=== PATIENT | female | born 1940 | race Caucasian/White ===

== ENCOUNTER 2020-03-08 20:06 | Emergency (ER) | payer OTHER, SELFPAY ==
[2020-03-08 20:10] VITALS: BP 195/90; PULSE 60; RESP 18; TEMP 36.6; O2SAT 98
--- NOTE | 2020-03-08 20:16 | DI.RAD.S_ITS ---
PROCEDURE: XR ELBOW RT MIN 3V INDICATIONS: fall with pain and swelling. TECHNIQUE: 3 views of the elbow were acquired. COMPARISON: None. FINDINGS: Bones: No dislocations. No suspicious bony lesions. There is a diagonal fracture through the olecranon into the articular surface, from dorsal approach. The radial head does not appear fractured or displaced. There is a joint effusion both anteriorly and posteriorly. Soft tissues: No elbow joint effusion. No suspicious soft tissue calcifications. IMPRESSION: Moderately displaced diagonal fracture through the olecranon extending into the articular surface, with displacement of the fracture planes by at least 7 mm from anatomic position. Secondary joint effusion. Dictated by: Jesus Diana M.D. on 03/08/2020 at 20:52 Approved by: Jesus Diana M.D. on 03/08/2020 at 20:58
[2020-03-08 20:38] VITALS: BP 172/89; PULSE 59; RESP 16; O2SAT 98
--- NOTE | 2020-03-08 20:45 | ED_ITS ---
HPI - Extremity Injury (Upper) General Chief Complaint: Extremity Injury, Upper Stated Complaint: Right Elbow injury Time Seen by Provider: 03/08/20 20:40 Source: patient Mode of arrival: Ambulatory Limitations: no limitations History of Present Illness HPI narrative: This is a 79-year-old who comes to the emergency department with complaint of right elbow pain. [place] she tripped over a small log or stick and fell onto her right elbow. She denies hitting her head she denies any neck or back pain or other injuries. She states it is quite swollen and she does have pain. She states it feels like there is a fracture or break. She has been able to straighten the elbow but it is painful. She denies any numbness, tingling or weakness. Patient states that she does not have any difficulty with movement in her lower extremity but if she poly packer and heat sealer or squeezes her hands a lot it makes it more uncomfortable in the elbow. She is right handed. She states she has a history of hypertension and takes medication for this, she denies any other blood thinners or allergens. Related Data Previous Rx's Medication Instructions Recorded hydrocodone-acetaminophen [Winthrop] 1 tab PO Q6H PRN #20 tab 03/08/20 Allergies Allergy/AdvReac Type Severity Reaction Status Date / Time No Known Drug Allergies Allergy Verified 03/08/20 20:17 Review of Systems Review of Systems ROS Unobtainable: All systems reviewed & are unremarkable except as noted in HPI and below Patient History Medical History (Updated 03/08/20 @ 21:07 by Natalie Marie DO) Hypertension (Acute) Social History Smoking Status: Never smoker Smoking Status: Never smoker Substance Use Type: does not use Exam Narrative Exam Narrative: GENERAL: Alert and oriented x three, thin, well-nourished female in mild distress. HEENT: Head normocephalic, atraumatic, EOMI, pupils reactive, face symmetric, moist mucous membranes NECK: Supple, full range of motion CARDIOVASCULAR: Regular rate and rhythm without murmurs, rubs or gallops. RESPIRATORY: Breath sounds equal bilaterally, no wheezes rales or rhonchi. ABDOMEN: Soft, nontender. Normoactive bowel sounds all 4 quadrants. No guarding or rebound, rigidity, no mass EXTREMITIES: Decreased range of motion of the right elbow, patient has a moderate-sized hematoma over the elbow and proximal olecranon, patient does have tenderness over the right elbow. She does not have any bony tenderness of the distal arm, wrist or hand, no clubbing or edema. Patient has 2+ radial pulse. She has normal sensation throughout all 5 fingers with normal flexion extension, poly packer and heat sealer are equal bilaterally. Neurovascularly intact NEUROLOGICAL: Cranial nerves II through XII grossly intact. Moving all extremities SKIN: Warm, dry, no petechiae, no rashes or lacerations. + for ecchymosis over the right elbow. Initial Vital Signs Initial Vital Signs: Vital Signs Temperature 97.9 F 03/08/20 20:10 Pulse Rate 60 03/08/20 20:10 Respiratory Rate 18 03/08/20 20:10 Blood Pressure 195/90 H 03/08/20 20:10 Pulse Oximetry 98 03/08/20 20:10 Course Orders Ordered: ED Orders 03/08/20 20:16 XR elbow RT min 3V Stat Discontinued Medications Hydrocodone Bitart/Acetaminophen (Vicodin 5/325 Prepack) 1 bottle MISC SEEINSTR ONE Stop: 03/08/20 21:19 Last Admin: 03/08/20 21:38 Dose: 1 bottle Documented by: [email or web address] Vital Signs Vital signs: Vital Signs - 8 hr 03/08/20 20:10 03/08/20 20:38 Temperature 97.9 F Pulse Rate 60 59 L Respiratory Rate 18 16 Blood Pressure 195/90 H Blood Pressure [Left Arm] 172/89 H Pulse Oximetry 98 98 MDM - Extremity Injury (Upper) Imaging Data elbow xray: Radiologist's Impression: [address] [address] XRay Report Signed Patient: Samara Winslow RMR#: [id number] : 2Acct:[id number] Age/Sex: 79 / FDate of Service: 03/08/20 Loc: ED Accession Number: [id number] Procedure: XR elbow RT min 3V Ordering Provider: Natalie Marie D.O. PROCEDURE: XR ELBOW RT MIN 3V INDICATIONS: fall with pain and swelling. TECHNIQUE: 3 views of the elbow were acquired. COMPARISON: None. FINDINGS: Bones: No dislocations. No suspicious bony lesions. There is a diagonal fracture through the olecranon into the articular surface, from dorsal approach. The radial head does not appear fractured or displaced. There is a joint effusion both anteriorly and posteriorly. Soft tissues: No elbow joint effusion. No suspicious soft tissue calcifications. IMPRESSION: Moderately displaced diagonal fracture through the olecranon extending into the articular surface, with displacement of the fracture planes by at least 7 mm from anatomic position. Secondary joint effusion. Dictated by: Jesus Diana M.D. on 03/08/2020 at 20:52 Approved by: Jesus Diana M.D. on 03/08/2020 at 20:58 [facility] [place] Narrative Medical decision making narrative: Spoke with Dr. Kulkarni who reviewed patient's images. She feels patient may be able to be cared for with nonsurgical intervention. Plan to place patient in a slightly extended or 30? of extension on her elbow. Patient states this feels quite comfortable. Given Winthrop prepack and prescription for Winthrop pain medication and plan to follow-up in the next week with Orthopedic surgery. Strict return precautions were given to patient verbally and written. Patient expresses understanding. Recheck after splint was adjusted to 30 degrees flexion and patient feels much more comfortable in her elbow and is neurovascularly intact. Discharge Plan Departure Patient Disposition: Home Clinical Impression: Closed olecranon fracture Qualifiers: Encounter type: initial encounter Laterality: right Qualified Code(s): S52.021A - Displaced fracture of olecranon process without intraarticular extension of right ulna, initial encounter for closed fracture Discharge Date/Time: 03/08/20 21:30 Instructions: DI for Elbow Fracture Activity Restrictions/Additional Instructions: Follow-up with Orthopedic surgery, call Wednesday morning for an appointment. Let them know you were seen in the emergency room that the orthopedic surgeon would like you seen at the end of the week. You may take Tylenol up to a 1000 mg every 8 hours as needed for pain. If this is not adequate you may take narcotic pain medication but this also has Tylenol in it to do not take more than 3000 mg of Tylenol or acetaminophen in 24 hours. Take pain medications as prescribed, these medications can make you sleepy do not drive, perform hazardous activities or make any major decisions while taking them. Splint Care: Keep splint clean and dry. Elevated affected body part to decrease swelling. OK to use ice pack on the affected body part. Use for 15-20 minutes each time, for 5-6x per day. If you develop worsening pain, numbness, tingling, discoloration of the affected body part, loosen the splint by loosening the KEILY wrap, and either see your doctor for an urgent re-assessment, or return to the Emergency Department. Return to the Emergency Department for any new or worsening symptoms. Prescriptions: New hydrocodone-acetaminophen [Winthrop] 5-325 mg tablet 1 tab PO Q6H PRN (Reason: pain) Qty: 20 RF: 0 Referrals: Itzel Ariza MD [Physician] -
[2020-03-08] MEDS: HYDROCODONE/ACET 5/325 PREPACK 1 BOTTLE MISC (21:38)
== END 2020-03-08 21:30 | disposition home or self-care (01) ==
PROVIDERS: Emergency Provider Emergency Medicine
DX: S52.021A Displaced fracture of olecranon process without intraarticular extension of right ulna, initial encounter for closed fracture (principal); W19.XXXA Unspecified fall, initial encounter; I10 Essential (primary) hypertension
CPT/HCPCS: 29105; 73080; 99283; 99284

== ENCOUNTER 2022-07-22 09:45 | Outpatient (RCR) | payer OTHER, SELFPAY ==
--- NOTE | 2022-03-26 12:25 | PT.OIE ---
Current Diagnoses Cervicalgia (03/26/22) History of falling (03/26/22) Past Medical History (Last Updated 03/08/20 @ 21:04 by Natalie Marie DO) Hypertension Visit Care Team Role Provider Type Kalpesh Davila MD Attending Provider Non-Staff Family Provider Primary Care Provider Referring Provider Specialty: Internal Medicine Address: [address] [place] [address], [id number] Email: Physical Therapy Initial Evaluation PT-OP-A Visit Information Start: 03/26/22 09:27 Freq: Status: Active Protocol: Document 03/26/22 09:45 [facility] (Rec: 03/26/22 09:59 [facility] [id number]) Out-Patient Physical Therapy Visit Information Visit Information Visit Type Initial Evaluation Visit Start Time 09:45 Visit Stop Time 10:30 Total Visit Minutes 45 Visit Number 1 Evaluation Information Evaluation Date 03/26/22 PT-OP-B Current Condition Start: 03/26/22 09:27 Freq: Status: Active Protocol: Document 03/26/22 09:45 [facility] (Rec: 03/26/22 09:59 [facility] [id number]) Current Condition History of Current Condition Onset Date November 15 Current Complaints left sided neck pain History of Current Condition Samara is a 81 year old female who fell on November 15 at home hitting a bench on the way down with her head, her glasses broke and gouged her face just missing her eye. She has seen the eye doctor and has full vision. She triped over her dog. She hit the right side of her chin and she bruised a lot. She couldn't drive and there was no one around to drive her. She started feeling left sided neck pain, she could feel crunching of her neck and she had pain that was along the left side of her neck. SHe was very restricted in her ROM and it took about a month for it to heal up. Pain is intermittent and it can come on which computer work. The more movement she gives her neck the better she is. She has fallen several times. Treatment Goals Patient/Caregiver Goals goals include decreasing neck pain and improving balance Current Functional Impairments (Reported) Functional Limitations- ADL's computer work increases neck pain, moderate difficulty opening a tight or new jar Functional Limitations- Other sleep is disturbed 1-2 hour sleep loss pt can drive her can as long as she needs but with slight pain PT-OP-C Subjective Start: 03/26/22 09:27 Freq: Status: Active Protocol: Document 03/26/22 09:45 [facility] (Rec: 03/31/22 10:19 [facility] [id number]) Patient Questionnaires Neck Disability Index NDI Score 11 Neck Disability Index Impairment 20 to 39% Impaired (Score 10- 19) Quick Dash- Upper Extremity Quick Dash UE Score 24 Quick Dash UE Impairment 20 to 39% Impaired (Score 20- 39) OP-PT Pain Assessment Pain Assessment Grid Paper Pain Assessment Grid Completed Yes Location cervical spine L>R Intensity 4 Scale Used Numeric (0 - 10) Description Aching Description- Other pain worsens when working on the computer PT-OP-F Manual Assessment Start: 03/26/22 09:27 Freq: Status: Active Protocol: Document 03/26/22 09:45 [facility] (Rec: 03/31/22 10:19 [facility] [id number]) Manual Assessments Soft Tissue Assessment Soft Tissue Mobility Assessment suboccipital tightness B, scalene tightness L>R, SCM tightness L, Upper trapezius tightness B, pec minor tightness R Joint Mobility Assessment Joint Mobility Assessment Decreased upper cervical flexion, pt tends to extend from upper cervical spine contributing to suboccitpital tightness Decreased cervical sidebending and rotation B with pain on the left C4-5 region with cervical sidebending and rotation thoracic spine hypomobility PT-OP-K Range of Motion Start: 03/26/22 09:27 Freq: Status: Active Protocol: Document 03/26/22 09:45 [facility] (Rec: 03/31/22 10:19 [facility] [id number]) Cervical Spine Range of Motion Cervical Spine Active Testing Position Sitting Flexion 30 Extension 20 Rotation Left 40 Rotation Right 35 Lateral Flexion Left 15 Lateral Flexion Right 15 ROM Limitations Soft Tissue Tightness,Pain Comments increased pain with sidebending and rotation on the left PT-OP-M Strength Start: 03/26/22 09:27 Freq: Status: Active Protocol: Document 03/26/22 09:45 [facility] (Rec: 03/31/22 10:19 [facility] [id number]) Scapula Strength Scapula Manual Muscle Testing Right Adduction 3 Fair Depression 3 Fair Comments poor scapula retraction, upper trapezius tightness limits scapular depression Left Adduction 3 Fair Depression 3 Fair Comments poor scapula retraction, upper trapezius tightness limits scapular depression PT-OP-Q Treatments Start: 03/26/22 09:27 Freq: Status: Active Protocol: Document 03/26/22 09:45 [facility] (Rec: 03/31/22 10:19 [facility] [id number]) Therapeutic Exercises Supine Exercises supine chin tucks Reps/Minutes x 10 Comments pt educated on chin retraction and taught in both supine and sitting Sitting Exercises seated scapula retraction Reps/Minutes x 10 reps holding 5 seconds seated scalene stretch Reps/Minutes hold 30 seconds each side with hand under the chair Manual Therapy Treatment Soft Tissue Mobilization gentle STM over the left upper trap, scalenes, pec minor Body Position Supine Comments good tolerance for tx suboccipital release Body Location supine Mobilization Type Myofascial Release Intensity/Depth Moderate Body Position Supine Comments good tolerance and relief noted PT-OP-T Assessment and Plan Start: 03/26/22 09:27 Freq: Status: Active Protocol: Document 03/26/22 09:45 [facility] (Rec: 03/31/22 10:23 [facility] [id number]) Physical Therapy Assessment Rehab Potential Rehabilitation Potential Good Evaluation Complexity Number of Personal Factors/Comorbidities 0 Number of Body Systems Impaired 1-2 Clinical Presentation at Evaluation Stable Impairments Impairments Activity Tolerance,Functional Activities,Functional Mobility ,Gait,Pain,Posture,Soft Tissue Mobility,Strength Goals 3 Impairment poor postural habits at the computer leading to increased neck pain, tightness in the anterior pectoralis muscles and stretch weakness of the thoracic stabilizers Short Term Goal (STG) Samara is educated on stretches for her anterior chest and exercises for her scapular stabilizers to improve posture and decrease pain STG Duration 4 weeks Fdc Goal (LTG) Overall there is improved mobility of the pec minor and improved strength of the scapula stabilizers to 4/5 or better for improved posture LTG Duration 12 weeks 2 Impairment Decreased cervical spine ROM with sidebending and rotation ROM reproducing left sided neck pain and c/o her neck crunching Administrative Staff Supervisor Goal (LTG) Samara presents with improvements of her cervical ROM without reproduction of left sided neck pain. She is independent with a home cervical stretching and ROM program LTG Duration 12 weeks 1 Impairment Left sided cervcial spine pain rated 4/10 worse with computer activity. Short Term Goal (STG) Samara is educated in neck stretches she can do while at the computer as well as proper ergonomic set up for her computer STG Duration 2 weeks Administrative Staff Supervisor Goal (LTG) Samara reports a overall reduction in her neck pain reducing pain to 2/10 or less LTG Duration 12 weeks Assessment Summary Assessment Samara is a 81 year old female referred to PT for complaints of L>R sided neck pain that began following a fall. Samara reports she took a fall on November 15 2021 at home from a standing position after tripping over her dog hitting a bench with the right side of her head and chin. The jolt from her fall resulted in neck pain. She was unable to drive for a period of time due to healing from her fall and the neck pain. She notes her pain is slowly decreasing and rates it as 4/10 at this time. She describes a crunching feeling in her neck when she turns her head. Time spent on the computer increases her complaints of pain. With examination today Samara is tight in her suboccipital muscles with increased upper neck extension . She has ROM limitations with sidebending and rotation with pain produced on the left with end range sidebending and rotation. There is tightness in the scalenes, upper trapezius, SCM, and pec minor. Shoulders tend to round forward with tightness in the thoracic spine. I began treatment today for Samara working on computer posture, stretches and manual therapy STM for the neck musculature. She tolerated this well. Samara would also benefit from balance training and a balance evaluation as she has had a few falls at home. Physical Therapy Plan Frequency and Duration Frequency of Treatment 2x/Week Duration of Treatment 12 Plan of Care Start Date 03/26/22 Plan of Care End Date 06/25/22 Therapeutic Interventions Therapeutic Interventions Balance Training,Home Exercise Program,Manual Therapy, Patient/Caregiver Education, Self-Care/Home Management,Soft Tissue Mobilization, Therapeutic Exercises Modalities Cold Pack/Ice Massage,Hot Packs Next Visit Focus/Plan Next Note Type Treatment Note Next Visit Plan begin working with a 1/2 foam roll for stretching the pec minor, review stretches for the cervical spine, manual therapy techniques for the fascia and neck muscular
--- NOTE | 2022-03-26 12:26 | PT.OPPOC ---
Physical, Occupational & Speech Therapy At [facility] Current Diagnoses Cervicalgia (03/26/22) History of falling (03/26/22) Visit Care Team Role Provider Type Kalpesh Davila MD Attending Provider Non-Staff Family Provider Primary Care Provider Referring Provider Specialty: Internal Medicine Address: [address] [place] [address], [id number] Email: Plan Of Care PT-OP-T Assessment and Plan Start: 03/26/22 09:27 Freq: Status: Active Protocol: Document 03/26/22 09:45 [facility] (Rec: 03/31/22 10:23 [facility] [id number]) Physical Therapy Assessment Rehab Potential Rehabilitation Potential Good Evaluation Complexity Number of Personal Factors/Comorbidities 0 Number of Body Systems Impaired 1-2 Clinical Presentation at Evaluation Stable Impairments Impairments Activity Tolerance,Functional Activities,Functional Mobility ,Gait,Pain,Posture,Soft Tissue Mobility,Strength Goals 3 Impairment poor postural habits at the computer leading to increased neck pain, tightness in the anterior pectoralis muscles and stretch weakness of the thoracic stabilizers Short Term Goal (STG) Samara is educated on stretches for her anterior chest and exercises for her scapular stabilizers to improve posture and decrease pain STG Duration 4 weeks Book Store Associate Goal (LTG) Overall there is improved mobility of the pec minor and improved strength of the scapula stabilizers to 4/5 or better for improved posture LTG Duration 12 weeks 2 Impairment Decreased cervical spine ROM with sidebending and rotation ROM reproducing left sided neck pain and c/o her neck crunching Book Store Associate Goal (LTG) Samara presents with improvements of her cervical ROM without reproduction of left sided neck pain. She is independent with a home cervical stretching and ROM program LTG Duration 12 weeks 1 Impairment Left sided cervical spine pain rated 4/10 worse with computer activity. Short Term Goal (STG) Samara is educated in neck stretches she can do while at the computer as well as proper ergonomic set up for her computer STG Duration 2 weeks Mcfp Goal (LTG) Samara reports a overall reduction in her neck pain reducing pain to 2/10 or less LTG Duration 12 weeks Assessment Summary Assessment Samara is a 81 year old female referred to PT for complaints of L>R sided neck pain that began following a fall. Samara reports she took a fall on November 15 2021 at home from a standing position after tripping over her dog hitting a bench with the right side of her head and chin. The jolt from her fall resulted in neck pain. She was unable to drive for a period of time due to healing from her fall and the neck pain. She notes her pain is slowly decreasing and rates it as 4/10 at this time. She describes a crunching feeling in her neck when she turns her head. Time spent on the computer increases her complaints of pain. With examination today Samara is tight in her suboccipital muscles with increased upper neck extension . She has ROM limitations with sidebending and rotation with pain produced on the left with end range sidebending and rotation. There is tightness in the scalenes, upper trapezius, SCM, and pec minor. Shoulders tend to round forward with tightness in the thoracic spine. I began treatment today for Samara working on computer posture, stretches and manual therapy STM for the neck musculature. She tolerated this well. Samara would also benefit from balance training and a balance evaluation as she has had a few falls at home. Physical Therapy Plan Frequency and Duration Frequency of Treatment 2x/Week Duration of Treatment 12 Plan of Care Start Date 03/26/22 Plan of Care End Date 06/25/22 Therapeutic Interventions Therapeutic Interventions Balance Training,Home Exercise Program,Manual Therapy, Patient/Caregiver Education, Self-Care/Home Management,Soft Tissue Mobilization, Therapeutic Exercises Modalities Cold Pack/Ice Massage,Hot Packs Next Visit Focus/Plan Next Note Type Treatment Note Next Visit Plan begin working with a 1/2 foam roll for stretching the pec minor, review stretches for the cervical spine, manual therapy techniques for the fascia and neck muscular Plan of Care Dates Plan of Care Start Date 03/26/22 Plan of Care End Date 06/25/22 Electronically Signed by: Lainey Thomson, PT 03/31/22 7941 If you are in agreement with this Plan of Care, please return a signed and dated copy. I have reviewed this Plan of Care and certify that the skilled therapy services above are required to meet the patient?s needs. Physician Signature Date Printed Name and Credentials Clinical Instructor Signature Printed Name and Credentials
--- NOTE | 2022-04-02 12:29 | PT.OTN ---
Current Diagnoses Cervicalgia (04/02/22) History of falling (04/02/22) Physical Therapy Treatment Note PT-OP-A Visit Information Start: 03/26/22 09:27 Freq: Status: Active Protocol: Document 04/02/22 09:43 [facility] (Rec: 04/02/22 10:33 [facility] [id number]) Out-Patient Physical Therapy Visit Information Visit Information Visit Type Treatment Note Visit Start Time 09:45 Visit Stop Time 10:30 Total Visit Minutes 45 Visit Number 2 PT-OP-B Current Condition Start: 03/26/22 09:27 Freq: Status: Active Protocol: Document 03/26/22 09:45 [facility] (Rec: 03/26/22 09:59 [facility] [id number]) Current Condition History of Current Condition Onset Date November 15 Current Complaints left sided neck pain History of Current Condition Samara is a 81 year old female who fell on November 15 at home hitting a bench on the way down with her head, her glasses broke and gouged her face just missing her eye. She has seen the eye doctor and has full vision. She triped over her dog. She hit the right side of her chin and she bruised a lot. She couldn't drive and there was no one around to drive her. She started feeling left sided neck pain, she could feel crunching of her neck and she had pain that was along the left side of her neck. SHe was very restricted in her ROM and it took about a month for it to heal up. Pain is intermittent and it can come on which computer work. The more movement she gives her neck the better she is. She has fallen several times. Treatment Goals Patient/Caregiver Goals goals include decreasing neck pain and improving balance Current Functional Impairments (Reported) Functional Limitations- ADL's computer work increases neck pain, moderate difficulty opening a tight or new jar Functional Limitations- Other sleep is disturbed 1-2 hour sleep loss pt can drive her can as long as she needs but with slight pain PT-OP-C Subjective Start: 03/26/22 09:27 Freq: Status: Active Protocol: Document 04/02/22 09:43 [facility] (Rec: 04/02/22 10:33 [facility] [id number]) OP-PT Subjective Patient Comments Patient Comments pt reports the stretches are really helping, the crunching in my neck is almost gone. Patient Reported Progress Improving PT-OP-F Manual Assessment Start: 03/26/22 09:27 Freq: Status: Active Protocol: Document 03/26/22 09:45 [facility] (Rec: 03/31/22 10:19 [facility] [id number]) Manual Assessments Soft Tissue Assessment Soft Tissue Mobility Assessment suboccipital tightness B, scalene tightness L>R, SCM tightness L, Upper trapezius tightness B, pec minor tightness R Joint Mobility Assessment Joint Mobility Assessment Decreased upper cervical flexion, pt tends to extend from upper cervical spine contributing to suboccitpital tightness Decreased cervical sidebending and rotation B with pain on the left C4-5 region with cervical sidebending and rotation thoracic spine hypomobility PT-OP-K Range of Motion Start: 03/26/22 09:27 Freq: Status: Active Protocol: Document 03/26/22 09:45 [facility] (Rec: 03/31/22 10:19 [facility] [id number]) Cervical Spine Range of Motion Cervical Spine Active Testing Position Sitting Flexion 30 Extension 20 Rotation Left 40 Rotation Right 35 Lateral Flexion Left 15 Lateral Flexion Right 15 ROM Limitations Soft Tissue Tightness,Pain Comments increased pain with sidebending and rotation on the left PT-OP-M Strength Start: 03/26/22 09:27 Freq: Status: Active Protocol: Document 03/26/22 09:45 [facility] (Rec: 03/31/22 10:19 [facility] [id number]) Scapula Strength Scapula Manual Muscle Testing Right Adduction 3 Fair Depression 3 Fair Comments poor scapula retraction, upper trapezius tightness limits scapular depression Left Adduction 3 Fair Depression 3 Fair Comments poor scapula retraction, upper trapezius tightness limits scapular depression PT-OP-Q Treatments Start: 03/26/22 09:27 Freq: Status: Active Protocol: Document 04/02/22 09:43 [facility] (Rec: 04/02/22 10:33 [facility] [id number]) Therapeutic Exercises Sitting Exercises seated chin tuck Reps/Minutes x 10 reps Comments cues for gentle upper cervical flexion seated chest openers with foam roll behind back Sitting Exercise Name small foam roll behind throacic while seated in a chair Reps/Minutes x 5 min of stretching Comments shoulder ER, abduction seated scapula retraction Reps/Minutes x 10 Comments while seated with foam roll behind thoracic spine seated scalene stretch Reps/Minutes 2 reps holding 30-60 seconds each Manual Therapy Treatment Soft Tissue Mobilization gentle STM over the left upper trap, scalenes, pec minor Mobilization Type Myofascial Release Intensity/Depth Moderate Body Position Hooklying Comments good tolerance for tx suboccipital release Body Location supine Mobilization Type Myofascial Release Intensity/Depth Moderate Body Position Supine Comments good tolerance and relief noted Manual Techniques gentle manual cervcial traction Reps/Duration x 4 reps with 10 second holds Comments good tolerance cervcial ROM into SB and roation PROM Reps/Duration x 4 min PT-OP-T Assessment and Plan Start: 03/26/22 09:27 Freq: Status: Active Protocol: Document 04/02/22 09:45 [facility] (Rec: 04/02/22 12:28 [facility] [id number]) Physical Therapy Assessment Assessment Summary Assessment I worked with Samara in sitting today with both a small ball and then a short foam roll to open up her chest. She has a history of right elbow fracture and this affected her right shoulder. She has tightness with lifting the right shoulder, PROM is much better than active. She felt really good with the chest openers and was given hand outs for home. Her cervical ROM was improved today from initial evaluation and she is not feeling the crunching in her neck she was. As her neck starts to feel better it will be good to also incorporate balance exercises into her therapy Physical Therapy Plan Frequency and Duration Frequency of Treatment 2x/Week Duration of Treatment 12 Plan of Care Start Date 03/26/22 Plan of Care End Date 06/25/22 Therapeutic Interventions Therapeutic Interventions Balance Training,Home Exercise Program,Manual Therapy, Patient/Caregiver Education, Self-Care/Home Management,Soft Tissue Mobilization, Therapeutic Exercises Modalities Cold Pack/Ice Massage,Hot Packs Next Visit Focus/Plan Next Note Type Treatment Note Next Visit Plan continue with seated chest openers, work on right shoulder ROM active and passive, scapula stabilization and stretches and manual work for the neck.
--- NOTE | 2022-04-06 13:40 | PT.OTN ---
Current Diagnoses Cervicalgia (04/06/22) History of falling (04/06/22) Physical Therapy Treatment Note PT-OP-A Visit Information Start: 03/26/22 09:27 Freq: Status: Active Protocol: Document 04/06/22 12:03 [facility] (Rec: 04/06/22 12:56 [facility] [id number]) Out-Patient Physical Therapy Visit Information Visit Information Visit Type Treatment Note Visit Start Time 12:00 Visit Stop Time 12:48 Total Visit Minutes 48 Visit Number 3 Number of [employer]OPER Visits 1 PT-OP-B Current Condition Start: 03/26/22 09:27 Freq: Status: Active Protocol: Document 03/26/22 09:45 [facility] (Rec: 03/26/22 09:59 [facility] [id number]) Current Condition History of Current Condition Onset Date November 15 Current Complaints left sided neck pain History of Current Condition Samara is a 81 year old female who fell on November 15 at home hitting a bench on the way down with her head, her glasses broke and gouged her face just missing her eye. She has seen the eye doctor and has full vision. She triped over her dog. She hit the right side of her chin and she bruised a lot. She couldn't drive and there was no one around to drive her. She started feeling left sided neck pain, she could feel crunching of her neck and she had pain that was along the left side of her neck. SHe was very restricted in her ROM and it took about a month for it to heal up. Pain is intermittent and it can come on which computer work. The more movement she gives her neck the better she is. She has fallen several times. Treatment Goals Patient/Caregiver Goals goals include decreasing neck pain and improving balance Current Functional Impairments (Reported) Functional Limitations- ADL's computer work increases neck pain, moderate difficulty opening a tight or new jar Functional Limitations- Other sleep is disturbed 1-2 hour sleep loss pt can drive her can as long as she needs but with slight pain PT-OP-C Subjective Start: 03/26/22 09:27 Freq: Status: Active Protocol: Document 04/06/22 12:03 [facility] (Rec: 04/06/22 12:56 [facility] [id number]) OP-PT Subjective Patient Comments Patient Comments Pt brought bouy for exercises today. PT-OP-F Manual Assessment Start: 03/26/22 09:27 Freq: Status: Active Protocol: Document 03/26/22 09:45 [facility] (Rec: 03/31/22 10:19 [facility] [id number]) Manual Assessments Soft Tissue Assessment Soft Tissue Mobility Assessment suboccipital tightness B, scalene tightness L>R, SCM tightness L, Upper trapezius tightness B, pec minor tightness R Joint Mobility Assessment Joint Mobility Assessment Decreased upper cervical flexion, pt tends to extend from upper cervical spine contributing to suboccitpital tightness Decreased cervical sidebending and rotation B with pain on the left C4-5 region with cervical sidebending and rotation thoracic spine hypomobility PT-OP-K Range of Motion Start: 03/26/22 09:27 Freq: Status: Active Protocol: Document 03/26/22 09:45 [facility] (Rec: 03/31/22 10:19 [facility] [id number]) Cervical Spine Range of Motion Cervical Spine Active Testing Position Sitting Flexion 30 Extension 20 Rotation Left 40 Rotation Right 35 Lateral Flexion Left 15 Lateral Flexion Right 15 ROM Limitations Soft Tissue Tightness,Pain Comments increased pain with sidebending and rotation on the left PT-OP-M Strength Start: 03/26/22 09:27 Freq: Status: Active Protocol: Document 03/26/22 09:45 [facility] (Rec: 03/31/22 10:19 [facility] [id number]) Scapula Strength Scapula Manual Muscle Testing Right Adduction 3 Fair Depression 3 Fair Comments poor scapula retraction, upper trapezius tightness limits scapular depression Left Adduction 3 Fair Depression 3 Fair Comments poor scapula retraction, upper trapezius tightness limits scapular depression PT-OP-Q Treatments Start: 03/26/22 09:27 Freq: Status: Active Protocol: Document 04/06/22 12:03 [facility] (Rec: 04/06/22 12:56 MA [id number]) Therapeutic Exercises Supine Exercises Foam Roller Supine Exercise Name pec stretch, thoracic extension Equipment Used 1/2 roller Comments d/c due to difficulty with exercises while supine Sitting Exercises seated chin tuck Reps/Minutes x 10 reps Comments cues for gentle upper cervical flexion seated chest openers with foam roll behind back Sitting Exercise Name small foam roll behind throacic while seated in a chair Reps/Minutes x 5 min of stretching Comments shoulder ER, abduction seated scapula retraction Reps/Minutes x 10 Comments while seated with foam roll behind thoracic spine seated scalene stretch Sitting Exercise Name UT and scalestarla stretches today Reps/Minutes 2 reps holding 30-60 seconds each Manual Therapy Treatment Soft Tissue Mobilization gentle STM over the left upper trap, scalenes, pec minor Mobilization Type Myofascial Release Intensity/Depth Moderate Body Position Hooklying Comments good tolerance for tx suboccipital release Body Location supine Mobilization Type Myofascial Release Intensity/Depth Moderate Body Position Supine Comments good tolerance and relief noted Manual Techniques gentle manual cervcial traction Reps/Duration x 4 reps with 10 second holds Comments good tolerance PT-OP-T Assessment and Plan Start: 03/26/22 09:27 Freq: Status: Active Protocol: Document 04/06/22 12:03 [facility] (Rec: 04/06/22 12:56 [facility] [id number]) Physical Therapy Assessment Goals 3 Impairment poor postural habits at the computer leading to increased neck pain, tightness in the anterior pectoralis muscles and stretch weakness of the thoracic stabilizers Short Term Goal (STG) Samara is educated on stretches for her anterior chest and exercises for her scapular stabilizers to improve posture and decrease pain STG Duration 4 weeks Alf Goal (LTG) Overall there is improved mobility of the pec minor and improved strength of the scapula stabilizers to 4/5 or better for improved posture LTG Duration 12 weeks 2 Impairment Decreased cervical spine ROM with sidebending and rotation ROM reproducing left sided neck pain and c/o her neck crunching Alf Goal (LTG) Samara presents with improvements of her cervical ROM without reproduction of left sided neck pain. She is independent with a home cervical stretching and ROM program LTG Duration 12 weeks 1 Impairment Left sided cervcial spine pain rated 4/10 worse with computer activity. Short Term Goal (STG) Samara is educated in neck stretches she can do while at the computer as well as proper ergonomic set up for her computer STG Duration 2 weeks Scanner Supervisor Goal (LTG) Samara reports a overall reduction in her neck pain reducing pain to 2/10 or less LTG Duration 12 weeks Assessment Summary Assessment Reviewed HEP using pt's bouy for seated exercises to improve stretches. Attempted supine on /2 roller at pt's request to try supine stretches on her bouy. Pt is unable to maintain balance on 1/2 roller and has difficutly getting into positions without increased neck and elbow pain so d/c and instructed pt to continue with seated HEP exercises only as pt would be unable to do anything safely on supine over bouy at home. Physical Therapy Plan Frequency and Duration Frequency of Treatment 2x/Week Duration of Treatment 12 Plan of Care Start Date 03/26/22 Plan of Care End Date 06/25/22 Therapeutic Interventions Therapeutic Interventions Balance Training,Home Exercise Program,Manual Therapy, Patient/Caregiver Education, Self-Care/Home Management,Soft Tissue Mobilization, Therapeutic Exercises Modalities Cold Pack/Ice Massage,Hot Packs Next Visit Focus/Plan Next Note Type Treatment Note Next Visit Plan continue with seated chest openers, work on right shoulder ROM active and passive, scapula stabilization and stretches and manual work for the neck.
--- NOTE | 2022-04-09 12:25 | PT.OTN ---
Current Diagnoses Cervicalgia (04/09/22) History of falling (04/09/22) Physical Therapy Treatment Note PT-OP-A Visit Information Start: 03/26/22 09:27 Freq: Status: Active Protocol: Document 04/09/22 09:34 [facility] (Rec: 04/09/22 10:33 [facility] [id number]) Out-Patient Physical Therapy Visit Information Visit Information Visit Type Treatment Note Visit Start Time 09:45 Visit Stop Time 10:30 Total Visit Minutes 45 Visit Number 4 PT-OP-B Current Condition Start: 03/26/22 09:27 Freq: Status: Active Protocol: Document 03/26/22 09:45 [facility] (Rec: 03/26/22 09:59 [facility] [id number]) Current Condition History of Current Condition Onset Date November 15 Current Complaints left sided neck pain History of Current Condition Samara is a 81 year old female who fell on November 15 at home hitting a bench on the way down with her head, her glasses broke and gouged her face just missing her eye. She has seen the eye doctor and has full vision. She triped over her dog. She hit the right side of her chin and she bruised a lot. She couldn't drive and there was no one around to drive her. She started feeling left sided neck pain, she could feel crunching of her neck and she had pain that was along the left side of her neck. SHe was very restricted in her ROM and it took about a month for it to heal up. Pain is intermittent and it can come on which computer work. The more movement she gives her neck the better she is. She has fallen several times. Treatment Goals Patient/Caregiver Goals goals include decreasing neck pain and improving balance Current Functional Impairments (Reported) Functional Limitations- ADL's computer work increases neck pain, moderate difficulty opening a tight or new jar Functional Limitations- Other sleep is disturbed 1-2 hour sleep loss pt can drive her can as long as she needs but with slight pain PT-OP-C Subjective Start: 03/26/22 09:27 Freq: Status: Active Protocol: Document 04/09/22 09:34 [facility] (Rec: 04/09/22 10:33 [facility] [id number]) OP-PT Subjective Patient Comments Patient Comments pt reports her neck is doing better, she is not feeling the crunching as much PT-OP-F Manual Assessment Start: 03/26/22 09:27 Freq: Status: Active Protocol: Document 03/26/22 09:45 [facility] (Rec: 03/31/22 10:19 [facility] [id number]) Manual Assessments Soft Tissue Assessment Soft Tissue Mobility Assessment suboccipital tightness B, scalene tightness L>R, SCM tightness L, Upper trapezius tightness B, pec minor tightness R Joint Mobility Assessment Joint Mobility Assessment Decreased upper cervical flexion, pt tends to extend from upper cervical spine contributing to suboccitpital tightness Decreased cervical sidebending and rotation B with pain on the left C4-5 region with cervical sidebending and rotation thoracic spine hypomobility PT-OP-K Range of Motion Start: 03/26/22 09:27 Freq: Status: Active Protocol: Document 03/26/22 09:45 [facility] (Rec: 03/31/22 10:19 [facility] [id number]) Cervical Spine Range of Motion Cervical Spine Active Testing Position Sitting Flexion 30 Extension 20 Rotation Left 40 Rotation Right 35 Lateral Flexion Left 15 Lateral Flexion Right 15 ROM Limitations Soft Tissue Tightness,Pain Comments increased pain with sidebending and rotation on the left PT-OP-M Strength Start: 03/26/22 09:27 Freq: Status: Active Protocol: Document 03/26/22 09:45 [facility] (Rec: 03/31/22 10:19 [facility] [id number]) Scapula Strength Scapula Manual Muscle Testing Right Adduction 3 Fair Depression 3 Fair Comments poor scapula retraction, upper trapezius tightness limits scapular depression Left Adduction 3 Fair Depression 3 Fair Comments poor scapula retraction, upper trapezius tightness limits scapular depression PT-OP-Q Treatments Start: 03/26/22 09:27 Freq: Status: Active Protocol: Document 04/09/22 09:34 [facility] (Rec: 04/09/22 10:33 [facility] [id number]) Therapeutic Exercises Sitting Exercises seated rows with theraband Resistance level 1 resistance Equipment Used 3 x 10 reps seated chin tuck Reps/Minutes x 10 reps Comments cues for gentle upper cervical flexion seated chest openers with foam roll behind back Sitting Exercise Name small foam roll behind throacic while seated in a chair Reps/Minutes x 5 min of stretching Comments shoulder ER, abduction seated scalene stretch Sitting Exercise Name UT and scalenes stretches today Reps/Minutes 2 reps holding 30-60 seconds each Standing Exercises standing balance Standing Exercise Name feet together eyes open/eyes closed Reps/Minutes 3 x 10 sec holds Comments eyes closed very challanging Manual Therapy Treatment Soft Tissue Mobilization gentle STM over the left upper trap, scalenes, pec minor Mobilization Type Myofascial Release Intensity/Depth Moderate Body Position Hooklying Comments good tolerance for tx suboccipital release Body Location supine Mobilization Type Myofascial Release Intensity/Depth Moderate Body Position Supine Comments good tolerance and relief noted Manual Techniques gentle manual cervcial traction Reps/Duration x 4 reps with 10 second holds Comments good tolerance cervcial ROM into SB and roation PROM Reps/Duration x 4 min PT-OP-T Assessment and Plan Start: 03/26/22 09:27 Freq: Status: Active Protocol: Document 04/09/22 09:45 [facility] (Rec: 04/09/22 12:23 [facility] [id number]) Physical Therapy Assessment Goals 3 Impairment poor postural habits at the computer leading to increased neck pain, tightness in the anterior pectoralis muscles and stretch weakness of the thoracic stabilizers Short Term Goal (STG) Samara is educated on stretches for her anterior chest and exercises for her scapular stabilizers to improve posture and decrease pain STG Duration 4 weeks Residential Goal (LTG) Overall there is improved mobility of the pec minor and improved strength of the scapula stabilizers to 4/5 or better for improved posture LTG Duration 12 weeks 2 Impairment Decreased cervical spine ROM with sidebending and rotation ROM reproducing left sided neck pain and c/o her neck crunching Brim Rounder Goal (LTG) Samara presents with improvements of her cervical ROM without reproduction of left sided neck pain. She is independent with a home cervical stretching and ROM program LTG Duration 12 weeks 1 Impairment Left sided cervcial spine pain rated 4/10 worse with computer activity. Short Term Goal (STG) Samara is educated in neck stretches she can do while at the computer as well as proper ergonomic set up for her computer STG Duration 2 weeks Residential Goal (LTG) Samara reports a overall reduction in her neck pain reducing pain to 2/10 or less LTG Duration 12 weeks Assessment Summary Assessment Pt is doing better with her neck with decreased pain levels. She reports difficulty with turning her head while driving. I started balance exercises for her today and feet together with eyes closed is very challanging for her. Physical Therapy Plan Frequency and Duration Frequency of Treatment 2x/Week Duration of Treatment 12 Plan of Care Start Date 03/26/22 Plan of Care End Date 06/25/22 Therapeutic Interventions Therapeutic Interventions Balance Training,Home Exercise Program,Manual Therapy, Patient/Caregiver Education, Self-Care/Home Management,Soft Tissue Mobilization, Therapeutic Exercises Modalities Cold Pack/Ice Massage,Hot Packs Next Visit Focus/Plan Next Note Type Treatment Note Next Visit Plan continue progressing balance, work on scapular stabilization , cervical rotation
--- NOTE | 2022-04-13 11:03 | PT.OTN ---
Current Diagnoses Cervicalgia (04/13/22) History of falling (04/13/22) Physical Therapy Treatment Note PT-OP-A Visit Information Start: 03/26/22 09:27 Freq: Status: Active Protocol: Document 04/13/22 10:16 MA (Rec: 04/13/22 11:03 MA [id number]) Out-Patient Physical Therapy Visit Information Visit Information Visit Type Treatment Note Visit Start Time 10:18 Visit Stop Time 11:00 Total Visit Minutes 42 Visit Number 5 Number of DIVERSIONAL THERAPIST Visits 1 PT-OP-B Current Condition Start: 03/26/22 09:27 Freq: Status: Active Protocol: Document 03/26/22 09:45 [facility] (Rec: 03/26/22 09:59 [facility] [id number]) Current Condition History of Current Condition Onset Date November 15 Current Complaints left sided neck pain History of Current Condition Samara is a 81 year old female who fell on November 15 at home hitting a bench on the way down with her head, her glasses broke and gouged her face just missing her eye. She has seen the eye doctor and has full vision. She triped over her dog. She hit the right side of her chin and she bruised a lot. She couldn't drive and there was no one around to drive her. She started feeling left sided neck pain, she could feel crunching of her neck and she had pain that was along the left side of her neck. SHe was very restricted in her ROM and it took about a month for it to heal up. Pain is intermittent and it can come on which computer work. The more movement she gives her neck the better she is. She has fallen several times. Treatment Goals Patient/Caregiver Goals goals include decreasing neck pain and improving balance Current Functional Impairments (Reported) Functional Limitations- ADL's computer work increases neck pain, moderate difficulty opening a tight or new jar Functional Limitations- Other sleep is disturbed 1-2 hour sleep loss pt can drive her can as long as she needs but with slight pain PT-OP-C Subjective Start: 03/26/22 09:27 Freq: Status: Active Protocol: Document 04/13/22 10:16 MA (Rec: 04/13/22 11:03 MA [id number]) OP-PT Subjective Patient Comments Patient Comments Pt feels her neck is improving PT-OP-F Manual Assessment Start: 03/26/22 09:27 Freq: Status: Active Protocol: Document 03/26/22 09:45 [facility] (Rec: 03/31/22 10:19 [facility] [id number]) Manual Assessments Soft Tissue Assessment Soft Tissue Mobility Assessment suboccipital tightness B, scalene tightness L>R, SCM tightness L, Upper trapezius tightness B, pec minor tightness R Joint Mobility Assessment Joint Mobility Assessment Decreased upper cervical flexion, pt tends to extend from upper cervical spine contributing to suboccitpital tightness Decreased cervical sidebending and rotation B with pain on the left C4-5 region with cervical sidebending and rotation thoracic spine hypomobility PT-OP-K Range of Motion Start: 03/26/22 09:27 Freq: Status: Active Protocol: Document 03/26/22 09:45 [facility] (Rec: 03/31/22 10:19 [facility] [id number]) Cervical Spine Range of Motion Cervical Spine Active Testing Position Sitting Flexion 30 Extension 20 Rotation Left 40 Rotation Right 35 Lateral Flexion Left 15 Lateral Flexion Right 15 ROM Limitations Soft Tissue Tightness,Pain Comments increased pain with sidebending and rotation on the left PT-OP-M Strength Start: 03/26/22 09:27 Freq: Status: Active Protocol: Document 03/26/22 09:45 [facility] (Rec: 03/31/22 10:19 [facility] [id number]) Scapula Strength Scapula Manual Muscle Testing Right Adduction 3 Fair Depression 3 Fair Comments poor scapula retraction, upper trapezius tightness limits scapular depression Left Adduction 3 Fair Depression 3 Fair Comments poor scapula retraction, upper trapezius tightness limits scapular depression PT-OP-Q Treatments Start: 03/26/22 09:27 Freq: Status: Active Protocol: Document 04/13/22 10:16 MA (Rec: 04/13/22 11:03 MA [id number]) Therapeutic Exercises Sitting Exercises seated rows with theraband Sitting Exercise Name in standing today Resistance level 1 resistance Equipment Used 3 x 10 reps seated chin tuck Reps/Minutes x 10 reps Comments cues for gentle upper cervical flexion seated chest openers with foam roll behind back Sitting Exercise Name small foam roll behind throacic while seated in a chair Reps/Minutes x 5 min of stretching Comments shoulder ER, abduction seated scalene stretch Sitting Exercise Name UT and scalenes stretches today Reps/Minutes 2 reps holding 30-60 seconds each Standing Exercises standing balance Standing Exercise Name feet together eyes open/eyes closed Reps/Minutes 3 x 10 sec holds Comments eyes closed very challanging Manual Therapy Treatment Soft Tissue Mobilization gentle STM over the left upper trap, scalenes, pec minor Mobilization Type Myofascial Release Intensity/Depth Moderate Body Position Hooklying Comments good tolerance for tx suboccipital release Body Location supine Mobilization Type Myofascial Release Intensity/Depth Moderate Body Position Supine Comments good tolerance and relief noted Manual Techniques gentle manual cervcial traction Reps/Duration x 4 reps with 10 second holds Comments good tolerance PT-OP-T Assessment and Plan Start: 03/26/22 09:27 Freq: Status: Active Protocol: Document 04/13/22 10:16 MA (Rec: 04/13/22 11:03 MA [id number]) Physical Therapy Assessment Goals 3 Impairment poor postural habits at the computer leading to increased neck pain, tightness in the anterior pectoralis muscles and stretch weakness of the thoracic stabilizers Short Term Goal (STG) Samara is educated on stretches for her anterior chest and exercises for her scapular stabilizers to improve posture and decrease pain STG Duration 4 weeks Twx Operator Goal (LTG) Overall there is improved mobility of the pec minor and improved strength of the scapula stabilizers to 4/5 or better for improved posture LTG Duration 12 weeks 2 Impairment Decreased cervical spine ROM with sidebending and rotation ROM reproducing left sided neck pain and c/o her neck crunching Twx Operator Goal (LTG) Samara presents with improvements of her cervical ROM without reproduction of left sided neck pain. She is independent with a home cervical stretching and ROM program LTG Duration 12 weeks 1 Impairment Left sided cervcial spine pain rated 4/10 worse with computer activity. Short Term Goal (STG) Samara is educated in neck stretches she can do while at the computer as well as proper ergonomic set up for her computer STG Duration 2 weeks Nursing Home Goal (LTG) Samara reports a overall reduction in her neck pain reducing pain to 2/10 or less LTG Duration 12 weeks Assessment Summary Assessment Pt has some L CS pain when rotating R that decreases after manual work. She is challenged by closing her eyes during balance work and with balancing while standing to perform scap retraction (rows) with resistance. Physical Therapy Plan Frequency and Duration Frequency of Treatment 2x/Week Duration of Treatment 12 Plan of Care Start Date 03/26/22 Plan of Care End Date 06/25/22 Therapeutic Interventions Therapeutic Interventions Balance Training,Home Exercise Program,Manual Therapy, Patient/Caregiver Education, Self-Care/Home Management,Soft Tissue Mobilization, Therapeutic Exercises Modalities Cold Pack/Ice Massage,Hot Packs Next Visit Focus/Plan Next Note Type Treatment Note Next Visit Plan continue progressing balance, work on scapular stabilization , cervical rotation
--- NOTE | 2022-04-15 14:17 | PT.OTN ---
Current Diagnoses Cervicalgia (04/15/22) History of falling (04/15/22) Physical Therapy Treatment Note PT-OP-A Visit Information Start: 03/26/22 09:27 Freq: Status: Active Protocol: Document 04/15/22 09:44 [facility] (Rec: 04/15/22 10:36 [facility] [id number]) Out-Patient Physical Therapy Visit Information Visit Information Visit Type Treatment Note Visit Start Time 09:45 Visit Stop Time 10:30 Total Visit Minutes 45 Visit Number 6 Number of BOTTLE CAPPING MACHINE OPERATOR Visits 0 PT-OP-B Current Condition Start: 03/26/22 09:27 Freq: Status: Active Protocol: Document 03/26/22 09:45 [facility] (Rec: 03/26/22 09:59 [facility] [id number]) Current Condition History of Current Condition Onset Date November 15 Current Complaints left sided neck pain History of Current Condition Samara is a 81 year old female who fell on November 15 at home hitting a bench on the way down with her head, her glasses broke and gouged her face just missing her eye. She has seen the eye doctor and has full vision. She triped over her dog. She hit the right side of her chin and she bruised a lot. She couldn't drive and there was no one around to drive her. She started feeling left sided neck pain, she could feel crunching of her neck and she had pain that was along the left side of her neck. SHe was very restricted in her ROM and it took about a month for it to heal up. Pain is intermittent and it can come on which computer work. The more movement she gives her neck the better she is. She has fallen several times. Treatment Goals Patient/Caregiver Goals goals include decreasing neck pain and improving balance Current Functional Impairments (Reported) Functional Limitations- ADL's computer work increases neck pain, moderate difficulty opening a tight or new jar Functional Limitations- Other sleep is disturbed 1-2 hour sleep loss pt can drive her can as long as she needs but with slight pain PT-OP-C Subjective Start: 03/26/22 09:27 Freq: Status: Active Protocol: Document 04/15/22 09:44 [facility] (Rec: 04/15/22 10:36 [facility] [id number]) OP-PT Subjective Patient Comments Patient Comments driving is much better now and my neck is feeling better Patient Reported Progress Improving PT-OP-F Manual Assessment Start: 03/26/22 09:27 Freq: Status: Active Protocol: Document 03/26/22 09:45 [facility] (Rec: 03/31/22 10:19 [facility] [id number]) Manual Assessments Soft Tissue Assessment Soft Tissue Mobility Assessment suboccipital tightness B, scalene tightness L>R, SCM tightness L, Upper trapezius tightness B, pec minor tightness R Joint Mobility Assessment Joint Mobility Assessment Decreased upper cervical flexion, pt tends to extend from upper cervical spine contributing to suboccitpital tightness Decreased cervical sidebending and rotation B with pain on the left C4-5 region with cervical sidebending and rotation thoracic spine hypomobility PT-OP-K Range of Motion Start: 03/26/22 09:27 Freq: Status: Active Protocol: Document 03/26/22 09:45 [facility] (Rec: 03/31/22 10:19 [facility] [id number]) Cervical Spine Range of Motion Cervical Spine Active Testing Position Sitting Flexion 30 Extension 20 Rotation Left 40 Rotation Right 35 Lateral Flexion Left 15 Lateral Flexion Right 15 ROM Limitations Soft Tissue Tightness,Pain Comments increased pain with sidebending and rotation on the left PT-OP-M Strength Start: 03/26/22 09:27 Freq: Status: Active Protocol: Document 03/26/22 09:45 [facility] (Rec: 03/31/22 10:19 [facility] [id number]) Scapula Strength Scapula Manual Muscle Testing Right Adduction 3 Fair Depression 3 Fair Comments poor scapula retraction, upper trapezius tightness limits scapular depression Left Adduction 3 Fair Depression 3 Fair Comments poor scapula retraction, upper trapezius tightness limits scapular depression PT-OP-Q Treatments Start: 03/26/22 09:27 Freq: Status: Active Protocol: Document 04/15/22 09:44 [facility] (Rec: 04/15/22 14:17 [facility] [id number]) Therapeutic Exercises Supine Exercises AAROM shoulder flexion with wand Reps/Minutes x 10 reps Comments this was painful so it was stopped Sitting Exercises seated rows with theraband Resistance level 1 resistance Equipment Used 3 x 10 reps seated chin tuck Reps/Minutes x 10 reps Comments cues for gentle upper cervical flexion seated scalene stretch Sitting Exercise Name UT and scalenes stretches today Reps/Minutes 2 reps holding 30-60 seconds each Standing Exercises standing calf raises with hand support Reps/Minutes 2 x 10 reps standing balance Standing Exercise Name feet together eyes open/eyes closed Reps/Minutes 3 x 10 sec holds Comments eyes closed very challenging Manual Therapy Treatment Soft Tissue Mobilization gentle STM over the left upper trap, scalenes, pec minor Mobilization Type Myofascial Release Intensity/Depth Moderate Body Position Hooklying Comments good tolerance for tx suboccipital release Body Location supine Mobilization Type Myofascial Release Intensity/Depth Moderate Body Position Supine Comments good tolerance and relief noted Manual Techniques cervcial ROM into SB and roation PROM Reps/Duration x 4 min PT-OP-T Assessment and Plan Start: 03/26/22 09:27 Freq: Status: Active Protocol: Document 04/15/22 09:44 [facility] (Rec: 04/15/22 10:36 [facility] [id number]) Physical Therapy Assessment Assessment Summary Assessment Right sided shoulder pain limits any overhead reaching. I attempted AAROM with wand for shoulder flexion with Samara today but this was painful for her. Her neck ROM is slowly improving Physical Therapy Plan Frequency and Duration Frequency of Treatment 2x/Week Duration of Treatment 12 Plan of Care Start Date 03/26/22 Plan of Care End Date 06/25/22
--- NOTE | 2022-04-20 13:02 | PT.OTN ---
Current Diagnoses Cervicalgia (04/20/22) History of falling (04/20/22) Physical Therapy Treatment Note PT-OP-A Visit Information Start: 03/26/22 09:27 Freq: Status: Active Protocol: Document 04/20/22 12:07 [facility] (Rec: 04/20/22 13:02 [facility] [id number]) Out-Patient Physical Therapy Visit Information Visit Information Visit Type Treatment Note Visit Start Time 12:03 Visit Stop Time 12:48 Total Visit Minutes 45 Visit Number 7 Number of EXECUTIVE CHEF Visits 1 PT-OP-B Current Condition Start: 03/26/22 09:27 Freq: Status: Active Protocol: Document 03/26/22 09:45 [facility] (Rec: 03/26/22 09:59 [facility] [id number]) Current Condition History of Current Condition Onset Date November 15 Current Complaints left sided neck pain History of Current Condition Samara is a 81 year old female who fell on November 15 at home hitting a bench on the way down with her head, her glasses broke and gouged her face just missing her eye. She has seen the eye doctor and has full vision. She triped over her dog. She hit the right side of her chin and she bruised a lot. She couldn't drive and there was no one around to drive her. She started feeling left sided neck pain, she could feel crunching of her neck and she had pain that was along the left side of her neck. SHe was very restricted in her ROM and it took about a month for it to heal up. Pain is intermittent and it can come on which computer work. The more movement she gives her neck the better she is. She has fallen several times. Treatment Goals Patient/Caregiver Goals goals include decreasing neck pain and improving balance Current Functional Impairments (Reported) Functional Limitations- ADL's computer work increases neck pain, moderate difficulty opening a tight or new jar Functional Limitations- Other sleep is disturbed 1-2 hour sleep loss pt can drive her can as long as she needs but with slight pain PT-OP-C Subjective Start: 03/26/22 09:27 Freq: Status: Active Protocol: Document 04/20/22 12:07 [facility] (Rec: 04/20/22 13:02 [facility] [id number]) OP-PT Subjective Patient Comments Patient Comments Pt states driving is better and she feels therapy is helping. PT-OP-F Manual Assessment Start: 03/26/22 09:27 Freq: Status: Active Protocol: Document 03/26/22 09:45 [facility] (Rec: 03/31/22 10:19 [facility] [id number]) Manual Assessments Soft Tissue Assessment Soft Tissue Mobility Assessment suboccipital tightness B, scalene tightness L>R, SCM tightness L, Upper trapezius tightness B, pec minor tightness R Joint Mobility Assessment Joint Mobility Assessment Decreased upper cervical flexion, pt tends to extend from upper cervical spine contributing to suboccitpital tightness Decreased cervical sidebending and rotation B with pain on the left C4-5 region with cervical sidebending and rotation thoracic spine hypomobility PT-OP-K Range of Motion Start: 03/26/22 09:27 Freq: Status: Active Protocol: Document 03/26/22 09:45 [facility] (Rec: 03/31/22 10:19 [facility] [id number]) Cervical Spine Range of Motion Cervical Spine Active Testing Position Sitting Flexion 30 Extension 20 Rotation Left 40 Rotation Right 35 Lateral Flexion Left 15 Lateral Flexion Right 15 ROM Limitations Soft Tissue Tightness,Pain Comments increased pain with sidebending and rotation on the left PT-OP-M Strength Start: 03/26/22 09:27 Freq: Status: Active Protocol: Document 03/26/22 09:45 [facility] (Rec: 03/31/22 10:19 [facility] [id number]) Scapula Strength Scapula Manual Muscle Testing Right Adduction 3 Fair Depression 3 Fair Comments poor scapula retraction, upper trapezius tightness limits scapular depression Left Adduction 3 Fair Depression 3 Fair Comments poor scapula retraction, upper trapezius tightness limits scapular depression PT-OP-Q Treatments Start: 03/26/22 09:27 Freq: Status: Active Protocol: Document 04/20/22 12:07 [facility] (Rec: 04/20/22 13:02 [facility] [id number]) Therapeutic Exercises Sitting Exercises Thoracic Extension Equipment Used small foam roll Reps/Minutes x 1 min Comments hands behind head seated chin tuck Reps/Minutes x 10 reps Comments cues for gentle upper cervical flexion seated chest openers with foam roll behind back Sitting Exercise Name small foam roll behind thoracic while seated in a chair Reps/Minutes x 5 min of stretching Comments shoulder ER, abduction seated scapula retraction Reps/Minutes x 10 Comments while seated with foam roll behind thoracic spine seated scalene stretch Sitting Exercise Name UT and scalenes stretches today Reps/Minutes 2 reps holding 30-60 seconds each Comments verbal cueing to to come out of stretches gently Standing Exercises standing balance Standing Exercise Name feet together eyes open/eyes closed, tandem in corner EO Side bilateral Reps/Minutes 3 x 10 sec holds Comments eyes closed very challenging Manual Therapy Treatment Soft Tissue Mobilization gentle STM over the left upper trap, scalenes, pec minor Mobilization Type Myofascial Release Intensity/Depth Moderate Body Position Hooklying Comments good tolerance for tx suboccipital release Body Location supine Mobilization Type Myofascial Release Intensity/Depth Moderate Body Position Supine Comments good tolerance and relief noted Self-Care/Home Management Treatment Education Patient Education Home Exercise Program Other Education Added tandem corner balance to HEP. PT-OP-T Assessment and Plan Start: 03/26/22 09:27 Freq: Status: Active Protocol: Document 04/20/22 12:07 [facility] (Rec: 04/20/22 13:02 [facility] [id number]) Physical Therapy Assessment Goals 3 Impairment poor postural habits at the computer leading to increased neck pain, tightness in the anterior pectoralis muscles and stretch weakness of the thoracic stabilizers Short Term Goal (STG) Samara is educated on stretches for her anterior chest and exercises for her scapular stabilizers to improve posture and decrease pain STG Duration 4 weeks Fpc Goal (LTG) Overall there is improved mobility of the pec minor and improved strength of the scapula stabilizers to 4/5 or better for improved posture LTG Duration 12 weeks 2 Impairment Decreased cervical spine ROM with sidebending and rotation ROM reproducing left sided neck pain and c/o her neck crunching Fpc Goal (LTG) Samara presents with improvements of her cervical ROM without reproduction of left sided neck pain. She is independent with a home cervical stretching and ROM program LTG Duration 12 weeks 1 Impairment Left sided cervcial spine pain rated 4/10 worse with computer activity. Short Term Goal (STG) Samara is educated in neck stretches she can do while at the computer as well as proper ergonomic set up for her computer STG Duration 2 weeks Manager Technology Goal (LTG) Samara reports a overall reduction in her neck pain reducing pain to 2/10 or less LTG Duration 12 weeks Assessment Summary Assessment Pt is challenged with tandem balance. Added tandem corner balance to HEP and will continue to progress balance next session. She had relief after manual therapy, and tolerated moderate pressure well. Pt feels her ROM is slowly improving with PT. Physical Therapy Plan Frequency and Duration Frequency of Treatment 2x/Week Duration of Treatment 12 Plan of Care Start Date 03/26/22 Plan of Care End Date 06/25/22 Therapeutic Interventions Therapeutic Interventions Balance Training,Home Exercise Program,Manual Therapy, Patient/Caregiver Education, Self-Care/Home Management,Soft Tissue Mobilization, Therapeutic Exercises Modalities Cold Pack/Ice Massage,Hot Packs Next Visit Focus/Plan Next Note Type Treatment Note Next Visit Plan Review corner tandem balance HEP continue progressing balance, work on scapular stabilization , cervical rotation
--- NOTE | 2022-04-22 13:50 | PT.OTN ---
Current Diagnoses Cervicalgia (04/22/22) History of falling (04/22/22) Physical Therapy Treatment Note PT-OP-A Visit Information Start: 03/26/22 09:27 Freq: Status: Active Protocol: Document 04/22/22 09:45 [facility] (Rec: 04/22/22 10:48 [facility] [id number]) Out-Patient Physical Therapy Visit Information Visit Information Visit Type Treatment Note Visit Start Time 09:45 Visit Stop Time 10:30 Total Visit Minutes 45 Visit Number 2 PT-OP-B Current Condition Start: 03/26/22 09:27 Freq: Status: Active Protocol: Document 03/26/22 09:45 [facility] (Rec: 03/26/22 09:59 [facility] [id number]) Current Condition History of Current Condition Onset Date November 15 Current Complaints left sided neck pain History of Current Condition Samara is a 81 year old female who fell on November 15 at home hitting a bench on the way down with her head, her glasses broke and gouged her face just missing her eye. She has seen the eye doctor and has full vision. She triped over her dog. She hit the right side of her chin and she bruised a lot. She couldn't drive and there was no one around to drive her. She started feeling left sided neck pain, she could feel crunching of her neck and she had pain that was along the left side of her neck. SHe was very restricted in her ROM and it took about a month for it to heal up. Pain is intermittent and it can come on which computer work. The more movement she gives her neck the better she is. She has fallen several times. Treatment Goals Patient/Caregiver Goals goals include decreasing neck pain and improving balance Current Functional Impairments (Reported) Functional Limitations- ADL's computer work increases neck pain, moderate difficulty opening a tight or new jar Functional Limitations- Other sleep is disturbed 1-2 hour sleep loss pt can drive her can as long as she needs but with slight pain PT-OP-C Subjective Start: 03/26/22 09:27 Freq: Status: Active Protocol: Document 04/22/22 09:45 [facility] (Rec: 04/22/22 10:48 [facility] [id number]) OP-PT Subjective Patient Comments Patient Comments pt reports the crunching in her neck is decreased and she no longer fears turning her head while driving. Patient Reported Progress Improving PT-OP-F Manual Assessment Start: 03/26/22 09:27 Freq: Status: Active Protocol: Document 03/26/22 09:45 [facility] (Rec: 03/31/22 10:19 [facility] [id number]) Manual Assessments Soft Tissue Assessment Soft Tissue Mobility Assessment suboccipital tightness B, scalene tightness L>R, SCM tightness L, Upper trapezius tightness B, pec minor tightness R Joint Mobility Assessment Joint Mobility Assessment Decreased upper cervical flexion, pt tends to extend from upper cervical spine contributing to suboccitpital tightness Decreased cervical sidebending and rotation B with pain on the left C4-5 region with cervical sidebending and rotation thoracic spine hypomobility PT-OP-K Range of Motion Start: 03/26/22 09:27 Freq: Status: Active Protocol: Document 03/26/22 09:45 [facility] (Rec: 03/31/22 10:19 [facility] [id number]) Cervical Spine Range of Motion Cervical Spine Active Testing Position Sitting Flexion 30 Extension 20 Rotation Left 40 Rotation Right 35 Lateral Flexion Left 15 Lateral Flexion Right 15 ROM Limitations Soft Tissue Tightness,Pain Comments increased pain with sidebending and rotation on the left PT-OP-M Strength Start: 03/26/22 09:27 Freq: Status: Active Protocol: Document 03/26/22 09:45 [facility] (Rec: 03/31/22 10:19 [facility] [id number]) Scapula Strength Scapula Manual Muscle Testing Right Adduction 3 Fair Depression 3 Fair Comments poor scapula retraction, upper trapezius tightness limits scapular depression Left Adduction 3 Fair Depression 3 Fair Comments poor scapula retraction, upper trapezius tightness limits scapular depression PT-OP-Q Treatments Start: 03/26/22 09:27 Freq: Status: Active Protocol: Document 04/22/22 09:45 [facility] (Rec: 04/22/22 13:50 [facility] [id number]) Therapeutic Exercises Sitting Exercises seated chest openers with foam roll behind back Sitting Exercise Name small foam roll behind throacic while seated in a chair Reps/Minutes x 5 min of stretching Comments shoulder ER, abduction seated scapula retraction Reps/Minutes x 10 Comments while seated with foam roll behind thoracic spine seated scalene stretch Sitting Exercise Name UT and scalenes stretches today Reps/Minutes 2 reps holding 30-60 seconds each Comments verbal cueing to to come out of stretches gently Standing Exercises standing calf stretch Reps/Minutes 2 x 30 seconds standing on foam Reps/Minutes 1 min hold eyes open Comments in parallel bars standing rows Reps/Minutes 2 x 10 reps level 1 theraband standing calf raises with hand support Reps/Minutes 2 x 10 reps standing balance Standing Exercise Name feet together eyes open/eyes closed, tandem in corner EO Side bilateral Reps/Minutes 3 x 10 sec holds Comments eyes closed improving Manual Therapy Treatment Soft Tissue Mobilization gentle STM over the left upper trap, scalenes, pec minor Mobilization Type Myofascial Release Intensity/Depth Moderate Body Position Hooklying Comments good tolerance for tx suboccipital release Body Location supine Mobilization Type Myofascial Release Intensity/Depth Moderate Body Position Supine Comments good tolerance and relief noted Manual Techniques cervcial ROM into SB and roation PROM Reps/Duration x 4 min PT-OP-T Assessment and Plan Start: 03/26/22 09:27 Freq: Status: Active Protocol: Document 04/22/22 09:45 [facility] (Rec: 04/22/22 13:50 [facility] [id number]) Physical Therapy Assessment Assessment Summary Assessment pt doing much better with her neck, she only had one visit left and I wanted to progress her balance exercises so I requested additional visits. Continue progressing balance, continue with neck/postire exercises and manual work Physical Therapy Plan Frequency and Duration Frequency of Treatment 2x/Week Duration of Treatment 12 Plan of Care Start Date 03/26/22 Plan of Care End Date 06/25/22 Therapeutic Interventions Therapeutic Interventions Balance Training,Home Exercise Program,Manual Therapy, Patient/Caregiver Education, Self-Care/Home Management,Soft Tissue Mobilization, Therapeutic Exercises Modalities Cold Pack/Ice Massage,Hot Packs Next Visit Focus/Plan Next Note Type Treatment Note Next Visit Plan review established balance exercises, tandem corner, foam etc, continue work with scapular stabilization and neck mobility
--- NOTE | 2022-04-29 10:58 | PT.OTN ---
Current Diagnoses Cervicalgia (04/29/22) History of falling (04/29/22) Physical Therapy Treatment Note PT-OP-A Visit Information Start: 03/26/22 09:27 Freq: Status: Active Protocol: Document 04/29/22 09:50 [facility] (Rec: 04/29/22 10:54 [facility] [id number]) Out-Patient Physical Therapy Visit Information Visit Information Visit Type Treatment Note Visit Start Time 09:50 Visit Stop Time 10:35 Total Visit Minutes 45 Visit Number 3 PT-OP-B Current Condition Start: 03/26/22 09:27 Freq: Status: Active Protocol: Document 03/26/22 09:45 [facility] (Rec: 03/26/22 09:59 [facility] [id number]) Current Condition History of Current Condition Onset Date November 15 Current Complaints left sided neck pain History of Current Condition Samara is a 81 year old female who fell on November 15 at home hitting a bench on the way down with her head, her glasses broke and gouged her face just missing her eye. She has seen the eye doctor and has full vision. She triped over her dog. She hit the right side of her chin and she bruised a lot. She couldn't drive and there was no one around to drive her. She started feeling left sided neck pain, she could feel crunching of her neck and she had pain that was along the left side of her neck. SHe was very restricted in her ROM and it took about a month for it to heal up. Pain is intermittent and it can come on which computer work. The more movement she gives her neck the better she is. She has fallen several times. Treatment Goals Patient/Caregiver Goals goals include decreasing neck pain and improving balance Current Functional Impairments (Reported) Functional Limitations- ADL's computer work increases neck pain, moderate difficulty opening a tight or new jar Functional Limitations- Other sleep is disturbed 1-2 hour sleep loss pt can drive her can as long as she needs but with slight pain PT-OP-C Subjective Start: 03/26/22 09:27 Freq: Status: Active Protocol: Document 04/29/22 09:50 [facility] (Rec: 04/29/22 10:54 [facility] [id number]) OP-PT Subjective Patient Comments Patient Comments pt reports she is doing better with her neck overall PT-OP-F Manual Assessment Start: 03/26/22 09:27 Freq: Status: Active Protocol: Document 03/26/22 09:45 [facility] (Rec: 03/31/22 10:19 [facility] [id number]) Manual Assessments Soft Tissue Assessment Soft Tissue Mobility Assessment suboccipital tightness B, scalene tightness L>R, SCM tightness L, Upper trapezius tightness B, pec minor tightness R Joint Mobility Assessment Joint Mobility Assessment Decreased upper cervical flexion, pt tends to extend from upper cervical spine contributing to suboccitpital tightness Decreased cervical sidebending and rotation B with pain on the left C4-5 region with cervical sidebending and rotation thoracic spine hypomobility PT-OP-K Range of Motion Start: 03/26/22 09:27 Freq: Status: Active Protocol: Document 03/26/22 09:45 [facility] (Rec: 03/31/22 10:19 [facility] [id number]) Cervical Spine Range of Motion Cervical Spine Active Testing Position Sitting Flexion 30 Extension 20 Rotation Left 40 Rotation Right 35 Lateral Flexion Left 15 Lateral Flexion Right 15 ROM Limitations Soft Tissue Tightness,Pain Comments increased pain with sidebending and rotation on the left PT-OP-M Strength Start: 03/26/22 09:27 Freq: Status: Active Protocol: Document 03/26/22 09:45 [facility] (Rec: 03/31/22 10:19 [facility] [id number]) Scapula Strength Scapula Manual Muscle Testing Right Adduction 3 Fair Depression 3 Fair Comments poor scapula retraction, upper trapezius tightness limits scapular depression Left Adduction 3 Fair Depression 3 Fair Comments poor scapula retraction, upper trapezius tightness limits scapular depression PT-OP-Q Treatments Start: 03/26/22 09:27 Freq: Status: Active Protocol: Document 04/29/22 09:50 [facility] (Rec: 04/29/22 10:54 [facility] [id number]) Cardio Equipment Recumbent Elliptical (Biodex) Duration (Minutes) 5 Gym Equipment Shuttle Balance 1 Details shuttle balance Comments blue setting worked on feet apart, feet together and tandem stance Therapeutic Exercises Supine Exercises supine chin tucks Reps/Minutes x 5 Sitting Exercises seated chin tuck Reps/Minutes x 10 reps Comments cues for gentle upper cervical flexion Standing Exercises standing calf stretch Reps/Minutes 2 x 30 seconds standing on foam Reps/Minutes 1 min hold eyes open Comments in parallel bars standing rows Reps/Minutes 2 x 10 reps level 1 theraband standing calf raises with hand support Reps/Minutes 2 x 10 reps standing balance Standing Exercise Name feet together eyes open/eyes closed, tandem in corner EO Side bilateral Reps/Minutes 3 x 10 sec holds Comments eyes closed improving Manual Therapy Treatment Soft Tissue Mobilization gentle STM over the left upper trap, scalenes, pec minor Mobilization Type Myofascial Release Intensity/Depth Moderate Body Position Hooklying Comments good tolerance for tx suboccipital release Body Location supine Mobilization Type Myofascial Release Intensity/Depth Moderate Body Position Supine Comments good tolerance and relief noted Manual Techniques cervcial ROM into SB and roation PROM Reps/Duration x 4 min PT-OP-T Assessment and Plan Start: 03/26/22 09:27 Freq: Status: Active Protocol: Document 04/29/22 09:50 [facility] (Rec: 04/29/22 10:58 [facility] [id number]) Physical Therapy Assessment Assessment Summary Assessment pt continues to make progress with balance and has made improvements with her cervical spine ROM. She was able to schedule further visits to progress her balance Physical Therapy Plan Frequency and Duration Frequency of Treatment 2x/Week Duration of Treatment 12 Plan of Care Start Date 03/26/22 Plan of Care End Date 06/25/22 Therapeutic Interventions Therapeutic Interventions Balance Training,Home Exercise Program,Manual Therapy, Patient/Caregiver Education, Self-Care/Home Management,Soft Tissue Mobilization, Therapeutic Exercises Modalities Cold Pack/Ice Massage,Hot Packs Next Visit Focus/Plan Next Note Type Treatment Note Next Visit Plan review established balance exercises, tandem corner, foam etc, continue work with scapular stabilization and neck mobility
--- NOTE | 2022-05-20 10:21 | PT.OTN ---
Current Diagnoses Cervicalgia (05/20/22) History of falling (05/20/22) Physical Therapy Treatment Note PT-OP-A Visit Information Start: 03/26/22 09:27 Freq: Status: Active Protocol: Document 05/20/22 09:36 [facility] (Rec: 05/20/22 10:21 [facility] [id number]) Out-Patient Physical Therapy Visit Information Visit Information Visit Type Treatment Note Visit Start Time 09:35 Visit Stop Time 10:15 Total Visit Minutes 40 Visit Number 4 Number of MAMMAL KEEPER Visits 1 PT-OP-B Current Condition Start: 03/26/22 09:27 Freq: Status: Active Protocol: Document 03/26/22 09:45 [facility] (Rec: 03/26/22 09:59 [facility] [id number]) Current Condition History of Current Condition Onset Date November 15 Current Complaints left sided neck pain History of Current Condition Samara is a 81 year old female who fell on November 15 at home hitting a bench on the way down with her head, her glasses broke and gouged her face just missing her eye. She has seen the eye doctor and has full vision. She triped over her dog. She hit the right side of her chin and she bruised a lot. She couldn't drive and there was no one around to drive her. She started feeling left sided neck pain, she could feel crunching of her neck and she had pain that was along the left side of her neck. SHe was very restricted in her ROM and it took about a month for it to heal up. Pain is intermittent and it can come on which computer work. The more movement she gives her neck the better she is. She has fallen several times. Treatment Goals Patient/Caregiver Goals goals include decreasing neck pain and improving balance Current Functional Impairments (Reported) Functional Limitations- ADL's computer work increases neck pain, moderate difficulty opening a tight or new jar Functional Limitations- Other sleep is disturbed 1-2 hour sleep loss pt can drive her can as long as she needs but with slight pain PT-OP-C Subjective Start: 03/26/22 09:27 Freq: Status: Active Protocol: Document 05/20/22 09:36 [facility] (Rec: 05/20/22 10:21 [facility] [id number]) OP-PT Subjective Patient Comments Patient Comments Pt feels her neck is doing better but her balance could still improve PT-OP-F Manual Assessment Start: 03/26/22 09:27 Freq: Status: Active Protocol: Document 03/26/22 09:45 [facility] (Rec: 03/31/22 10:19 [facility] [id number]) Manual Assessments Soft Tissue Assessment Soft Tissue Mobility Assessment suboccipital tightness B, scalene tightness L>R, SCM tightness L, Upper trapezius tightness B, pec minor tightness R Joint Mobility Assessment Joint Mobility Assessment Decreased upper cervical flexion, pt tends to extend from upper cervical spine contributing to suboccitpital tightness Decreased cervical sidebending and rotation B with pain on the left C4-5 region with cervical sidebending and rotation thoracic spine hypomobility PT-OP-K Range of Motion Start: 03/26/22 09:27 Freq: Status: Active Protocol: Document 03/26/22 09:45 [facility] (Rec: 03/31/22 10:19 [facility] [id number]) Cervical Spine Range of Motion Cervical Spine Active Testing Position Sitting Flexion 30 Extension 20 Rotation Left 40 Rotation Right 35 Lateral Flexion Left 15 Lateral Flexion Right 15 ROM Limitations Soft Tissue Tightness,Pain Comments increased pain with sidebending and rotation on the left PT-OP-M Strength Start: 03/26/22 09:27 Freq: Status: Active Protocol: Document 03/26/22 09:45 [facility] (Rec: 03/31/22 10:19 [facility] [id number]) Scapula Strength Scapula Manual Muscle Testing Right Adduction 3 Fair Depression 3 Fair Comments poor scapula retraction, upper trapezius tightness limits scapular depression Left Adduction 3 Fair Depression 3 Fair Comments poor scapula retraction, upper trapezius tightness limits scapular depression PT-OP-Q Treatments Start: 03/26/22 09:27 Freq: Status: Active Protocol: Document 05/20/22 09:36 [facility] (Rec: 05/20/22 10:21 [facility] [id number]) Cardio Equipment Recumbent Elliptical (Biodex) Duration (Minutes) 6 Resistance 5 Seat Position 7 Gym Equipment Shuttle Balance 1 Details shuttle balance Comments blue setting worked on feet apart, feet together and tandem stance EO/EC for WBOS/NBOS Therapeutic Exercises Standing Exercises standing on foam Reps/Minutes 1 min hold eyes open Comments in parallel bars standing calf raises with hand support Reps/Minutes 2 x 10 reps standing balance Standing Exercise Name feet together eyes open/eyes closed, tandem in corner EO Side bilateral Reps/Minutes 3 x 30 sec holds Comments EO/EC, head turns Manual Therapy Treatment Soft Tissue Mobilization gentle STM over the left upper trap, scalenes, pec minor Mobilization Type Myofascial Release Intensity/Depth Moderate Body Position Hooklying Comments good tolerance for tx suboccipital release Body Location supine Mobilization Type Myofascial Release Intensity/Depth Moderate Body Position Supine Comments good tolerance and relief noted Manual Techniques cervcial ROM into SB and roation PROM Reps/Duration x 4 min Neuro Re-Education Treatment Coordination Activities Hurdles Equipment single rail Reps/Duration 3x6 hurdles Comments foam pads between each tatyana PT-OP-T Assessment and Plan Start: 03/26/22 09:27 Freq: Status: Active Protocol: Document 05/20/22 09:36 [facility] (Rec: 05/20/22 10:21 [facility] [id number]) Physical Therapy Assessment Goals 3 Impairment poor postural habits at the computer leading to increased neck pain, tightness in the anterior pectoralis muscles and stretch weakness of the thoracic stabilizers Short Term Goal (STG) Samara is educated on stretches for her anterior chest and exercises for her scapular stabilizers to improve posture and decrease pain STG Duration 4 weeks Medical Imaging Specialist Goal (LTG) Overall there is improved mobility of the pec minor and improved strength of the scapula stabilizers to 4/5 or better for improved posture LTG Duration 12 weeks 2 Impairment Decreased cervical spine ROM with sidebending and rotation ROM reproducing left sided neck pain and c/o her neck crunching Group Home Goal (LTG) Samara presents with improvements of her cervical ROM without reproduction of left sided neck pain. She is independent with a home cervical stretching and ROM program LTG Duration 12 weeks 1 Impairment Left sided cervcial spine pain rated 4/10 worse with computer activity. Short Term Goal (STG) Samara is educated in neck stretches she can do while at the computer as well as proper ergonomic set up for her computer STG Duration 2 weeks Group Home Goal (LTG) Samara reports a overall reduction in her neck pain reducing pain to 2/10 or less LTG Duration 12 weeks Assessment Summary Assessment Pt has difficutly when challenged during balance exercises by closing her eyes or with head turns (CS rotation). Her CS rotation ROM has improved and pt no longer has any pain when rotating L or R. She requires rail assist to complete hurdles today with foam pads between each step. Reprinted pt's HEP of corner balance in tandem stance per pt's request. Physical Therapy Plan Frequency and Duration Frequency of Treatment 2x/Week Duration of Treatment 12 Plan of Care Start Date 03/26/22 Plan of Care End Date 06/25/22 Therapeutic Interventions Therapeutic Interventions Balance Training,Home Exercise Program,Manual Therapy, Patient/Caregiver Education, Self-Care/Home Management,Soft Tissue Mobilization, Therapeutic Exercises Modalities Cold Pack/Ice Massage,Hot Packs Next Visit Focus/Plan Next Note Type Treatment Note Next Visit Plan review established balance exercises, tandem corner, foam etc, continue work with scapular stabilization and neck mobility
--- NOTE | 2022-05-27 10:18 | PT.OTN ---
Current Diagnoses Cervicalgia (05/27/22) History of falling (05/27/22) Physical Therapy Treatment Note PT-OP-A Visit Information Start: 03/26/22 09:27 Freq: Status: Active Protocol: Document 05/27/22 09:30 MA (Rec: 05/27/22 10:17 MA [id number]) Out-Patient Physical Therapy Visit Information Visit Information Visit Type Treatment Note Visit Start Time 09:30 Visit Stop Time 10:10 Total Visit Minutes 40 Visit Number 5 Number of CONTACT LENS INSPECTOR Visits 2 PT-OP-B Current Condition Start: 03/26/22 09:27 Freq: Status: Active Protocol: Document 03/26/22 09:45 [facility] (Rec: 03/26/22 09:59 [facility] [id number]) Current Condition History of Current Condition Onset Date November 15 Current Complaints left sided neck pain History of Current Condition Samara is a 81 year old female who fell on November 15 at home hitting a bench on the way down with her head, her glasses broke and gouged her face just missing her eye. She has seen the eye doctor and has full vision. She triped over her dog. She hit the right side of her chin and she bruised a lot. She couldn't drive and there was no one around to drive her. She started feeling left sided neck pain, she could feel crunching of her neck and she had pain that was along the left side of her neck. SHe was very restricted in her ROM and it took about a month for it to heal up. Pain is intermittent and it can come on which computer work. The more movement she gives her neck the better she is. She has fallen several times. Treatment Goals Patient/Caregiver Goals goals include decreasing neck pain and improving balance Current Functional Impairments (Reported) Functional Limitations- ADL's computer work increases neck pain, moderate difficulty opening a tight or new jar Functional Limitations- Other sleep is disturbed 1-2 hour sleep loss pt can drive her can as long as she needs but with slight pain PT-OP-C Subjective Start: 03/26/22 09:27 Freq: Status: Active Protocol: Document 05/27/22 09:30 MA (Rec: 05/27/22 10:18 MA [id number]) OP-PT Subjective Patient Comments Patient Comments Pt has had no neck pain. She feels her balance has not been very good when practicing at home. PT-OP-F Manual Assessment Start: 03/26/22 09:27 Freq: Status: Active Protocol: Document 03/26/22 09:45 [facility] (Rec: 03/31/22 10:19 [facility] [id number]) Manual Assessments Soft Tissue Assessment Soft Tissue Mobility Assessment suboccipital tightness B, scalene tightness L>R, SCM tightness L, Upper trapezius tightness B, pec minor tightness R Joint Mobility Assessment Joint Mobility Assessment Decreased upper cervical flexion, pt tends to extend from upper cervical spine contributing to suboccitpital tightness Decreased cervical sidebending and rotation B with pain on the left C4-5 region with cervical sidebending and rotation thoracic spine hypomobility PT-OP-K Range of Motion Start: 03/26/22 09:27 Freq: Status: Active Protocol: Document 03/26/22 09:45 [facility] (Rec: 03/31/22 10:19 [facility] [id number]) Cervical Spine Range of Motion Cervical Spine Active Testing Position Sitting Flexion 30 Extension 20 Rotation Left 40 Rotation Right 35 Lateral Flexion Left 15 Lateral Flexion Right 15 ROM Limitations Soft Tissue Tightness,Pain Comments increased pain with sidebending and rotation on the left PT-OP-M Strength Start: 03/26/22 09:27 Freq: Status: Active Protocol: Document 03/26/22 09:45 [facility] (Rec: 03/31/22 10:19 [facility] [id number]) Scapula Strength Scapula Manual Muscle Testing Right Adduction 3 Fair Depression 3 Fair Comments poor scapula retraction, upper trapezius tightness limits scapular depression Left Adduction 3 Fair Depression 3 Fair Comments poor scapula retraction, upper trapezius tightness limits scapular depression PT-OP-Q Treatments Start: 03/26/22 09:27 Freq: Status: Active Protocol: Document 05/27/22 09:30 MA (Rec: 05/27/22 10:17 MA [id number]) Gym Equipment Shuttle Balance 1 Details shuttle balance Comments blue setting worked on feet apart, feet together and tandem stance EO/EC for WBOS/NBOS Therapeutic Exercises Sitting Exercises Thoracic Extension Equipment Used small foam roll Reps/Minutes x 1 min Comments hands behind head Standing Exercises Ext Standing Exercise Name shd ext Side bilateral Comments d/c -causes pain in R elbow & shd from prior injury ER Standing Exercise Name shd ER Side bilateral Reps/Minutes x10 Comments added to HEP standing rows Reps/Minutes 2 x 10 reps level 1 theraband Comments manual and VC for posture Neuro Re-Education Treatment Balance Activities SLS Comments Started with one foot on floor , other foot on leon disc--> progressed to SLS trails with rail prn [place] Comments with rail Tandem Comments 1. tandem stance 2. tandem walk Self-Care/Home Management Treatment Education Other Education Added to HEP: shd ER, rows, and tandem walk using counter for support at home. PT-OP-T Assessment and Plan Start: 03/26/22 09:27 Freq: Status: Active Protocol: Document 05/27/22 09:30 MA (Rec: 05/27/22 10:17 MA [id number]) Physical Therapy Assessment Goals 3 Impairment poor postural habits at the computer leading to increased neck pain, tightness in the anterior pectoralis muscles and stretch weakness of the thoracic stabilizers Short Term Goal (STG) Samara is educated on stretches for her anterior chest and exercises for her scapular stabilizers to improve posture and decrease pain STG Duration 4 weeks Mobile Device Engineer Goal (LTG) Overall there is improved mobility of the pec minor and improved strength of the scapula stabilizers to 4/5 or better for improved posture LTG Duration 12 weeks 2 Impairment Decreased cervical spine ROM with sidebending and rotation ROM reproducing left sided neck pain and c/o her neck crunching Mobile Device Engineer Goal (LTG) Samara presents with improvements of her cervical ROM without reproduction of left sided neck pain. She is independent with a home cervical stretching and ROM program LTG Duration 12 weeks 1 Impairment Left sided cervcial spine pain rated 4/10 worse with computer activity. Short Term Goal (STG) Samara is educated in neck stretches she can do while at the computer as well as proper ergonomic set up for her computer STG Duration 2 weeks Group Home Goal (LTG) Samara reports a overall reduction in her neck pain reducing pain to 2/10 or less LTG Duration 12 weeks Assessment Summary Assessment Pt does well on shuttle balance this session even when challenged with head turns. She is challenged by tandem walking on solid floor using rail for support. Added to HEP resisted shd ER, scap retraction (rows), and tandem walk with BILLING CLINICIAN. Pt is unable to complete shoulder extension exercise without increased pain in R elbow and shoulder from previous injury. She has no pain with rows or ER but requires minor cues for cervical posture. Physical Therapy Plan Frequency and Duration Frequency of Treatment 2x/Week Duration of Treatment 12 Plan of Care Start Date 03/26/22 Plan of Care End Date 06/25/22 Therapeutic Interventions Therapeutic Interventions Balance Training,Home Exercise Program,Manual Therapy, Patient/Caregiver Education, Self-Care/Home Management,Soft Tissue Mobilization, Therapeutic Exercises Modalities Cold Pack/Ice Massage,Hot Packs Next Visit Focus/Plan Next Note Type Treatment Note Next Visit Plan Review new HEP: rows, shd ER, tandem walk with BILLING CLINICIAN; cont. established balance exercises, tandem corner, foam etc; work with scapular stabilization and neck mobility
--- NOTE | 2022-06-03 10:37 | PT.OTN ---
Current Diagnoses Cervicalgia (06/03/22) History of falling (06/03/22) Physical Therapy Treatment Note PT-OP-A Visit Information Start: 03/26/22 09:27 Freq: Status: Active Protocol: Document 06/03/22 09:41 [facility] (Rec: 06/03/22 10:37 [facility] [id number]) Out-Patient Physical Therapy Visit Information Visit Information Visit Type Treatment Note Visit Start Time 09:45 Visit Stop Time 10:30 Total Visit Minutes 45 Visit Number 6 Number of RN PRIVATE DUTY Visits 0 PT-OP-B Current Condition Start: 03/26/22 09:27 Freq: Status: Active Protocol: Document 03/26/22 09:45 [facility] (Rec: 03/26/22 09:59 [facility] [id number]) Current Condition History of Current Condition Onset Date November 15 Current Complaints left sided neck pain History of Current Condition Samara is a 81 year old female who fell on November 15 at home hitting a bench on the way down with her head, her glasses broke and gouged her face just missing her eye. She has seen the eye doctor and has full vision. She triped over her dog. She hit the right side of her chin and she bruised a lot. She couldn't drive and there was no one around to drive her. She started feeling left sided neck pain, she could feel crunching of her neck and she had pain that was along the left side of her neck. SHe was very restricted in her ROM and it took about a month for it to heal up. Pain is intermittent and it can come on which computer work. The more movement she gives her neck the better she is. She has fallen several times. Treatment Goals Patient/Caregiver Goals goals include decreasing neck pain and improving balance Current Functional Impairments (Reported) Functional Limitations- ADL's computer work increases neck pain, moderate difficulty opening a tight or new jar Functional Limitations- Other sleep is disturbed 1-2 hour sleep loss pt can drive her can as long as she needs but with slight pain PT-OP-C Subjective Start: 03/26/22 09:27 Freq: Status: Active Protocol: Document 06/03/22 09:41 [facility] (Rec: 06/03/22 10:37 [facility] [id number]) OP-PT Subjective Patient Comments Patient Comments pt reports she is doing really good with her neck, no pain turning her head when driving PT-OP-F Manual Assessment Start: 03/26/22 09:27 Freq: Status: Active Protocol: Document 03/26/22 09:45 [facility] (Rec: 03/31/22 10:19 [facility] [id number]) Manual Assessments Soft Tissue Assessment Soft Tissue Mobility Assessment suboccipital tightness B, scalene tightness L>R, SCM tightness L, Upper trapezius tightness B, pec minor tightness R Joint Mobility Assessment Joint Mobility Assessment Decreased upper cervical flexion, pt tends to extend from upper cervical spine contributing to suboccitpital tightness Decreased cervical sidebending and rotation B with pain on the left C4-5 region with cervical sidebending and rotation thoracic spine hypomobility PT-OP-K Range of Motion Start: 03/26/22 09:27 Freq: Status: Active Protocol: Document 03/26/22 09:45 [facility] (Rec: 03/31/22 10:19 [facility] [id number]) Cervical Spine Range of Motion Cervical Spine Active Testing Position Sitting Flexion 30 Extension 20 Rotation Left 40 Rotation Right 35 Lateral Flexion Left 15 Lateral Flexion Right 15 ROM Limitations Soft Tissue Tightness,Pain Comments increased pain with sidebending and rotation on the left PT-OP-M Strength Start: 03/26/22 09:27 Freq: Status: Active Protocol: Document 03/26/22 09:45 [facility] (Rec: 03/31/22 10:19 [facility] [id number]) Scapula Strength Scapula Manual Muscle Testing Right Adduction 3 Fair Depression 3 Fair Comments poor scapula retraction, upper trapezius tightness limits scapular depression Left Adduction 3 Fair Depression 3 Fair Comments poor scapula retraction, upper trapezius tightness limits scapular depression PT-OP-Q Treatments Start: 03/26/22 09:27 Freq: Status: Active Protocol: Document 06/03/22 09:41 [facility] (Rec: 06/03/22 10:37 [facility] [id number]) Cardio Equipment Recumbent Elliptical (Biodex) Duration (Minutes) 6 Resistance 5 Seat Position 7 Gym Equipment Shuttle Balance 1 Details shuttle balance Comments blue setting worked on feet apart, feet together and tandem stance EO/EC for WBOS/NBOS Therapeutic Exercises Standing Exercises standing calf stretch Reps/Minutes SONAL and standing calf stretch x 3 min standing rows Reps/Minutes 2 x 10 reps level 1 theraband Comments manual and VC for posture standing calf raises with hand support Reps/Minutes 2 x 10 reps standing balance Standing Exercise Name feet together eyes open/eyes closed, tandem in corner EO Side bilateral Reps/Minutes 3 x 30 sec holds Comments EO/EC, head turns, added blue foam Neuro Re-Education Treatment Balance Activities standing toe taps Equipment 6step Reps/Duration x 30 Tandem Comments 1. tandem stance 2. tandem walk PT-OP-T Assessment and Plan Start: 03/26/22 09:27 Freq: Status: Active Protocol: Document 06/03/22 09:41 [facility] (Rec: 06/03/22 10:37 [facility] [id number]) Physical Therapy Assessment Assessment Summary Assessment pt continues to be challenged with single leg stance activities. She loved the SONAL today and I added in toe taps on the 6 step. I reviewed her theraband exercises for posture with her and she needs cueing for shoulder ER with theraband to keep elbows by her sides Physical Therapy Plan Frequency and Duration Frequency of Treatment 2x/Week Duration of Treatment 12 Plan of Care Start Date 03/26/22 Plan of Care End Date 06/25/22 Therapeutic Interventions Therapeutic Interventions Balance Training,Home Exercise Program,Manual Therapy, Patient/Caregiver Education, Self-Care/Home Management,Soft Tissue Mobilization, Therapeutic Exercises Modalities Cold Pack/Ice Massage,Hot Packs Next Visit Focus/Plan Next Note Type Treatment Note Next Visit Plan Review new HEP: rows, shd ER, tandem walk with MEDICAL SUPPLY TECHNICIAN; cont. established balance exercises, tandem corner, foam etc; work with scapular stabilization and neck mobility
--- NOTE | 2022-06-10 13:47 | PT.OTN ---
Current Diagnoses Cervicalgia (06/10/22) History of falling (06/10/22) Physical Therapy Treatment Note PT-OP-A Visit Information Start: 03/26/22 09:27 Freq: Status: Active Protocol: Document 06/10/22 09:45 [facility] (Rec: 06/10/22 13:44 [facility] [id number]) Out-Patient Physical Therapy Visit Information Visit Information Visit Type Treatment Note Visit Start Time 09:45 Visit Stop Time 10:30 Total Visit Minutes 45 Visit Number 7 Number of MECHANIC WELDER TRUCK DRIVER Visits 0 PT-OP-B Current Condition Start: 03/26/22 09:27 Freq: Status: Active Protocol: Document 03/26/22 09:45 [facility] (Rec: 03/26/22 09:59 [facility] [id number]) Current Condition History of Current Condition Onset Date November 15 Current Complaints left sided neck pain History of Current Condition Samara is a 81 year old female who fell on November 15 at home hitting a bench on the way down with her head, her glasses broke and gouged her face just missing her eye. She has seen the eye doctor and has full vision. She triped over her dog. She hit the right side of her chin and she bruised a lot. She couldn't drive and there was no one around to drive her. She started feeling left sided neck pain, she could feel crunching of her neck and she had pain that was along the left side of her neck. SHe was very restricted in her ROM and it took about a month for it to heal up. Pain is intermittent and it can come on which computer work. The more movement she gives her neck the better she is. She has fallen several times. Treatment Goals Patient/Caregiver Goals goals include decreasing neck pain and improving balance Current Functional Impairments (Reported) Functional Limitations- ADL's computer work increases neck pain, moderate difficulty opening a tight or new jar Functional Limitations- Other sleep is disturbed 1-2 hour sleep loss pt can drive her can as long as she needs but with slight pain PT-OP-C Subjective Start: 03/26/22 09:27 Freq: Status: Active Protocol: Document 06/10/22 09:45 [facility] (Rec: 06/10/22 13:44 [facility] [id number]) OP-PT Subjective Patient Comments Patient Comments Samara notes her neck continues to do well, right shoulder is a little sore today. She has been walking her dogs 2 xms per day PT-OP-F Manual Assessment Start: 03/26/22 09:27 Freq: Status: Active Protocol: Document 03/26/22 09:45 [facility] (Rec: 03/31/22 10:19 [facility] [id number]) Manual Assessments Soft Tissue Assessment Soft Tissue Mobility Assessment suboccipital tightness B, scalene tightness L>R, SCM tightness L, Upper trapezius tightness B, pec minor tightness R Joint Mobility Assessment Joint Mobility Assessment Decreased upper cervical flexion, pt tends to extend from upper cervical spine contributing to suboccitpital tightness Decreased cervical sidebending and rotation B with pain on the left C4-5 region with cervical sidebending and rotation thoracic spine hypomobility PT-OP-K Range of Motion Start: 03/26/22 09:27 Freq: Status: Active Protocol: Document 03/26/22 09:45 [facility] (Rec: 03/31/22 10:19 [facility] [id number]) Cervical Spine Range of Motion Cervical Spine Active Testing Position Sitting Flexion 30 Extension 20 Rotation Left 40 Rotation Right 35 Lateral Flexion Left 15 Lateral Flexion Right 15 ROM Limitations Soft Tissue Tightness,Pain Comments increased pain with sidebending and rotation on the left PT-OP-M Strength Start: 03/26/22 09:27 Freq: Status: Active Protocol: Document 03/26/22 09:45 [facility] (Rec: 03/31/22 10:19 [facility] [id number]) Scapula Strength Scapula Manual Muscle Testing Right Adduction 3 Fair Depression 3 Fair Comments poor scapula retraction, upper trapezius tightness limits scapular depression Left Adduction 3 Fair Depression 3 Fair Comments poor scapula retraction, upper trapezius tightness limits scapular depression PT-OP-Q Treatments Start: 03/26/22 09:27 Freq: Status: Active Protocol: Document 06/10/22 09:47 [facility] (Rec: 06/10/22 10:31 [facility] [id number]) Cardio Equipment Recumbent Elliptical (Biodex) Duration (Minutes) 6 Resistance 5 Seat Position 7 Gym Equipment Shuttle Balance 1 Details shuttle balance Comments red setting worked on feet apart, feet together and tandem stance EO/EC for WBOS/NBOS Therapeutic Exercises Standing Exercises Ext Reps/Minutes x 20 Comments used wand instead of band standing calf stretch Reps/Minutes SONAL and standing calf stretch x 3 min standing rows Reps/Minutes 2 x 10 reps level 1 theraband Comments manual and VC for posture standing calf raises with hand support Reps/Minutes 2 x 10 reps standing balance Standing Exercise Name feet together eyes open/eyes closed, tandem in corner EO Side bilateral Reps/Minutes 3 x 30 sec holds Comments EO/EC, head turns, added blue foam Neuro Re-Education Treatment Balance Activities steps over hurdles Reps/Duration 4 xms Comments pt able to complete without hand holds standing toe taps Equipment 6step Reps/Duration x 30 SLS Comments Started with one foot on floor , other foot on leon disc--> progressed to SLS trails with rail prn Tandem Comments 1. tandem stance 2. tandem walk PT-OP-T Assessment and Plan Start: 03/26/22 09:27 Freq: Status: Active Protocol: Document 06/10/22 09:47 [facility] (Rec: 06/10/22 10:31 [facility] [id number]) Physical Therapy Assessment Goals 3 Impairment poor postural habits at the computer leading to increased neck pain, tightness in the anterior pectoralis muscles and stretch weakness of the thoracic stabilizers Short Term Goal (STG) Samara is educated on stretches for her anterior chest and exercises for her scapular stabilizers to improve posture and decrease pain STG Duration 4 weeks [facility] Goal (LTG) Overall there is improved mobility of the pec minor and improved strength of the scapula stabilizers to 4/5 or better for improved posture LTG Duration 12 weeks 2 Impairment Decreased cervical spine ROM with sidebending and rotation ROM reproducing left sided neck pain and c/o her neck crunching [facility] Goal (LTG) Samara presents with improvements of her cervical ROM without reproduction of left sided neck pain. She is independent with a home cervical stretching and ROM program LTG Duration 12 weeks 1 Impairment Left sided cervcial spine pain rated 4/10 worse with computer activity. Short Term Goal (STG) Samara is educated in neck stretches she can do while at the computer as well as proper ergonomic set up for her computer STG Duration 2 weeks [facility] Goal (LTG) Samara reports a overall reduction in her neck pain reducing pain to 2/10 or less LTG Duration 12 weeks Assessment Summary Assessment Balance continues to improve able to stand SLS x 10 seconds each side today, tolerating higher level balance exercises Physical Therapy Plan Frequency and Duration Frequency of Treatment 2x/Week Duration of Treatment 12 Plan of Care Start Date 03/26/22 Plan of Care End Date 06/25/22 Therapeutic Interventions Therapeutic Interventions Balance Training,Home Exercise Program,Manual Therapy, Patient/Caregiver Education, Self-Care/Home Management,Soft Tissue Mobilization, Therapeutic Exercises Modalities Cold Pack/Ice Massage,Hot Packs Next Visit Focus/Plan Next Note Type Treatment Note Next Visit Plan Review new HEP: rows, shd ER, tandem walk with MANAGER UROLOGY; cont. established balance exercises, tandem corner, foam etc; work with scapular stabilization and neck mobility
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
--- NOTE | 2022-06-17 14:14 | PT.OPPOC ---
Physical, Occupational & Speech Therapy At [facility] Current Diagnoses Cervicalgia (06/17/22) History of falling (06/17/22) Visit Care Team Role Provider Type Kalpesh aDvila MD Attending Provider Non-Staff Family Provider Primary Care Provider Referring Provider Specialty: Internal Medicine Address: [address] [place] [address], [id number] Email: Plan Of Care PT-OP-T Assessment and Plan Start: 03/26/22 09:27 Freq: Status: Active Protocol: Document 06/17/22 09:51 [facility] (Rec: 06/17/22 10:38 [facility] [id number]) Physical Therapy Assessment Goals 4 Impairment Decreased balance Section Leader And Machine Setter Goal (LTG) Samara is able to balance SLS x 10 seconds B LTG Duration 8 weeks 3 Impairment poor postural habits at the computer leading to increased neck pain, tightness in the anterior pectoralis muscles and stretch weakness of the thoracic stabilizers Short Term Goal (STG) Samara is educated on stretches for her anterior chest and exercises for her scapular stabilizers to improve posture and decrease pain GOAL MET STG Duration 4 weeks Section Leader And Machine Setter Goal (LTG) Overall there is improved mobility of the pec minor and improved strength of the scapula stabilizers to 4/5 or better for improved posture GOOD PROGRESS LTG Duration 12 weeks 2 Impairment Decreased cervical spine ROM with sidebending and rotation ROM reproducing left sided neck pain and c/o her neck crunching Custodial Goal (LTG) Samara presents with improvements of her cervical ROM without reproduction of left sided neck pain. She is independent with a home cervical stretching and ROM GOAL MET LTG Duration 12 weeks 1 Impairment Left sided cervcial spine pain rated 4/10 worse with computer activity. Short Term Goal (STG) Samara is educated in neck stretches she can do while at the computer as well as proper ergonomic set up for her computer GOAL MET STG Duration 2 weeks Custodial Goal (LTG) Samara reports a overall reduction in her neck pain reducing pain to 2/10 or less GOAL MET LTG Duration 12 weeks Progress Towards Goals Progress Towards Goals Progressing Toward Goals Assessment Summary Assessment Samara is making great overall progress in PT. She is no longer experiencing the neck pain from her original fall. Her cervical spine ROM is improving and she is no longer feeling that she is straining when turning her head with driving. Treatment has progressed to balance training . Samara has not had any further falls. Single leg balance and dynamic balance activities are still difficult for her. She would benefit from continued PT Physical Therapy Plan Frequency and Duration Frequency of Treatment 2x/Week Duration of Treatment 12 Plan of Care Start Date 06/17/22 Plan of Care End Date 08/18/22 Therapeutic Interventions Therapeutic Interventions Balance Training,Home Exercise Program,Manual Therapy, Patient/Caregiver Education, Self-Care/Home Management,Soft Tissue Mobilization, Therapeutic Exercises Modalities Cold Pack/Ice Massage,Hot Packs Next Visit Focus/Plan Next Note Type Treatment Note Next Visit Plan Review new HEP: rows, shd ER, tandem walk with COMPUTATIONAL THEORY SCIENTIST; cont. established balance exercises, tandem corner, foam etc; work with scapular stabilization and neck mobility Plan of Care Dates Plan of Care Start Date 06/17/22 Plan of Care End Date 08/18/22 Electronically Signed by: Lainey Thomson, PT 06/17/22 4240 If you are in agreement with this Plan of Care, please return a signed and dated copy. I have reviewed this Plan of Care and certify that the skilled therapy services above are required to meet the patient?s needs. Physician Signature Date Printed Name and Credentials Clinical Instructor Signature Printed Name and Credentials
--- NOTE | 2022-07-08 10:36 | PT.OTN ---
Current Diagnoses Cervicalgia (07/08/22) History of falling (07/08/22) Physical Therapy Treatment Note PT-OP-A Visit Information Start: 03/26/22 09:27 Freq: Status: Active Protocol: Document 07/08/22 09:44 [facility] (Rec: 07/08/22 10:36 [facility] [id number]) Out-Patient Physical Therapy Visit Information Visit Information Visit Type Treatment Note Visit Start Time 09:45 Visit Stop Time 10:30 Total Visit Minutes 45 Visit Number 9 PT-OP-B Current Condition Start: 03/26/22 09:27 Freq: Status: Active Protocol: Document 03/26/22 09:45 [facility] (Rec: 03/26/22 09:59 [facility] [id number]) Current Condition History of Current Condition Onset Date November 15 Current Complaints left sided neck pain History of Current Condition Samara is a 81 year old female who fell on November 15 at home hitting a bench on the way down with her head, her glasses broke and gouged her face just missing her eye. She has seen the eye doctor and has full vision. She triped over her dog. She hit the right side of her chin and she bruised a lot. She couldn't drive and there was no one around to drive her. She started feeling left sided neck pain, she could feel crunching of her neck and she had pain that was along the left side of her neck. SHe was very restricted in her ROM and it took about a month for it to heal up. Pain is intermittent and it can come on which computer work. The more movement she gives her neck the better she is. She has fallen several times. Treatment Goals Patient/Caregiver Goals goals include decreasing neck pain and improving balance Current Functional Impairments (Reported) Functional Limitations- ADL's computer work increases neck pain, moderate difficulty opening a tight or new jar Functional Limitations- Other sleep is disturbed 1-2 hour sleep loss pt can drive her can as long as she needs but with slight pain PT-OP-C Subjective Start: 03/26/22 09:27 Freq: Status: Active Protocol: Document 07/08/22 09:44 [facility] (Rec: 07/08/22 10:36 [facility] [id number]) OP-PT Subjective Patient Comments Patient Comments Samara reports she is doing well, neck is doing good, she still feels her balance is not what it used to be. She notes walking as kids ride their bikes by her makes her nervous PT-OP-F Manual Assessment Start: 03/26/22 09:27 Freq: Status: Active Protocol: Document 03/26/22 09:45 [facility] (Rec: 03/31/22 10:19 [facility] [id number]) Manual Assessments Soft Tissue Assessment Soft Tissue Mobility Assessment suboccipital tightness B, scalene tightness L>R, SCM tightness L, Upper trapezius tightness B, pec minor tightness R Joint Mobility Assessment Joint Mobility Assessment Decreased upper cervical flexion, pt tends to extend from upper cervical spine contributing to suboccitpital tightness Decreased cervical sidebending and rotation B with pain on the left C4-5 region with cervical sidebending and rotation thoracic spine hypomobility PT-OP-K Range of Motion Start: 03/26/22 09:27 Freq: Status: Active Protocol: Document 03/26/22 09:45 [facility] (Rec: 03/31/22 10:19 [facility] [id number]) Cervical Spine Range of Motion Cervical Spine Active Testing Position Sitting Flexion 30 Extension 20 Rotation Left 40 Rotation Right 35 Lateral Flexion Left 15 Lateral Flexion Right 15 ROM Limitations Soft Tissue Tightness,Pain Comments increased pain with sidebending and rotation on the left PT-OP-M Strength Start: 03/26/22 09:27 Freq: Status: Active Protocol: Document 03/26/22 09:45 [facility] (Rec: 03/31/22 10:19 [facility] [id number]) Scapula Strength Scapula Manual Muscle Testing Right Adduction 3 Fair Depression 3 Fair Comments poor scapula retraction, upper trapezius tightness limits scapular depression Left Adduction 3 Fair Depression 3 Fair Comments poor scapula retraction, upper trapezius tightness limits scapular depression PT-OP-Q Treatments Start: 03/26/22 09:27 Freq: Status: Active Protocol: Document 07/08/22 09:44 [facility] (Rec: 07/08/22 10:36 [facility] [id number]) Cardio Equipment Recumbent Elliptical (Biodex) Duration (Minutes) 6 Resistance 5 Seat Position 7 Therapeutic Exercises Standing Exercises Ext Reps/Minutes x 20 Comments with wand ER Equipment Used level 1 theraband bilateral Reps/Minutes 2 x 10 reps standing calf stretch Reps/Minutes SONAL and standing calf stretch x 3 min standing rows Reps/Minutes 2 x 10 reps level 1 theraband Comments manual and VC for posture Neuro Re-Education Treatment Balance Activities steps over hurdles Reps/Duration 4 xms Comments pt able to complete without hand holds standing toe taps Equipment 6step Reps/Duration x 30 SLS Comments Started with one foot on floor , other foot on leon disc--> progressed to SLS trails with rail prn [place]icoa Comments with rail Tandem Comments 1. tandem stance 2. tandem walk Coordination Activities Hurdles Equipment single rail Reps/Duration 3x6 hurdles Comments foam pads between each tatyana PT-OP-T Assessment and Plan Start: 03/26/22 09:27 Freq: Status: Active Protocol: Document 07/08/22 09:44 [facility] (Rec: 07/08/22 10:36 [facility] [id number]) Physical Therapy Assessment Assessment Summary Assessment Samara is able to balance feet together eyes closed now x 30 seconds, tandem is more difficult but she is able to balance x 10 seconds without hands making good progress with balance training Physical Therapy Plan Frequency and Duration Frequency of Treatment 2x/Week Duration of Treatment 12 Plan of Care Start Date 06/17/22 Plan of Care End Date 08/18/22 Therapeutic Interventions Therapeutic Interventions Balance Training,Home Exercise Program,Manual Therapy, Patient/Caregiver Education, Self-Care/Home Management,Soft Tissue Mobilization, Therapeutic Exercises Modalities Cold Pack/Ice Massage,Hot Packs Next Visit Focus/Plan Next Note Type Treatment Note Next Visit Plan Review new HEP: rows, shd ER, tandem walk with VOICE OVER ANNOUNCER; cont. established balance exercises, tandem corner, foam etc; work with scapular stabilization and neck mobility. Review all balance exercises for home and give additional HEP handouts.
--- NOTE | 2022-07-15 10:30 | PT.OTN ---
Current Diagnoses Cervicalgia (07/15/22) History of falling (07/15/22) Physical Therapy Treatment Note PT-OP-A Visit Information Start: 03/26/22 09:27 Freq: Status: Active Protocol: Document 07/15/22 09:46 [facility] (Rec: 07/15/22 10:29 [facility] [id number]) Out-Patient Physical Therapy Visit Information Visit Information Visit Type Treatment Note Visit Start Time 09:45 Visit Stop Time 10:30 Total Visit Minutes 45 Visit Number 10 PT-OP-B Current Condition Start: 03/26/22 09:27 Freq: Status: Active Protocol: Document 03/26/22 09:45 [facility] (Rec: 03/26/22 09:59 [facility] [id number]) Current Condition History of Current Condition Onset Date November 15 Current Complaints left sided neck pain History of Current Condition Samara is a 81 year old female who fell on November 15 at home hitting a bench on the way down with her head, her glasses broke and gouged her face just missing her eye. She has seen the eye doctor and has full vision. She triped over her dog. She hit the right side of her chin and she bruised a lot. She couldn't drive and there was no one around to drive her. She started feeling left sided neck pain, she could feel crunching of her neck and she had pain that was along the left side of her neck. SHe was very restricted in her ROM and it took about a month for it to heal up. Pain is intermittent and it can come on which computer work. The more movement she gives her neck the better she is. She has fallen several times. Treatment Goals Patient/Caregiver Goals goals include decreasing neck pain and improving balance Current Functional Impairments (Reported) Functional Limitations- ADL's computer work increases neck pain, moderate difficulty opening a tight or new jar Functional Limitations- Other sleep is disturbed 1-2 hour sleep loss pt can drive her can as long as she needs but with slight pain PT-OP-C Subjective Start: 03/26/22 09:27 Freq: Status: Active Protocol: Document 07/15/22 09:46 [facility] (Rec: 07/15/22 10:29 [facility] [id number]) OP-PT Subjective Patient Comments Patient Comments pt notes it really helps her neck if she keeps it moving PT-OP-F Manual Assessment Start: 03/26/22 09:27 Freq: Status: Active Protocol: Document 03/26/22 09:45 [facility] (Rec: 03/31/22 10:19 [facility] [id number]) Manual Assessments Soft Tissue Assessment Soft Tissue Mobility Assessment suboccipital tightness B, scalene tightness L>R, SCM tightness L, Upper trapezius tightness B, pec minor tightness R Joint Mobility Assessment Joint Mobility Assessment Decreased upper cervical flexion, pt tends to extend from upper cervical spine contributing to suboccitpital tightness Decreased cervical sidebending and rotation B with pain on the left C4-5 region with cervical sidebending and rotation thoracic spine hypomobility PT-OP-K Range of Motion Start: 03/26/22 09:27 Freq: Status: Active Protocol: Document 03/26/22 09:45 [facility] (Rec: 03/31/22 10:19 [facility] [id number]) Cervical Spine Range of Motion Cervical Spine Active Testing Position Sitting Flexion 30 Extension 20 Rotation Left 40 Rotation Right 35 Lateral Flexion Left 15 Lateral Flexion Right 15 ROM Limitations Soft Tissue Tightness,Pain Comments increased pain with sidebending and rotation on the left PT-OP-M Strength Start: 03/26/22 09:27 Freq: Status: Active Protocol: Document 03/26/22 09:45 [facility] (Rec: 03/31/22 10:19 [facility] [id number]) Scapula Strength Scapula Manual Muscle Testing Right Adduction 3 Fair Depression 3 Fair Comments poor scapula retraction, upper trapezius tightness limits scapular depression Left Adduction 3 Fair Depression 3 Fair Comments poor scapula retraction, upper trapezius tightness limits scapular depression PT-OP-Q Treatments Start: 03/26/22 09:27 Freq: Status: Active Protocol: Document 07/15/22 09:46 [facility] (Rec: 07/15/22 10:29 [facility] [id number]) Therapeutic Exercises Standing Exercises Ext Reps/Minutes x 20 Comments with wand ER Equipment Used level 1 theraband bilateral Reps/Minutes 2 x 10 reps standing calf stretch Reps/Minutes SONAL and standing calf stretch x 3 min standing on foam Reps/Minutes 1 min hold eyes open Comments in parallel bars standing rows Reps/Minutes 2 x 10 reps level 1 theraband Comments manual and VC for posture standing calf raises with hand support Reps/Minutes 2 x 10 reps standing balance Standing Exercise Name feet together eyes open/eyes closed, tandem in corner EO Side bilateral Reps/Minutes 3 x 30 sec holds Comments EO/EC, head turns, added blue foam Neuro Re-Education Treatment Balance Activities steps over hurdles Reps/Duration 4 xms Comments pt able to complete without hand holds standing toe taps Equipment 6step Reps/Duration x 30 SLS Comments Started with one foot on floor , other foot on leon disc--> progressed to SLS trails with rail prn Caricoa Comments with rail Tandem Comments 1. tandem stance 2. tandem walk Coordination Activities Hurdles Equipment single rail Reps/Duration 3x6 hurdles Comments foam pads between each tatyana PT-OP-T Assessment and Plan Start: 03/26/22 09:27 Freq: Status: Active Protocol: Document 07/15/22 09:46 [facility] (Rec: 07/15/22 10:29 [facility] [id number]) Physical Therapy Assessment Assessment Summary Assessment single leg stance requires hand support, able to balance x 20 seconds in tandem without hands support today. Good overall progress. Pt has one visit left to review HEP and will then be discharged Physical Therapy Plan Frequency and Duration Frequency of Treatment 2x/Week Duration of Treatment 12 Plan of Care Start Date 06/17/22 Plan of Care End Date 08/18/22 Next Visit Focus/Plan Next Note Type Treatment Note Next Visit Plan review all exercises and balance home program. Give handouts for HEP as it cholo be pts last visit
--- NOTE | 2022-07-22 14:16 | PT.OTN ---
Current Diagnoses Cervicalgia (07/22/22) History of falling (07/22/22) Physical Therapy Treatment Note PT-OP-A Visit Information Start: 03/26/22 09:27 Freq: Status: Active Protocol: Document 07/22/22 09:45 [facility] (Rec: 07/22/22 10:29 [facility] [id number]) Out-Patient Physical Therapy Visit Information Visit Information Visit Type Treatment Note Visit Start Time 09:45 Visit Stop Time 10:30 Total Visit Minutes 45 Visit Number 11 PT-OP-B Current Condition Start: 03/26/22 09:27 Freq: Status: Active Protocol: Document 03/26/22 09:45 [facility] (Rec: 03/26/22 09:59 [facility] [id number]) Current Condition History of Current Condition Onset Date November 15 Current Complaints left sided neck pain History of Current Condition Samara is a 81 year old female who fell on November 15 at home hitting a bench on the way down with her head, her glasses broke and gouged her face just missing her eye. She has seen the eye doctor and has full vision. She triped over her dog. She hit the right side of her chin and she bruised a lot. She couldn't drive and there was no one around to drive her. She started feeling left sided neck pain, she could feel crunching of her neck and she had pain that was along the left side of her neck. SHe was very restricted in her ROM and it took about a month for it to heal up. Pain is intermittent and it can come on which computer work. The more movement she gives her neck the better she is. She has fallen several times. Treatment Goals Patient/Caregiver Goals goals include decreasing neck pain and improving balance Current Functional Impairments (Reported) Functional Limitations- ADL's computer work increases neck pain, moderate difficulty opening a tight or new jar Functional Limitations- Other sleep is disturbed 1-2 hour sleep loss pt can drive her can as long as she needs but with slight pain PT-OP-C Subjective Start: 03/26/22 09:27 Freq: Status: Active Protocol: Document 07/22/22 09:45 [facility] (Rec: 07/22/22 10:29 [facility] [id number]) OP-PT Subjective Patient Comments Patient Comments pt notes she is doing well with her HEP PT-OP-F Manual Assessment Start: 03/26/22 09:27 Freq: Status: Active Protocol: Document 03/26/22 09:45 [facility] (Rec: 03/31/22 10:19 [facility] [id number]) Manual Assessments Soft Tissue Assessment Soft Tissue Mobility Assessment suboccipital tightness B, scalene tightness L>R, SCM tightness L, Upper trapezius tightness B, pec minor tightness R Joint Mobility Assessment Joint Mobility Assessment Decreased upper cervical flexion, pt tends to extend from upper cervical spine contributing to suboccitpital tightness Decreased cervical sidebending and rotation B with pain on the left C4-5 region with cervical sidebending and rotation thoracic spine hypomobility PT-OP-K Range of Motion Start: 03/26/22 09:27 Freq: Status: Active Protocol: Document 03/26/22 09:45 [facility] (Rec: 03/31/22 10:19 [facility] [id number]) Cervical Spine Range of Motion Cervical Spine Active Testing Position Sitting Flexion 30 Extension 20 Rotation Left 40 Rotation Right 35 Lateral Flexion Left 15 Lateral Flexion Right 15 ROM Limitations Soft Tissue Tightness,Pain Comments increased pain with sidebending and rotation on the left PT-OP-M Strength Start: 03/26/22 09:27 Freq: Status: Active Protocol: Document 03/26/22 09:45 [facility] (Rec: 03/31/22 10:19 [facility] [id number]) Scapula Strength Scapula Manual Muscle Testing Right Adduction 3 Fair Depression 3 Fair Comments poor scapula retraction, upper trapezius tightness limits scapular depression Left Adduction 3 Fair Depression 3 Fair Comments poor scapula retraction, upper trapezius tightness limits scapular depression PT-OP-Q Treatments Start: 03/26/22 09:27 Freq: Status: Active Protocol: Document 07/22/22 09:45 [facility] (Rec: 07/22/22 10:29 [facility] [id number]) Cardio Equipment Recumbent Elliptical (Biodex) Duration (Minutes) 6 Resistance 5 Seat Position 7 Therapeutic Exercises Standing Exercises Ext Reps/Minutes x 20 Comments with wand ER Equipment Used level 1 theraband bilateral Reps/Minutes 2 x 10 reps standing calf stretch Reps/Minutes SONAL and standing calf stretch x 3 min standing on foam Reps/Minutes 1 min hold eyes open Comments in parallel bars standing rows Reps/Minutes 2 x 10 reps level 1 theraband Comments manual and VC for posture standing calf raises with hand support Reps/Minutes 2 x 10 reps standing balance Standing Exercise Name feet together eyes open/eyes closed, tandem in corner EO Side bilateral Reps/Minutes 3 x 30 sec holds Comments EO/EC, head turns, added blue foam Neuro Re-Education Treatment Balance Activities steps over hurdles Reps/Duration 4 xms Comments pt able to complete without hand holds standing toe taps Equipment 6step Reps/Duration x 30 SLS Comments Started with one foot on floor , other foot on leon disc--> progressed to SLS trails with rail prn [place] Comments with rail Tandem Comments 1. tandem stance 2. tandem walk PT-OP-T Assessment and Plan Start: 03/26/22 09:27 Freq: Status: Active Protocol: Document 07/22/22 09:45 [facility] (Rec: 07/22/22 14:15 [facility] [id number]) Physical Therapy Assessment Goals 4 Impairment Decreased balance Halfway Goal (LTG) Samara is able to balance SLS x 10 seconds B As of 07/22/22 SLS with 1 hand support x 30 sec B LTG Duration 8 weeks 3 Impairment poor postural habits at the computer leading to increased neck pain, tightness in the anterior pectoralis muscles and stretch weakness of the thoracic stabilizers Short Term Goal (STG) Samara is educated on stretches for her anterior chest and exercises for her scapular stabilizers to improve posture and decrease pain GOAL MET STG Duration 4 weeks Halfway Goal (LTG) Overall there is improved mobility of the pec minor and improved strength of the scapula stabilizers to 4/5 or better for improved posture GOAL MET LTG Duration 12 weeks 2 Impairment Decreased cervical spine ROM with sidebending and rotation ROM reproducing left sided neck pain and c/o her neck crunching Trucking Supervisor Goal (LTG) Samara presents with improvements of her cervical ROM without reproduction of left sided neck pain. She is independent with a home cervical stretching and ROM GOAL MET LTG Duration 12 weeks 1 Impairment Left sided cervcial spine pain rated 4/10 worse with computer activity. Short Term Goal (STG) Samara is educated in neck stretches she can do while at the computer as well as proper ergonomic set up for her computer GOAL MET STG Duration 2 weeks Trucking Supervisor Goal (LTG) Samara reports a overall reduction in her neck pain reducing pain to 2/10 or less GOAL MET LTG Duration 12 weeks Assessment Summary Assessment Samara has made great overall progress and balance has improved a great deal. SLS still required 1 hand. Pt to also look at getting new shoes as she wears rain boots which are not as supportive for her . At this point she is independent with a HEP and will be discharged from PT Physical Therapy Plan Discharge Physical Therapy Discharge Comments Great progress with goals and pt is I with HEP
== END 2022-11-05 13:47 | disposition home or self-care (01) ==
LOC: PHYS 09:45
PROVIDERS: Family Provider Internal Medicine; PCP Internal Medicine; Referring Provider Internal Medicine; Visit Provider Internal Medicine
DX: M54.2 Cervicalgia (principal); Z91.81 History of falling
CPT/HCPCS: 97110; 97112; 97140; 97161

== ENCOUNTER 2022-12-29 09:10 | Inpatient (IN) | payer OTHER, SELFPAY ==
[2022-12-29] VITALS (13 sets, daily range): BP systolic 172–222; BP diastolic 82–109; PULSE 53–92; RESP 17–19; TEMP 36.7–37; O2SAT 93–100; BMI 20.2
--- NOTE | 2022-12-29 09:10 | DI.RAD.S_ITS ---
PROCEDURE: XR HIP W PEL IF DONE RT 2V INDICATIONS: fall with right hip pain TECHNIQUE: 2 views of the hip were acquired. COMPARISON: None. FINDINGS: Bones: Moderate displaced and angulated right hip fracture, probably transcervical. Moderate left hip arthrosis. Soft tissues: Soft tissue swelling. Large stool burden. IMPRESSION: Right hip moderately displaced and angulated fracture. Dictated by: Justice Ramirez M.D. on 12/29/2022 at 10:14 Approved by: Justice Ramirez M.D. on 12/29/2022 at 10:14
--- NOTE | 2022-12-29 09:11 | ED_ITS ---
HPI - General Adult General Chief complaint: Fall Stated complaint: Fall/hip pain Time Seen by Provider: 12/29/22 09:10 Source: patient and EMS Mode of arrival: EMS Limitations: no limitations History of Present Illness HPI narrative: Patient is a 82-year-old female not on anticoagulation who is here for evaluation of right hip pain. She states she was getting out of her car and walking up a slight incline into her house when she caught her right foot on the ground. She fell landing on her right hip. She did not hit her head. No loss of consciousness. No other injuries from the event except for some scrapes to her right hand. No back pain. Received 100 mcg of fentanyl prior to arrival. Related Data Previous Rx's Medication Instructions Recorded hydrocodone 5 mg-acetaminophen 325 1 tab PO Q6H PRN pain #20 tabs 04/10/20 mg tablet (Capac) Allergies Allergy/AdvReac Type Severity Reaction Status Date / Time No Known Drug Allergies Allergy Verified 12/29/22 09:15 Review of Systems Constitutional Comments: Denies headache Cardiovascular Comments: Denies chest pain Respiratory Comments: Denies shortness of breath Gastrointestinal Comments: Denies abdominal pain Musculoskeletal Comments: Right hip pain Integumentary/Breasts Comments: Abrasion right hand Neurologic Neurologic: Reports system reviewed and no additional complaints, except as documented Hematologic/Lymphatic On Anticoagulants: No Patient History Medical History Hypertension Social History Smoking Status: Never smoker Smoking Status: Never smoker Substance Use Type: does not use Exam Initial Vital Signs Initial Vital Signs: Vital Signs Temperature 98.1 F 12/29/22 09:00 Pulse Rate 58 L 12/29/22 09:00 Respiratory Rate 18 12/29/22 09:00 Blood Pressure 222/103 H 12/29/22 09:00 Pulse Oximetry 100 12/29/22 09:00 Oxygen Delivery Method 12/29/22 09:00 Const General: cooperative and No ill appearing HENMT Head: normal to inspection and normocephalic Resp Effort & Inspection: normal respiratory effort Auscultation: clear to auscultation bilaterally Cardio Rate: regular rate Back/Spine/Pelvis Cervical Spine: No cervical spinal tenderness Skin Other: Superficial abrasions to the dorsum of the right middle and ring finger. Neuro General: patient alert, patient awake and patient oriented x3 Speech: speech normal Extrem Other: Right hip pain with any palpation or movement. Right knee right ankle unremarkable. Upper extremities unremarkable. Psych Appearance: grossly normal and well kempt Course Orders Ordered: ED Orders 12/29/22 08:30 Basic Metabolic Panel Stat Complete Blood Count AUTO DIFF Stat Hepatic (Liver) Panel Stat Magnesium Urgent 12/29/22 09:10 XR hip w pel if done RT 2V Stat 12/29/22 09:52 Consult to Orthopedic Surgery Stat 12/29/22 11:22 Urinalysis and Microscopic Urgent 12/29/22 11:24 COVID19 -Nasal RAPID/Pre-Proc Stat 12/30/22 05:00 BMP [Basic Metabolic Panel] DAILY CBC Auto Diff [Complete Blood Count AUTO DIFF] DAILY Prothrombin Time INR Routine 12/31/22 05:00 BMP [Basic Metabolic Panel] DAILY CBC Auto Diff [Complete Blood Count AUTO DIFF] DAILY 01/01/23 05:00 BMP [Basic Metabolic Panel] DAILY CBC Auto Diff [Complete Blood Count AUTO DIFF] DAILY Acetaminophen (Acetaminophen 325 Mg Tablet) 650 mg PO Q6H PRN PRN Reason: Fever/Mild Pain (1-3) Bisacodyl (Bisacodyl 5 Mg Tablet) 10 mg PO DAILY PRN PRN Reason: Constipation Hydromorphone HCl (Hydromorphone 0.5 Mg Inj) 0.5 mg IV Q4H PRN PRN Reason: Pain, Moderate (4-6) Sodium Chloride (Normal Saline 0.9%) 1,000 mls @ 100 mls/hr IV CONT ERIN Labetalol HCl (Labetalol 20 Mg/4 Ml Syringe) 10 mg IV Q5H PRN PRN Reason: SBP >190 or DBP >110 Melatonin (Melatonin 3 Mg Tablet) 6 mg PO BEDTIME PRN PRN Reason: Insomnia Naloxone HCl (Naloxone 0.4 Mg/Ml Vial) 0.2 mg IV Q2MIN PRN PRN Reason: Opiate Reversal Oxycodone HCl (Oxycodone Ir 5 Mg Tablet) 5 mg PO Q4HR PRN PRN Reason: Pain, Moderate (4-6) Oxycodone HCl (Oxycodone Ir 10 Mg Tablet) 10 mg PO Q4HR PRN PRN Reason: Pain, Severe (7-10) Polyethylene Glycol (Polyethylene Glycol 3350 17 Gm Powd.Pack) 17 gm PO DAILY PRN PRN Reason: Constipation Sennosides (Sennosides 8.6 Mg Tablet) 8.6 mg PO BID PRN PRN Reason: Constipation Discontinued Medications Amlodipine Besylate (Amlodipine 5 Mg Tablet) 10 mg PO NOW ONE Stop: 12/29/22 10:54 Heparin Sodium (Porcine) (Heparin 5,000 Unit/Ml Vial) 5,000 unit SUBCUT NOW ONE Stop: 12/29/22 10:52 Morphine Sulfate (Morphine 4 Mg/Ml Inj) 4 mg IV NOW ONE Stop: 12/29/22 09:12 Last Admin: 12/29/22 09:21 Dose: 4 mg Documented By: AILYN Vital Signs Vital signs: Vital Signs - 8 hr 12/29/22 09:00 Temperature 98.1 F Pulse Rate 58 L Respiratory Rate 18 Blood Pressure 222/103 H Pulse Oximetry 100 Oxygen Delivery Method Room Air Medical Decision Making Differential Diagnosis Differential Diagnosis: Fracture, dislocation, compartment syndrome and others Lab Data Lab results reviewed: Yes I reviewed the patient's lab results. 12/29/22 08:30 12/29/22 08:30 Labs: Lab Results 12/29/22 12/29/22 12/29/22 Range/Units 08:30 08:30 08:30 WBC 5.0 (4.5-11.0) X10^3/uL RBC 3.23 L (4.0-5.2) X10^6/uL Hgb 11.7 L (12.0-16.0) g/dL Hct 34.2 L (36-46) % MCV 105.8 H (80-100) fL MCH 36.1 H (26-34) PG MCHC 34.1 (30-36) % RDW 13.5 (11.6-14.8) % Plt Count 225 (150-400) X10^3/uL Neut % (Auto) 45.3 L (50-75) % Lymph % (Auto) 41.6 H (25-40) % [place] % (Auto) 12.2 (3-14) % Eos % (Auto) 0.5 L (2-4) % Baso % (Auto) 0.4 (0-2) % Neut # (Auto) 2300 (0286-2965) /uL Lymph # (Auto) 2100 (3582-0806) /uL [place] # (Auto) 600 (0-900) /uL Eos # (Auto) 0 (0-450) /uL Baso # (Auto) 0 (0-100) /uL Sodium 136 L (137-145) mmol/L Potassium 4.5 (3.4-5.1) mmol/L Chloride 98 (98-107) mmol/L Carbon Dioxide 29 (22-32) mmol/L BUN 37 H (7-17) mg/dL Creatinine 1.17 H (0.52-1.04) mg/dL Estimated GFR 47 L (>60) mL/min BUN/Creatinine Ratio 31.6 H (6-22) Glucose 107 (80-110) mg/dL Calcium 9.7 (8.4-10.2) mg/dL Magnesium 1.7 (1.6-2.3) mg/dL Imaging Data Extremity x-ray #1: Radiologist's Impression: [address] [address] XRay Report Signed Patient: Samara Winslow MR#: [id number] : 1940 Acct:[id number] Age/Sex: 82 / F Date of Service: 12/29/22 Loc: ED Accession Number: [id number] ?? Procedure: XR hip w pel if done RT 2V Ordering Provider: Shyam Lao D.O. PROCEDURE:? XR HIP W PEL IF DONE RT 2V ? INDICATIONS:? fall with right hip pain ? TECHNIQUE:? 2 views of the hip were acquired.? ? COMPARISON:? None. ? FINDINGS:? ? Bones:? Moderate displaced and angulated right hip fracture, probably transcervi dmitry.? Moderate left hip arthrosis. ? Soft tissues:? Soft tissue swelling.? Large stool burden. ? IMPRESSION:? Right hip moderately displaced and angulated fracture.? ? ? Dictated by: Justice Ramirez M.D. on 12/29/2022 at 10:14 ? ? Approved by: Justice Ramirez M.D. on 12/29/2022 at 10:14?? MDM Narrative Medical decision making narrative: Patient does have an abrasion to the back of the right hand which needs no specific intervention here in the emergency department. She does have a right hip fracture. I did discuss the case with Dr. Ackerman on-call for Orthopedic surgery who will see the patient after admission. I then discussed the case with Dr. Dean on-call for hospitalist who will admit for further evaluation. I did discuss the findings of the x-ray in the need for admission with the patient. She expressed understanding. This did appear to be mechanical fall. Low suspicion for seizure/stroke. Patient expressed understanding and agreement with plan. Discharge Plan Departure Patient Disposition: Admitted As Inpatient Clinical Impression: Hip fracture, Hypertension Admit Date/Time: 12/29/22 11:21 Admit Provider: Jayjay Dean
[2022-12-29] MEDS: MORPHINE 4 MG/ML INJ IV ×2 (09:21→11:35)
[2022-12-29 09:23] LABS: Add Manual Diff / Slide Review NO; Basophils Absolute Auto 0 /uL (0-100); Basophils Percent Auto 0.4 % (0-2); Eosinophils Absolute Auto 0 /uL (0-450); Eosinophils Percent Auto 0.5 % (2-4); Hematocrit 34.2 % (36-46); Hemoglobin 11.7 g/dL (12.0-16.0); Lymphocytes Absolute Auto 2100 /uL (1100-4500); Lymphocytes Percent Auto 41.6 % (25-40); Mean Corpuscular HGB Conc 34.1 % (30-36); Mean Corpuscular Hemoglobin 36.1 PG (26-34); Mean Corpuscular Volume 105.8 fL (80-100); Monocytes Absolute Auto 600 /uL (0-900); Monocytes Percent Auto 12.2 % (3-14); Neutrophils Absolute Auto 2300 /uL (1500-7000); Neutrophils Percent Auto 45.3 % (50-75); Platelet Count 225 X10^3/uL (150-400); Red Blood Cell Count 3.23 X10^6/uL (4.0-5.2); Red Cell Distribution Width 13.5 % (11.6-14.8)
[2022-12-29 09:37] LABS: BUN Creatinine Ratio 31.6 (6-22); Blood Urea Nitrogen 37 mg/dL (7-17); Calcium 9.7 mg/dL (8.4-10.2); Carbon Dioxide 29 mmol/L (22-32); Chloride 98 mmol/L (98-107); Estimated Glomerular Filt Rate 47 mL/min (>60); Glucose 107 mg/dL (80-110); HEMOLYSIS 16 (0-50); Potassium 4.5 mmol/L (3.4-5.1); Sodium 136 mmol/L (137-145)
[2022-12-29 11:07] LABS: Magnesium 1.7 mg/dL (1.6-2.3)
[2022-12-29 11:33] LABS: Alanine Aminotransferase 22 IU/L (<35); Albumin 4.7 g/dL (3.5-5.0); Albumin Globulin Ratio 1.3 (1.0-2.8); Alkaline Phosphatase 58 U/L (38-126); Aspartate Aminotransferase 44 IU/L (14-36); Bilirubin Total 0.8 mg/dL (0.2-1.3); Bilirubin Unconjugated 0.5 mg/dL (0.0-1.1); Globulin 3.7 g/dL (1.7-4.1); HEMOLYSIS 18 (0-50); Total Protein 8.4 g/dL (6.3-8.2)
[2022-12-29] MEDS: TET,DIPH,PERTUSS(ACELL),VAC/PF 0.5 ML SYRINGE IM (11:35)
[2022-12-29 11:41] LABS: Appearance Urine UA CLEAR; Bilirubin Urine UA NEGATIVE (NEGATIVE); Color Urine UA YELLOW; Culture Indicated Urine Specimen Cultured; Glucose Urine UA NEGATIVE (Negative); Ketones Urine UA NEGATIVE (NEGATIVE); Leukocyte Esterase Urine UA NEGATIVE (NEGATIVE); Nitrite Urine UA POSITIVE (Negative); Occult Blood Urine UA TRACE-INTACT (Negative); Protein Urine UA 2+ (Negative); Urobilinogen Urine UA 0.2 E.U./dL (0.2)
[2022-12-29 11:43] LABS: COVID19 -Nasal RAPID Negative (Negative)
[2022-12-29 11:47] LABS: Bacteria Urine Many (>30)
[2022-12-29 11:48] LABS: RBC Urine 0-1/HPF (0-5/HPF); Squamous Epithelial Cell Urine None Seen (0-5/HPF); WBC Urine 0-1/HPF (0-5/HPF)
[2022-12-29] MEDS: SODIUM CHLORIDE 0.9% 1,000 ML 100 ML IV ×2 (12:05→21:01)
[2022-12-29] MEDS: LIDOCAINE PATCH 1 EACH ADH..PATCH TOP (12:06)
[2022-12-29] MEDS: methocarbamoL 500 MG TABLET PO (12:58)
[2022-12-29] MEDS: AMLODIPINE 5 MG TABLET 10 MG PO (12:58)
[2022-12-29] MEDS: HEPARIN 5,000 UNIT/ML VIAL 5000 UNIT SUBCUT (12:58)
[2022-12-29] MEDS: HYDROMORPHONE 0.5 MG INJ IV ×3 (14:54→23:47)
--- NOTE | 2022-12-29 16:12 | PM.HP.1 ---
History of Present Illness History of Present Illness Date Patient Seen: 12/29/22 Chief complaint: Fall/hip pain Narrative: Samara Winslow is an 82yo F with past medical history of hypertension, depression who presents with right hip fracture after accidentally falling at home. She mistepped when trying to go up a ledge and lost her footing, landing on her right side. Dr. Ackerman called from ED and plans for surgery tomorrow. She is not on blood thinners. Currently her pain is better after pain medication, but earlier she was having severe muscle cramping in her right leg which is ok at the moment. She is requesting muscle relaxers for this. She is having mild nausea. Denies history of osteoporosis but has never had a DEXA scan. She still needs to establish with her new PCP after changing providers. Denies CP, SOB, abd pain or diarrhea. Patient History Medical History Hypertension Family & Social History Social History: household members none Prior Living Arrangements House Safety & Behavioral: Feels Safe in Current Yes Environment Been Physically Hurt or No Threatened By a Person Tobacco & Substance use: Smoking Status Never smoker alcohol intake current alcohol intake frequency a few times a month Substance Use Type does not use Meds Home Medications and Allergies Home Medications Medication Instructions Recorded Confirmed Type atenolol 100 mg tablet 100 mg PO DAILY 12/29/22 12/29/22 History fluoxetine 20 mg capsule 20 mg PO DAILY 12/29/22 12/29/22 History hydralazine 25 mg tablet 25 mg PO TID 12/29/22 12/29/22 History losartan 50 mg tablet 50 mg PO DAILY 12/29/22 12/29/22 History trazodone 50 mg tablet 25 mg PO BEDTIME 12/29/22 12/29/22 History Allergies Allergy/AdvReac Type Severity Reaction Status Date / Time No Known Drug Allergies Allergy Verified 12/29/22 09:15 Review of Systems Review of Systems Narrative: All other systems reviewed with the patient and are negative unless otherwise stated. Exam Vital Signs (past 8 hours): - 12/29/22 09:00 12/29/22 10:07 12/29/22 10:09 Temperature 98.1 F Pulse Rate 58 L 64 Respiratory Rate 18 Blood Pressure 222/103 H 214/98 H Pulse Oximetry 100 99 Oxygen Delivery Method Room Air Oxygen Flow Rate 12/29/22 10:09 12/29/22 10:30 12/29/22 10:31 Temperature Pulse Rate 61 57 L Respiratory Rate Blood Pressure 208/109 H Pulse Oximetry 97 99 Oxygen Delivery Method Oxygen Flow Rate 12/29/22 10:31 12/29/22 11:00 12/29/22 11:01 Temperature Pulse Rate 59 L 53 L Respiratory Rate Blood Pressure 193/93 H Pulse Oximetry 98 95 Oxygen Delivery Method Oxygen Flow Rate 12/29/22 11:01 12/29/22 11:30 12/29/22 11:31 Temperature Pulse Rate 57 L 55 L Respiratory Rate Blood Pressure 190/91 H Pulse Oximetry 93 98 Oxygen Delivery Method Oxygen Flow Rate 12/29/22 11:31 12/29/22 12:03 12/29/22 12:29 Temperature 98.6 F Pulse Rate 55 L 61 Respiratory Rate 18 19 Blood Pressure 183/89 H Pulse Oximetry 97 98 Oxygen Delivery Method Room Air Oxygen Flow Rate 0 12/29/22 15:44 Temperature Pulse Rate 62 Respiratory Rate Blood Pressure 182/82 H Pulse Oximetry Oxygen Delivery Method Oxygen Flow Rate Oxygen Delivery Method Room Air Oxygen Flow Rate 0 Narrative Exam Narrative: GEN: NAD, appears uncomfortable HEENT: moist mucous membranes, PERRL NECK: trachea midline, no JVD CV: regular rate and rhythm, no murmurs PULM: clear bilaterally ABD: soft, nontender, nondistended, no organomegaly EXT: right hip tender to palpation NEURO: awake, alert, oriented, no focal deficits Objective Labs 12/29/22 08:30 12/29/22 08:30 Labs: Laboratory Results - last 24 hr 12/29/22 12/29/22 12/29/22 08:30 08:30 08:30 WBC 5.0 RBC 3.23 L Hgb 11.7 L Hct 34.2 L MCV 105.8 H MCH 36.1 H MCHC 34.1 RDW 13.5 Plt Count 225 Neut % (Auto) 45.3 L Lymph % (Auto) 41.6 H [place] % (Auto) 12.2 Eos % (Auto) 0.5 L Baso % (Auto) 0.4 Neut # (Auto) 2300 Lymph # (Auto) 2100 [place] # (Auto) 600 Eos # (Auto) 0 Baso # (Auto) 0 Sodium 136 L Potassium 4.5 Chloride 98 Carbon Dioxide 29 BUN 37 H Creatinine 1.17 H Estimated GFR 47 L BUN/Creatinine Ratio 31.6 H Glucose 107 Calcium 9.7 Magnesium 1.7 Total Bilirubin Conjugated Bilirubin Unconjugated Bilirubin AST ALT Alkaline Phosphatase Total Protein Albumin Globulin Albumin/Globulin Ratio Urine Color Urine Appearance Urine pH Ur Specific [place] Urine Protein Urine Glucose (UA) Urine Ketones Urine Occult Blood Urine Nitrate Urine Bilirubin Urine Urobilinogen Ur Leukocyte Esterase Urine RBC Urine WBC Ur Squamous Epith Cells Urine Bacteria Ur Culture Indicated? SARS-CoV-2 (PCR) 12/29/22 12/29/22 12/29/22 08:30 11:18 11:24 WBC RBC Hgb Hct MCV MCH MCHC RDW Plt Count Neut % (Auto) Lymph % (Auto) [place] % (Auto) Eos % (Auto) Baso % (Auto) Neut # (Auto) Lymph # (Auto) [place] # (Auto) Eos # (Auto) Baso # (Auto) Sodium Potassium Chloride Carbon Dioxide BUN Creatinine Estimated GFR BUN/Creatinine Ratio Glucose Calcium Magnesium Total Bilirubin 0.8 Conjugated Bilirubin 0.0 Unconjugated Bilirubin 0.5 AST 44 H ALT 22 Alkaline Phosphatase 58 Total Protein 8.4 H Albumin 4.7 Globulin 3.7 Albumin/Globulin Ratio 1.3 Urine Color Yellow Urine Appearance Clear Urine pH 7.0 Ur Specific [place] 1.020 Urine Protein 2+ H Urine Glucose (UA) Negative Urine Ketones Negative Urine Occult Blood Trace-intact Urine Nitrate Positive H Urine Bilirubin Negative Urine Urobilinogen 0.2 Ur Leukocyte Esterase Negative Urine RBC 0-1/hpf Urine WBC 0-1/hpf Ur Squamous Epith Cells None seen Urine Bacteria Many (>30) H Ur Culture Indicated? Specimen cultured SARS-CoV-2 (PCR) Negative Assessment & Plan Assessment & Plan narrative: # acute right hip fracture -sustained after ground level fall at home -Dr. Meka dwyer will take for surgery on 12/30 -INR check in AM -pain and nausea control PRN, also muscle relaxers PRN -one of heparin for today for DVT proph -laxatives PRN to prevent constipation -should have outpatient workup for osteoporosis # hypertensive urgency -BP up to 222/103 in ED, likely due to pain and muscle spasms -resume home hydralazine, atenolol and losartan -labetalol PRN for BP >190/>110 # depression -continue home prozac Code status is DNR. COVID negative. DVT prophylaxis with SCDs. Proxy is friend Evita. I have reviewed home meds and used all available resources to reconcile the home meds. This patient will be admitted as inpatient and will require greater than 2 midnights of hospital time to treat right hip fracture. Time Spent With Patient Critical Care time: I spent a total of [] minutes of critical care time on this patient's care today; this time is exclusive of procedural time. Quality VTE Deep Vein Thrombosis/Pulmonary Embolism Present on Admission: No
[2022-12-29] MEDS: ONDANSETRON 4 MG/2 ML INJ IV ×2 (16:24→19:53)
--- NOTE | 2022-12-29 18:32 | PM.CN ---
History of Present Illness Consult details Date Patient Seen: 12/29/22 Time Patient Seen: 18:32 Chief complaint: Fall/hip pain Reason for consult: Right hip fracture Requesting provider: Shyam Lao Narrative: Samara is an 82-year-old woman who tripped and fell earlier today landing on her right hip. She was unable to arise and she was taken to [facility] Emergency room where radiographs revealed a displaced intertrochanteric/subtrochanteric right hip fracture. Orthopedic consultation has been obtained for definitive management of the fracture. She does not recall the name of her current primary care provider. Meds Home Medications and Allergies Home Medications Medication Instructions Recorded Confirmed Type atenolol 100 mg tablet 100 mg PO DAILY 12/29/22 12/29/22 History fluoxetine 20 mg capsule 20 mg PO DAILY 12/29/22 12/29/22 History hydralazine 25 mg tablet 25 mg PO TID 12/29/22 12/29/22 History losartan 50 mg tablet 50 mg PO DAILY 12/29/22 12/29/22 History trazodone 50 mg tablet 25 mg PO BEDTIME 12/29/22 12/29/22 History Allergies Allergy/AdvReac Type Severity Reaction Status Date / Time No Known Drug Allergies Allergy Verified 12/29/22 09:15 Review of Systems Review of Systems Narrative: The patient reports she was in her usual state of health prior to the injury. Exam Vital Signs (past 8 hours): - 12/29/22 11:00 12/29/22 11:01 12/29/22 11:01 Temperature Pulse Rate 53 L 57 L Respiratory Rate Blood Pressure 193/93 H Pulse Oximetry 95 93 Oxygen Delivery Method Oxygen Flow Rate 12/29/22 11:30 12/29/22 11:31 12/29/22 11:31 Temperature Pulse Rate 55 L 55 L Respiratory Rate 18 Blood Pressure 190/91 H Pulse Oximetry 98 97 Oxygen Delivery Method Oxygen Flow Rate 12/29/22 12:03 12/29/22 12:29 12/29/22 15:44 Temperature 98.6 F Pulse Rate 61 62 Respiratory Rate 19 Blood Pressure 183/89 H 182/82 H Pulse Oximetry 98 Oxygen Delivery Method Room Air Oxygen Flow Rate 0 Oxygen Delivery Method Room Air Oxygen Flow Rate 0 Narrative Exam Narrative: The patient is examined while lying in her hospital bed with her right leg propped up on pillows with the hip flexed. She is anxious at the right leg not be moved. Skin overlying the anticipated surgical incisions is intact. Calf is soft. Light touch is intact in the right foot. She can dorsiflex and plantar flex the toes and ankle without difficulty. She has 2+ pulses in the dorsalis pedis and posterior tibial arteries. Objective Labs 12/29/22 08:30 12/29/22 08:30 Labs: Laboratory Results - last 24 hr 12/29/22 12/29/22 12/29/22 08:30 08:30 08:30 WBC 5.0 RBC 3.23 L Hgb 11.7 L Hct 34.2 L MCV 105.8 H MCH 36.1 H MCHC 34.1 RDW 13.5 Plt Count 225 Neut % (Auto) 45.3 L Lymph % (Auto) 41.[address] [place] % (Auto) 12.2 Eos % (Auto) 0.5 L Baso % (Auto) 0.4 Neut # (Auto) 2300 Lymph # (Auto) 2100 [place] # (Auto) 600 Eos # (Auto) 0 Baso # (Auto) 0 Sodium 136 L Potassium 4.5 Chloride 98 Carbon Dioxide 29 BUN 37 H Creatinine 1.17 H Estimated GFR 47 L BUN/Creatinine Ratio 31.6 H Glucose 107 Calcium 9.7 Magnesium 1.7 Total Bilirubin Conjugated Bilirubin Unconjugated Bilirubin AST ALT Alkaline Phosphatase Total Protein Albumin Globulin Albumin/Globulin Ratio Urine Color Urine Appearance Urine pH Ur Specific [place] Urine Protein Urine Glucose (UA) Urine Ketones Urine Occult Blood Urine Nitrate Urine Bilirubin Urine Urobilinogen Ur Leukocyte Esterase Urine RBC Urine WBC Ur Squamous Epith Cells Urine Bacteria Ur Culture Indicated? SARS-CoV-2 (PCR) 12/29/22 12/29/22 12/29/22 08:30 11:18 11:24 WBC RBC Hgb Hct MCV MCH MCHC RDW Plt Count Neut % (Auto) Lymph % (Auto) [place] % (Auto) Eos % (Auto) Baso % (Auto) Neut # (Auto) Lymph # (Auto) [place] # (Auto) Eos # (Auto) Baso # (Auto) Sodium Potassium Chloride Carbon Dioxide BUN Creatinine Estimated GFR BUN/Creatinine Ratio Glucose Calcium Magnesium Total Bilirubin 0.8 Conjugated Bilirubin 0.0 Unconjugated Bilirubin 0.5 AST 44 H ALT 22 Alkaline Phosphatase 58 Total Protein 8.4 H Albumin 4.7 Globulin 3.7 Albumin/Globulin Ratio 1.3 Urine Color Yellow Urine Appearance Clear Urine pH 7.0 Ur Specific [place] 1.020 Urine Protein 2+ H Urine Glucose (UA) Negative Urine Ketones Negative Urine Occult Blood Trace-intact Urine Nitrate Positive H Urine Bilirubin Negative Urine Urobilinogen 0.2 Ur Leukocyte Esterase Negative Urine RBC 0-1/hpf Urine WBC 0-1/hpf Ur Squamous Epith Cells None seen Urine Bacteria Many (>30) H Ur Culture Indicated? Specimen cultured SARS-CoV-2 (PCR) Negative [facility] Medical History Hypertension Social History household members: none Tobacco & Substance Use Smoking Status: Never smoker alcohol intake: current Assessment & Plan Assessment & Plan narrative: The patient is an 82-year-old woman with a history of hypertension and findings of a mild anemia on her preoperative laboratories. She suffered a ground level fall with a subtrochanteric/intertrochanteric fracture on the right. We have discussed the risks benefits and alternatives to treatment with an intramedullary hip screw which I feel would be the appropriate fixation for this fracture. Risks discussed included but were not limited to: Failure to relieve pain, failure to maintain reduction, stiffness, infection, nerve damage, blood loss requiring transfusion, deep venous thrombosis, pulmonary embolism, stroke, myocardial infarction, permanent paralysis and . She is agreed to this surgery after this discussion. Surgery will be tomorrow evening due to excessive dizziness in the operating room tonight. She will be allowed to have a light breakfast tomorrow morning and then will be NPO after that. COVID-19 COVID-19 status: Negative Result date/Date tested (Pos, Neg/Pending): 12/29/22 Time Spent With Patient Time with patient: 30 to 49 minutes with 50% spent counseling/coordinating care Critical Care time: I spent a total of [] minutes of critical care time on this patient's care today; this time is exclusive of procedural time.
[2022-12-29] MEDS: HYDRALAZINE 25 MG TABLET PO (21:00)
[2022-12-29] MEDS: TRAZODONE 50 MG TABLET 25 MG PO (21:01)
[2022-12-29] MEDS: MELATONIN 3 MG TABLET 6 MG PO (21:03)
[2022-12-30] VITALS (20 sets, daily range): BP systolic 107–166; BP diastolic 48–101; PULSE 53–85; RESP 12–19; TEMP 36.2–37.1; O2SAT 91–100; BMI 20.8
[2022-12-30] MEDS: HYDROMORPHONE 0.5 MG INJ IV ×2 (04:33→10:14)
--- NOTE | 2022-12-30 04:35 | PC.NURSE ---
Medicating patient for pain every 4 hours, awaiting surgery for fx hip. blood pressure stable at present time.
[2022-12-30 05:04] LABS: Add Manual Diff / Slide Review NO; Basophils Absolute Auto 0 /uL (0-100); Basophils Percent Auto 0.3 % (0-2); Eosinophils Absolute Auto 0 /uL (0-450); Eosinophils Percent Auto 0.2 % (2-4); Hematocrit 26.7 % (36-46); Hemoglobin 9.1 g/dL (12.0-16.0); INR 1.1 (0.9-1.3); Lymphocytes Absolute Auto 1300 /uL (1100-4500); Lymphocytes Percent Auto 21.2 % (25-40); Mean Corpuscular HGB Conc 33.9 % (30-36); Mean Corpuscular Hemoglobin 35.9 PG (26-34); Mean Corpuscular Volume 105.8 fL (80-100); Monocytes Absolute Auto 800 /uL (0-900); Monocytes Percent Auto 13.3 % (3-14); Neutrophils Absolute Auto 3900 /uL (1500-7000); Platelet Count 161 X10^3/uL (150-400); Prothrombin Time 12.1 SECONDS (10.1-12.7); Red Blood Cell Count 2.52 X10^6/uL (4.0-5.2); Red Cell Distribution Width 13.4 % (11.6-14.8)
[2022-12-30 05:08] LABS: BUN Creatinine Ratio 27.4 (6-22); Blood Urea Nitrogen 31 mg/dL (7-17); Calcium 8.3 mg/dL (8.4-10.2); Carbon Dioxide 29 mmol/L (22-32); Chloride 101 mmol/L (98-107); Estimated Glomerular Filt Rate 49 mL/min (>60); Glucose 121 mg/dL (80-110); HEMOLYSIS < 15 (0-50); Potassium 4.1 mmol/L (3.4-5.1); Sodium 134 mmol/L (137-145)
--- NOTE | 2022-12-30 06:00 | DI.RAD.S_ITS ---
PROCEDURE: XR HIP W PEL IF DONE RT 2V INDICATIONS: prosthesis placement, right TECHNIQUE: 3 intraoperative views of the hip were acquired. COMPARISON: [facility], CR, XR HIP W PEL IF DONE RT 2V, 12/29/2022, 9:10. FINDINGS: Intraoperative images obtained during ORIF of the right hip. IMPRESSION: Intraoperative images obtained during right hip ORIF. Dictated by: Isabel Jim M.D. on 12/30/2022 at 18:54 Approved by: Isabel Jim M.D. on 12/30/2022 at 18:55
[2022-12-30] MEDS: CELECOXIB 200 MG CAPSULE PO (06:24)
[2022-12-30] MEDS: PREGABALIN 75 MG CAPSULE PO (06:24)
[2022-12-30] MEDS: ACETAMINOPHEN 325 MG TABLET 975 MG PO (06:24)
--- NOTE | 2022-12-30 07:45 | PM.PN.1 ---
Subjective Subjective Date Patient Seen: 12/30/22 Interval history: Patient awaiting surgery at 5:30pm today. Says her mouth is dry. Asking to raise her IV fluids. Exam Vital Signs (past 8 hours): - 12/30/22 00:00 12/30/22 04:00 Temperature 98.5 F 98.6 F Pulse Rate 65 62 Respiratory Rate 15 15 Blood Pressure 156/76 H 125/61 Pulse Oximetry 99 97 Oxygen Flow Rate 1 1 Oxygen Delivery Method Room Air Oxygen Flow Rate 1 Narrative Exam Narrative: GEN: NAD, appears uncomfortable HEENT: moist mucous membranes, PERRL NECK: trachea midline, no JVD CV: regular rate and rhythm, no murmurs PULM: clear bilaterally ABD: soft, nontender, nondistended, no organomegaly EXT: right hip tender to palpation NEURO: awake, alert, oriented, no focal deficits Objective Labs 12/30/22 04:30 12/30/22 04:30 Labs: Laboratory Results - last 24 hr 12/29/22 12/29/22 12/29/22 08:30 08:30 08:30 WBC 5.0 RBC 3.23 L Hgb 11.7 L Hct 34.2 L MCV 105.8 H MCH 36.1 H MCHC 34.1 RDW 13.5 Plt Count 225 Neut % (Auto) 45.3 L Lymph % (Auto) 41.6 H [place] % (Auto) 12.2 Eos % (Auto) 0.5 L Baso % (Auto) 0.4 Neut # (Auto) 2300 Lymph # (Auto) 2100 [place] # (Auto) 600 Eos # (Auto) 0 Baso # (Auto) 0 PT INR Sodium 136 L Potassium 4.5 Chloride 98 Carbon Dioxide 29 BUN 37 H Creatinine 1.17 H Estimated GFR 47 L BUN/Creatinine Ratio 31.6 H Glucose 107 Calcium 9.7 Magnesium 1.7 Total Bilirubin Conjugated Bilirubin Unconjugated Bilirubin AST ALT Alkaline Phosphatase Total Protein Albumin Globulin Albumin/Globulin Ratio Urine Color Urine Appearance Urine pH Ur Specific [place] Urine Protein Urine Glucose (UA) Urine Ketones Urine Occult Blood Urine Nitrate Urine Bilirubin Urine Urobilinogen Ur Leukocyte Esterase Urine RBC Urine WBC Ur Squamous Epith Cells Urine Bacteria Ur Culture Indicated? SARS-CoV-2 (PCR) 12/29/22 12/29/22 12/29/22 08:30 11:18 11:24 WBC RBC Hgb Hct MCV MCH MCHC RDW Plt Count Neut % (Auto) Lymph % (Auto) [place] % (Auto) Eos % (Auto) Baso % (Auto) Neut # (Auto) Lymph # (Auto) [place] # (Auto) Eos # (Auto) Baso # (Auto) PT INR Sodium Potassium Chloride Carbon Dioxide BUN Creatinine Estimated GFR BUN/Creatinine Ratio Glucose Calcium Magnesium Total Bilirubin 0.8 Conjugated Bilirubin 0.0 Unconjugated Bilirubin 0.5 AST 44 H ALT 22 Alkaline Phosphatase 58 Total Protein 8.4 H Albumin 4.7 Globulin 3.7 Albumin/Globulin Ratio 1.3 Urine Color Yellow Urine Appearance Clear Urine pH 7.0 Ur Specific [place] 1.020 Urine Protein 2+ H Urine Glucose (UA) Negative Urine Ketones Negative Urine Occult Blood Trace-intact Urine Nitrate Positive H Urine Bilirubin Negative Urine Urobilinogen 0.2 Ur Leukocyte Esterase Negative Urine RBC 0-1/hpf Urine WBC 0-1/hpf Ur Squamous Epith Cells None seen Urine Bacteria Many (>30) H Ur Culture Indicated? Specimen cultured SARS-CoV-2 (PCR) Negative 12/30/22 12/30/22 12/30/22 04:30 04:30 04:30 WBC 6.0 RBC 2.52 L Hgb 9.1 L Hct 26.7 L MCV 105.8 H MCH 35.9 H MCHC 33.9 RDW 13.4 Plt Count 161 Neut % (Auto) 65.0 Lymph % (Auto) 21.2 L D [place] % (Auto) 13.3 Eos % (Auto) 0.2 L Baso % (Auto) 0.3 Neut # (Auto) 3900 Lymph # (Auto) 1300 [place] # (Auto) 800 Eos # (Auto) 0 Baso # (Auto) 0 PT 12.1 INR 1.1 Sodium 134 L Potassium 4.1 Chloride 101 Carbon Dioxide 29 BUN 31 H Creatinine 1.13 H Estimated GFR 49 L BUN/Creatinine Ratio 27.4 H Glucose 121 H Calcium 8.3 L Magnesium Total Bilirubin Conjugated Bilirubin Unconjugated Bilirubin AST ALT Alkaline Phosphatase Total Protein Albumin Globulin Albumin/Globulin Ratio Urine Color Urine Appearance Urine pH Ur Specific [place] Urine Protein Urine Glucose (UA) Urine Ketones Urine Occult Blood Urine Nitrate Urine Bilirubin Urine Urobilinogen Ur Leukocyte Esterase Urine RBC Urine WBC Ur Squamous Epith Cells Urine Bacteria Ur Culture Indicated? SARS-CoV-2 (PCR) [facility] Medical History Hypertension Social History household members: none Smoking Status: Never smoker alcohol intake: current Assessment & Plan Assessment & Plan narrative: # acute right hip fracture -sustained after ground level fall at home -Dr. Ackerman ortho will take for surgery on 12/30 at 5:30pm -INR 1.1 -pain and nausea control PRN, also muscle relaxers PRN -one of heparin for today for DVT proph -laxatives PRN to prevent constipation -should have outpatient workup for osteoporosis # hypertensive urgency -BP up to 222/103 in ED, likely due to pain and muscle spasms -resume home hydralazine, atenolol and losartan -labetalol PRN for BP >190/>110 # depression -continue home prozac Code status is DNR. COVID negative. DVT prophylaxis with SCDs. Proxy is friend Evita. Dispo: Likely SNF after hip surgery. Time Spent With Patient Critical Care time: I spent a total of [] minutes of critical care time on this patient's care today; this time is exclusive of procedural time. Quality VTE Deep Vein Thrombosis/Pulmonary Embolism Present on Admission: No
[2022-12-30] MEDS: FLUoxetine 20 MG CAPSULE PO (10:37)
--- NOTE | 2022-12-30 13:47 | CM.DANOTE ---
DCP: Assessment: 82 yo female arrived to ED via ambulance on 12/29/2022 with c/o right hip pain after falling onto her right hip, after getting out of her car and walking up into her house. She is noted to have an acute right hip fracture, hypertensive urgency, depression. PCP: Kalpesh Davila [facility] This CM met with pt in her room after reviewing patient's chart. Introduced self and role. She was laying comfortably in her bed. She is A+Ox4 she confirms that she lives in [place] by herself and that she has a supportive network of friends. She reports that she drives at baseline and that she does not use dme. Patient is agreeable to home health services or SNF depending on her needs after surgery this evening. Pt gives permission for Care management to confer with pt main contact Evita Pena who patient states will support her with any medical decisions. Plan: Surgery at 1730 12/30/2022 Margaret Gee RN Case Manager Discharge Planning/Care Management Advanced directive, confirm from FAMILY Start: 12/29/22 12:04 Freq: Q24H Status: Active Protocol: Document 12/30/22 09:42 SHAWANDA (Rec: 12/30/22 12:30 [email or web address] [id number]) Advance Directive, confirm on record Time 12:30 Person contacted pt Samara Hwang received No CM Discharge Assessment Start: 12/30/22 13:43 Freq: Status: Active Protocol: Document 12/30/22 13:43 ELISABETH (Rec: 12/30/22 13:47 JS [id number]) Discharge Planning Assessment Assigned Parachute Harness Rigger Margaret Gee RN Case Manager Advance Directives? Yes Advance Directives on File No History Provided By Patient Has Patient been admitted in last 30 No days? Prior Living Arrangements House Comment Pt reports that she lives alone and that she good friends who are her support system. Household Members none Type of transporation used prior to Drives own vehicle admit Independent with ADL's Yes Is patient alert and oriented? Yes Caregiver for Another No Barriers to Discharge No Discharge Plan Home with Home Health Transportation Arrangement Friends will transport pt Additional Comment Surgery is today. Will anticipate needs once surgery is performed and needs can be assessed. Whiteboard Updated in Patient Room with Yes name and ext. # of Parachute Harness Rigger Review Status In Process Next Review Type Continued Stay Review
[2022-12-30] MEDS: LACTATED RINGERS 1,000 ML 84 ML IV (16:31)
[2022-12-30] MEDS: CEFAZOLIN 2 GM/100 ML PREMIX 100 ML IV (17:00)
--- NOTE | 2022-12-30 17:39 | SUR.OPER ---
Supine on padded [place] table with bilateral legs secured in padded positioning boots and suspended in positioning spars, operative leg in traction per surgeon. Head on one pillow. Arm on non-operative side secured on padded armboard <90 degrees abduction. Arm on operative side padded and resting across chest then secured with tape over sheet. Padded perineal post in place per surgeon. left leg secured in leg leonard with coban
[2022-12-30] MEDS: TRANEXAMIC ACID 1,000 MG VIAL 1000 MG INJ (17:51)
--- NOTE | 2022-12-30 18:51 | PM.OP.1 ---
Operative Date/Time/Diagnoses Date of procedure: 12/30/22 Time of procedure: 18:51 Pre-op diagnosis: Right intertrochanteric hip fracture Post-op diagnosis: same Procedure & Clinicians Procedure: Right intramedullary hip screw Same procedure as scheduled: Yes Indications: The patient is an 82-year-old female who suffered a fall with a badly displaced proximal femoral fracture on the right. She agreed to intramedullary hip screw fixation after discussion the risks benefits and alternatives as outlined in my consultation note. Surgeon: Irineo Ackerman Click Yes if Unassisted: Yes Anesthesia Type: General and Local Operative Notes Findings: Excellent reduction of intertrochanteric fracture. Closure Type: primary Specimen(s): none sent Prosthetic devices, grafts, tissues, transplants, or devices: Implants used in this procedure manufactured by the [employer] and included a Trigen Intertan 10S nail, size 10 mm X 18 cm, with a 95mm lag screw and 90 mm compression screw and a 5 mm X 32.5 mm static interlocking screw. Applied: implant(s) Estimated Blood Loss (mL): 200 Blood products transfused: none Procedure in detail: The patient was seen in the preoperative area where the right side was confirmed as the operative site and this was marked with my initials. She was taken to the operating room and placed on the fracture table after undergoing a general anesthetic on her hospital bed. She received preoperative antibiotics. She was positioned on the fracture table with the right leg in the traction leg leonard and the left leg in the well leg leonard. This was flexed, abducted and internally rotated to move it out of the way of the fluoro. The position of the fracture was verified as being anatomic in the AP and lateral views. A motion and time study teacher-out was performed. The lateral aspect of the right leg was prepared with ChloraPrep in the usual fashion and draped with an adherent plastic drape. An approximately 5 cm incision was created just proximal to the greater trochanter and carried through the muscle fascia to the tip of the trochanter where a guide pin was placed. This pin was verified as being in the intramedullary canal in the AP and lateral views and the starting Reamer was used to create the proximal hole. A ball-tipped guide katherin was then placed down the femoral canal and the position of this was verified as being intramedullary in the AP and lateral views. Cannulated reamers were used starting with a 9 mm Reamer and going up to an 11.5 mm Reamer which had cortical chatter. We selected the 10 mm nail as a result. This was advanced over the guide katherin into the intramedullary canal. The lag screw guide pin was placed and verified as being just below the middle of the femoral head which was felt to be satisfactory. It was within 1 cm of the center of the femoral head on both the AP and lateral views. This was measured and the appropriate screws were opened. The hole for the compression screw was created and the anti rotation guide placed. The lag screw hole was then drilled and the lag screw placed. Finally the compression screw was placed. The position of all hardware was verified as being appropriate in the AP and lateral views of fluoroscopy. The guide for the static distal interlock screw was then placed through the out gantry rigger guide and used to place the appropriate screw across the interlocking screw hole. At this point the guide was removed and the position of the fracture and all hardware was verified as being appropriate on the AP and lateral views of fluoroscopy. The wounds were copiously irrigated with sterile saline solution. The proximal wound was closed with 0 Vicryl in the fascia. The subcutaneous layer of this wound and of the wound for the lag screw were closed with interrupted 3-0 Vicryl. Meli were used for skin for all 3 of the incisions. The subcutaneous tissues were injected with a total of 10 mL 0.5% Marcaine for postoperative pain control. Dressings of Xeroform, sterile 4x4s, ABDs and Tegaderm were applied. The patient was then taken out of traction and transferred to her hospital bed after being extubated in the operating room. She was then transferred to the recovery room in good condition having tolerated the procedure well. Complications: none Post-operative Condition: stable Disposition: PACU Plan for aftercare: Patient will be allowed to weight bear as tolerated. Depending on her progress with physical therapy she will either be discharged to home or to a fci facility.
[2022-12-30] MEDS: fentaNYL 100 MCG/2 ML INJ IV ×2 (18:55→19:15)
[2022-12-30] MEDS: HYDROMORPHONE 2 MG INJ IV ×2 (19:23→19:33)
--- NOTE | 2022-12-30 19:47 | SUR.PHASEI ---
Patient resting more comfortably after additional dose of dilaudid 0.5. Dressing to right hip clean, dry and intact. Patient remains confused and is only able to state her name and her . VSS. Patient maintaining oxygen saturation at 95% on 4 liters via nasal cannula.
[2022-12-30] MEDS: cefTRIAXone 1,000 MG in SODIUM CHLORIDE 0.9% 100 ML 200 MG IV (21:06)
[2022-12-30] MEDS: MELATONIN 3 MG TABLET 6 MG PO (21:07)
[2022-12-30] MEDS: ASPIRIN EC 81 MG TABLET PO (21:07)
[2022-12-30] MEDS: OXYCODONE IR 5 MG TABLET PO (21:07)
[2022-12-30] MEDS: TRAZODONE 50 MG TABLET 25 MG PO (21:11)
[2022-12-31] VITALS (18 sets, daily range): BP systolic 118–163; BP diastolic 47–76; PULSE 58–97; RESP 15–22; TEMP 36.4–37.4; O2SAT 95–99
[2022-12-31] MEDS: ACETAMINOPHEN 325 MG TABLET 650 MG PO ×3 (00:29→15:48)
[2022-12-31] MEDS: OXYCODONE IR 5 MG TABLET PO (01:32)
[2022-12-31 05:26] LABS: Add Manual Diff / Slide Review NO; Basophils Absolute Auto 0 /uL (0-100); Basophils Percent Auto 0.1 % (0-2); Eosinophils Absolute Auto 0 /uL (0-450); Eosinophils Percent Auto 0.2 % (2-4); Hematocrit 21.7 % (36-46); Hemoglobin 7.3 g/dL (12.0-16.0); Lymphocytes Absolute Auto 1100 /uL (1100-4500); Lymphocytes Percent Auto 15.6 % (25-40); Mean Corpuscular HGB Conc 33.4 % (30-36); Mean Corpuscular Hemoglobin 35.8 PG (26-34); Monocytes Absolute Auto 900 /uL (0-900); Monocytes Percent Auto 12.9 % (3-14); Neutrophils Absolute Auto 4900 /uL (1500-7000); Neutrophils Percent Auto 71.2 % (50-75); Platelet Count 133 X10^3/uL (150-400); Red Blood Cell Count 2.03 X10^6/uL (4.0-5.2); Red Cell Distribution Width 13.1 % (11.6-14.8); White Blood Cell Count 6.9 X10^3/uL (4.5-11.0)
[2022-12-31 05:36] LABS: BUN Creatinine Ratio 23.2 (6-22); Blood Urea Nitrogen 29 mg/dL (7-17); Calcium 7.5 mg/dL (8.4-10.2); Carbon Dioxide 26 mmol/L (22-32); Chloride 101 mmol/L (98-107); Estimated Glomerular Filt Rate 44 mL/min (>60); Glucose 105 mg/dL (80-110); HEMOLYSIS 26 (0-50); Potassium 4.6 mmol/L (3.4-5.1); Sodium 133 mmol/L (137-145)
--- NOTE | 2022-12-31 07:55 | PM.PNPO.1 ---
Subjective Subjective Date Patient Seen: 12/31/22 Time Patient Seen: 07:55 Interval history: Patient's hip pain is mild. Denies fever or chills. No nausea or vomiting. Exam Vital Signs (past 8 hours): - 12/31/22 00:00 12/31/22 04:00 12/31/22 07:07 Temperature 97.5 F L 98.6 F Pulse Rate 58 L 63 Respiratory Rate 17 15 Blood Pressure 127/60 118/55 L Pulse Oximetry 99 99 95 Oxygen Flow Rate 4 4 12/31/22 07:07 12/31/22 05:00 Temperature Pulse Rate Respiratory Rate Blood Pressure Pulse Oximetry 95 Oxygen Flow Rate 2 2 Fraction of Inspired Oxygen 36 SaO2/FiO2 Ratio 275 Oxygen Delivery Method Nasal Cannula Oxygen Flow Rate 2 Narrative Exam Narrative: 82-year-old female resting comfortably in bed in no apparent distress. Dressing is Clean, dry, intact.. Motor functions intact bilateral lower extremities. Sensation grossly intact to light touch bilateral lower extremities. Const General: comfortable Nutritional Appearance: average body habitus Orientation: alert Resp Effort & Inspection: normal respiratory effort and able to speak in complete sentences Objective Labs 12/31/22 04:42 12/31/22 04:42 Labs: Laboratory Results - last 24 hr 12/31/22 12/31/22 04:42 04:42 WBC 6.9 RBC 2.03 L Hgb 7.3 L Hct 21.7 L MCV 107.0 H MCH 35.8 H MCHC 33.4 RDW 13.1 Plt Count 133 L Neut % (Auto) 71.2 Lymph % (Auto) 15.6 L [place] % (Auto) 12.9 Eos % (Auto) 0.2 L Baso % (Auto) 0.1 Neut # (Auto) 4900 Lymph # (Auto) 1100 [place] # (Auto) 900 Eos # (Auto) 0 Baso # (Auto) 0 Sodium 133 L Potassium 4.6 Chloride 101 Carbon Dioxide 26 BUN 29 H Creatinine 1.25 H Estimated GFR 44 L BUN/Creatinine Ratio 23.2 H Glucose 105 Calcium 7.5 L PFSH Medical History Hypertension Social History household members: none Smoking Status: Never smoker alcohol intake: current Assessment & Plan Post-op Postoperative Procedures: Procedures Operation Date: 12/30/22 17:30 Actual Procedure Side Surgeon p Intramedullary Nailing Femur Right Irineo Ackerman MD Postoperative day: 1 Postoperative status narrative: Stable status post right intramedullary hip screw Anemia likely due to blood loss during surgery Postoperative plan: routine post-op care Postoperative plan narrative: Weightbear as tolerated Mobilize with physical therapy Follow-up was [facility] in 2 weeks Quality VTE Deep Vein Thrombosis/Pulmonary Embolism Present on Admission: No
--- NOTE | 2022-12-31 08:10 | PM.PN.1 ---
Subjective Subjective Date Patient Seen: 12/31/22 Interval history: Patient with pressured speech and extremely distracted at bedside today. Alert and oriented x2. Appears delirious. She says the inside of her left nasal bridge hurts from nasal spray. Hgb dropped from 9.1 to 7.3 so now receiving 2 units of blood. Exam Vital Signs (past 8 hours): - 12/31/22 04:00 12/31/22 07:07 12/31/22 07:07 Temperature 98.6 F Pulse Rate 63 Respiratory Rate 15 Blood Pressure 118/55 L Pulse Oximetry 99 95 Oxygen Flow Rate 4 2 12/31/22 05:00 Temperature Pulse Rate Respiratory Rate Blood Pressure Pulse Oximetry 95 Oxygen Flow Rate 2 Fraction of Inspired Oxygen 36 SaO2/FiO2 Ratio 275 Oxygen Delivery Method Nasal Cannula Oxygen Flow Rate 2 Narrative Exam Narrative: GEN: delirious HEENT: moist mucous membranes, PERRL NECK: trachea midline, no JVD CV: regular rate and rhythm, no murmurs PULM: clear bilaterally ABD: soft, nontender, nondistended, no organomegaly EXT: right hip tender with postop dressing intact NEURO: awake, alert, oriented, no focal deficits Objective Labs 12/31/22 04:42 12/31/22 04:42 Labs: Laboratory Results - last 24 hr 12/31/22 12/31/22 04:42 04:42 WBC 6.9 RBC 2.03 L Hgb 7.3 L Hct 21.7 L MCV 107.0 H MCH 35.8 H MCHC 33.4 RDW 13.1 Plt Count 133 L Neut % (Auto) 71.2 Lymph % (Auto) 15.6 L [place] % (Auto) 12.9 Eos % (Auto) 0.2 L Baso % (Auto) 0.1 Neut # (Auto) 4900 Lymph # (Auto) 1100 [place] # (Auto) 900 Eos # (Auto) 0 Baso # (Auto) 0 Sodium 133 L Potassium 4.6 Chloride 101 Carbon Dioxide 26 BUN 29 H Creatinine 1.25 H Estimated GFR 44 L BUN/Creatinine Ratio 23.2 H Glucose 105 Calcium 7.5 L PFSH Medical History Hypertension Social History household members: none Smoking Status: Never smoker alcohol intake: current Assessment & Plan Assessment & Plan narrative: # acute right hip fracture s/p repair -sustained after ground level fall at home -Dr. Meka dwyer will take for surgery on 12/30 at 5:30pm -INR 1.1 -pain and nausea control PRN, also muscle relaxers PRN -one of heparin for today for DVT proph -laxatives PRN to prevent constipation -should have outpatient workup for osteoporosis -PT/OT evals # hospital acquired delirium with acute encephalopathy -developed on 12/31 the day after surgery, likely a combination of lack of sleep and pain medication -reorient frequently and avoid sedating meds -stopped dilaudid, continue with oxycodone alone # acute blood loss anemia -Hgb dropped 9.1 to 7.3 after surgery, likely blood loss during surgery -no evidence of active bleeding -giving 2 units of PRBC's -keep Hgb >7 # hypertensive urgency, resolved -BP up to 222/103 in ED, likely due to pain and muscle spasms -resume home hydralazine, atenolol and losartan -labetalol PRN for BP >190/>110 # depression -continue home prozac Code status is DNR. COVID negative. DVT prophylaxis with SCDs. Proxy is friend Evita. Dispo: Likely SNF after hip surgery. Time Spent With Patient Critical Care time: I spent a total of [] minutes of critical care time on this patient's care today; this time is exclusive of procedural time. Quality VTE Deep Vein Thrombosis/Pulmonary Embolism Present on Admission: No
[2022-12-31] MEDS: atenoloL 50 MG TABLET 100 MG PO (08:18)
[2022-12-31] MEDS: LORATADINE 10 MG TABLET PO (08:18)
[2022-12-31] MEDS: FLUTICASONE 120 SPRAY/16 GM SPRAY.SUSP NASAL ×2 (08:19→22:08)
[2022-12-31] MEDS: ASPIRIN EC 81 MG TABLET PO ×2 (08:19→22:07)
[2022-12-31] MEDS: LOSARTAN 50 MG TABLET PO (08:19)
[2022-12-31] MEDS: LIDOCAINE PATCH 1 EACH ADH..PATCH TOP (08:19)
[2022-12-31] MEDS: FLUoxetine 20 MG CAPSULE PO (08:19)
[2022-12-31] MEDS: HYDRALAZINE 25 MG TABLET PO ×3 (08:19→22:09)
--- NOTE | 2022-12-31 12:30 | PT-IP ANOTE ---
PT nakul received. EMR reviewed. Pt with Hgb of 7.3 and Hct 21.7. PT going to check with nurse and nursing staff informed PT that pt just started with her blood transfusion and will be getting 2 units of blood. pt on hold at this time.
[2022-12-31 14:33] LABS: Add Manual Diff / Slide Review NO; Basophils Absolute Auto 0 /uL (0-100); Basophils Percent Auto 0.4 % (0-2); Eosinophils Absolute Auto 0 /uL (0-450); Eosinophils Percent Auto 0.4 % (2-4); Hematocrit 29.8 % (36-46); Hemoglobin 10.4 g/dL (12.0-16.0); Lymphocytes Absolute Auto 1100 /uL (1100-4500); Lymphocytes Percent Auto 14.5 % (25-40); Mean Corpuscular HGB Conc 34.7 % (30-36); Mean Corpuscular Hemoglobin 33.6 PG (26-34); Mean Corpuscular Volume 96.9 fL (80-100); Monocytes Absolute Auto 1000 /uL (0-900); Monocytes Percent Auto 13.5 % (3-14); Neutrophils Absolute Auto 5300 /uL (1500-7000); Neutrophils Percent Auto 71.2 % (50-75); Platelet Count 141 X10^3/uL (150-400); Red Blood Cell Count 3.08 X10^6/uL (4.0-5.2); Red Cell Distribution Width 19.5 % (11.6-14.8); White Blood Cell Count 7.5 X10^3/uL (4.5-11.0)
--- NOTE | 2022-12-31 15:30 | PT.IIE ---
Current Diagnoses Fracture of unspecified part of neck of right femur, initial encounter for closed fracture (12/29/22) Surgery Performed Operation Date: 12/30/22 17:30 Actual Procedures p Intramedullary Nailing Femur(Right) - Irineo Ackerman MD Medical History (Last Reviewed 12/31/22 @ 07:56 by Sahil Bull PA-C) Hypertension Physical Therapy Inpatient Evaluation/Re-Eval M1 PT/OT-IP Prior Functional Status Start: 12/31/22 17:24 Freq: NEEDED Status: Active Protocol: Document 12/31/22 15:30 AB (Rec: 12/31/22 17:37 AB [email or web address]) Medical Review Prior Functional Status Medical History Reviewed Yes Communication able to make needs known; with confusion and memory issues Mobility and Gait Pt's friend/room mate in room and provided some of pt's info : pt stated that she is indpeendent with all mobilities and ambulation without AD Social History Household Members other Living Arrangements House Number of Floors (Floors) One Floor Number of Stairs To Enter/Railing? 1 step to enter Home Environment Standard Height Toilet,Tub/ Shower Home Equipment Front Wheel Walker Additional Social History Comment pt lives with a room mate/ program project manager but at this time, will not be able to assist her pt has a tripod cane M2 PT-IP Current Condition Start: 12/31/22 17:24 Freq: NEEDED Status: Active Protocol: Document 12/31/22 15:30 AB (Rec: 12/31/22 17:37 AB [email or web address]) Physical Therapy Current Condition Current Condition Evaluation Date 12/31/22 Treatment Diagnosis s/p fall; R intertrochanteric hip fx s/p IM screws; difficulty in walking Onset Date 12/29/22 M3 PT-IP Subjective Start: 12/31/22 17:24 Freq: NEEDED Status: Active Protocol: Document 12/31/22 15:30 AB (Rec: 12/31/22 17:37 AB [email or web address]) Subjective Physical Therapy Visit Type Type Initial Evaluation Visit Start Time 15:30 Visit Stop Time 16:35 Total Visit Minutes 60 Number of ENVIRONMENT ARTIST Visits 0 Physical Therapy Visit Comments Patient Comments agreeable to do PT Therapy Pain Assessment Pain When Pain Assessed At Rest Pain Present Pain Present Pain Reported Location Right Hip Intensity 5 Pain Management Techniques Apply Cold,Modification of Treatment,Re-positioning, Timing of Activity with Medications M4 PT-IP Mobility and Gait Start: 12/31/22 17:24 Freq: NEEDED Status: Active Protocol: Document 12/31/22 15:30 AB (Rec: 12/31/22 17:37 AB [email or web address]) PT-Bed Mobility Assessment Supine to Sit Supine to Sit Maximum Assistance,2 Person Assistance,Head of Bed Elevated,Bedrails Scooting Scooting to Edge of Bed Maximum Assistance PT-Transfer Assessment Sit to and From Stand Sit to and from Stand Maximum Assistance,2 Person Assistance,Use of Upper Extremities Equipment Transfer Assistive Device Gait Belt,Front Wheeled Walker Orthotic/Prosthetic Devices or Brace: No Transfers Transfer Destination Chair Transfer Technique Stand Step Pivot Transfer Ability Level of Assist Maximum Assistance,2 Person Assistance,Use of Upper Extremities Comments Mobility Comments pt was on hold this morning due to blood transfusion. pt completed transfusion and Hgb now is 10.4 and Hct is 29.8. pt cleared to do PT per nurse. educated pt on WBAT on RUE. pt with confusion, memory issues and also easily gets distracted. completed supine to sit max A and max cues with HOB elevated and use of rail. pt requires increase time to complete all tasks. able to sit on EOB with initial max A but after positioning CGA. completed sit to stand max A x 2 and max cues. repeated x 2. only tolerated ~ 5 sec of standing on first attempt and c/o increase pain on R hip. pt completed step transfer to chair using FWW max A x 2 and max cues. required assist with weight shifting, directions and use of FWW. max A x 2 for positioning on the chair. call light and table placed within reach. Gait Assessment Comments Gait Comments unable at this time PT-Balance Assessment Sitting Balance and Reactions Static Sitting Balance Ability Good Dynamic Sitting Balance Ability Fair Standing Balance and Reactions Static Standing Balance Ability Poor Dynamic Standing Balance Ability Poor Device Used FWW M5 PT-IP Objective Assessments Start: 12/31/22 17:24 Freq: NEEDED Status: Active Protocol: Document 12/31/22 15:30 AB (Rec: 12/31/22 17:37 AB [email or web address]) Orientation Orientation/Cognition Level of Alertness Confusional State Orientation Name,Year,Place,Situation Safety Awareness Decreased Safety Awareness Memory Description Short Term Impaired,Software Engineering Supervisor Impaired Gross Range of Motion Lower Extremity ROM Assessment Right Impaired Impairments increase RLE guarding during mobility Strength Lower Extremity Strength Assessment Right Impaired Hip 3-/5 Knee 3+/5 Muscle Tone Muscle Tone WNL Yes M6 PT-IP Treatment Start: 12/31/22 17:24 Freq: NEEDED Status: Active Protocol: Document 12/31/22 15:30 AB (Rec: 12/31/22 17:37 AB [email or web address]) Physical Therapy Treatment Exercises Exercises Heel Slides Education Education Provided Precautions,Weight Bearing Status,Post-Op Packet,Safety M7 PT-IP Assessment and Plan Start: 12/31/22 17:24 Freq: NEEDED Status: Active Protocol: Document 12/31/22 15:30 AB (Rec: 12/31/22 17:37 AB [email or web address]) PT Summary Assessment and Plan Potential Rehabilitation Potential Fair Status of Condition at Evaluation Evolving Summary Impairments Pain,ROM,Strength,Balance, Coordination,Sensation,Tone, Cognition,Bed Mobility, Transfers,Gait,Activity Tolerance Assessment Summary pt requiring max A x 2 with mobility using FWW. pt with c/ o increase hip pain affecting mobility and has has cognitive issues affecting following directions and safety awareness. pt will require SNF rehab to improv strength and function. Goals Bed Mobility Goal Minimal Assistance Transfer Goal Minimal Assistance,Front Wheeled Walker Gait Goal Minimal Assistance,Front Wheel Walker Gait Distance 50 Other Goals improve bed mobility, transfers, ambulation using FWW 150 ft SBA up/down 1 steps using FWW SBA SBA Days to Meet Goals 10 Frequency of Treatment Frequency Of Treatment Twice a Day Treatment Plan Physical Therapy Treatment Plan Bed Mobility Training,Transfer Training,Gait Training, Therapeutic Exercise,Balance Retraining,Post Op Education, Discharge Planning,Hot or Cold Pack,Neuromuscular Re-ed, Coordination Retraining,Manual Therapy Weight Bearing Status Weight Bearing Status Weight Bear as Tolerated Allowed Weight Bearing Amount (enter % RLE WBAT or #) (%) Recommendations To Nursing Amount of Assist Needed 2 Person Assist Discharge Recommendations PT Discharge Recommendations SNF Rehab Transportation Needs at Discharge Wheelchair/Cabulance
[2022-12-31] MEDS: cefTRIAXone 1,000 MG in SODIUM CHLORIDE 0.9% 100 ML 200 MG IV (15:48)
[2022-12-31] MEDS: TRAZODONE 50 MG TABLET 25 MG PO (22:07)
[2023-01-01] VITALS (9 sets, daily range): BP systolic 108–169; BP diastolic 51–78; PULSE 67–72; RESP 18–20; TEMP 36.8–37.4; O2SAT 93–96
[2023-01-01 05:05] LABS: Add Manual Diff / Slide Review NO; Basophils Absolute Auto 0 /uL (0-100); Basophils Percent Auto 0.2 % (0-2); Eosinophils Absolute Auto 100 /uL (0-450); Eosinophils Percent Auto 0.7 % (2-4); Hematocrit 28.5 % (36-46); Hemoglobin 9.8 g/dL (12.0-16.0); Lymphocytes Absolute Auto 1000 /uL (1100-4500); Lymphocytes Percent Auto 13.2 % (25-40); Mean Corpuscular HGB Conc 34.5 % (30-36); Mean Corpuscular Hemoglobin 33.4 PG (26-34); Mean Corpuscular Volume 96.9 fL (80-100); Monocytes Absolute Auto 1000 /uL (0-900); Monocytes Percent Auto 13.4 % (3-14); Neutrophils Absolute Auto 5600 /uL (1500-7000); Neutrophils Percent Auto 72.5 % (50-75); Platelet Count 134 X10^3/uL (150-400); Red Blood Cell Count 2.94 X10^6/uL (4.0-5.2); Red Cell Distribution Width 19.3 % (11.6-14.8); White Blood Cell Count 7.7 X10^3/uL (4.5-11.0)
[2023-01-01 05:10] LABS: BUN Creatinine Ratio 31.1 (6-22); Blood Urea Nitrogen 32 mg/dL (7-17); Calcium 7.8 mg/dL (8.4-10.2); Carbon Dioxide 27 mmol/L (22-32); Chloride 104 mmol/L (98-107); Estimated Glomerular Filt Rate 55 mL/min (>60); Glucose 107 mg/dL (80-110); HEMOLYSIS < 15 (0-50); Potassium 4.2 mmol/L (3.4-5.1); Sodium 134 mmol/L (137-145)
[2023-01-01] MEDS: ACETAMINOPHEN 325 MG TABLET 650 MG PO ×2 (05:59→22:16)
[2023-01-01] MEDS: INFLUENZA HD VACCINE 0.7 ML SYRINGE IM (06:42)
--- NOTE | 2023-01-01 07:49 | P.PN_ITS ---
Subjective Subjective Date Patient Seen: 01/01/23 Interval history: Doing much better today mentation an. Pain is well controlled. Hasn't had a BM in a few days. Exam Vital Signs (past 8 hours): - 01/01/23 04:00 Temperature 98.3 F Pulse Rate 68 Respiratory Rate 19 Blood Pressure 160/72 H Pulse Oximetry 95 Fraction of Inspired Oxygen 36 SaO2/FiO2 Ratio 275 Oxygen Delivery Method Room Air Oxygen Flow Rate 0 Narrative Exam Narrative: GEN: alert and oriented HEENT: moist mucous membranes, PERRL NECK: trachea midline, no JVD CV: regular rate and rhythm, no murmurs PULM: clear bilaterally ABD: soft, nontender, nondistended, no organomegaly EXT: right hip tender with postop dressing intact NEURO: awake, alert, oriented, no focal deficits Objective Labs 01/01/23 04:42 01/01/23 04:42 Labs: Laboratory Results - last 24 hr 12/31/22 12/31/22 01/01/23 08:40 14:25 04:42 WBC 7.5 7.7 RBC 3.08 L 2.94 L Hgb 10.4 L 9.8 L Hct 29.8 L 28.5 L MCV 96.9 D 96.9 MCH 33.6 33.4 MCHC 34.7 34.5 RDW 19.5 H 19.3 H Plt Count 141 L 134 L Neut % (Auto) 71.2 72.5 Lymph % (Auto) 14.5 L 13.2 L [place] % (Auto) 13.5 13.4 Eos % (Auto) 0.4 L 0.7 L Baso % (Auto) 0.4 0.2 Neut # (Auto) 5300 5600 Lymph # (Auto) 1100 1000 L [place] # (Auto) 1000 H 1000 H Eos # (Auto) 0 100 Baso # (Auto) 0 0 Sodium Potassium Chloride Carbon Dioxide BUN Creatinine Estimated GFR BUN/Creatinine Ratio Glucose Calcium Blood Type O Positive Antibody Screen Negative Crossmatch See Detail 01/01/23 04:42 WBC RBC Hgb Hct MCV MCH MCHC RDW Plt Count Neut % (Auto) Lymph % (Auto) [place] % (Auto) Eos % (Auto) Baso % (Auto) Neut # (Auto) Lymph # (Auto) [place] # (Auto) Eos # (Auto) Baso # (Auto) Sodium 134 L Potassium 4.2 Chloride 104 Carbon Dioxide 27 BUN 32 H Creatinine 1.03 Estimated GFR 55 L BUN/Creatinine Ratio 31.1 H Glucose 107 Calcium 7.8 L Blood Type Antibody Screen Crossmatch [facility] Medical History Hypertension Social History household members: other Smoking Status: Never smoker alcohol intake: current Assessment & Plan Assessment & Plan narrative: # acute right hip fracture s/p repair -sustained after ground level fall at home -Dr. Meka dwyer took for surgery on 12/30 -pain and nausea control PRN, also muscle relaxers PRN -ASA BID x6 weeks -should have outpatient workup for osteoporosis -PT/OT rec SNF -patient accepted to [facility] on 01/02 # constipation -no BM since prior to surgery -start scheduled laxatives # hospital acquired delirium with acute encephalopathy, resolved -developed on 12/31 the day after surgery, likely a combination of lack of sleep and pain medication -reorient frequently and avoid sedating meds -stopped dilaudid, continue with oxycodone alone -now resolved as of 01/01 # acute blood loss anemia -Hgb dropped 9.1 to 7.3 after surgery, likely blood loss during surgery -no evidence of active bleeding -giving 2 units of PRBC's -keep Hgb >7 -now stable in 9's # hypertensive urgency, resolved -BP up to 222/103 in ED, likely due to pain and muscle spasms -resumed home hydralazine, atenolol and losartan -labetalol PRN for BP >190/>110 # depression -continue home prozac Code status is DNR. COVID negative. DVT prophylaxis with BID ASA. Proxy is friend Evita. Dispo: [facility] on 01/02. Time Spent With Patient Critical Care time: I spent a total of [] minutes of critical care time on this patient's care today; this time is exclusive of procedural time. Quality VTE Deep Vein Thrombosis/Pulmonary Embolism Present on Admission: No
--- NOTE | 2023-01-01 08:22 | P.PN_ITS ---
Subjective Subjective Date Patient Seen: 01/01/23 Time Patient Seen: 08:22 Interval history: Patient is awake sitting up in her bed this morning. She complains of mild pain that is well controlled with medication. She states she has a friend that is her medical power of commercial real estate attorney who is looking into senior care facility for her today. She is looking forward to leaving the hospital today if SNF is set up. Exam Vital Signs (past 8 hours): - 01/01/23 04:00 Temperature 98.3 F Pulse Rate 68 Respiratory Rate 19 Blood Pressure 160/72 H Pulse Oximetry 95 Fraction of Inspired Oxygen 36 SaO2/FiO2 Ratio 275 Oxygen Delivery Method Room Air Oxygen Flow Rate 0 Narrative Exam Narrative: Awake, alert, and oriented. Intraoperative dressing clean, dry, intact on right hip. Strength and sensation intact. Bilateral calves soft, compressible, nontender with no palpable cords or masses. Objective Labs 01/01/23 04:42 01/01/23 04:42 Labs: Laboratory Results - last 24 hr 12/31/22 12/31/22 01/01/23 08:40 14:25 04:42 WBC 7.5 7.7 RBC 3.08 L 2.94 L Hgb 10.4 L 9.8 L Hct 29.8 L 28.5 L MCV 96.9 D 96.9 MCH 33.6 33.4 MCHC 34.7 34.5 RDW 19.5 H 19.3 H Plt Count 141 L 134 L Neut % (Auto) 71.2 72.5 Lymph % (Auto) 14.5 L 13.2 L [place] % (Auto) 13.5 13.4 Eos % (Auto) 0.4 L 0.7 L Baso % (Auto) 0.4 0.2 Neut # (Auto) 5300 5600 Lymph # (Auto) 1100 1000 L [place] # (Auto) 1000 H 1000 H Eos # (Auto) 0 100 Baso # (Auto) 0 0 Sodium Potassium Chloride Carbon Dioxide BUN Creatinine Estimated GFR BUN/Creatinine Ratio Glucose Calcium Blood Type O Positive Antibody Screen Negative Crossmatch See Detail 01/01/23 04:42 WBC RBC Hgb Hct MCV MCH MCHC RDW Plt Count Neut % (Auto) Lymph % (Auto) [place] % (Auto) Eos % (Auto) Baso % (Auto) Neut # (Auto) Lymph # (Auto) [place] # (Auto) Eos # (Auto) Baso # (Auto) Sodium 134 L Potassium 4.2 Chloride 104 Carbon Dioxide 27 BUN 32 H Creatinine 1.03 Estimated GFR 55 L BUN/Creatinine Ratio 31.1 H Glucose 107 Calcium 7.8 L Blood Type Antibody Screen Crossmatch [facility] Medical History Hypertension Social History household members: other Smoking Status: Never smoker alcohol intake: current Assessment & Plan Post-op Assessment and plan (1) Hip fracture: Assessment and Plan narrative: Patient is postop day 2 and progressing well after surgery. She is looking forward to working with physical therapy today and discharging to senior care facility when safe to do so. Postoperative Procedures: Procedures Operation Date: 12/30/22 17:30 Actual Procedure Side Surgeon p Intramedullary Nailing Femur Right Irineo Ackerman MD Postoperative day: 2 Postoperative status: doing well Postoperative plan: routine post-op care Postoperative plan narrative: Keep dressing clean, dry, intact. Replace dressing if it becomes soiled or wet. Follow up with Orthopedics 2 weeks after surgery. Quality VTE Deep Vein Thrombosis/Pulmonary Embolism Present on Admission: No
[2023-01-01] MEDS: LIDOCAINE PATCH 1 EACH ADH..PATCH TOP (08:42)
[2023-01-01] MEDS: HYDRALAZINE 25 MG TABLET PO ×3 (08:43→21:58)
[2023-01-01] MEDS: FLUoxetine 20 MG CAPSULE PO (08:43)
[2023-01-01] MEDS: LORATADINE 10 MG TABLET PO (08:43)
[2023-01-01] MEDS: LOSARTAN 50 MG TABLET PO (08:43)
[2023-01-01] MEDS: ASPIRIN EC 81 MG TABLET PO ×2 (08:43→21:58)
[2023-01-01] MEDS: atenoloL 50 MG TABLET 100 MG PO (08:44)
[2023-01-01] MEDS: OXYCODONE IR 5 MG TABLET PO ×2 (08:44→14:44)
--- NOTE | 2023-01-01 10:30 | CM.DPC ---
DCP Cont: Confirmed with Nilda at [facility], can accept tomorrow. Hospitalist indicated that patient would need another day before discharging. Asked FOZIA Cordero surgical supply assistant to fax over P.T. notes. Called [facility], and left a message with Nandini Augustin to call back, to get auth for skilled tomorrow. Notes indicate that [facility] was patient's first choice. P: DCP to continue to follow. Plan is for [facility] tomorrow, awaiting call back from Nandini at [facility]. If no response later today, will call [facility] back. eJssica Nelson RN/Testing Engineer
--- NOTE | 2023-01-01 11:29 | CM.DPC ---
DCP Cont: Called [facility] back, and found out that Nandini Augustin is off today. Today, is skilled nursing case manager Keshia. Let her know that patient will be ready for discharge tomorrow, and that she will need auth for [facility]. Keshia will work on this and will call this skilled nursing case manager back. Met with patient in her room, she was sitting up in bed, alert and oriented. Friend, BEN, Evita at bedside, and Pat. Patient wanting them to be involved, Evita is BEN. She stated, she felt that she had gotten mixed messages, she was informed that she would need skilled for about 3 months, and was wondering how insurance would cover that. She also wanted information on [facility], wanted to see their facility. Let her know that rooms are not private, patient did not mind, friend concerned about COVID. Let her know that there have not been recent cases, normally, admissions updates [facility]. Gave her April's phone number to see about tour. Let her know that [facility], usually covers for a few weeks. Evita is concerned about her going back to her beachhouse, feels that she needs more assistance. Asked her about finances, for possible Medicaid, she brings in over $2000.00 a month. Evita is thinking about [employer]. Gave her [facility] number, after speaking to Reha at [facility], she gave Kaylyn, sales and marketing agent at [employer] phone number. Gave her [employer], as well. Spoke to Keshia at [facility]. Her direct number is: [phone]. She gave auth for SNF. Auth number is: [id number]. Called Nilda at [facility] and left her a message, including auth number. Keshia at [facility] indicated, Nandini should be back tomorrow. P: DCP to continue to follow. Plan is to [facility], most likely tomorrow. Patient is aware, auth from [facility] received. Jessica Nelson, RN/Barometers Calibrator
--- NOTE | 2023-01-01 11:56 | PT.IPTN ---
Current Diagnoses Fracture of unspecified part of neck of right femur, initial encounter for closed fracture (12/29/22) Fracture of unspecified part of neck of unspecified femur, initial encounter for closed fracture (12/29/22) Surgery Performed Operation Date: 12/30/22 17:30 Actual Procedures p Intramedullary Nailing Femur(Right) - Irineo Ackerman MD Physical Therapy Treatment Note M2 PT-IP Current Condition Start: 12/31/22 17:24 Freq: NEEDED Status: Active Protocol: Document 12/31/22 15:30 AB (Rec: 12/31/22 17:37 AB [id number]) Physical Therapy Current Condition Current Condition Evaluation Date 12/31/22 Treatment Diagnosis s/p fall; R intertrochanteric hip fx s/p IM screws; difficulty in walking Onset Date 12/29/22 M3 PT-IP Subjective Start: 12/31/22 17:24 Freq: NEEDED Status: Active Protocol: Document 01/01/23 11:56 AB (Rec: 01/01/23 14:19 AB [id number]) Subjective Physical Therapy Visit Type Type Treatment Note Visit Start Time 11:56 Visit Stop Time 12:35 Total Visit Minutes 39 Number of RICE DRIER Visits 0 Physical Therapy Visit Comments Patient Comments agreeable to do PT Therapy Pain Assessment Pain When Pain Assessed At Rest Pain Present Pain Present Pain Reported Location Right Hip Scale Used pain scale not stated M4 PT-IP Mobility and Gait Start: 12/31/22 17:24 Freq: NEEDED Status: Active Protocol: Document 01/01/23 11:56 AB (Rec: 01/01/23 14:19 AB [id number]) PT-Bed Mobility Assessment Supine to Sit Supine to Sit Minimal Assistance,Head of Bed Elevated,Bedrails PT-Transfer Assessment Sit to and From Stand Sit to and from Stand Maximum Assistance,1 Person Assistance,Use of Upper Extremities Equipment Transfer Assistive Device Gait Belt,Front Wheeled Walker Orthotic/Prosthetic Devices or Brace: No Transfers Transfer Destination Chair Transfer Technique Stand Step Pivot Transfer Ability Level of Assist Maximum Assistance,1 Person Assistance,Use of Upper Extremities Comments Mobility Comments pt completed supine to sit min a and max cues. HOB elevated . cues required for all tasks . pt found needing to be cleaned up. completed sit to stand from EOB max A and max cues and nurse assisted with hygiene care. max A for standing balance using FWW and assisted with brief management. step transfer using fWW to the chair max A and max cues. pt agree to ambulate. educated on posture and use of FWW for support and quads activation on RLE. completed sit to stand from the chair max A and max cues and ambulated ~ 4ft using FWW max A and max cues. chair follow. positioned pt on the chair. call light and table placed within reach. Gait Assessment Gait Gait Assistance Required: Maximum Assistance Distance (Feet) 4 Able to Maintain Weight Bearing Status Yes During Gait Assistive Devices Assistive Device Gait Belt,Front Wheeled Walker Orthotic/Prosthetic Devices or Brace: No Gait Deviations General Gait Pattern Antalgic,Decreased Stride Length,Decreased Feet Clearance,Flexed Trunk,Step-to Gait Factors Limiting Gait Function Factors Limiting Gait Function Decreased Activity Tolerance, Decreased Strength,Difficulty Following Directions,Limited Range of Motion,Pain,Poor Balance,Poor Safety Awareness M5 PT-IP Objective Assessments Start: 12/31/22 17:24 Freq: NEEDED Status: Active Protocol: Document 12/31/22 15:30 AB (Rec: 12/31/22 17:37 AB [id number]) Orientation Orientation/Cognition Level of Alertness Confusional State Orientation Name,Year,Place,Situation Safety Awareness Decreased Safety Awareness Memory Description Short Term Impaired,Group Home Impaired Gross Range of Motion Lower Extremity ROM Assessment Right Impaired Impairments increase RLE guarding during mobility Strength Lower Extremity Strength Assessment Right Impaired Hip 3-/5 Knee 3+/5 Muscle Tone Muscle Tone WNL Yes M6 PT-IP Treatment Start: 12/31/22 17:24 Freq: NEEDED Status: Active Protocol: Document 01/01/23 11:56 AB (Rec: 01/01/23 14:19 AB [id number]) Physical Therapy Treatment Exercises Exercises Heel Slides Education Education Provided Safety M7 PT-IP Assessment and Plan Start: 12/31/22 17:24 Freq: NEEDED Status: Active Protocol: Document 01/01/23 11:56 AB (Rec: 01/01/23 14:19 AB [email or web address]) PT Summary Assessment and Plan Potential Rehabilitation Potential Good Summary Impairments Pain,ROM,Strength,Balance, Coordination,Sensation,Tone, Cognition,Bed Mobility, Transfers,Gait,Activity Tolerance Progress Towards Goals Slow Progress due to Pain,Slow Progress due to Activity Tolerance Assessment Summary pt improving slowly with mobility. requires max A with all mobilities and uses a FWW for transfers. able to ambulate ~ 4 ft to day using FWW. pt will benefit from SNF rehab to improve strength and mobility independence. Goals Bed Mobility Goal Minimal Assistance Transfer Goal Minimal Assistance,Front Wheeled Walker Gait Goal Minimal Assistance,Front Wheel Walker Gait Distance 50 Other Goals improve bed mobility, transfers, ambulation using FWW 150 ft SBA up/down 1 steps using FWW SBA SBA Days to Meet Goals 10 Frequency of Treatment Frequency Of Treatment Twice a Day Treatment Plan Physical Therapy Treatment Plan Bed Mobility Training,Transfer Training,Gait Training, Therapeutic Exercise,Balance Retraining,Post Op Education, Discharge Planning,Hot or Cold Pack,Neuromuscular Re-ed, Coordination Retraining,Manual Therapy Weight Bearing Status Weight Bearing Status Weight Bear as Tolerated Allowed Weight Bearing Amount (enter % RLE WBAT or #) (%) Recommendations To Nursing Amount of Assist Needed 2 Person Assist Discharge Recommendations PT Discharge Recommendations SNF Rehab Transportation Needs at Discharge Wheelchair/Cabulance
--- NOTE | 2023-01-01 15:10 | PT.IPTN ---
Current Diagnoses Fracture of unspecified part of neck of right femur, initial encounter for closed fracture (12/29/22) Fracture of unspecified part of neck of unspecified femur, initial encounter for closed fracture (12/29/22) Surgery Performed Operation Date: 12/30/22 17:30 Actual Procedures p Intramedullary Nailing Femur(Right) - Irineo Ackerman MD Physical Therapy Treatment Note M2 PT-IP Current Condition Start: 12/31/22 17:24 Freq: NEEDED Status: Active Protocol: Document 12/31/22 15:30 AB (Rec: 12/31/22 17:37 AB [id number]) Physical Therapy Current Condition Current Condition Evaluation Date 12/31/22 Treatment Diagnosis s/p fall; R intertrochanteric hip fx s/p IM screws; difficulty in walking Onset Date 12/29/22 M3 PT-IP Subjective Start: 12/31/22 17:24 Freq: NEEDED Status: Active Protocol: Document 01/01/23 15:10 AB (Rec: 01/01/23 17:26 AB [email or web address]) Subjective Physical Therapy Visit Type Type Treatment Note Visit Start Time 15:10 Visit Stop Time 15:29 Total Visit Minutes 19 Number of CONSTRUCTION ENGINEER Visits 0 Physical Therapy Visit Comments Patient Comments agreeable to do PT Therapy Pain Assessment Pain When Pain Assessed At Rest Pain Present Pain Present Pain Reported Location Right Hip Scale Used pain scale not stated Pain Management Techniques Distraction,Modification of Treatment,Re-positioning, Timing of Activity with Medications M4 PT-IP Mobility and Gait Start: 12/31/22 17:24 Freq: NEEDED Status: Active Protocol: Document 01/01/23 15:10 AB (Rec: 01/01/23 17:26 AB [email or web address]) PT-Bed Mobility Assessment Sit to Supine Sit to Supine Standby Assistance,Head of Bed Elevated,Bedrails PT-Transfer Assessment Sit to and From Stand Sit to and from Stand Maximum Assistance,1 Person Assistance,Use of Upper Extremities Equipment Transfer Assistive Device Gait Belt,Front Wheeled Walker Orthotic/Prosthetic Devices or Brace: No Transfers Transfer Destination Bed Transfer Technique ambulated Transfer Ability Level of Assist Minimal Assistance,1 Person Assistance,Use of Upper Extremities Comments Mobility Comments pt sitting on the chair. requesting to go back to bed. completed sit to stand from the chair max A and max cues and ambulated to the bed using FWW min A ~ 8 ft and max cues provided for steadiness and safety. completed sit to supine SBA and cues for techniques. positioned pt in bed. call light and table place within reach. Gait Assessment Gait Gait Assistance Required: Minimum Assistance Distance (Feet) 8 Able to Maintain Weight Bearing Status Yes During Gait Assistive Devices Assistive Device Gait Belt,Front Wheeled Walker Orthotic/Prosthetic Devices or Brace: No Gait Deviations General Gait Pattern Antalgic,Decreased Stride Length,Decreased Feet Clearance,Step-to Gait Factors Limiting Gait Function Factors Limiting Gait Function Decreased Activity Tolerance, Decreased Strength,Limited Range of Motion,Pain,Poor Balance,Poor Safety Awareness M5 PT-IP Objective Assessments Start: 12/31/22 17:24 Freq: NEEDED Status: Active Protocol: Document 12/31/22 15:30 AB (Rec: 12/31/22 17:37 AB [email or web address]) Orientation Orientation/Cognition Level of Alertness Confusional State Orientation Name,Year,Place,Situation Safety Awareness Decreased Safety Awareness Memory Description Short Term Impaired,[facility] Impaired Gross Range of Motion Lower Extremity ROM Assessment Right Impaired Impairments increase RLE guarding during mobility Strength Lower Extremity Strength Assessment Right Impaired Hip 3-/5 Knee 3+/5 Muscle Tone Muscle Tone WNL Yes M6 PT-IP Treatment Start: 12/31/22 17:24 Freq: NEEDED Status: Active Protocol: Document 01/01/23 15:10 AB (Rec: 01/01/23 17:26 AB [email or web address]) Physical Therapy Treatment Education Education Provided Safety M7 PT-IP Assessment and Plan Start: 12/31/22 17:24 Freq: NEEDED Status: Active Protocol: Document 01/01/23 15:10 AB (Rec: 01/01/23 17:26 AB [email or web address]) PT Summary Assessment and Plan Potential Rehabilitation Potential Good Summary Impairments Pain,ROM,Strength,Balance, Coordination,Sensation,Tone, Cognition,Bed Mobility, Transfers,Gait,Activity Tolerance Progress Towards Goals Slow Progress due to Pain,Slow Progress due to Activity Tolerance Assessment Summary pt progressing slowly and able to walk ~ 8 ft using FWW min A but continues to have decrease activity tolerance and c/o hip pain with mobility affecting function. pt will benefit from SNF rehab to improve overall strength and mobility. Goals Bed Mobility Goal Minimal Assistance Transfer Goal Minimal Assistance,Front Wheeled Walker Gait Goal Minimal Assistance,Front Wheel Walker Gait Distance 50 Other Goals improve bed mobility, transfers, ambulation using FWW 150 ft SBA up/down 1 steps using FWW SBA SBA Days to Meet Goals 10 Frequency of Treatment Frequency Of Treatment Twice a Day Treatment Plan Physical Therapy Treatment Plan Bed Mobility Training,Transfer Training,Gait Training, Therapeutic Exercise,Balance Retraining,Post Op Education, Discharge Planning,Hot or Cold Pack,Neuromuscular Re-ed, Coordination Retraining,Manual Therapy Weight Bearing Status Weight Bearing Status Weight Bear as Tolerated Allowed Weight Bearing Amount (enter % RLE WBAT or #) (%) Recommendations To Nursing Amount of Assist Needed 1 Person Assist Discharge Recommendations PT Discharge Recommendations SNF Rehab Transportation Needs at Discharge Wheelchair/Cabulance
[2023-01-01] MEDS: cefTRIAXone 1,000 MG in SODIUM CHLORIDE 0.9% 100 ML 200 MG IV (15:52)
[2023-01-01] MEDS: TRAZODONE 50 MG TABLET 25 MG PO (21:59)
[2023-01-01] MEDS: SENNOSIDES 8.6 MG TABLET PO (21:59)
[2023-01-01] MEDS: FLUTICASONE 120 SPRAY/16 GM SPRAY.SUSP NASAL (22:08)
[2023-01-02 01:03] VITALS: BP 153/65
[2023-01-02 01:32] VITALS: BP 152/70; PULSE 73; RESP 18; TEMP 37.1; O2SAT 93
[2023-01-02 05:23] VITALS: BP 151/72; PULSE 67; RESP 18; TEMP 36.8; O2SAT 93
[2023-01-02 05:34] LABS: Add Manual Diff / Slide Review NO; Basophils Absolute Auto 0 /uL (0-100); Basophils Percent Auto 0.3 % (0-2); Eosinophils Absolute Auto 100 /uL (0-450); Eosinophils Percent Auto 0.7 % (2-4); Hematocrit 27.9 % (36-46); Hemoglobin 9.7 g/dL (12.0-16.0); Lymphocytes Absolute Auto 1300 /uL (1100-4500); Lymphocytes Percent Auto 15.8 % (25-40); Mean Corpuscular HGB Conc 34.6 % (30-36); Mean Corpuscular Hemoglobin 33.9 PG (26-34); Mean Corpuscular Volume 97.9 fL (80-100); Monocytes Absolute Auto 1100 /uL (0-900); Monocytes Percent Auto 12.9 % (3-14); Neutrophils Absolute Auto 5700 /uL (1500-7000); Neutrophils Percent Auto 70.3 % (50-75); Platelet Count 164 X10^3/uL (150-400); Red Blood Cell Count 2.85 X10^6/uL (4.0-5.2); Red Cell Distribution Width 18.7 % (11.6-14.8); White Blood Cell Count 8.1 X10^3/uL (4.5-11.0)
[2023-01-02 05:43] LABS: BUN Creatinine Ratio 29.1 (6-22); Blood Urea Nitrogen 32 mg/dL (7-17); Calcium 7.8 mg/dL (8.4-10.2); Carbon Dioxide 27 mmol/L (22-32); Chloride 102 mmol/L (98-107); Estimated Glomerular Filt Rate 51 mL/min (>60); Glucose 99 mg/dL (80-110); HEMOLYSIS < 15 (0-50); Potassium 4.3 mmol/L (3.4-5.1); Sodium 134 mmol/L (137-145)
[2023-01-02 07:50] VITALS: BP 174/78; PULSE 68; RESP 17; TEMP 37.6; O2SAT 92
--- NOTE | 2023-01-02 08:12 | PM.DS.1 ---
History of Present Illness History of Present Illness Date Patient Seen: 01/02/23 Time Patient Seen: 08:12 Chief complaint: Fall/hip pain Narrative: Per Dr. Dean, Samara Winslow is an 82yo F with past medical history of hypertension, depression who presents with right hip fracture after accidentally falling at home. She mistepped when trying to go up a ledge and lost her footing, landing on her right side. Dr. Ackerman called from ED and plans for surgery tomorrow. She is not on blood thinners. Currently her pain is better after pain medication, but earlier she was having severe muscle cramping in her right leg which is ok at the moment. She is requesting muscle relaxers for this. She is having mild nausea. Denies history of osteoporosis but has never had a DEXA scan. She still needs to establish with her new PCP after changing providers. Denies CP, SOB, abd pain or diarrhea. Discharge Providers Provider Date of admission: 12/29/22 11:21 Discharge Date: 01/02/23 Primary care physician: Kalpesh Davila MD Consults: 12/29/22 09:52 Consult to Orthopedic Surgery Stat Comment: Consulting Provider: Irineo Ackerman Reason for consultation: hip fracture Has provider been notified: Yes 12/30/22 20:00 Consult to Discharge Planning Routine Comment: Consult to Physical Therapy Evaluate & Treat Comment: Physician Instructions: Evaluate and Treat Discharge provider: Danny Dunn DO Summary Hospital Course Discharge Diagnosis: # acute right hip fracture s/p repair, pathologic due to osteoporosis given nature of her fall. # constipation # hospital acquired delirium with acute encephalopathy, resolved # acute blood loss anemia # hypertensive urgency, resolved # depression Hospital Course: This is an 82 year old female with PMH of HTN, depression admitted with a right hip fracture after a ground level fall in her home. Her BP was markedly elevated in the emergency room, likely due to pain and improved with resumption of her home medications. There was no evidence of end organ damage. Her hospital course was complicated by an acute encephalopathy, likely due to lack of sleep and opiate pain medications. Encephalopathy improved with stopping IV medications and time. She also developed an acute blood loss anemia after surgery, likely due to the surgery itself. She required 2U PRBC transfusion, but h/h remained stable near 10 after transfusion. She will transfer to SNF today for ongoing need for PT/OT after operative interventions. She should continued on asa 81 mg BID for 6 weeks after surgery per orthopedics team. Time Spent with Patient Time spent: Greater than 30 minutes Exam Vital Signs (past 8 hours): - 01/02/23 01:03 01/02/23 01:32 01/02/23 05:23 Temperature 98.8 F 98.3 F Pulse Rate 73 67 Respiratory Rate 18 18 Blood Pressure 153/65 H 152/70 H 151/72 H Pulse Oximetry 93 93 Oxygen Flow Rate 0 0 Fraction of Inspired Oxygen 36 SaO2/FiO2 Ratio 275 Oxygen Delivery Method Room Air Oxygen Flow Rate 0 Narrative Exam Narrative: GEN: alert and oriented HEENT: moist mucous membranes, PERRL NECK: trachea midline, no JVD CV: regular rate and rhythm, no murmurs PULM: clear bilaterally ABD: soft, nontender, nondistended, no organomegaly EXT: right hip tender with postop dressing intact NEURO: awake, alert, oriented, no focal deficits Objective Labs 01/02/23 04:28 01/02/23 04:28 Labs: Laboratory Results - last 24 hr 01/02/23 01/02/23 04:28 04:28 WBC 8.1 RBC 2.85 L Hgb 9.7 L Hct 27.9 L MCV 97.9 MCH 33.9 MCHC 34.6 RDW 18.7 H Plt Count 164 Neut % (Auto) 70.3 Lymph % (Auto) 15.8 L [place] % (Auto) 12.9 Eos % (Auto) 0.7 L Baso % (Auto) 0.3 Neut # (Auto) 5700 Lymph # (Auto) 1300 [place] # (Auto) 1100 H Eos # (Auto) 100 Baso # (Auto) 0 Sodium 134 L Potassium 4.3 Chloride 102 Carbon Dioxide 27 BUN 32 H Creatinine 1.10 H Estimated GFR 51 L BUN/Creatinine Ratio 29.1 H Glucose 99 Calcium 7.8 L [facility] Medical History Hypertension Social History household members: other Smoking Status: Never smoker alcohol intake: current Discharge Plan Discharge Plan Patient Disposition: SNF Provider Discharge Comment: 82 year old female admitted with R hip fracture, transfer for continuing PT/OT needs. Discharge orders & Medications Prescriptions: New acetaminophen 325 mg Tablet 650 mg PO Q6H PRN (Reason: Fever/Mild Pain (1-3)) Qty: 60 0RF aspirin 81 mg Tablet,Delayed Release (Dr/Ec) 81 mg PO BID 42 Days Qty: 84 0RF bisacodyl 5 mg Tablet,Delayed Release (Dr/Ec) 10 mg PO DAILY PRN (Reason: Constipation) Qty: 7 0RF lidocaine 5 % Adhesive Patch,Medicated 1 ea topical BEDTIME 7 Days Qty: 7 0RF loratadine 10 mg Tablet 10 mg PO DAILY Qty: 7 0RF melatonin 3 mg Tablet 6 mg PO BEDTIME PRN (Reason: Insomnia) Qty: 30 0RF methocarbamol 500 mg Tablet 500 mg PO QID PRN (Reason: Muscle Spasm) 7 Days Qty: 28 0RF polyethylene glycol 3350 17 gram Powder In Packet 17 g PO DAILY Qty: 14 0RF oxycodone 10 mg Tablet 5 - 10 mg PO Q3HR PRN (Reason: Pain, Severe (7-10)) 7 Days Qty: 20 0RF sennosides [senna] 8.6 mg Tablet 8.6 mg PO BID Qty: 20 0RF Continued losartan 50 mg tablet 50 mg PO DAILY trazodone 50 mg tablet 25 mg PO BEDTIME atenolol 100 mg Tablet 100 mg PO DAILY hydralazine 25 mg Tablet 25 mg PO TID fluoxetine 20 mg capsule 20 mg PO DAILY Follow up/Referrals: Irineo Ackerman MD [Physician] - (Follow up 2 weeks after surgery) Kalpesh Davila MD [Primary Care Provider] - Discharge Health Status Multidrug resistant organism: No MDRO Diet/Activity/Treatments Diet: Diet as Tolerated Liquid consistency: Normal/Thin Food texture: Regular Activity: As tolerated Skin/Wound/Dressing Care Skin care: Keep operative incision clean and dry with dressing intact Report to your healthcare provider any signs of infection, such as:: chills, fever, night sweats, increased pain, unusual drainage and unusual redness [facility] Reason for rehabilitation: Post-operative therapy Rehab type: Physical therapy and Occupational therapy Visit Report/Discharge Packet Stand Alone Forms: Patient Portal/API, Surgery Discharge Discharge Data Primary Care Provider: Kalpesh Davila Quality VTE Deep Vein Thrombosis/Pulmonary Embolism Present on Admission: No
[2023-01-02 08:20] LABS: COVID19 -Nasal RAPID Negative (Negative)
--- NOTE | 2023-01-02 08:45 | CM.DPC ---
Addendum entered by Jessica Nelson R.N. 01/02/23 11:44: Gave patient a copy of her IMM to take with her, placed in her bag. She is aware of 1130 chart picker time, and appreciative of the care that she has received. Original Note: DCP Cont: Patient has discharge orders for [facility]. Had received [place] auth yesterday from clinical case manager at [facility]. Placed COVID swab order. Dr. Dunn updated, and completed orders, and faxed orders, med sheets, rx, DC Summary, and PASSR over to [facility]. Have confirmed chart picker time of 1130, updated nurse, Wilder. Updated main white board, Bren, director of community center, to complete packet. Patient to be updated. P: Patient is discharging to [facility] today, chart picker at 1130. Jessica Nelson RN/Coverage Specialist Rn
[2023-01-02] MEDS: ASPIRIN EC 81 MG TABLET PO (09:02)
[2023-01-02] MEDS: LORATADINE 10 MG TABLET PO (09:02)
[2023-01-02] MEDS: polyethylene glycoL 3350 17 GM POWD.PACK PO (09:02)
[2023-01-02] MEDS: atenoloL 50 MG TABLET 100 MG PO (09:02)
[2023-01-02] MEDS: HYDRALAZINE 25 MG TABLET PO (09:02)
[2023-01-02] MEDS: LOSARTAN 50 MG TABLET PO (09:03)
[2023-01-02] MEDS: FLUoxetine 20 MG CAPSULE PO (09:03)
[2023-01-02] MEDS: LIDOCAINE PATCH 1 EACH ADH..PATCH TOP (09:03)
[2023-01-02] MEDS: SENNOSIDES 8.6 MG TABLET PO (09:03)
[2023-01-02 09:40] VITALS: BP 170/81; PULSE 71
[2023-01-02 09:48] VITALS: BP 170/75; PULSE 75
--- NOTE | 2023-01-02 09:48 | PC.NURSE ---
Day shift: Pt does not want spence cath removed at this time. Dr Dunn aware and is ok with spence staying in for d/c to [facility] today.
--- NOTE | 2023-01-02 09:49 | PM.PNPO.1 ---
Subjective Subjective Date Patient Seen: 01/02/23 Time Patient Seen: 09:49 Interval history: Postop day 3 right hip fracture inter medullary nailing for intertrochanteric hip fracture Doing well pain better controlled. [facility]. Primary admitting team is the hospitalist team. She did have postoperative anemia and received 2 units PRBCs. Hemoglobin stabilized. Has Diaz in place. Has asked for it remain. Finds the SCDs uncomfortable but has been doing a lot of foot and ankle pumps on her own. Aspirin b.i.d. for DVT prophylaxis. Exam Vital Signs (past 8 hours): - 01/02/23 05:23 01/02/23 09:48 Temperature 98.3 F Pulse Rate 67 75 Respiratory Rate 18 Blood Pressure 151/72 H 170/75 H Pulse Oximetry 93 Oxygen Flow Rate 0 Fraction of Inspired Oxygen 36 SaO2/FiO2 Ratio 275 Oxygen Delivery Method Room Air Oxygen Flow Rate 0 Narrative Exam Narrative: Alert oriented no acute distress. Respiratory unlabored on room air. Heart regular rate and rhythm. Dressing intact. Scant amount of drainage on the more proximal incision. No erythema. Thigh is soft. Demonstrates knee and ankle flexion and extension. Calves are soft. Palpable pulses. Sensation intact. Has a lidocaine patch on the thigh. Objective Labs 01/02/23 04:28 01/02/23 04:28 Labs: Laboratory Results - last 24 hr 01/02/23 01/02/23 01/02/23 04:28 04:28 07:55 WBC 8.1 RBC 2.85 L Hgb 9.7 L Hct 27.9 L MCV 97.9 MCH 33.9 MCHC 34.6 RDW 18.7 H Plt Count 164 Neut % (Auto) 70.3 Lymph % (Auto) 15.8 L [place] % (Auto) 12.9 Eos % (Auto) 0.7 L Baso % (Auto) 0.3 Neut # (Auto) 5700 Lymph # (Auto) 1300 [place] # (Auto) 1100 H Eos # (Auto) 100 Baso # (Auto) 0 Sodium 134 L Potassium 4.3 Chloride 102 Carbon Dioxide 27 BUN 32 H Creatinine 1.10 H Estimated GFR 51 L BUN/Creatinine Ratio 29.1 H Glucose 99 Calcium 7.8 L SARS-CoV-2 (PCR) Negative [facility] Medical History Hypertension Social History household members: other Smoking Status: Never smoker alcohol intake: current Assessment & Plan Post-op Postoperative Procedures: Procedures Operation Date: 12/30/22 17:30 Actual Procedure Side Surgeon p Intramedullary Nailing Femur Right Irineo Ackerman MD Postoperative day: 3 Postoperative status: doing well and anemia Postoperative status narrative: had postop anemia-- stable now medically stable for discharge. Postoperative plan narrative: 1. Weightbear as tolerated right lower extremity. Expect use of walker for least 6 weeks 2. Aspirin 81 mg b.i.d. for DVT prophylaxis x6 weeks 3. Discharge per primary team. Follow up with Orthopedic surgery 2 weeks. Quality VTE Deep Vein Thrombosis/Pulmonary Embolism Present on Admission: No
--- NOTE | 2023-01-02 09:56 | PC.NURSE ---
Day shift: Report given to Rylee at [facility] at approx 1000 today.
--- NOTE | 2023-01-02 11:53 | PC.NURSE ---
Day shift: Pt left unit at approx 1150. Paperwork given to transport person. Pt has all personal belongings. scripts in with paperwork. Pt's friend in room for discharge and knows the plan and very involved with Pt's care. CMS remains intact. Dressing intact with small amount of shadow drainage present. Diaz remains in place per Pt's request and ok with Dr Dunn. Taken to [facility] via by transport person.
== END 2023-01-02 11:56 | DRG 480 ==
LOC: ED 10:58 → AC 11:23
PROVIDERS: Internal Medicine; Orthopaedic Surgery; Admitting Provider Student in an Organized Health Care Education/Training Program; Emergency Provider Emergency Medicine; Family Provider Internal Medicine; PCP Internal Medicine; Referring Provider Emergency Medicine; Visit Provider Student in an Organized Health Care Education/Training Program
PROC: 0QSB06Z Reposition Right Lower Femur with Intramedullary Internal Fixation Device, Open Approach (ICD-10-PCS; CPT 27245; principal; 2022-12-30 17:30)
DX: M80.051A Age-related osteoporosis with current pathological fracture, right femur, initial encounter for fracture (principal); G92.8 Other toxic encephalopathy; D62 Acute posthemorrhagic anemia; I16.0 Hypertensive urgency; F32.A Depression, unspecified; K59.00 Constipation, unspecified; T40.2X5A Adverse effect of other opioids, initial encounter; I10 Essential (primary) hypertension; Z66 Do not resuscitate; Z20.822 Contact with and (suspected) exposure to COVID-19; Z23 Encounter for immunization
CPT/HCPCS: 36415; 36430; 73502; 76000; 80048; 80076; 81001; 81003; 82962; 83735; 85025; 85610; 86850; 86900; 86901; 87077; 87086; 87186; 87635; 90471; 90662; 94760; 96374; 96376; 97162; 97530; 99284; C9803; P9016; 90715; J0690; J0696; J1170; J1644; J2270; J2405; J2704; J3010

== ENCOUNTER 2023-01-22 05:59 | Inpatient (IN) | payer OTHER, SELFPAY ==
[2022-12-29 11:23] VITALS: BMI 20.2
[2023-01-22] VITALS (43 sets, daily range): BP systolic 85–184; BP diastolic 53–81; PULSE 58–81; RESP 14–24; TEMP 36.1–37.4; O2SAT 94–100; BMI 24.0; BMI 20.9
--- NOTE | 2023-01-22 06:05 | DI.RAD.S_ITS ---
PROCEDURE: XR HIP W PEL IF DONE RT 2V INDICATIONS: R hip pain after surgery TECHNIQUE: AP pelvis and lateral view of the right hip acquired. COMPARISON: [facility], CR, XR HIP W PEL IF DONE RT 2V, 12/30/2022, 18:14. [facility], CR, XR HIP W PEL IF DONE RT 2V, 12/29/2022, 9:10. FINDINGS: Bones: Patient is status post right hip ORIF, with hardware components in expected positions. The hip joint appears congruent. The visualized bony structures appear intact. The greater trochanter is fragmented above the intramedullary katherin. Soft tissues: Overlying postoperative changes are noted. No suspicious soft tissue densities. IMPRESSION: Status post right hip ORIF. The greater trochanter is fragmented above the intramedullary katherin. Dictated by: Reggie Kessler M.D. on 01/22/2023 at 8:08 Approved by: Reggie Kessler M.D. on 01/22/2023 at 8:09
--- NOTE | 2023-01-22 06:08 | PC.NURSE ---
Called SNF, nurse states patient was pain controlled yesterday. states was suppose to d/c home this morning. Reports at 0330 pt was complaining of pain and he medicated with 10mg of oxycodone and 650mg of Tylenol at 0347. Nurse reports pain wasn't decreasing so then he medicated with robaxin. Pt requested to come to the emergency department and had called 911 first before the nurse. Nurse reports no new injury.
--- NOTE | 2023-01-22 06:12 | ED_ITS ---
HPI - Extremity Problem <Shyam Lao, DO - Last Filed: 01/22/23 20:34> General Chief complaint: Extremity Problem,Nontraumatic Stated complaint: pain at surgery site Time Seen by Provider: 01/22/23 06:00 Source: patient and EMS Mode of arrival: EMS Limitations: no limitations History of Present Illness HPI Narrative: 82-year-old female who is brought by EMS for evaluation of right hip discomfort. Approximately 1 month ago patient has sustained a right hip fracture and had subsequent surgery. Was discharged to a care home facility. Was reported from the nursing facility that yesterday and last evening the patient seemed to have no issues whatsoever. Her pain was controlled. Overnight she started to develop pain in her right hip. She received Tylenol and oxycodone approximately 4 hours prior to arrival in the emergency department then received Robaxin afterwards. Patient apparently called 911 herself from the broom at the rehab facility. She requested to come to the emergency department. There was no specific fall. Very difficult to obtain any history from the patient herself. The only thing that she states his ?the pain? referring to her right hip. Related Data Home Medications Medication Instructions Recorded Confirmed atenolol 100 mg tablet 100 mg PO DAILY 12/29/22 01/22/23 hydralazine 25 mg tablet 25 mg PO TID 12/29/22 01/22/23 losartan 50 mg tablet 50 mg PO BEDTIME 12/29/22 01/22/23 trazodone 50 mg tablet 25 mg PO BEDTIME 12/29/22 01/22/23 Lactobacillus acidophilus-pectin 1 tab PO DAILY 01/22/23 01/22/23 chewable tablet (Acidophilus-Pectin chewable tablet) fluoxetine 20 mg capsule 20 mg PO QAM 01/22/23 01/22/23 lidocaine 5 % topical patch 1 patch topical DAILY 01/22/23 01/22/23 loratadine 10 mg tablet 10 mg PO BID 01/22/23 01/22/23 methocarbamol 500 mg tablet 500 mg PO Q6HR PRN muscle spasms 01/22/23 01/22/23 oxycodone 5 mg tablet 5 mg PO Q3H PRN Pain (Scale Score 01/22/23 01/22/23 4-6) oxycodone 5 mg tablet 10 mg PO Q3H PRN Pain (Scale Score 01/22/23 01/22/23 7-10) sodium chloride 0.65 % nasal spray 2 spray intranasal BID 01/22/23 01/22/23 aerosol (Saline Nasal) Previous Rx's Medication Instructions Recorded acetaminophen 325 mg tablet 650 mg PO Q6H PRN Fever/Mild Pain 01/02/23 (1-3) #60 tabs aspirin 81 mg tablet,delayed 81 mg PO BID 6 weeks #84 tabs 01/02/23 release bisacodyl 5 mg tablet,delayed 10 mg PO DAILY PRN Constipation #7 01/02/23 release tabs melatonin 3 mg tablet 6 mg PO BEDTIME PRN Insomnia #30 01/02/23 tabs polyethylene glycol 3350 17 gram 17 g PO DAILY #14 ea 01/02/23 oral powder packet sennosides 8.6 mg tablet (senna) 8.6 mg PO BID #20 tabs 01/02/23 Allergies Allergy/AdvReac Type Severity Reaction Status Date / Time No Known Drug Allergies Allergy Verified 12/29/22 09:15 Review of Systems <Shyam Lao DO - Last Filed: 01/22/23 20:34> Constitutional Constitutional: Reports system reviewed and no additional complaints, except as documented Musculoskeletal Musculoskeletal: Reports system reviewed and no additional complaints, except as documented Neurologic Neurologic: Reports system reviewed and no additional complaints, except as documented Patient History <DO Ranjan Armstrong Last Filed: 01/22/23 20:34> Medical History Depression Essential hypertension Hypertension Insomnia Surgical History History of hip surgery Family History Father Congestive heart failure Mother Hypertension Social History household members: other Smoking Status: Never smoker alcohol intake: current Smoking Status: Never smoker alcohol intake frequency: a few times a month Substance Use Type: does not use Exam <Shyam Lao DO - Last Filed: 01/22/23 20:34> Initial Vital Signs Initial Vital Signs: Vital Signs Temperature 96.9 F L 01/22/23 06:07 Pulse Rate 80 01/22/23 06:07 Respiratory Rate 22 01/22/23 06:07 Blood Pressure 106/71 01/22/23 06:07 Pulse Oximetry 99 01/22/23 06:07 Oxygen Delivery Method 01/22/23 06:07 HENMT Head: normal to inspection and normocephalic Back/Spine/Pelvis Thoracic/Lumbar Spine: No lumbar spinal tenderness Skin Other: Well-healed surgical scar right hip consistent with her stated surgical history Extrem Other: Patient importance to the lateral aspect and posterior aspect of the right hip. <Raman Zarate MD - Last Filed: 01/26/23 07:47> Initial Vital Signs Initial Vital Signs: Vital Signs Temperature 96.9 F L 01/22/23 06:07 Pulse Rate 80 01/22/23 06:07 Respiratory Rate 01/22/23 06:07 Blood Pressure 106/71 01/22/23 06:07 Pulse Oximetry 99 01/22/23 06:07 Oxygen Delivery Method 01/22/23 06:07 Scores <Shyam Lao DO - Last Filed: 01/22/23 20:34> GCS [place] coma scale eye opening: Spontaneous [place] coma scale verbal response: Orientated [place] coma scale motor response: Obey commands [place] coma scale total score: 15 <Raman Zarate MD - Last Filed: 01/26/23 07:47> GCS [place] coma scale total score: 15 Course <Shyam Lao DO - Last Filed: 01/22/23 20:34> Orders Ordered: Acetaminophen (Acetaminophen 325 Mg Tablet) 650 mg PO Q6H PRN PRN Reason: Fever/Mild Pain (1-3) Last Admin: 01/24/23 22:56 Dose: 650 mg Documented By: DARIEN Atenolol (Atenolol 50 Mg Tablet) 100 mg PO DAILY [facility] Last Admin: 01/24/23 08:22 Dose: 100 mg Documented By: Admin: 01/23/23 08:30 Dose: 100 mg Documented By: NEHA Fluoxetine HCl (Fluoxetine 20 Mg Capsule) 20 mg PO DAILY [facility] Last Admin: 01/25/23 10:16 Dose: Not Given Documented By: Admin: 01/24/23 08:22 Dose: 20 mg Documented By: Admin: 01/23/23 08:30 Dose: 20 mg Documented By: NEHA Hydralazine HCl (Hydralazine 25 Mg Tablet) 25 mg PO TID [facility] Last Admin: 01/25/23 20:49 Dose: 25 mg Documented By: Admin: 01/24/23 20:50 Dose: 25 mg Documented By: Admin: 01/24/23 15:33 Dose: 25 mg Documented By: Admin: 01/24/23 08:22 Dose: 25 mg Documented By: Admin: 01/23/23 21:21 Dose: 25 mg Documented By: Admin: 01/23/23 15:29 Dose: 25 mg Documented By: Admin: 01/23/23 08:30 Dose: 25 mg Documented By: NEHA Lidocaine (Lidocaine Patch 1 Each Adh..Patch) 1 each TOP DAILY [facility] Last Admin: 01/25/23 09:46 Dose: 1 each Documented By: Admin: 01/24/23 08:21 Dose: 1 each Documented By: Admin: 01/23/23 08:31 Dose: 1 each Documented By: NEHA Losartan Potassium (Losartan 50 Mg Tablet) 50 mg PO BID [facility] Methocarbamol (Methocarbamol 500 Mg Tablet) 500 mg PO Q6HR PRN PRN Reason: muscle spasms Naloxone HCl (Naloxone 0.4 Mg/Ml Vial) 0.2 mg IV Q2MIN PRN PRN Reason: Opiate Reversal Ondansetron HCl (Ondansetron 4 Mg/2 Ml Inj) 4 mg IV Q4HR PRN PRN Reason: Nausea And Vomiting Oxycodone HCl (Oxycodone Ir 5 Mg Tablet) 10 mg PO Q3H PRN PRN Reason: Pain (Scale Score 7-10) Pantoprazole Sodium (Pantoprazole 40 Mg Vial) 40 mg IV BID [facility] Last Admin: 01/25/23 20:47 Dose: 40 mg Documented By: Admin: 01/25/23 09:45 Dose: 40 mg Documented By: RICHARD Sennosides (Sennosides 8.6 Mg Tablet) 8.6 mg PO BID [facility] Last Admin: 01/25/23 20:47 Dose: 8.6 mg Documented By: Admin: 01/25/23 10:16 Dose: Not Given Documented By: Admin: 01/24/23 20:50 Dose: 8.6 mg Documented By: Admin: 01/24/23 08:22 Dose: 8.6 mg Documented By: Admin: 01/23/23 21:14 Dose: 8.6 mg Documented By: Admin: 01/23/23 08:30 Dose: 8.6 mg Documented By: NEHA Sodium Chloride (Sodium Chloride 0.9% Flush) 10 ml IV PRN PRN PRN Reason: Flush Sodium Chloride (Sodium Chloride 0.9% Flush) 10 ml IV BID [facility] Last Admin: 01/25/23 20:49 Dose: 10 ml Documented By: MATTEO Trazodone HCl (Trazodone 50 Mg Tablet) 25 mg PO BEDTIME [facility] Last Admin: 01/25/23 20:50 Dose: 25 mg Documented By: Admin: 01/24/23 20:52 Dose: 25 mg Documented By: Admin: 01/23/23 21:14 Dose: 25 mg Documented By: DARIEN Discontinued Medications Acetaminophen (Acetaminophen 325 Mg Tablet) 650 mg PO Q6H PRN PRN Reason: Pain, Mild (1-3) Last Admin: 01/22/23 15:48 Dose: 650 mg Documented By: CHRISTIAN Acetaminophen (Acetaminophen 325 Mg Tablet) 650 mg PO Q6H PRN PRN Reason: Fever/Mild Pain (1-3) Aspirin (Aspirin Ec 81 Mg Tablet) 81 mg PO DAILY [facility] Last Admin: 01/22/23 12:35 Dose: 81 mg Documented By: EARLINE Atenolol (Atenolol 50 Mg Tablet) 100 mg PO NOW ONE Stop: 01/22/23 10:56 Last Admin: 01/22/23 11:07 Dose: 100 mg Documented By: RAJI Atenolol (Atenolol 50 Mg Tablet) 100 mg PO DAILY [facility] Calcium Carbonate (Calcium Carbonate 500 Mg Tab) 1,000 mg PO Q4HR PRN PRN Reason: Dyspepsia Fluoxetine HCl (Fluoxetine 20 Mg Capsule) 20 mg PO DAILY [facility] Last Admin: 01/22/23 12:35 Dose: 20 mg Documented By: EARLINE Hydralazine HCl (Hydralazine 25 Mg Tablet) 25 mg PO TID [facility] Last Admin: 01/22/23 21:15 Dose: Not Given Documented By: Admin: 01/22/23 14:22 Dose: Not Given Documented By: EARLINE Sodium Chloride (Normal Saline 0.9%) 1,000 mls @ 1,000 mls/hr IV BOLUS ONE Stop: 01/22/23 15:21 Last Infusion: 01/22/23 15:45 Dose: 0 mls/hr Documented By: Admin: 01/22/23 14:25 Dose: 1,000 mls/hr Documented By: EARLINE Sodium Chloride (Normal Saline 0.9%) 1,000 mls @ 100 mls/hr IV CONT ERIN Last Infusion: 01/24/23 11:18 Dose: 0 mls/hr Documented By: Admin: 01/24/23 03:04 Dose: 100 mls/hr Documented By: Infusion: 01/24/23 03:04 Dose: 0 mls/hr Documented By: Admin: 01/22/23 22:32 Dose: 100 mls/hr Documented By: FRAN Magnesium Sulfate (Magnesium Sulfate) 2 gm in 50 mls @ 25 mls/hr IV NOW ONE Stop: 01/23/23 00:00 Last Admin: 01/22/23 22:32 Dose: 25 mls/hr Documented By: FRAN Co-signed By: PARISH Ferumoxytol 1,020 mg/ Sodium (Chloride) 284 mls @ 568 mls/hr IV NOW ONE Stop: 01/24/23 11:38 Last Admin: 01/24/23 12:04 Dose: 568 mls/hr Documented By: NEHA Lactated Ringer's (Lactated Ringers) 1,000 mls @ 42 mls/hr IV NOW ONE Stop: 01/26/23 15:12 Last Admin: 01/25/23 15:26 Dose: 42 mls/hr Documented By: TEGAN Influenza Virus Vaccine (Influenza Hd Vaccine 0.7 Ml Syringe) 0.7 ml IM .ONCE ONE Stop: 01/23/23 09:01 Lactobacillus Acidophilus (Lactobacillus Acidophilus Tablet) 1 each PO DAILY [facility] Lidocaine (Lidocaine Patch 1 Each Adh..Patch) 1 each TOP DAILY [facility] Last Admin: 01/22/23 12:35 Dose: 1 each Documented By: EARLINE Lidocaine (Remove Lidocaine Patch) 1 each TOP BEDTIME [facility] Last Admin: 01/22/23 22:33 Dose: Not Given Documented By: FRAN Loratadine (Loratadine 10 Mg Tablet) 10 mg PO BID [facility] Last Admin: 01/22/23 23:21 Dose: Not Given Documented By: FRAN Losartan Potassium (Losartan 50 Mg Tablet) 50 mg PO BEDTIME [facility] Last Admin: 01/22/23 21:15 Dose: Not Given Documented By: EARLINE Losartan Potassium (Losartan 50 Mg Tablet) 50 mg PO BEDTIME [facility] Losartan Potassium (Losartan 50 Mg Tablet) 50 mg PO NOW ONE Stop: 01/25/23 09:29 Last Admin: 01/25/23 09:45 Dose: 50 mg Documented By: RICHARD Melatonin (Melatonin 3 Mg Tablet) 6 mg PO BEDTIME PRN PRN Reason: Insomnia Last Admin: 01/22/23 23:09 Dose: 6 mg Documented By: FRAN Methocarbamol (Methocarbamol 500 Mg Tablet) 500 mg PO Q6HR PRN PRN Reason: Muscle Spasm Last Admin: 01/22/23 18:11 Dose: 500 mg Documented By: NUNU Naloxone HCl (Naloxone 0.4 Mg/Ml Vial) 0.2 mg IV Q2MIN PRN PRN Reason: Opiate Reversal Ondansetron HCl (Ondansetron 4 Mg Odt) 4 mg SL NOW ONE Stop: 01/22/23 06:50 Last Admin: 01/22/23 06:56 Dose: 4 mg Documented By: SAHRA Ondansetron HCl (Ondansetron 4 Mg/2 Ml Inj) 4 mg IV NOW PRN PRN Reason: Nausea And Vomiting Oxycodone HCl (Oxycodone Ir 5 Mg Tablet) 10 mg PO Q3H PRN PRN Reason: Pain, Severe (7-10) Last Admin: 01/22/23 18:10 Dose: 10 mg Documented By: NUNU Oxycodone HCl (Oxycodone Ir 5 Mg Tablet) 5 mg PO Q3H PRN PRN Reason: Pain, Moderate (4-6) Oxycodone HCl (Oxycodone Ir 5 Mg Tablet) 10 mg PO Q3H PRN PRN Reason: Pain, Moderate (4-10 Oxycodone/Acetaminophen (Oxycodone/Acetaminophen 5/325 Tablet) 1 tab PO NOW ONE Stop: 01/22/23 10:56 Last Admin: 01/22/23 11:07 Dose: 1 tab Documented By: RAJI Polyethylene Glycol (Polyethylene Glycol 3350 17 Gm Powd.Pack) 17 gm PO DAILY [facility] Last Admin: 01/22/23 12:35 Dose: 17 gm Documented By: EARLINE Sennosides (Sennosides 8.6 Mg Tablet) 8.6 mg PO BID [facility] Last Admin: 01/22/23 23:21 Dose: Not Given Documented By: JT Sennosides (Sennosides 8.6 Mg Tablet) 17.2 mg PO BEDTIME [facility] Vital Signs Vital signs: Vital Signs - 8 hr 01/22/23 13:00 01/22/23 13:00 01/22/23 13:30 Temperature Pulse Rate 60 62 Pulse Rate [Orthostatic Lying] Pulse Rate [Orthostatic Sitting] Pulse Rate [Orthostatic Standing] Respiratory Rate Blood Pressure 102/57 L Blood Pressure [Orthostatic Lying] Blood Pressure [Orthostatic Sitting] Blood Pressure [Orthostatic Standing] Pulse Oximetry 98 97 Oxygen Delivery Method 01/22/23 14:00 01/22/23 14:00 01/22/23 14:45 Temperature Pulse Rate 61 Pulse Rate [Orthostatic Lying] 63 Pulse Rate [Orthostatic Sitting] 71 Pulse Rate [Orthostatic Standing] 61 Respiratory Rate Blood Pressure 94/56 L Blood Pressure [Orthostatic Lying] 106/53 L Blood Pressure [Orthostatic Sitting] 112/63 Blood Pressure [Orthostatic Standing] 124/67 Pulse Oximetry 96 Oxygen Delivery Method 01/22/23 14:20 01/22/23 14:20 01/22/23 14:30 Temperature Pulse Rate 62 61 Pulse Rate [Orthostatic Lying] Pulse Rate [Orthostatic Sitting] Pulse Rate [Orthostatic Standing] Respiratory Rate Blood Pressure 85/55 L Blood Pressure [Orthostatic Lying] Blood Pressure [Orthostatic Sitting] Blood Pressure [Orthostatic Standing] Pulse Oximetry 100 99 Oxygen Delivery Method 01/22/23 14:38 01/22/23 14:38 01/22/23 15:09 Temperature Pulse Rate 62 Pulse Rate [Orthostatic Lying] Pulse Rate [Orthostatic Sitting] Pulse Rate [Orthostatic Standing] Respiratory Rate Blood Pressure 114/53 L 134/63 Blood Pressure [Orthostatic Lying] Blood Pressure [Orthostatic Sitting] Blood Pressure [Orthostatic Standing] Pulse Oximetry 99 Oxygen Delivery Method 01/22/23 15:09 01/22/23 15:21 01/22/23 15:21 Temperature Pulse Rate 60 63 Pulse Rate [Orthostatic Lying] Pulse Rate [Orthostatic Sitting] Pulse Rate [Orthostatic Standing] Respiratory Rate Blood Pressure 145/63 H Blood Pressure [Orthostatic Lying] Blood Pressure [Orthostatic Sitting] Blood Pressure [Orthostatic Standing] Pulse Oximetry 100 96 Oxygen Delivery Method 01/22/23 15:30 01/22/23 15:38 01/22/23 15:47 Temperature Pulse Rate 65 65 Pulse Rate [Orthostatic Lying] Pulse Rate [Orthostatic Sitting] Pulse Rate [Orthostatic Standing] Respiratory Rate Blood Pressure 140/69 Blood Pressure [Orthostatic Lying] Blood Pressure [Orthostatic Sitting] Blood Pressure [Orthostatic Standing] Pulse Oximetry 97 100 Oxygen Delivery Method 01/22/23 15:53 01/22/23 15:55 01/22/23 16:00 Temperature Pulse Rate Pulse Rate [Orthostatic Lying] Pulse Rate [Orthostatic Sitting] Pulse Rate [Orthostatic Standing] Respiratory Rate Blood Pressure 112/69 134/71 125/65 Blood Pressure [Orthostatic Lying] Blood Pressure [Orthostatic Sitting] Blood Pressure [Orthostatic Standing] Pulse Oximetry Oxygen Delivery Method 01/22/23 16:04 01/22/23 16:20 01/22/23 16:20 Temperature Pulse Rate 59 L 61 Pulse Rate [Orthostatic Lying] Pulse Rate [Orthostatic Sitting] Pulse Rate [Orthostatic Standing] Respiratory Rate 22 Blood Pressure 111/58 L Blood Pressure [Orthostatic Lying] Blood Pressure [Orthostatic Sitting] Blood Pressure [Orthostatic Standing] Pulse Oximetry 100 97 Oxygen Delivery Method 01/22/23 16:30 01/22/23 16:40 01/22/23 16:40 Temperature Pulse Rate 63 61 Pulse Rate [Orthostatic Lying] Pulse Rate [Orthostatic Sitting] Pulse Rate [Orthostatic Standing] Respiratory Rate 21 23 Blood Pressure 116/58 L Blood Pressure [Orthostatic Lying] Blood Pressure [Orthostatic Sitting] Blood Pressure [Orthostatic Standing] Pulse Oximetry 97 97 Oxygen Delivery Method 01/22/23 17:00 01/22/23 17:00 01/22/23 17:20 Temperature Pulse Rate 62 63 Pulse Rate [Orthostatic Lying] Pulse Rate [Orthostatic Sitting] Pulse Rate [Orthostatic Standing] Respiratory Rate 21 22 Blood Pressure 134/62 Blood Pressure [Orthostatic Lying] Blood Pressure [Orthostatic Sitting] Blood Pressure [Orthostatic Standing] Pulse Oximetry 95 97 Oxygen Delivery Method 01/22/23 17:20 01/22/23 17:30 01/22/23 18:00 Temperature Pulse Rate 60 64 Pulse Rate [Orthostatic Lying] Pulse Rate [Orthostatic Sitting] Pulse Rate [Orthostatic Standing] Respiratory Rate 24 23 Blood Pressure 122/60 Blood Pressure [Orthostatic Lying] Blood Pressure [Orthostatic Sitting] Blood Pressure [Orthostatic Standing] Pulse Oximetry 99 99 Oxygen Delivery Method Room Air 01/22/23 18:45 01/22/23 18:26 01/22/23 19:01 Temperature 99.1 F 99.1 F 99.4 F Pulse Rate 65 70 Pulse Rate [Orthostatic Lying] Pulse Rate [Orthostatic Sitting] Pulse Rate [Orthostatic Standing] Respiratory Rate 18 14 Blood Pressure 158/72 H 128/79 Blood Pressure [Orthostatic Lying] Blood Pressure [Orthostatic Sitting] Blood Pressure [Orthostatic Standing] Pulse Oximetry Oxygen Delivery Method 01/22/23 18:13 01/22/23 18:13 01/22/23 18:30 Temperature Pulse Rate 63 69 Pulse Rate [Orthostatic Lying] Pulse Rate [Orthostatic Sitting] Pulse Rate [Orthostatic Standing] Respiratory Rate 20 20 Blood Pressure 184/81 H Blood Pressure [Orthostatic Lying] Blood Pressure [Orthostatic Sitting] Blood Pressure [Orthostatic Standing] Pulse Oximetry 100 100 Oxygen Delivery Method 01/22/23 18:31 01/22/23 18:31 01/22/23 19:00 Temperature Pulse Rate 66 Pulse Rate [Orthostatic Lying] Pulse Rate [Orthostatic Sitting] Pulse Rate [Orthostatic Standing] Respiratory Rate 20 Blood Pressure 158/72 H 116/58 L Blood Pressure [Orthostatic Lying] Blood Pressure [Orthostatic Sitting] Blood Pressure [Orthostatic Standing] Pulse Oximetry 100 Oxygen Delivery Method 01/22/23 19:00 01/22/23 19:08 01/22/23 19:08 Temperature Pulse Rate 64 67 Pulse Rate [Orthostatic Lying] Pulse Rate [Orthostatic Sitting] Pulse Rate [Orthostatic Standing] Respiratory Rate 23 20 Blood Pressure 113/62 Blood Pressure [Orthostatic Lying] Blood Pressure [Orthostatic Sitting] Blood Pressure [Orthostatic Standing] Pulse Oximetry 94 95 Oxygen Delivery Method 01/22/23 19:30 01/22/23 19:30 01/22/23 20:00 Temperature Pulse Rate 69 Pulse Rate [Orthostatic Lying] Pulse Rate [Orthostatic Sitting] Pulse Rate [Orthostatic Standing] Respiratory Rate 24 Blood Pressure 127/75 124/59 L Blood Pressure [Orthostatic Lying] Blood Pressure [Orthostatic Sitting] Blood Pressure [Orthostatic Standing] Pulse Oximetry 98 Oxygen Delivery Method 01/22/23 20:00 Temperature Pulse Rate 70 Pulse Rate [Orthostatic Lying] Pulse Rate [Orthostatic Sitting] Pulse Rate [Orthostatic Standing] Respiratory Rate 20 Blood Pressure Blood Pressure [Orthostatic Lying] Blood Pressure [Orthostatic Sitting] Blood Pressure [Orthostatic Standing] Pulse Oximetry 98 Oxygen Delivery Method <Raman Zarate MD - Last Filed: 01/26/23 07:47> Orders Ordered: Acetaminophen (Acetaminophen 325 Mg Tablet) 650 mg PO Q6H PRN PRN Reason: Fever/Mild Pain (1-3) Last Admin: 01/24/23 22:56 Dose: 650 mg Documented By: DARIEN Atenolol (Atenolol 50 Mg Tablet) 100 mg PO DAILY [facility] Last Admin: 01/24/23 08:22 Dose: 100 mg Documented By: Admin: 01/23/23 08:30 Dose: 100 mg Documented By: NEHA Fluoxetine HCl (Fluoxetine 20 Mg Capsule) 20 mg PO DAILY [facility] Last Admin: 01/25/23 10:16 Dose: Not Given Documented By: Admin: 01/24/23 08:22 Dose: 20 mg Documented By: Admin: 01/23/23 08:30 Dose: 20 mg Documented By: NEHA Hydralazine HCl (Hydralazine 25 Mg Tablet) 25 mg PO TID [facility] Last Admin: 01/25/23 20:49 Dose: 25 mg Documented By: Admin: 01/24/23 20:50 Dose: 25 mg Documented By: Admin: 01/24/23 15:33 Dose: 25 mg Documented By: Admin: 01/24/23 08:22 Dose: 25 mg Documented By: Admin: 01/23/23 21:21 Dose: 25 mg Documented By: Admin: 01/23/23 15:29 Dose: 25 mg Documented By: Admin: 01/23/23 08:30 Dose: 25 mg Documented By: NEHA Lidocaine (Lidocaine Patch 1 Each Adh..Patch) 1 each TOP DAILY [facility] Last Admin: 01/25/23 09:46 Dose: 1 each Documented By: Admin: 01/24/23 08:21 Dose: 1 each Documented By: Admin: 01/23/23 08:31 Dose: 1 each Documented By: NEHA Losartan Potassium (Losartan 50 Mg Tablet) 50 mg PO BID [facility] Methocarbamol (Methocarbamol 500 Mg Tablet) 500 mg PO Q6HR PRN PRN Reason: muscle spasms Naloxone HCl (Naloxone 0.4 Mg/Ml Vial) 0.2 mg IV Q2MIN PRN PRN Reason: Opiate Reversal Ondansetron HCl (Ondansetron 4 Mg/2 Ml Inj) 4 mg IV Q4HR PRN PRN Reason: Nausea And Vomiting Oxycodone HCl (Oxycodone Ir 5 Mg Tablet) 10 mg PO Q3H PRN PRN Reason: Pain (Scale Score 7-10) Pantoprazole Sodium (Pantoprazole 40 Mg Vial) 40 mg IV BID [facility] Last Admin: 01/25/23 20:47 Dose: 40 mg Documented By: Admin: 01/25/23 09:45 Dose: 40 mg Documented By: RICHARD Sennosides (Sennosides 8.6 Mg Tablet) 8.6 mg PO BID [facility] Last Admin: 01/25/23 20:47 Dose: 8.6 mg Documented By: Admin: 01/25/23 10:16 Dose: Not Given Documented By: Admin: 01/24/23 20:50 Dose: 8.6 mg Documented By: Admin: 01/24/23 08:22 Dose: 8.6 mg Documented By: Admin: 01/23/23 21:14 Dose: 8.6 mg Documented By: Admin: 01/23/23 08:30 Dose: 8.6 mg Documented By: NEHA Sodium Chloride (Sodium Chloride 0.9% Flush) 10 ml IV PRN PRN PRN Reason: Flush Sodium Chloride (Sodium Chloride 0.9% Flush) 10 ml IV BID [facility] Last Admin: 01/25/23 20:49 Dose: 10 ml Documented By: MATTEO Trazodone HCl (Trazodone 50 Mg Tablet) 25 mg PO BEDTIME [facility] Last Admin: 01/25/23 20:50 Dose: 25 mg Documented By: Admin: 01/24/23 20:52 Dose: 25 mg Documented By: Admin: 01/23/23 21:14 Dose: 25 mg Documented By: DARIEN Discontinued Medications Acetaminophen (Acetaminophen 325 Mg Tablet) 650 mg PO Q6H PRN PRN Reason: Pain, Mild (1-3) Last Admin: 01/22/23 15:48 Dose: 650 mg Documented By: CHRISTIAN Acetaminophen (Acetaminophen 325 Mg Tablet) 650 mg PO Q6H PRN PRN Reason: Fever/Mild Pain (1-3) Aspirin (Aspirin Ec 81 Mg Tablet) 81 mg PO DAILY [facility] Last Admin: 01/22/23 12:35 Dose: 81 mg Documented By: EARLINE Atenolol (Atenolol 50 Mg Tablet) 100 mg PO NOW ONE Stop: 01/22/23 10:56 Last Admin: 01/22/23 11:07 Dose: 100 mg Documented By: RAJI Atenolol (Atenolol 50 Mg Tablet) 100 mg PO DAILY [facility] Calcium Carbonate (Calcium Carbonate 500 Mg Tab) 1,000 mg PO Q4HR PRN PRN Reason: Dyspepsia Fluoxetine HCl (Fluoxetine 20 Mg Capsule) 20 mg PO DAILY [facility] Last Admin: 01/22/23 12:35 Dose: 20 mg Documented By: EARLINE Hydralazine HCl (Hydralazine 25 Mg Tablet) 25 mg PO TID [facility] Last Admin: 01/22/23 21:15 Dose: Not Given Documented By: Admin: 01/22/23 14:22 Dose: Not Given Documented By: EARLINE Sodium Chloride (Normal Saline 0.9%) 1,000 mls @ 1,000 mls/hr IV BOLUS ONE Stop: 01/22/23 15:21 Last Infusion: 01/22/23 15:45 Dose: 0 mls/hr Documented By: Admin: 01/22/23 14:25 Dose: 1,000 mls/hr Documented By: EARLINE Sodium Chloride (Normal Saline 0.9%) 1,000 mls @ 100 mls/hr IV CONT [facility] Last Infusion: 01/24/23 11:18 Dose: 0 mls/hr Documented By: Admin: 01/24/23 03:04 Dose: 100 mls/hr Documented By: Infusion: 01/24/23 03:04 Dose: 0 mls/hr Documented By: Admin: 01/22/23 22:32 Dose: 100 mls/hr Documented By: FRAN Magnesium Sulfate (Magnesium Sulfate) 2 gm in 50 mls @ 25 mls/hr IV NOW ONE Stop: 01/23/23 00:00 Last Admin: 01/22/23 22:32 Dose: 25 mls/hr Documented By: FRAN Co-signed By: PARISH Ferumoxytol 1,020 mg/ Sodium (Chloride) 284 mls @ 568 mls/hr IV NOW ONE Stop: 01/24/23 11:38 Last Admin: 01/24/23 12:04 Dose: 568 mls/hr Documented By: NEHA Lactated Ringer's (Lactated Ringers) 1,000 mls @ 42 mls/hr IV NOW ONE Stop: 01/26/23 15:12 Last Admin: 01/25/23 15:26 Dose: 42 mls/hr Documented By: TEGAN Influenza Virus Vaccine (Influenza Hd Vaccine 0.7 Ml Syringe) 0.7 ml IM .ONCE ONE Stop: 01/23/23 09:01 Lactobacillus Acidophilus (Lactobacillus Acidophilus Tablet) 1 each PO DAILY [facility] Lidocaine (Lidocaine Patch 1 Each Adh..Patch) 1 each TOP DAILY [facility] Last Admin: 01/22/23 12:35 Dose: 1 each Documented By: EARLINE Lidocaine (Remove Lidocaine Patch) 1 each TOP BEDTIME [facility] Last Admin: 01/22/23 22:33 Dose: Not Given Documented By: FRAN Loratadine (Loratadine 10 Mg Tablet) 10 mg PO BID [facility] Last Admin: 01/22/23 23:21 Dose: Not Given Documented By: FRAN Losartan Potassium (Losartan 50 Mg Tablet) 50 mg PO BEDTIME [facility] Last Admin: 01/22/23 21:15 Dose: Not Given Documented By: EARLINE Losartan Potassium (Losartan 50 Mg Tablet) 50 mg PO BEDTIME [facility] Losartan Potassium (Losartan 50 Mg Tablet) 50 mg PO NOW ONE Stop: 01/25/23 09:29 Last Admin: 01/25/23 09:45 Dose: 50 mg Documented By: RICHARD Melatonin (Melatonin 3 Mg Tablet) 6 mg PO BEDTIME PRN PRN Reason: Insomnia Last Admin: 01/22/23 23:09 Dose: 6 mg Documented By: FRAN Methocarbamol (Methocarbamol 500 Mg Tablet) 500 mg PO Q6HR PRN PRN Reason: Muscle Spasm Last Admin: 01/22/23 18:11 Dose: 500 mg Documented By: NUNU Naloxone HCl (Naloxone 0.4 Mg/Ml Vial) 0.2 mg IV Q2MIN PRN PRN Reason: Opiate Reversal Ondansetron HCl (Ondansetron 4 Mg Odt) 4 mg SL NOW ONE Stop: 01/22/23 06:50 Last Admin: 01/22/23 06:56 Dose: 4 mg Documented By: SAHRA Ondansetron HCl (Ondansetron 4 Mg/2 Ml Inj) 4 mg IV NOW PRN PRN Reason: Nausea And Vomiting Oxycodone HCl (Oxycodone Ir 5 Mg Tablet) 10 mg PO Q3H PRN PRN Reason: Pain, Severe (7-10) Last Admin: 01/22/23 18:10 Dose: 10 mg Documented By: NUNU Oxycodone HCl (Oxycodone Ir 5 Mg Tablet) 5 mg PO Q3H PRN PRN Reason: Pain, Moderate (4-6) Oxycodone HCl (Oxycodone Ir 5 Mg Tablet) 10 mg PO Q3H PRN PRN Reason: Pain, Moderate (4-10 Oxycodone/Acetaminophen (Oxycodone/Acetaminophen 5/325 Tablet) 1 tab PO NOW ONE Stop: 01/22/23 10:56 Last Admin: 01/22/23 11:07 Dose: 1 tab Documented By: RAJI Polyethylene Glycol (Polyethylene Glycol 3350 17 Gm Powd.Pack) 17 gm PO DAILY [facility] Last Admin: 01/22/23 12:35 Dose: 17 gm Documented By: EARLINE Sennosides (Sennosides 8.6 Mg Tablet) 8.6 mg PO BID [facility] Last Admin: 01/22/23 23:21 Dose: Not Given Documented By: FRAN Sennosides (Sennosides 8.6 Mg Tablet) 17.2 mg PO BEDTIME [facility] Vital Signs Vital signs: Vital Signs - 8 hr 01/22/23 13:00 01/22/23 13:00 01/22/23 13:30 Temperature Pulse Rate 60 62 Pulse Rate [Orthostatic Lying] Pulse Rate [Orthostatic Sitting] Pulse Rate [Orthostatic Standing] Respiratory Rate Blood Pressure 102/57 L Blood Pressure [Orthostatic Lying] Blood Pressure [Orthostatic Sitting] Blood Pressure [Orthostatic Standing] Pulse Oximetry 98 97 Oxygen Delivery Method 01/22/23 14:00 01/22/23 14:00 01/22/23 14:45 Temperature Pulse Rate 61 Pulse Rate [Orthostatic Lying] 63 Pulse Rate [Orthostatic Sitting] 71 Pulse Rate [Orthostatic Standing] 61 Respiratory Rate Blood Pressure 94/56 L Blood Pressure [Orthostatic Lying] 106/53 L Blood Pressure [Orthostatic Sitting] 112/63 Blood Pressure [Orthostatic Standing] 124/67 Pulse Oximetry 96 Oxygen Delivery Method 01/22/23 14:20 01/22/23 14:20 01/22/23 14:30 Temperature Pulse Rate 62 61 Pulse Rate [Orthostatic Lying] Pulse Rate [Orthostatic Sitting] Pulse Rate [Orthostatic Standing] Respiratory Rate Blood Pressure 85/55 L Blood Pressure [Orthostatic Lying] Blood Pressure [Orthostatic Sitting] Blood Pressure [Orthostatic Standing] Pulse Oximetry 100 99 Oxygen Delivery Method 01/22/23 14:38 01/22/23 14:38 01/22/23 15:09 Temperature Pulse Rate 62 Pulse Rate [Orthostatic Lying] Pulse Rate [Orthostatic Sitting] Pulse Rate [Orthostatic Standing] Respiratory Rate Blood Pressure 114/53 L 134/63 Blood Pressure [Orthostatic Lying] Blood Pressure [Orthostatic Sitting] Blood Pressure [Orthostatic Standing] Pulse Oximetry 99 Oxygen Delivery Method 01/22/23 15:09 01/22/23 15:21 01/22/23 15:21 Temperature Pulse Rate 60 63 Pulse Rate [Orthostatic Lying] Pulse Rate [Orthostatic Sitting] Pulse Rate [Orthostatic Standing] Respiratory Rate Blood Pressure 145/63 H Blood Pressure [Orthostatic Lying] Blood Pressure [Orthostatic Sitting] Blood Pressure [Orthostatic Standing] Pulse Oximetry 100 96 Oxygen Delivery Method 01/22/23 15:30 01/22/23 15:38 01/22/23 15:47 Temperature Pulse Rate 65 65 Pulse Rate [Orthostatic Lying] Pulse Rate [Orthostatic Sitting] Pulse Rate [Orthostatic Standing] Respiratory Rate Blood Pressure 140/69 Blood Pressure [Orthostatic Lying] Blood Pressure [Orthostatic Sitting] Blood Pressure [Orthostatic Standing] Pulse Oximetry 97 100 Oxygen Delivery Method 01/22/23 15:53 01/22/23 15:55 01/22/23 16:00 Temperature Pulse Rate Pulse Rate [Orthostatic Lying] Pulse Rate [Orthostatic Sitting] Pulse Rate [Orthostatic Standing] Respiratory Rate Blood Pressure 112/69 134/71 125/65 Blood Pressure [Orthostatic Lying] Blood Pressure [Orthostatic Sitting] Blood Pressure [Orthostatic Standing] Pulse Oximetry Oxygen Delivery Method 01/22/23 16:04 01/22/23 16:20 01/22/23 16:20 Temperature Pulse Rate 59 L 61 Pulse Rate [Orthostatic Lying] Pulse Rate [Orthostatic Sitting] Pulse Rate [Orthostatic Standing] Respiratory Rate 22 Blood Pressure 111/58 L Blood Pressure [Orthostatic Lying] Blood Pressure [Orthostatic Sitting] Blood Pressure [Orthostatic Standing] Pulse Oximetry 100 97 Oxygen Delivery Method 01/22/23 16:30 01/22/23 16:40 01/22/23 16:40 Temperature Pulse Rate 63 61 Pulse Rate [Orthostatic Lying] Pulse Rate [Orthostatic Sitting] Pulse Rate [Orthostatic Standing] Respiratory Rate 21 23 Blood Pressure 116/58 L Blood Pressure [Orthostatic Lying] Blood Pressure [Orthostatic Sitting] Blood Pressure [Orthostatic Standing] Pulse Oximetry 97 97 Oxygen Delivery Method 01/22/23 17:00 01/22/23 17:00 01/22/23 17:20 Temperature Pulse Rate 62 63 Pulse Rate [Orthostatic Lying] Pulse Rate [Orthostatic Sitting] Pulse Rate [Orthostatic Standing] Respiratory Rate 21 22 Blood Pressure 134/62 Blood Pressure [Orthostatic Lying] Blood Pressure [Orthostatic Sitting] Blood Pressure [Orthostatic Standing] Pulse Oximetry 95 97 Oxygen Delivery Method 01/22/23 17:20 01/22/23 17:30 01/22/23 18:00 Temperature Pulse Rate 60 64 Pulse Rate [Orthostatic Lying] Pulse Rate [Orthostatic Sitting] Pulse Rate [Orthostatic Standing] Respiratory Rate 24 23 Blood Pressure 122/60 Blood Pressure [Orthostatic Lying] Blood Pressure [Orthostatic Sitting] Blood Pressure [Orthostatic Standing] Pulse Oximetry 99 99 Oxygen Delivery Method Room Air 01/22/23 18:45 01/22/23 18:26 01/22/23 19:01 Temperature 99.1 F 99.1 F 99.4 F Pulse Rate 65 70 Pulse Rate [Orthostatic Lying] Pulse Rate [Orthostatic Sitting] Pulse Rate [Orthostatic Standing] Respiratory Rate 18 14 Blood Pressure 158/72 H 128/79 Blood Pressure [Orthostatic Lying] Blood Pressure [Orthostatic Sitting] Blood Pressure [Orthostatic Standing] Pulse Oximetry Oxygen Delivery Method 01/22/23 18:13 01/22/23 18:13 01/22/23 18:30 Temperature Pulse Rate 63 69 Pulse Rate [Orthostatic Lying] Pulse Rate [Orthostatic Sitting] Pulse Rate [Orthostatic Standing] Respiratory Rate 20 20 Blood Pressure 184/81 H Blood Pressure [Orthostatic Lying] Blood Pressure [Orthostatic Sitting] Blood Pressure [Orthostatic Standing] Pulse Oximetry 100 100 Oxygen Delivery Method 01/22/23 18:31 01/22/23 18:31 01/22/23 19:00 Temperature Pulse Rate 66 Pulse Rate [Orthostatic Lying] Pulse Rate [Orthostatic Sitting] Pulse Rate [Orthostatic Standing] Respiratory Rate 20 Blood Pressure 158/72 H 116/58 L Blood Pressure [Orthostatic Lying] Blood Pressure [Orthostatic Sitting] Blood Pressure [Orthostatic Standing] Pulse Oximetry 100 Oxygen Delivery Method 01/22/23 19:00 01/22/23 19:08 01/22/23 19:08 Temperature Pulse Rate 64 67 Pulse Rate [Orthostatic Lying] Pulse Rate [Orthostatic Sitting] Pulse Rate [Orthostatic Standing] Respiratory Rate 23 20 Blood Pressure 113/62 Blood Pressure [Orthostatic Lying] Blood Pressure [Orthostatic Sitting] Blood Pressure [Orthostatic Standing] Pulse Oximetry 94 95 Oxygen Delivery Method 01/22/23 19:30 01/22/23 19:30 01/22/23 20:00 Temperature Pulse Rate 69 Pulse Rate [Orthostatic Lying] Pulse Rate [Orthostatic Sitting] Pulse Rate [Orthostatic Standing] Respiratory Rate 24 Blood Pressure 127/75 124/59 L Blood Pressure [Orthostatic Lying] Blood Pressure [Orthostatic Sitting] Blood Pressure [Orthostatic Standing] Pulse Oximetry 98 Oxygen Delivery Method 01/22/23 20:00 Temperature Pulse Rate 70 Pulse Rate [Orthostatic Lying] Pulse Rate [Orthostatic Sitting] Pulse Rate [Orthostatic Standing] Respiratory Rate 20 Blood Pressure Blood Pressure [Orthostatic Lying] Blood Pressure [Orthostatic Sitting] Blood Pressure [Orthostatic Standing] Pulse Oximetry 98 Oxygen Delivery Method MDM - Extremity (Nontraumatic) <Shyam Lao, - Last Filed: 01/22/23 20:34> Medical Records Attestation: I reviewed the patient's medical records. Medical records narrative: Reviewed operative report Lab Data 01/22/23 14:35 01/22/23 14:35 Labs: Lab Results 01/22/23 01/22/23 01/22/23 Range/Units 12:12 14:35 14:35 WBC 9.1 (4.5-11.0) X10^3/uL RBC 2.35 L (4.0-5.2) X10^6/uL Hgb 7.8 L (12.0-16.0) g/dL Hct 23.3 L (36-46) % MCV 99.3 (80-100) fL MCH 33.0 (26-34) PG MCHC 33.3 (30-36) % RDW 16.3 H (11.6-14.8) % Plt Count 330 (150-400) X10^3/uL Neut % (Auto) 77.6 H (50-75) % Lymph % (Auto) 15.2 L (25-40) % Alcorn % (Auto) 6.8 (3-14) % Eos % (Auto) 0.0 L (2-4) % Baso % (Auto) 0.4 (0-2) % Neut # (Auto) 7000 (2128-6525) /uL Lymph # (Auto) 1400 (6794-6507) /uL Alcorn # (Auto) 600 (0-900) /uL Eos # (Auto) 0 (0-450) /uL Baso # (Auto) 0 (0-100) /uL PT 12.8 H (10.1-12.7) SECONDS INR 1.1 (0.9-1.3) APTT 23 L (26-36) SECONDS Sodium (137-145) mmol/L Potassium (3.4-5.1) mmol/L Chloride (98-107) mmol/L Carbon Dioxide (22-32) mmol/L BUN (7-17) mg/dL Creatinine (0.52-1.04) mg/dL Estimated GFR (>60) mL/min BUN/Creatinine Ratio (6-22) Glucose (80-110) mg/dL Hemoglobin A1c (4.0-6.0) % Lactate (0.7-2.1) mmol/L Calcium (8.4-10.2) mg/dL Magnesium (1.6-2.3) mg/dL Total Bilirubin (0.2-1.3) mg/dL AST (14-36) IU/L ALT (<35) IU/L Alkaline Phosphatase (38-126) U/L Total Creatine Kinase (30-135) U/L CK-MB (CK-2) CK-MB (CK-2) Rel Index Troponin I (0.01-0.034) ng/mL Total Protein (6.3-8.2) g/dL Albumin (3.5-5.0) g/dL Globulin (1.7-4.1) g/dL Albumin/Globulin Ratio (1.0-2.8) Lipase (23-300) U/L Procalcitonin (<0.5) ng/mL SARS-CoV-2 (PCR) Negative (Negative) Blood Type Antibody Screen Crossmatch 01/22/23 01/22/23 01/22/23 Range/Units 14:35 14:35 14:35 WBC (4.5-11.0) X10^3/uL RBC (4.0-5.2) X10^6/uL Hgb (12.0-16.0) g/dL Hct (36-46) % MCV (80-100) fL MCH (26-34) PG MCHC (30-36) % RDW (11.6-14.8) % Plt Count (150-400) X10^3/uL Neut % (Auto) (50-75) % Lymph % (Auto) (25-40) % Alcorn % (Auto) (3-14) % Eos % (Auto) (2-4) % Baso % (Auto) (0-2) % Neut # (Auto) (5898-0817) /uL Lymph # (Auto) (4426-1796) /uL Alcorn # (Auto) (0-900) /uL Eos # (Auto) (0-450) /uL Baso # (Auto) (0-100) /uL PT (10.1-12.7) SECONDS INR (0.9-1.3) APTT (26-36) SECONDS Sodium 130 L (137-145) mmol/L Potassium 4.4 (3.4-5.1) mmol/L Chloride 98 (98-107) mmol/L Carbon Dioxide 25 (22-32) mmol/L BUN 34 H (7-17) mg/dL Creatinine 1.49 H (0.52-1.04) mg/dL Estimated GFR 35 L (>60) mL/min BUN/Creatinine Ratio 22.8 H (6-22) Glucose 152 H (80-110) mg/dL Hemoglobin A1c (4.0-6.0) % Lactate 2.0 (0.7-2.1) mmol/L Calcium 8.3 L (8.4-10.2) mg/dL Magnesium 1.5 L (1.6-2.3) mg/dL Total Bilirubin 0.5 (0.2-1.3) mg/dL AST 39 H (14-36) IU/L ALT 30 (<35) IU/L Alkaline Phosphatase 124 (38-126) U/L Total Creatine Kinase 26 L (30-135) U/L CK-MB (CK-2) TNP CK-MB (CK-2) Rel Index TNP Troponin I 0.029 (0.01-0.034) ng/mL Total Protein 6.8 (6.3-8.2) g/dL Albumin 3.4 L (3.5-5.0) g/dL Globulin 3.4 (1.7-4.1) g/dL Albumin/Globulin Ratio 1.0 (1.0-2.8) Lipase 112 (23-300) U/L Procalcitonin 0.23 (<0.5) ng/mL SARS-CoV-2 (PCR) (Negative) Blood Type Antibody Screen Crossmatch 01/22/23 01/22/23 01/22/23 Range/Units 14:35 16:55 17:20 WBC (4.5-11.0) X10^3/uL RBC (4.0-5.2) X10^6/uL Hgb 6.9 L* (12.0-16.0) g/dL Hct 20.5 L* (36-46) % MCV (80-100) fL MCH (26-34) PG MCHC (30-36) % RDW (11.6-14.8) % Plt Count (150-400) X10^3/uL Neut % (Auto) (50-75) % Lymph % (Auto) (25-40) % Alcorn % (Auto) (3-14) % Eos % (Auto) (2-4) % Baso % (Auto) (0-2) % Neut # (Auto) (7056-5676) /uL Lymph # (Auto) (2511-0211) /uL Alcorn # (Auto) (0-900) /uL Eos # (Auto) (0-450) /uL Baso # (Auto) (0-100) /uL PT (10.1-12.7) SECONDS INR (0.9-1.3) APTT (26-36) SECONDS Sodium (137-145) mmol/L Potassium (3.4-5.1) mmol/L Chloride (98-107) mmol/L Carbon Dioxide (22-32) mmol/L BUN (7-17) mg/dL Creatinine (0.52-1.04) mg/dL Estimated GFR (>60) mL/min BUN/Creatinine Ratio (6-22) Glucose (80-110) mg/dL Hemoglobin A1c 5.0 (4.0-6.0) % Lactate (0.7-2.1) mmol/L Calcium (8.4-10.2) mg/dL Magnesium (1.6-2.3) mg/dL Total Bilirubin (0.2-1.3) mg/dL AST (14-36) IU/L ALT (<35) IU/L Alkaline Phosphatase (38-126) U/L Total Creatine Kinase (30-135) U/L CK-MB (CK-2) CK-MB (CK-2) Rel Index Troponin I (0.01-0.034) ng/mL Total Protein (6.3-8.2) g/dL Albumin (3.5-5.0) g/dL Globulin (1.7-4.1) g/dL Albumin/Globulin Ratio (1.0-2.8) Lipase (23-300) U/L Procalcitonin (<0.5) ng/mL SARS-CoV-2 (PCR) (Negative) Blood Type O Positive Antibody Screen Negative Crossmatch See Detail Imaging Data Extremity x-ray #1: Radiologist's Impression: Comminuted fracture involving the superior aspect of the right greater trochanter. This appears new compared to intraoperative images from 12/30/2022 MDM Narrative Medical decision making narrative: Patient is alert and oriented. After x-rays re-evaluation patient states that she is feeling somewhat better. She is unsure as to what happened last evening it is just her hip started to hurt. It is in the same spot that it has been hurting since the surgery. Patient also states she is very nauseous. She can move her right leg but has discomfort in the right hip. X-ray shows what appears to be a new fracture of the greater trochanter above the IM nail. I did discuss the case with Dr. Lund on-call with Orthopedic surgery who stated that this new injury would be treated non operatively and the patient can be made weight-bearing as tolerated which is her current weight-bearing status. Care turned over to Dr. Zarate for continued observation and disposition. January 22, 2023 at 7:[address] Lao, he is spoken with Orthopedics on-call. Findings today are nonsurgical. Management has not changed. No surgical intervention. Weightbearing as tolerated. At this time awaiting for re-evaluation of pain control. Will need to be discharged back to facility. Patient does have pain medications at the facility. Patient may need to extend her stay for pain control and continued physical therapy. 7:45 a.m.. I spoke with patient. Pain is controlled. I informed her discussion with Orthopedics that sometimes bone around the hardware may break but it is non surgical. At this time she understands she may extend her stay at the [facility]. She also understands this time she will need to have continued physical therapy at the facility and weight-bearing as tolerated. 10:19 a.m.. Patient and [id number] refused to go back to [facility] due to services there. At this time order for social work has been placed. Pain controlled at this time. Awaiting for social work to arrive at 12 noon today EKG normal sinus rhythm right bundle-branch block rate [address] elevation or depression White cell count 9.1 hemoglobin 7.8 platelets 330, sodium 130 BUN 34 creatinine 1.49 GFR 35 glucose 152 3:00 p.m.. Physical therapy has recommended care home facility placement. 5:30 p.m.. I spoke with General surgery, Dr. Goodman, regarding anemia. At this time source anemia may not be GI but maybe orthopedic from the right hip. Exam of the hip does not show any ecchymosis or edema or swelling. She does recommend CT abdomen pelvis. She will follow as consult. 5:45 p.m.. I did review with patient disposition to admit. She agrees for admission for transfusion and further evaluation. 6:[address] Lao, patient will need to be admitted. CT imaging is pending. Source of anemia uncertain at this time. Dr Lao: Received turned over. I was involved in the care this patient earlier today. I reviewed the day's events. Patient is currently being tr ansfused blood. CT scan of the abdomen pelvis does not show any signs of acute bleeding specifically ove the right hip surgical site. I did discuss this with Dr. Goodman who will follow the patient upon admission. I then discussed the case with the [employer]PA[employer] TESTER Lauro the [facility] hospitalist who will admit for further evaluation and treatment. <Raman Zarate MD - Last Filed: 01/26/23 07:47> Lab Data Labs: Lab Results 01/22/23 01/22/23 01/22/23 Range/Units 12:12 14:35 14:35 WBC 9.1 (4.5-11.0) X10^3/uL RBC 2.35 L (4.0-5.2) X10^6/uL Hgb 7.8 L (12.0-16.0) g/dL Hct 23.3 L (36-46) % MCV 99.3 (80-100) fL MCH 33.0 (26-34) PG MCHC 33.3 (30-36) % RDW 16.3 H (11.6-14.8) % Plt Count 330 (150-400) X10^3/uL Neut % (Auto) 77.6 H (50-75) % Lymph % (Auto) 15.2 L (25-40) % Alcorn % (Auto) 6.8 (3-14) % Eos % (Auto) 0.0 L (2-4) % Baso % (Auto) 0.4 (0-2) % Neut # (Auto) 7000 (1218-8542) /uL Lymph # (Auto) 1400 (4187-6377) /uL Alcorn # (Auto) 600 (0-900) /uL Eos # (Auto) 0 (0-450) /uL Baso # (Auto) 0 (0-100) /uL PT 12.8 H (10.1-12.7) SECONDS INR 1.1 (0.9-1.3) APTT 23 L (26-36) SECONDS Sodium (137-145) mmol/L Potassium (3.4-5.1) mmol/L Chloride (98-107) mmol/L Carbon Dioxide (22-32) mmol/L BUN (7-17) mg/dL Creatinine (0.52-1.04) mg/dL Estimated GFR (>60) mL/min BUN/Creatinine Ratio (6-22) Glucose (80-110) mg/dL Hemoglobin A1c (4.0-6.0) % Lactate (0.7-2.1) mmol/L Calcium (8.4-10.2) mg/dL Magnesium (1.6-2.3) mg/dL Total Bilirubin (0.2-1.3) mg/dL AST (14-36) IU/L ALT (<35) IU/L Alkaline Phosphatase (38-126) U/L Total Creatine Kinase (30-135) U/L CK-MB (CK-2) CK-MB (CK-2) Rel Index Troponin I (0.01-0.034) ng/mL Total Protein (6.3-8.2) g/dL Albumin (3.5-5.0) g/dL Globulin (1.7-4.1) g/dL Albumin/Globulin Ratio (1.0-2.8) Lipase (23-300) U/L Procalcitonin (<0.5) ng/mL SARS-CoV-2 (PCR) Negative (Negative) Blood Type Antibody Screen Crossmatch 01/22/23 01/22/23 01/22/23 Range/Units 14:35 14:35 14:35 WBC (4.5-11.0) X10^3/uL RBC (4.0-5.2) X10^6/uL Hgb (12.0-16.0) g/dL Hct (36-46) % MCV (80-100) fL MCH (26-34) PG MCHC (30-36) % RDW (11.6-14.8) % Plt Count (150-400) X10^3/uL Neut % (Auto) (50-75) % Lymph % (Auto) (25-40) % Alcorn % (Auto) (3-14) % Eos % (Auto) (2-4) % Baso % (Auto) (0-2) % Neut # (Auto) (9322-2083) /uL Lymph # (Auto) (7737-0695) /uL Alcorn # (Auto) (0-900) /uL Eos # (Auto) (0-450) /uL Baso # (Auto) (0-100) /uL PT (10.1-12.7) SECONDS INR (0.9-1.3) APTT (26-36) SECONDS Sodium 130 L (137-145) mmol/L Potassium 4.4 (3.4-5.1) mmol/L Chloride 98 (98-107) mmol/L Carbon Dioxide 25 (22-32) mmol/L BUN 34 H (7-17) mg/dL Creatinine 1.49 H (0.52-1.04) mg/dL Estimated GFR 35 L (>60) mL/min BUN/Creatinine Ratio 22.8 H (6-22) Glucose 152 H (80-110) mg/dL Hemoglobin A1c (4.0-6.0) % Lactate 2.0 (0.7-2.1) mmol/L Calcium 8.3 L (8.4-10.2) mg/dL Magnesium 1.5 L (1.6-2.3) mg/dL Total Bilirubin 0.5 (0.2-1.3) mg/dL AST 39 H (14-36) IU/L ALT 30 (<35) IU/L Alkaline Phosphatase 124 (38-126) U/L Total Creatine Kinase 26 L (30-135) U/L CK-MB (CK-2) TNP CK-MB (CK-2) Rel Index TNP Troponin I 0.029 (0.01-0.034) ng/mL Total Protein 6.8 (6.3-8.2) g/dL Albumin 3.4 L (3.5-5.0) g/dL Globulin 3.4 (1.7-4.1) g/dL Albumin/Globulin Ratio 1.0 (1.0-2.8) Lipase 112 (23-300) U/L Procalcitonin 0.23 (<0.5) ng/mL SARS-CoV-2 (PCR) (Negative) Blood Type Antibody Screen Crossmatch 01/22/23 01/22/23 01/22/23 Range/Units 14:35 16:55 17:20 WBC (4.5-11.0) X10^3/uL RBC (4.0-5.2) X10^6/uL Hgb 6.9 L* (12.0-16.0) g/dL Hct 20.5 L* (36-46) % MCV (80-100) fL MCH (26-34) PG MCHC (30-36) % RDW (11.6-14.8) % Plt Count (150-400) X10^3/uL Neut % (Auto) (50-75) % Lymph % (Auto) (25-40) % Alcorn % (Auto) (3-14) % Eos % (Auto) (2-4) % Baso % (Auto) (0-2) % Neut # (Auto) (2707-7895) /uL Lymph # (Auto) (5881-4841) /uL Alcorn # (Auto) (0-900) /uL Eos # (Auto) (0-450) /uL Baso # (Auto) (0-100) /uL PT (10.1-12.7) SECONDS INR (0.9-1.3) APTT (26-36) SECONDS Sodium (137-145) mmol/L Potassium (3.4-5.1) mmol/L Chloride (98-107) mmol/L Carbon Dioxide (22-32) mmol/L BUN (7-17) mg/dL Creatinine (0.52-1.04) mg/dL Estimated GFR (>60) mL/min BUN/Creatinine Ratio (6-22) Glucose (80-110) mg/dL Hemoglobin A1c 5.0 (4.0-6.0) % Lactate (0.7-2.1) mmol/L Calcium (8.4-10.2) mg/dL Magnesium (1.6-2.3) mg/dL Total Bilirubin (0.2-1.3) mg/dL AST (14-36) IU/L ALT (<35) IU/L Alkaline Phosphatase (38-126) U/L Total Creatine Kinase (30-135) U/L CK-MB (CK-2) CK-MB (CK-2) Rel Index Troponin I (0.01-0.034) ng/mL Total Protein (6.3-8.2) g/dL Albumin (3.5-5.0) g/dL Globulin (1.7-4.1) g/dL Albumin/Globulin Ratio (1.0-2.8) Lipase (23-300) U/L Procalcitonin (<0.5) ng/mL SARS-CoV-2 (PCR) (Negative) Blood Type O Positive Antibody Screen Negative Crossmatch See Detail Imaging Data Extremity x-ray #1: Radiologist's Impression: Comminuted fracture involving the superior aspect of the right greater trochanter. This appears new compared to intraoperative images from 12/30/[address] [address] XRay Report Signed Patient: Samara Winslow MR#: [id number] : 1940 Acct:[id number] Age/Sex: 82 / F Date of Service: 01/22/23 Loc: ED Accession Number: [id number] ?? Procedure: XR hip w pel if done RT 2V Ordering Provider: Shyam Lao D.O. PROCEDURE:? XR HIP W PEL IF DONE RT 2V ? INDICATIONS:? R hip pain after surgery ? TECHNIQUE:? AP pelvis and lateral view of the right hip acquired.? ? COMPARISON:? [facility], CR, XR HIP W PEL IF DONE RT 2V, 12/30/2022, 18:14.? [facility], CR, XR HIP W PEL IF DONE RT 2V, 12/29/2022, 9:10. ? FINDINGS:? ? Bones:? Patient is status post right hip ORIF, with hardware components in expected positions.? The hip joint appears congruent.? The visualized bony structures a ppear intact.? The greater trochanter is fragmented above the intramedullary katherin. ? Soft tissues:? Overlying postoperative changes are noted.? No suspicious soft tissue densities.? ? ? IMPRESSION:? Status post right hip ORIF. The greater trochanter is fragmented above the intramedullary katherin. ? ? ? Dictated by: Reggie Kessler M.D. on 01/22/2023 at 8:08 ? ? Approved by: Reggie Kessler M.D. on 01/22/2023 at 8:09 ? [facility] Narrative Medical decision making narrative: Patient is alert and oriented. After x-rays re-evaluation patient states that she is feeling somewhat better. She is unsure as to what happened last evening it is just her hip started to hurt. It is in the same spot that it has been hurting since the surgery. Patient also states she is very nauseous. She can move her right leg but has discomfort in the right hip. X-ray shows what appears to be a new fracture of the greater trochanter above the IM nail. I did discuss the case with Dr. Lund on-call with Orthopedic surgery who stated that this new injury would be treated non operatively and the patient can be made weight-bearing as tolerated which is her current weight-bearing status. Care turned over to Dr. Zarate for continued observation and disposition. January 22, 2023 at 7:[address] Lao, he is spoken with Orth opedics on-call. Findings today are nonsurgical. Management has not changed. No surgical intervention. Weightbearing as tolerated. At this time awaiting for re-evaluation of pain control. Will need to be discharged back to facility. Patient does have pain medications at the facility. Patient may need to extend her stay for pain control and continued physical therapy. 7:45 a.m.. I spoke with patient. Pain is controlled. I informed her discussion with Orthopedics that sometimes bone around the hardware may break but it is non surgical. At this time she understands she may extend her stay at the [facility]. She also understands this time she will need to have continued physical therapy at the facility and weight-bearing as tolerated. 10:19 a.m.. Patient and [id number] refused to go back to [facility] due to services there. At this time order for social work has been placed. Pain controlled at this time. Awaiting for social work to arrive at 12 noon today EKG normal sinus rhythm right bundle-branch block rate [address] elevation or depression White cell count 9.1 hemoglobin 7.8 platelets 330, sodium 130 BUN 34 creatinine 1.49 GFR 35 glucose 152 3:00 p.m.. Physical therapy has recommended care home facility placement. 5:30 p.m.. I spoke with General surgery, Dr. Goodman, regarding anemia. At this time source anemia may not be GI but maybe orthopedic from the right hip. Exam of the hip does not show any ecchymosis or edema or swelling. She does recommend CT abdomen pelvis. She will follow as consult. 5:45 p.m.. I did review with patient disposition to admit. She agrees for admission for transfusion and further evaluation. 6:[address] Lao, patient will need to be admitted. CT imaging is pending. Source of anemia uncertain at this time. <Raman Zarate MD - Last Filed: 01/26/23 07:47> Critical Care Time Attestation: Critical Care Time 35 minutes: Critical care time is separate from other billable procedures. This critical care time includes consultation with family and other consulting doctors, review of records, and interpretation of data from labs, EKGs, imaging, etc. Discharge Plan Departure Patient Disposition: Admitted as Observation Clinical Impression: Hip fracture, KENDRA (acute kidney injury) Anemia Qualifiers: Anemia type: unspecified type Qualified Code(s): D64.9 - Anemia, unspecified Admit Date/Time: 01/22/23 20:15 Admit Provider: Anaid Restrepo
[2023-01-22] MEDS: ONDANSETRON 4 MG ODT SL (06:56)
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
[2023-01-22] MEDS: OXYCODONE/ACETAMINOPHEN 5/325 TABLET 1 TAB PO (11:07)
[2023-01-22] MEDS: atenoloL 50 MG TABLET 100 MG PO (11:07)
--- NOTE | 2023-01-22 11:09 | PC.NURSE ---
1000 POA at bedside. Patient crying and reports she does not want to go back to [facility]. Per POA they are refusing return to [facility] at this time. I called [facility] and informed them of this. OXYGEN THERAPY TEACHER consult ordered.
[2023-01-22] MEDS: ASPIRIN EC 81 MG TABLET PO (12:35)
[2023-01-22] MEDS: polyethylene glycoL 3350 17 GM POWD.PACK PO (12:35)
[2023-01-22] MEDS: LIDOCAINE PATCH 1 EACH ADH..PATCH TOP (12:35)
[2023-01-22] MEDS: FLUoxetine 20 MG CAPSULE PO (12:35)
[2023-01-22 12:40] LABS: COVID19 -Nasal RAPID Negative (Negative)
--- NOTE | 2023-01-22 14:20 | PC.NURSE ---
Pt BP 85 systolic, pt denies symptoms while lying in bed. Provider notified and 1L saline bolus ordered. 14:40 Pt up with Physical Therapy. Orthostatic vitals done and negative.
--- NOTE | 2023-01-22 14:22 | DI.RAD.S_ITS ---
PROCEDURE: XR CHEST 1V INDICATIONS: chest pain TECHNIQUE: One view of the chest was acquired. COMPARISON: None. FINDINGS: Surgical changes and devices: Calcified bilateral breast implants. Lungs and pleura: Lungs are clear. No pleural effusions or pneumothorax. Mediastinum: Mediastinal contours appear normal. Heart size is normal. Bones and chest wall: No suspicious bony lesions. Overlying soft tissues appear unremarkable. IMPRESSION: No acute cardiopulmonary process. Dictated by: Reggie Kessler M.D. on 01/22/2023 at 14:36 Approved by: Reggie Kessler M.D. on 01/22/2023 at 14:36
[2023-01-22] MEDS: SODIUM CHLORIDE 0.9% 1,000 ML 1000 ML IV (14:25)
[2023-01-22 14:46] LABS: Add Manual Diff / Slide Review NO; Basophils Absolute Auto 0 /uL (0-100); Basophils Percent Auto 0.4 % (0-2); Eosinophils Absolute Auto 0 /uL (0-450); Hematocrit 23.3 % (36-46); Hemoglobin 7.8 g/dL (12.0-16.0); Lymphocytes Absolute Auto 1400 /uL (1100-4500); Lymphocytes Percent Auto 15.2 % (25-40); Mean Corpuscular HGB Conc 33.3 % (30-36); Mean Corpuscular Volume 99.3 fL (80-100); Monocytes Absolute Auto 600 /uL (0-900); Monocytes Percent Auto 6.8 % (3-14); Neutrophils Absolute Auto 7000 /uL (1500-7000); Neutrophils Percent Auto 77.6 % (50-75); Platelet Count 330 X10^3/uL (150-400); Red Blood Cell Count 2.35 X10^6/uL (4.0-5.2); Red Cell Distribution Width 16.3 % (11.6-14.8); White Blood Cell Count 9.1 X10^3/uL (4.5-11.0)
[2023-01-22 14:54] LABS: INR 1.1 (0.9-1.3); Prothrombin Time 12.8 SECONDS (10.1-12.7)
[2023-01-22 14:56] LABS: PTT Partial Thromboplastin Tim 23 SECONDS (26-36)
[2023-01-22 14:59] LABS: Alanine Aminotransferase 30 IU/L (<35); Albumin 3.4 g/dL (3.5-5.0); Alkaline Phosphatase 124 U/L (38-126); Aspartate Aminotransferase 39 IU/L (14-36); BUN Creatinine Ratio 22.8 (6-22); Bilirubin Total 0.5 mg/dL (0.2-1.3); Blood Urea Nitrogen 34 mg/dL (7-17); Calcium 8.3 mg/dL (8.4-10.2); Carbon Dioxide 25 mmol/L (22-32); Chloride 98 mmol/L (98-107); Creatine Kinase 26 U/L (30-135); Estimated Glomerular Filt Rate 35 mL/min (>60); Globulin 3.4 g/dL (1.7-4.1); Glucose 152 mg/dL (80-110); HEMOLYSIS 18 (0-50); Lipase 112 U/L (23-300); Magnesium 1.5 mg/dL (1.6-2.3); Potassium 4.4 mmol/L (3.4-5.1); Sodium 130 mmol/L (137-145); Total Protein 6.8 g/dL (6.3-8.2)
[2023-01-22 15:10] LABS: Troponin I 0.029 ng/mL (0.01-0.034)
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
[2023-01-22] MEDS: ACETAMINOPHEN 325 MG TABLET 650 MG PO (15:48)
--- NOTE | 2023-01-22 15:50 | PC.NURSE ---
patient up to bedside commode with OT.
--- NOTE | 2023-01-22 15:55 | OT.IP.EVAL ---
Current Diagnoses Fracture of unspecified part of neck of unspecified femur, initial encounter for closed fracture (01/22/23) Past Medical History (Last Reviewed 01/22/23 @ 06:15 by Shyam Lao DO) Hypertension Occupational Therapy Inpatient Evaluation/Re-Eval M1 PT/OT-IP Prior Functional Status Start: 01/22/23 13:59 Freq: Status: Active Protocol: Document 01/22/23 16:08 [facility] (Rec: 01/22/23 16:23 [facility] [id number]) Medical Review Prior Functional Status Medical History Reviewed Yes Diet/Fluid Consistency Regular Communication no difficulty Mobility and Gait independent with 4WW Activities of Daily Living and IADL's modified independent Prior Functional Level (Other details) independent living, had planned to be discharged from [facility] to [facility] today Social History Household Members other Living Arrangements Assisted Living Number of Floors (Floors) One Floor Number of Stairs To Enter/Railing? 0 Home Environment Walk in Shower Home Equipment Four Wheel Walker,Raised Toilet Seat w/Armrests,Grab Bars Near Toilet,Grab Bars In Shower M2 OT-IP Current Condition Start: 01/22/23 16:07 Freq: Status: Active Protocol: Document 01/22/23 16:08 [facility] (Rec: 01/22/23 16:23 [facility] [id number]) Occupational Therapy Current Condition Current Condition Evaluation Date 01/22/23 Treatment Diagnosis New greater trochanter above IM nail Diagnosis Onset Date 01/22/23 Weight Bearing Status Weight Bearing Status Weight Bear as Tolerated M4 OT- IP ADL's Start: 01/22/23 16:07 Freq: Status: Active Protocol: Document 01/22/23 16:08 [facility] (Rec: 01/22/23 16:23 [facility] [id number]) OT [id number]-Lfnvctq General Evaluation Self-Feeding Ability Independent OT ADL-Grooming Comments OT Grooming Comments Not performed. OT ADL-Oral Care Comments Oral Care Comments Not performed. OT ADL-Dressing General Eval Lower Body Dressing Ability Moderate Assistance,Maximum Assistance Comments OT Dressing Comments Assist for socks and to get the brief up over her hips. OT ADL-Toileting General Evaluation Toileting Ability Maximum Assistance Areas Needing Assistance Manage Clothing,Perform Perineal Hygiene Devices Toileting Assistive Devices Commode Comments OT Toileting Comments Assist for hygiene and brief management needs. OT ADL-Bathing Comments OT Bathing Comments not performed M5 OT- IP IADL's Start: 01/22/23 16:07 Freq: Status: Active Protocol: Document 01/22/23 16:08 [facility] (Rec: 01/22/23 16:23 [facility] [id number]) OT-Instrumental Activities of Daily Living Deficits IADL Deficits Identified Deficits Home Safety Awareness Awareness of Need for Assistance at Home Good Awareness Ability to Problem Solve Emergency Able to Problem Solve Situations Home Safety Comments Due to right hip pain which limits her mobility, pt will need assist for all needs if going home, otherwise will benefit to go to skilled rehab . Medication Management Medication Management No Deficits Identified Money Management Money Management No Deficits Identified M6 OT- IP Functional Cognition Start: 01/22/23 16:08 Freq: Status: Active Protocol: Document 01/22/23 16:08 [facility] (Rec: 01/22/23 16:23 [facility] [id number]) Cognitive Factors Limiting Selfcare Function Cognitive Ability Level of Alertness Alert Patient Orientation Name,Age,Birthday,Month,Date, Year,Day of Week,Place, Situation Attention Span Ability Capable of Focused Attention, Capable of Sustained Attention Ability to Follow Commands Able to Follow Multi-Step Commands Cognitive Comments Cognitive Assessment Comments Pt able to follow commands for ADl and mobility needs. OT- Vision and Hearing OT- Hearing Assessment OT- Hearing Assessment WFL M7 OT- IP Mobility and Balance Start: 01/22/23 16:08 Freq: Status: Active Protocol: Document 01/22/23 16:08 [facility] (Rec: 01/22/23 16:23 [facility] [id number]) OT- Bed Mobility Assessment Supine to Sit Supine to Sit Assist Minimal Assistance,Head of Bed Elevated Sit to Supine Sit to Supine Assist Standby Assistance,Head of Bed Elevated OT-Transfer Assessment Sit to and From Stand Sit to and from Stand Minimal Assistance,Moderate Assistance Transfers Transfer Ability Moderate Assistance Technique Transfer Destination Bed,Bedside Commode Devices Transfer Assistive Devices Gait Belt,Front Wheeled Walker Comments Mobility Comments MIN/MODA for transfer as pt tends to shuffle her right foot due to pain and at times assist to guide the FWW. BP in supine 140/69 and after transfer to and from the [facility] dropped to 112/69 and pt feeling dizzy and wanting to lie down. BP while in bed with HOB up 134/71. OT- Balance Assessment Sitting Balance and Reactions Static Sitting Balance Ability Normal Dynamic Sitting Balance Ability Good Standing Balance and Reactions Static Standing Balance Ability Fair Dynamic Standing Balance Ability Poor M8 OT- IP Objective Assessments Start: 01/22/23 16:08 Freq: Status: Active Protocol: Document 01/22/23 16:08 [facility] (Rec: 01/22/23 16:23 [facility] [id number]) OT Strength Upper Extremity Strength Assessment Right Impaired Comments Strength Comments RUe decreased in AROM and strength due to rotator cuff issues. M9 OT- IP Assessment and Plan Start: 01/22/23 16:08 Freq: Status: Active Protocol: Document 01/22/23 16:08 [facility] (Rec: 01/22/23 16:23 [facility] [id number]) OT Summary Assessment and Plan Potential Rehabilitation Potential Good Analytic Complexity at Evaluation Moderate Summary OT Impairments Pain,Range of Motion,Strength, Balance,Functional Mobility, Dressing,Toileting,Bathing, Toilet Transfers,Shower Transfers,Activity Tolerance Progress Towards Goals Slow Progress due to Pain,Slow Progress due to Medical Issues,Slow Progress due to Activity Tolerance Assessment Summary Pt MOD complexity and having new fracture above right greater trochanter above IM nailing and per DR Kevon richards for WBAT and no surgical interventions needed at this time. Prior pt was MOD I with ADl and mobility needs with fww and now needing more extensive assist for ADL's and one person assist for mobility needs due to her pain and now decreased activity tolerance due to new fracture. Pt will benefit from skilled rehab. Goals Grooming Goal Independent Dressing Goal Independent Toileting Goal Independent Bathing Goal Independent Toilet Transfer Goal Independent Shower Transfer Goal Independent Days to Meet Goals 20 Frequency of Treatment Frequency Of Treatment Once a Day Treatment Plan OT Treatment Plan ADL Training,Functional Mobility,Patient/Family Education,Discharge Planning Other Treatment Recommendations and Next LB dressing with adaptive Treatment Focus equipment Discharge Recommendations OT Discharge Recommendations SNF Rehab Transportation Needs at Discharge Wheelchair/Cabulance
[2023-01-22 17:13] LABS: Hematocrit 20.5 % (36-46); Hemoglobin 6.9 g/dL (12.0-16.0)
--- NOTE | 2023-01-22 17:16 | CM.SWNOTE ---
Addendum entered by Savanah Noriega 01/22/23 20:13: HIGHWAY RESEARCH ENGINEER receives return call from [facility] in [place], It is reported that they will not have SNF bed availability until Wednesday, they report that there will be admission staff available on Wednesday if DCP wants to call for update on bed status. Savanah Noriega, [facility] Original Note: ED DCP Note Patient is 82 y/o female who presents to ED via EMS due to concern for right hip pain on surgical site of hip. Patient has been at [facility] SNF rehab since 01/02/23 after hip fracture surgery at on 12/30/22. Patient endorses she was set for d/c from [facility] today but was experiencing significant pain and weakness early this morning that she contacted EMS. Patient's PCP is Dr. Kalpesh Davila, patient has [facility]age. Patient has hx of Hypertension, Depression and hip fracture. Per X ray, patient has new fracture of the greater trochanter above IM nail, ED provider reviewed this with Orthopedic surgeon and it was reported that findings are nonsurgical due to fracture located by the hardware from recent surgery. HIGHWAY RESEARCH ENGINEER enters room to meet with patient, present in room is patient's DPOA/friend Evita. Patient presents as A/Ox4. Patient endorses the plan was for her to be discharged from [facility] today, patient endorses yesterday she was able to ambulate with FWW to bathroom and sit in her chair. Patient endorses that at midnight last night she felt significant pain in right hip and was unable to move so she called 911. Patient and DPOA report that patient did not like the care she received from [facility] and does not want to return there. It is reported that patient has new apartment at [facility] that she was supposed to move to today. Patient endorses she has FWW, raised toilet and grab bars and has resource list for more DME. Patient and DPOA would like to proceed with the safest option for patient, HIGHWAY RESEARCH ENGINEER endorses that PT was ordered for patient and this HIGHWAY RESEARCH ENGINEER will contact [facility] regarding new SNF rehab referral if recommended. HIGHWAY RESEARCH ENGINEER discusses the option of HH with the addition of caregivers in patient's apartment. HIGHWAY RESEARCH ENGINEER calls [facility] (Ph. # [phone]), it is reported that [facility] informed them of patient's presentation in ED. HIGHWAY RESEARCH ENGINEER endorses patient's new fracture and need for new SNF rehab referral, [facility] requests PT, OT and H&P records. PT evaluates patient and recommends SNF Rehab - patient is 2 person assist, OT evaluates patient and recommends SNF rehab. HIGHWAY RESEARCH ENGINEER faxes all records to [facility] for review for insurance auth. SNF rehab search: HIGHWAY RESEARCH ENGINEER identifies SNFs that accept [facility] insurance [facility]IGHWAY RESEARCH ENGINEER calls [facility] in [place], it is reported they have beds, HIGHWAY RESEARCH ENGINEER faxes referral for review. HIGHWAY RESEARCH ENGINEER calls [facility] in [place] and leaves requesting return call. HIGHWAY RESEARCH ENGINEER calls [facility] and leaves requesting return call. HIGHWAY RESEARCH ENGINEER calls [facility] and leaves requesting return call. HIGHWAY RESEARCH ENGINEER calls [facility], it is reported they will not have beds until Wednesday or Wednesday. HIGHWAY RESEARCH ENGINEER calls [facility] and leaves requesting return call. HIGHWAY RESEARCH ENGINEER calls [facility], it is reported they have beds, HIGHWAY RESEARCH ENGINEER faxes referral for reivew. HIGHWAY RESEARCH ENGINEER reviews PT/OT recommendations with patient, patient requests that HIGHWAY RESEARCH ENGINEER call patient's TAYLOR Longoriany regarding SNF preference. HIGHWAY RESEARCH ENGINEER calls Karen and she denies current preference other than patient not returning to [facility]. Karen reports she will look into SNF preferences, HIGHWAY RESEARCH ENGINEER states the SNF options are based on patient's insurance, bed availability and insurance authorization. Upon writing this assessment, patient had labs resulted that were critical. Patient's Hgb is 6.9 and Hct is 20.5, at this time patient is not medically clear for d/c and is pending admission. Plan: DCP to f/u with [facility], f/u with [facility] and [facility] for SNF referral, continue to seek SNF rehab upon patient's medical clearance, patient likely to board in ED until admitted into Acute care PAIGE Key Discharge Planning/Care Management CM Discharge Assessment Start: 01/22/23 16:55 Freq: Status: Active Protocol: Document 01/22/23 16:55 LN (Rec: 01/22/23 17:02 LN [id number]) Discharge Planning Assessment Assigned Engine Turner PAIGE Pavon DPOA/Assigned Designee Name Evita Pena, Friend Contact Information Advance Directives? Yes Advance Directives on File No History Provided By Patient,Friend,Medical Record Has Patient been admitted in last 30 Yes days? Comment 12/29/22 - 01/02/23 Prior Living Arrangements Alf Facility Comment Patient's new residence is at [facility] Household Members other Type of transporation used prior to Drives own vehicle admit Facility Name Admitted From: [facility] Willing to Return to Facility? Yes: After SNF rehab Independent with ADL's No: Not since fracture Is patient alert and oriented? Yes Needs Assistance With Bathing,Grooming Caregiver for Another No DME Already Rented / Owned Elevated Toilet Seat,FWW / Walker Comment Patient has grab bars near bathroom and shower as well. Patient/Family Preference Alf Facility Referrals Initiated Alf If patient plan is SNF: Has PASSR been Yes completed? Medicare Choice List Provided No Medicare choice list reviewed on patient,family electronic tablet with SNF/HH Preference As of now, any SNF that accepts [facility] with the exception of [facility] Has Agency SNF been contacted Yes Please Provide Date Initial DC 01/22/23 Assessment Was Performed
--- NOTE | 2023-01-22 17:26 | DI.CT.S_ITS ---
PROCEDURE: CT ABDOMEN PELVIS W CON INDICATIONS: IV contrast only/anemia/right hip pain/recent surgery TECHNIQUE: After the administration of intravenous contrast, axial sections acquired from the lung bases to the pubic symphysis. Coronal and sagittal reformats were performed. For radiation dose reduction, the following was used: automated exposure control, adjustment of mA and/or kV according to patient size. COMPARISON: None. FINDINGS: Image quality: Excellent. Lung bases: Unremarkable. Heart: Moderate coronary artery calcifications. Miscellaneous: Bilateral calcified breast implants. ABDOMEN: Liver: Unremarkable. Gallbladder: Unremarkable. Biliary ducts: Unremarkable. Pancreas: Unremarkable. Spleen: Unremarkable. Adrenal Glands: Unremarkable. Kidneys and Ureters: Unremarkable. Stomach and Bowel: A normal appendix is identified. Extensive sigmoid diverticulosis without evidence of diverticulitis. No abnormally dilated loops. Peritoneum: No abnormal intraperitoneal fluid. No free air. Ventral Wall: No hernias. Abdominal Nodes: No retroperitoneal or mesenteric adenopathy by size criteria. Vessels: Aorta and inferior vena cava are normal in size. PELVIS: Pelvic Organs: Question thickened endometrium. There is a incidental small cystic lesion of the left adnexa measuring approximately 2 cm in diameter. Bladder: Unremarkable. Pelvic Nodes: No enlarged lymph nodes. Miscellaneous: No hernias are seen. Bones: Extensive lumbar degenerative change. No lytic or blastic bony lesions. No compression fractures. IMPRESSION: 1. Question diffuse endometrial thickening. However, the uterus is suboptimally visualized. Cannot exclude endometrial carcinoma. 2. Sigmoid diverticulosis without evidence of diverticulitis. 3. Incidental 2 cm left adnexal cystic lesion. Comment: Recommend pelvic ultrasound to evaluate the uterus. This can be performed on a nonemergent basis. Additional comment: Current recommendations are to follow up cystic adnexal lesions of this size with imaging Q 12 months. Dictated by: Alexi Escalona M.D. on 01/22/2023 at 18:23 Approved by: Alexi Escalona M.D. on 01/22/2023 at 18:29
[2023-01-22] MEDS: OXYCODONE IR 5 MG TABLET 10 MG PO (18:10)
[2023-01-22] MEDS: methocarbamoL 500 MG TABLET PO (18:11)
[2023-01-22 19:51] LABS: Procalcitonin 0.23 ng/mL (<0.5)
--- NOTE | 2023-01-22 22:13 | PM.HP.1 ---
History of Present Illness History of Present Illness Date Patient Seen: 01/22/23 Time Patient Seen: 22:13 Chief complaint: pain at surgery site Narrative: Samara Winslow is an 82-year-old female with a history of hypertension, depression, insomnia, and recent right femur intramedullary hip screw fixation on 12/29/[address] Ackerman d/c 01/02/2023, who on discharge was sent to [facility]. During the admit interview the patient verbalized that the [facility] nursing staff was unresponsive to her complaints and concerns regarding acute on-set of abd pain, and worsening rt hip pain over night and was treated poorly and refused to respond to her request for help, at which time she dialed 911 and requested EMS transport to [facility] ED ?Patient denies any new injury or fall, and that after being medicated in the ED she is painless at this time. Patient initially presented to the emergency department with an H and H 7.8/23.3 at 2:35 p.m., with mild hypertension 184/81, the patient then at approximately 4:55 p.m. became hypotensive BP is 94/56, 85/55, and repeat H&H 6.9/20.5-patient was bolused with fluid and 2 units of blood were infused. On admit patient denies chest pain, shortness in breath, headache, changes in vision, difficulty swallowing, speech impairment, numbness, tingling, recent fall, head injury, LOC, fever, body aches, chills, cough, recent exposure to illness, nausea, vomiting, urinary retention, dysuria, frequency, urgency, hematuria, bowel changes, constipation, incontinence, melena, rashes, recent changes to medication,or illness. At the time of admit temp 99.4?, BP 96/55, HR 73, R 22, O2 saturation 97% on room air. GCS 15, H/H 1655: 6.9/20.5-no post infusion results yet (lab since 12/29/2022 HGB 11.7-7.3, HCT 34.2 -21.7), (Last H/H 01/02/2023 9.7/27.9). Patient is slightly hyponatremic sodium 130 (2022 133-136, last sodium 01/02/2023 134), Mild KENDRA on BUN 34, creatinine 1.49, GFR 35 (2022 GFR 44-55 last 01/02/2023 GFR 51, 2022 FOOD PROCESSING SCIENTIST 1.25-1.03, last FOOD PROCESSING SCIENTIST 1.10) Glucose 152, lactate 2.0, CK 26, procalcitonin WNL, initial troponin 0.029, PT 12.8, INR 1.1, PTT 23, calcium 8.3, magnesium 1.5, AST 39, COVID negative, sofa score: 1. I personally reviewed imaging and EKG: EKG NSR at a rate of 62 with a right BBB-no comparison available. ABD CT:Question diffuse endometrial thickening. Cannot exclude endometrial carcinoma. Sigmoid diverticulosis without evidence of diverticulitis. Incidental 2 cm left adnexal cystic lesion. Right extremity x-ray demonstrated a commuted fracture superior aspect of the right greater trochanter above katherin. Dr. Goodman consulted by ED. CXR negative. Patient admitted for acute commuted fracture superior aspect of right greater trochanter above intramedullary hip screw fixation, due to displaced distal right femur fracture, acute blood loss anemia of unknown etiology, and KENDRA. Patient History Medical History (Updated 01/22/23 @ 22:41 by NEEMA Riddle-ROGELIO) Depression Essential hypertension Hypertension Insomnia Surgical History (Updated 01/22/23 @ 22:41 by BRADY Riddle) History of hip surgery Family & Social History Family History (Updated 01/23/23 @ 02:35 by BRADY Riddle) Father Congestive heart failure Mother Hypertension Social History: household members other Prior Living Arrangements [facility] Safety & Behavioral: Feels Safe in Current Yes Environment Been Physically Hurt or No Threatened By a Person Tobacco & Substance use: Smoking Status Never smoker alcohol intake current alcohol intake frequency a few times a month Substance Use Type does not use Meds Home Medications and Allergies Home Medications Medication Instructions Recorded Confirmed Type atenolol 100 mg tablet 100 mg PO DAILY 12/29/22 01/22/23 History hydralazine 25 mg tablet 25 mg PO TID 12/29/22 01/22/23 History losartan 50 mg tablet 50 mg PO BEDTIME 12/29/22 01/22/23 History trazodone 50 mg tablet 25 mg PO BEDTIME 12/29/22 01/22/23 History acetaminophen 325 mg tablet 650 mg PO Q6H PRN Fever/Mild Pain 01/02/23 01/22/23 Rx (1-3) #60 tabs aspirin 81 mg tablet,delayed 81 mg PO BID 6 weeks #84 tabs 01/02/23 01/22/23 Rx release bisacodyl 5 mg tablet,delayed 10 mg PO DAILY PRN Constipation #7 01/02/23 01/22/23 Rx release tabs melatonin 3 mg tablet 6 mg PO BEDTIME PRN Insomnia #30 01/02/23 01/22/23 Rx tabs polyethylene glycol 3350 17 gram 17 g PO DAILY #14 ea 01/02/23 01/22/23 Rx oral powder packet sennosides 8.6 mg tablet (senna) 8.6 mg PO BID #20 tabs 01/02/23 01/22/23 Rx Lactobacillus acidophilus-pectin 1 tab PO DAILY 01/22/23 01/22/23 History chewable tablet (Acidophilus-Pectin chewable tablet) fluoxetine 20 mg capsule 20 mg PO QAM 01/22/23 01/22/23 History lidocaine 5 % topical patch 1 patch topical DAILY 01/22/23 01/22/23 History loratadine 10 mg tablet 10 mg PO BID 01/22/23 01/22/23 History methocarbamol 500 mg tablet 500 mg PO Q6HR PRN muscle spasms 01/22/23 01/22/23 History oxycodone 5 mg tablet 5 mg PO Q3H PRN Pain (Scale Score 01/22/23 01/22/23 History 4-6) oxycodone 5 mg tablet 10 mg PO Q3H PRN Pain (Scale Score 01/22/23 01/22/23 History 7-10) sodium chloride 0.65 % nasal spray 2 spray intranasal BID 01/22/23 01/22/23 History aerosol (Saline Nasal) Allergies Allergy/AdvReac Type Severity Reaction Status Date / Time No Known Drug Allergies Allergy Verified 12/29/22 09:15 Review of Systems Review of Systems Narrative: All 12 point systems reviewed with the patient and are negative except otherwise documented. Exam Vital Signs (past 8 hours): - 01/22/23 14:45 01/22/23 14:20 01/22/23 14:20 Temperature Pulse Rate 62 Pulse Rate [Orthostatic Lying] 63 Pulse Rate [Orthostatic Sitting] 71 Pulse Rate [Orthostatic Standing] 61 Respiratory Rate Blood Pressure 85/55 L Blood Pressure [Orthostatic Lying] 106/53 L Blood Pressure [Orthostatic Sitting] 112/63 Blood Pressure [Orthostatic Standing] 124/67 Pulse Oximetry 100 Oxygen Delivery Method 01/22/23 14:30 01/22/23 14:38 01/22/23 14:38 Temperature Pulse Rate 61 62 Pulse Rate [Orthostatic Lying] Pulse Rate [Orthostatic Sitting] Pulse Rate [Orthostatic Standing] Respiratory Rate Blood Pressure 114/53 L Blood Pressure [Orthostatic Lying] Blood Pressure [Orthostatic Sitting] Blood Pressure [Orthostatic Standing] Pulse Oximetry 99 99 Oxygen Delivery Method 01/22/23 15:09 01/22/23 15:09 01/22/23 15:21 Temperature Pulse Rate 60 Pulse Rate [Orthostatic Lying] Pulse Rate [Orthostatic Sitting] Pulse Rate [Orthostatic Standing] Respiratory Rate Blood Pressure 134/63 145/63 H Blood Pressure [Orthostatic Lying] Blood Pressure [Orthostatic Sitting] Blood Pressure [Orthostatic Standing] Pulse Oximetry 100 Oxygen Delivery Method 01/22/23 15:21 01/22/23 15:30 01/22/23 15:38 Temperature Pulse Rate 63 65 65 Pulse Rate [Orthostatic Lying] Pulse Rate [Orthostatic Sitting] Pulse Rate [Orthostatic Standing] Respiratory Rate Blood Pressure Blood Pressure [Orthostatic Lying] Blood Pressure [Orthostatic Sitting] Blood Pressure [Orthostatic Standing] Pulse Oximetry 96 97 100 Oxygen Delivery Method 01/22/23 15:47 01/22/23 15:53 01/22/23 15:55 Temperature Pulse Rate Pulse Rate [Orthostatic Lying] Pulse Rate [Orthostatic Sitting] Pulse Rate [Orthostatic Standing] Respiratory Rate Blood Pressure 140/69 112/69 134/71 Blood Pressure [Orthostatic Lying] Blood Pressure [Orthostatic Sitting] Blood Pressure [Orthostatic Standing] Pulse Oximetry Oxygen Delivery Method 01/22/23 16:00 01/22/23 16:04 01/22/23 16:20 Temperature Pulse Rate 59 L 61 Pulse Rate [Orthostatic Lying] Pulse Rate [Orthostatic Sitting] Pulse Rate [Orthostatic Standing] Respiratory Rate 22 Blood Pressure 125/65 Blood Pressure [Orthostatic Lying] Blood Pressure [Orthostatic Sitting] Blood Pressure [Orthostatic Standing] Pulse Oximetry 100 97 Oxygen Delivery Method 01/22/23 16:20 01/22/23 16:30 01/22/23 16:40 Temperature Pulse Rate 63 Pulse Rate [Orthostatic Lying] Pulse Rate [Orthostatic Sitting] Pulse Rate [Orthostatic Standing] Respiratory Rate 21 Blood Pressure 111/58 L 116/58 L Blood Pressure [Orthostatic Lying] Blood Pressure [Orthostatic Sitting] Blood Pressure [Orthostatic Standing] Pulse Oximetry 97 Oxygen Delivery Method 01/22/23 16:40 01/22/23 17:00 01/22/23 17:00 Temperature Pulse Rate 61 62 Pulse Rate [Orthostatic Lying] Pulse Rate [Orthostatic Sitting] Pulse Rate [Orthostatic Standing] Respiratory Rate 23 21 Blood Pressure 134/62 Blood Pressure [Orthostatic Lying] Blood Pressure [Orthostatic Sitting] Blood Pressure [Orthostatic Standing] Pulse Oximetry 97 95 Oxygen Delivery Method 01/22/23 17:20 01/22/23 17:20 01/22/23 17:30 Temperature Pulse Rate 63 60 Pulse Rate [Orthostatic Lying] Pulse Rate [Orthostatic Sitting] Pulse Rate [Orthostatic Standing] Respiratory Rate 22 24 Blood Pressure 122/60 Blood Pressure [Orthostatic Lying] Blood Pressure [Orthostatic Sitting] Blood Pressure [Orthostatic Standing] Pulse Oximetry 97 99 Oxygen Delivery Method 01/22/23 18:00 01/22/23 18:45 01/22/23 18:26 Temperature 99.1 F 99.1 F Pulse Rate 64 65 Pulse Rate [Orthostatic Lying] Pulse Rate [Orthostatic Sitting] Pulse Rate [Orthostatic Standing] Respiratory Rate 23 18 Blood Pressure 158/72 H Blood Pressure [Orthostatic Lying] Blood Pressure [Orthostatic Sitting] Blood Pressure [Orthostatic Standing] Pulse Oximetry 99 Oxygen Delivery Method Room Air 01/22/23 19:01 01/22/23 18:13 01/22/23 18:13 Temperature 99.4 F Pulse Rate 70 63 Pulse Rate [Orthostatic Lying] Pulse Rate [Orthostatic Sitting] Pulse Rate [Orthostatic Standing] Respiratory Rate 14 20 Blood Pressure 128/79 184/81 H Blood Pressure [Orthostatic Lying] Blood Pressure [Orthostatic Sitting] Blood Pressure [Orthostatic Standing] Pulse Oximetry 100 Oxygen Delivery Method 01/22/23 18:30 01/22/23 18:31 01/22/23 18:31 Temperature Pulse Rate 69 66 Pulse Rate [Orthostatic Lying] Pulse Rate [Orthostatic Sitting] Pulse Rate [Orthostatic Standing] Respiratory Rate 20 20 Blood Pressure 158/72 H Blood Pressure [Orthostatic Lying] Blood Pressure [Orthostatic Sitting] Blood Pressure [Orthostatic Standing] Pulse Oximetry 100 100 Oxygen Delivery Method 01/22/23 19:00 01/22/23 19:00 01/22/23 19:08 Temperature Pulse Rate 64 67 Pulse Rate [Orthostatic Lying] Pulse Rate [Orthostatic Sitting] Pulse Rate [Orthostatic Standing] Respiratory Rate 23 20 Blood Pressure 116/58 L Blood Pressure [Orthostatic Lying] Blood Pressure [Orthostatic Sitting] Blood Pressure [Orthostatic Standing] Pulse Oximetry 94 95 Oxygen Delivery Method 01/22/23 19:08 01/22/23 19:30 01/22/23 19:30 Temperature Pulse Rate 69 Pulse Rate [Orthostatic Lying] Pulse Rate [Orthostatic Sitting] Pulse Rate [Orthostatic Standing] Respiratory Rate 24 Blood Pressure 113/62 127/75 Blood Pressure [Orthostatic Lying] Blood Pressure [Orthostatic Sitting] Blood Pressure [Orthostatic Standing] Pulse Oximetry 98 Oxygen Delivery Method 01/22/23 20:00 01/22/23 20:00 01/22/23 20:30 Temperature Pulse Rate 70 Pulse Rate [Orthostatic Lying] Pulse Rate [Orthostatic Sitting] Pulse Rate [Orthostatic Standing] Respiratory Rate 20 Blood Pressure 124/59 L 129/58 L Blood Pressure [Orthostatic Lying] Blood Pressure [Orthostatic Sitting] Blood Pressure [Orthostatic Standing] Pulse Oximetry 98 Oxygen Delivery Method 01/22/23 20:30 01/22/23 21:00 01/22/23 21:00 Temperature Pulse Rate 81 74 Pulse Rate [Orthostatic Lying] Pulse Rate [Orthostatic Sitting] Pulse Rate [Orthostatic Standing] Respiratory Rate 22 22 Blood Pressure 109/68 Blood Pressure [Orthostatic Lying] Blood Pressure [Orthostatic Sitting] Blood Pressure [Orthostatic Standing] Pulse Oximetry 97 96 Oxygen Delivery Method 01/22/23 21:10 01/22/23 21:10 Temperature Pulse Rate 73 Pulse Rate [Orthostatic Lying] Pulse Rate [Orthostatic Sitting] Pulse Rate [Orthostatic Standing] Respiratory Rate Blood Pressure 96/55 L Blood Pressure [Orthostatic Lying] Blood Pressure [Orthostatic Sitting] Blood Pressure [Orthostatic Standing] Pulse Oximetry 97 Oxygen Delivery Method Oxygen Delivery Method Room Air Narrative Exam Narrative: General: Patient is a well-developed, well-nourished in no distress at this time. HEENT: Normocephalic, atraumatic, extraocular muscles intact, oral pharynx is clear and mucous membranes are moist. Neck is supple and symmetric, trachea is midline, no adenopathy, no thyroid enlargement, nontender, no masses palpated. Negative for JVD Chest: Normal AP diameter and contour without kyphoscoliosis, no nasal flaring, retractions, or tachypneic labored Lungs: Auscultation of all lung morales are clear without adventitious sounds, wheezes, rhonchi, or rales. Cardio: S1 & S2 with regular rate and rhythm without murmur, rubs, or gallops, no carotid bruit, no cardiac pulsations present. Abdomen: Soft nontender, negative for organomegaly, or masses. Bowel sounds are present in all 4 quadrants without guarding or rebound, no CVA tenderness. Musculoskeletal: Well-healed surgical scar right hip consistent with her stated surgical history, no deformity, crepitus, effusions, cyanosis, clubbing or edema present. intact radial and pedal pulses are normal. Skin: Warm dry and intact without rashes, ulcerations or petechiae. Neuro: Alert and orientated x3, sensation to touch intact, no gross deficits noted of cranial nerves. Psych: Patient has a well-kept appearance, appropriate affect, mental status attitude thought context and judgment are appropriate for age. Objective Labs 01/22/23 16:55 01/22/23 14:35 Labs: Laboratory Results - last 24 hr 01/22/23 01/22/23 01/22/23 12:12 14:35 14:35 WBC 9.1 RBC 2.35 L Hgb 7.8 L Hct 23.3 L MCV 99.3 MCH 33.0 MCHC 33.3 RDW 16.3 H Plt Count 330 Neut % (Auto) 77.6 H Lymph % (Auto) 15.2 L Jasper % (Auto) 6.8 Eos % (Auto) 0.0 L Baso % (Auto) 0.4 Neut # (Auto) 7000 Lymph # (Auto) 1400 Jasper # (Auto) 600 Eos # (Auto) 0 Baso # (Auto) 0 PT 12.8 H INR 1.1 APTT 23 L Sodium Potassium Chloride Carbon Dioxide BUN Creatinine Estimated GFR BUN/Creatinine Ratio Glucose Lactate Calcium Magnesium Total Bilirubin AST ALT Alkaline Phosphatase Total Creatine Kinase CK-MB (CK-2) CK-MB (CK-2) Rel Index Troponin I Total Protein Albumin Globulin Albumin/Globulin Ratio Lipase Procalcitonin SARS-CoV-2 (PCR) Negative Blood Type Antibody Screen Crossmatch 01/22/23 01/22/23 01/22/23 14:35 14:35 14:35 WBC RBC Hgb Hct MCV MCH MCHC RDW Plt Count Neut % (Auto) Lymph % (Auto) Jasper % (Auto) Eos % (Auto) Baso % (Auto) Neut # (Auto) Lymph # (Auto) Jasper # (Auto) Eos # (Auto) Baso # (Auto) PT INR APTT Sodium 130 L Potassium 4.4 Chloride 98 Carbon Dioxide 25 BUN 34 H Creatinine 1.49 H Estimated GFR 35 L BUN/Creatinine Ratio 22.8 H Glucose 152 H Lactate 2.0 Calcium 8.3 L Magnesium 1.5 L Total Bilirubin 0.5 AST 39 H ALT 30 Alkaline Phosphatase 124 Total Creatine Kinase 26 L CK-MB (CK-2) TNP CK-MB (CK-2) Rel Index TNP Troponin I 0.029 Total Protein 6.8 Albumin 3.4 L Globulin 3.4 Albumin/Globulin Ratio 1.0 Lipase 112 Procalcitonin 0.23 SARS-CoV-2 (PCR) Blood Type Antibody Screen Crossmatch 01/22/23 01/22/23 16:55 17:20 WBC RBC Hgb 6.9 L* Hct 20.5 L* MCV MCH MCHC RDW Plt Count Neut % (Auto) Lymph % (Auto) Jasper % (Auto) Eos % (Auto) Baso % (Auto) Neut # (Auto) Lymph # (Auto) Jasper # (Auto) Eos # (Auto) Baso # (Auto) PT INR APTT Sodium Potassium Chloride Carbon Dioxide BUN Creatinine Estimated GFR BUN/Creatinine Ratio Glucose Lactate Calcium Magnesium Total Bilirubin AST ALT Alkaline Phosphatase Total Creatine Kinase CK-MB (CK-2) CK-MB (CK-2) Rel Index Troponin I Total Protein Albumin Globulin Albumin/Globulin Ratio Lipase Procalcitonin SARS-CoV-2 (PCR) Blood Type O Positive Antibody Screen Negative Crossmatch See Detail Assessment & Plan Assessment & Plan narrative: Samara Winslow is an 82-year-old female with a history of hypertension, depression, insomnia, and recent right femur intramedullary hip screw fixation for displaced distal right femur fracture on 12/29/[address] Ackerman d/c 01/02/2023 to [facility]. During the admit interview the patient verbalized that the [facility] nursing staff was unresponsive to her complaints and concerns regarding acute on-set of abd pain, and worsening rt hip pain over night and was treated poorly and refused to respond to her request for help, at which time she dialed 911 and requested EMS transport to [facility] ED Patient admitted for acute commuted fracture superior aspect of right greater trochanter above intramedullary hip screw fixation, secondary to displaced distal right femur fracture, acute blood loss anemia of unknown etiology, & KENDRA. This patient requires acute care hospitalization after failing outpatient management. Patient will require assessment by Orthopedics, identifying source of blood loss anemia and KENDRA, as well as treatment and resolution of KENDRA and electrolyte imbalance, fluid hydration, PT and OT evaluation and treatment. 1. Commuted fracture superior aspect right greater trochanter, above Rt intramedullary hip screw fixation, secondary to displaced distal right femur fracture 12/29/2022, acute on chronic, present on admission -admit temp 99.4?, BP 96/55, HR 73, R 22, O2 saturation 97% on room air. GCS 15, PT 12.8, INR 1.1, PTT 23 -Dr. Lao ED consulted [facility] who verbalized this would likely not require surgical intervention but will consult on the patient tomorrow. (Consult placed) - Right lower extremity x-ray demonstrated a commuted fracture superior aspect of the right greater trochanter above katherin. -pain management: Continue Robaxin, oxycodone, lidocaine patches, ice packs, position for comfort -pure wick in place, Bed side commode PRN -I personally reviewed surgical notes, prior hospitalization notes. -consult ordered: PT/OT/UPKEEP WORKER regarding perhaps change in placement from sound view 2. Blood loss anemia, acute on chronic, with possible hx of anemia, present on admission-acute unknown etiology -ED:H/H 7.8/23.3 at 2:35 p.m., with mild hypertension 184/81, the patient then at approximately 4:55 p.m. became hypotensive BP is 94/56, 85/55, and repeat H&H 6.9/20.5-1Lbolus & 1units blood. -o positive -possible sequelae of surgical procedure, suspicion of carcinoma -H/H 1655: 6.9/20.5-no post infusion results yet (lab since 12/29/2022 HGB 11.7-7.3, HCT 34.2 -21.7), -(Last H/H 01/02/2023 9.7/27.9) -2220 repeat s/p 1 unit infusion H&H 07/22 -PT 12.8, INR 1.1, PTT 23-will repeat in am -iron studies ordered -guaiac as needed, urine culture -ABD CT:Question diffuse endometrial thickening. Cannot exclude endometrial carcinoma. Sigmoid diverticulosis without evidence of diverticulitis. Incidental 2 cm left adnexal cystic lesion. -Ordered CA125, Complete ABD U/S -Dr. Lao consulted Dr. Goodman- consult placed 3. KENDRA, acute, present on admission -unclear etiology, patient states that she drinks a significant amount of fluid daily and has an excellent diet & intake, denies any recent illness vomiting or diarrhea. -SOFA:1 -with hyponatremia sodium 130, -(2022 NA+ 133-136) -hypomagnesemia Mag 1.5 -2 g Mag rider -BUN 34, creatinine 1.49, GFR 35 (2022 GFR 44-55 last 01/02/2023 GFR 51) - (2022 FOOD PROCESSING SCIENTIST 1.25-1.03, last FOOD PROCESSING SCIENTIST 1.10) -Glucose 152, lactate 2.0, CK 26, procalcitonin WNL -urine culture to rule out UTI -NS at 100 cc/HR -void nephrotoxic medications -ABD CT:Question diffuse endometrial thickening. Cannot exclude endometrial carcinoma. Sigmoid diverticulosis without evidence of diverticulitis. Incidental 2 cm left adnexal cystic lesion. -Ordered CA125, Complete ABD U/S 4. Hypertension, essential, acute on chronic, present on admission-uncontrolled -In ED: 184/81- 94/56, 85/55 -Admit:BP 96/55 -I personally reviewed imaging and EKG: EKG NSR at a rate of 62 with a right BBB-no comparison available. on tele. -continue atenolol, hydralazine, losartan -initial troponin 0.029-trend x3 5. Depression, anxiety, chronic, present on admission -continue fluoxetine 6. Insomnia, chronic, present on admission -continue trazodone 7. Malnutrition, moderate, acute on chronic, present on admission -as evidence by BMI 20.9 -patient's malnutrition places them at high risk for medical and surgical complications in relation to acute femur fractures, recent surgery, acute blood loss, and KENDRA/chronic illness hypertension, depression. This increases the difficulty in complexity of medical management and increases the chances poor outcomes such as mortality and morbidity as well as impaired wound healing, and immune suppression. -dietary consult ordered to evaluate and implement steps to improve caloric intake and nutrition. Code status is DNR. COVID negative. DVT prophylaxis with SCDs.Left Only Proxy is friend Jean-Friend Disposition: Patient admitted to acute care, the attempt to identify source of acute blood loss, KENDRA, electrolyte imbalance high suspicion for metastatic disease, requiring orthopedic and general surgery consult, expected length of stay greater than 2 midnights. I have utilized all available immediate resources to obtain, update, or review the patient's current medications. I confirmed that the patient's advanced care plan is present, Code status is documented and/or surrogate decision maker is listed in the patient's medical record. I have personally reviewed patient's chart notes from PCP, specialists, diagnostic imaging, and laboratory results. Time Spent With Patient Critical Care time: I spent a total of [] minutes of critical care time on this patient's care today; this time is exclusive of procedural time.
[2023-01-22] MEDS: MAGNESIUM SULFATE 2 GM/50 ML PIGGYBACK IV (22:32)
[2023-01-22] MEDS: SODIUM CHLORIDE 0.9% 1,000 ML 100 ML IV (22:32)
[2023-01-22 22:38] LABS: Add Manual Diff / Slide Review NO; Basophils Absolute Auto 0 /uL (0-100); Basophils Percent Auto 0.3 % (0-2); Eosinophils Absolute Auto 0 /uL (0-450); Eosinophils Percent Auto 0.2 % (2-4); Lymphocytes Absolute Auto 2200 /uL (1100-4500); Lymphocytes Percent Auto 25.2 % (25-40); Mean Corpuscular HGB Conc 33.2 % (30-36); Mean Corpuscular Volume 93.3 fL (80-100); Monocytes Absolute Auto 1000 /uL (0-900); Monocytes Percent Auto 11.5 % (3-14); Neutrophils Absolute Auto 5400 /uL (1500-7000); Neutrophils Percent Auto 62.8 % (50-75); Platelet Count 272 X10^3/uL (150-400); Red Blood Cell Count 2.57 X10^6/uL (4.0-5.2); Red Cell Distribution Width 19.7 % (11.6-14.8); White Blood Cell Count 8.7 X10^3/uL (4.5-11.0)
[2023-01-22 22:56] LABS: Alanine Aminotransferase 27 IU/L (<35); Albumin 3.1 g/dL (3.5-5.0); Alkaline Phosphatase 99 U/L (38-126); Aspartate Aminotransferase 44 IU/L (14-36); BUN Creatinine Ratio 19.4 (6-22); Bilirubin Total 0.5 mg/dL (0.2-1.3); Blood Urea Nitrogen 33 mg/dL (7-17); Calcium 7.9 mg/dL (8.4-10.2); Carbon Dioxide 23 mmol/L (22-32); Chloride 100 mmol/L (98-107); Estimated Glomerular Filt Rate 30 mL/min (>60); Glucose 134 mg/dL (80-110); HEMOLYSIS < 15 (0-50); Magnesium 1.5 mg/dL (1.6-2.3); Potassium 4.5 mmol/L (3.4-5.1); Sodium 132 mmol/L (137-145); Total Protein 6.1 g/dL (6.3-8.2)
[2023-01-22 22:58] LABS: C-Reactive Protein Quant 1.2 mg/dL (<1.0)
[2023-01-22 22:59] LABS: Erythrocyte Sedimentation Rate 34 MM/HR (0-20)
[2023-01-22 23:03] LABS: NT-proBNP (BNP-Adult 18+) 1160 pg/mL (<450)
[2023-01-22 23:06] LABS: Troponin I 0.025 ng/mL (0.01-0.034)
[2023-01-22] MEDS: MELATONIN 3 MG TABLET 6 MG PO (23:09)
[2023-01-23] VITALS (9 sets, daily range): BP systolic 101–142; BP diastolic 51–68; PULSE 61–85; RESP 16–20; TEMP 36.4–36.9; O2SAT 96–98
[2023-01-23 04:44] LABS: Prothrombin Time 11.5 SECONDS (10.1-12.7)
[2023-01-23 04:47] LABS: PTT Partial Thromboplastin Tim 24 SECONDS (26-36)
[2023-01-23 04:47] LABS: Add Manual Diff / Slide Review NO; Basophils Absolute Auto 0 /uL (0-100); Basophils Percent Auto 0.3 % (0-2); Eosinophils Absolute Auto 0 /uL (0-450); Eosinophils Percent Auto 0.3 % (2-4); Hematocrit 23.3 % (36-46); Hemoglobin 7.8 g/dL (12.0-16.0); Lymphocytes Absolute Auto 1900 /uL (1100-4500); Lymphocytes Percent Auto 21.5 % (25-40); Mean Corpuscular HGB Conc 33.5 % (30-36); Mean Corpuscular Hemoglobin 31.2 PG (26-34); Monocytes Absolute Auto 1100 /uL (0-900); Monocytes Percent Auto 12.5 % (3-14); Neutrophils Absolute Auto 5900 /uL (1500-7000); Neutrophils Percent Auto 65.4 % (50-75); Platelet Count 263 X10^3/uL (150-400); Red Blood Cell Count 2.51 X10^6/uL (4.0-5.2); Red Cell Distribution Width 19.7 % (11.6-14.8)
[2023-01-23 05:06] LABS: Lactate (Lactic Acid) 0.7 mmol/L (0.7-2.1); Magnesium 2.5 mg/dL (1.6-2.3)
[2023-01-23 05:09] LABS: HEMOLYSIS < 15 (0-50); Iron 103 ug/dL (37-170)
[2023-01-23 05:18] LABS: Troponin I 0.019 ng/mL (0.01-0.034)
[2023-01-23 05:19] LABS: Percent Iron Saturation 52 % (15-50); Total Iron Binding Capacity 199 ug/dL (265-497); Transferrin 143 mg/dL (206-381)
[2023-01-23 05:42] LABS: Ferritin 326 ng/mL (11-264)
[2023-01-23 05:43] LABS: Cancer Antigen 125 < 5.5 U/mL (0-35)
[2023-01-23] MEDS: atenoloL 50 MG TABLET 100 MG PO (08:30)
[2023-01-23] MEDS: HYDRALAZINE 25 MG TABLET PO ×3 (08:30→21:21)
[2023-01-23] MEDS: SENNOSIDES 8.6 MG TABLET PO ×2 (08:30→21:14)
[2023-01-23] MEDS: FLUoxetine 20 MG CAPSULE PO (08:30)
[2023-01-23] MEDS: LIDOCAINE PATCH 1 EACH ADH..PATCH TOP (08:31)
--- NOTE | 2023-01-23 09:48 | P.CONS_ITS ---
History of Present Illness Consult details Date Patient Seen: 01/23/23 Time Patient Seen: 09:00 Chief complaint: pain at surgery site Narrative: 82-year-old female who is status post a intramedullary fixation for a right intertrochanteric femur fracture. Patient states that on started to notice increased pain to the right hip. Denies any recent injuries or falls. Started to notice more pain with ambulation. Before the pain started patient states that she was getting around pretty well using a walker and was able to ambulate short distances. Due to the increased pain patient was brought into the emergency room. X-ray showed some fragmentation around the entry point at the greater trochanter but no loss of fixation no loss of alignment at the fracture site. Meds Home Medications and Allergies Home Medications Medication Instructions Recorded Confirmed Type atenolol 100 mg tablet 100 mg PO DAILY 12/29/22 01/22/23 History hydralazine 25 mg tablet 25 mg PO TID 12/29/22 01/22/23 History losartan 50 mg tablet 50 mg PO BEDTIME 12/29/22 01/22/23 History trazodone 50 mg tablet 25 mg PO BEDTIME 12/29/22 01/22/23 History acetaminophen 325 mg tablet 650 mg PO Q6H PRN Fever/Mild Pain 01/02/23 01/22/23 Rx (1-3) #60 tabs aspirin 81 mg tablet,delayed 81 mg PO BID 6 weeks #84 tabs 01/02/23 01/22/23 Rx release bisacodyl 5 mg tablet,delayed 10 mg PO DAILY PRN Constipation #7 01/02/23 01/22/23 Rx release tabs melatonin 3 mg tablet 6 mg PO BEDTIME PRN Insomnia #30 01/02/23 01/22/23 Rx tabs polyethylene glycol 3350 17 gram 17 g PO DAILY #14 ea 01/02/23 01/22/23 Rx oral powder packet sennosides 8.6 mg tablet (senna) 8.6 mg PO BID #20 tabs 01/02/23 01/22/23 Rx Lactobacillus acidophilus-pectin 1 tab PO DAILY 01/22/23 01/22/23 History chewable tablet (Acidophilus-Pectin chewable tablet) fluoxetine 20 mg capsule 20 mg PO QAM 01/22/23 01/22/23 History lidocaine 5 % topical patch 1 patch topical DAILY 01/22/23 01/22/23 History loratadine 10 mg tablet 10 mg PO BID 01/22/23 01/22/23 History methocarbamol 500 mg tablet 500 mg PO Q6HR PRN muscle spasms 01/22/23 01/22/23 History oxycodone 5 mg tablet 5 mg PO Q3H PRN Pain (Scale Score 01/22/23 01/22/23 History 4-6) oxycodone 5 mg tablet 10 mg PO Q3H PRN Pain (Scale Score 01/22/23 01/22/23 History 7-10) sodium chloride 0.65 % nasal spray 2 spray intranasal BID 01/22/23 01/22/23 History aerosol (Saline Nasal) Allergies Allergy/AdvReac Type Severity Reaction Status Date / Time No Known Drug Allergies Allergy Verified 12/29/22 09:15 Exam Vital Signs (past 8 hours): - 01/23/23 04:00 01/23/23 08:25 01/23/23 09:00 Temperature 97.5 F L 97.8 F Pulse Rate 64 62 70 Respiratory Rate 17 18 Blood Pressure 141/65 H 130/68 128/65 Pulse Oximetry 97 98 Oxygen Flow Rate 0 Oxygen Delivery Method Room Air Oxygen Flow Rate 0 Narrative Exam Narrative: Elderly female who is alert and oriented x3 and in no apparent distress. No sign of any swelling or bruising around the right hip or lower extremity. Incision sites are healing well. No real pain with gentle range of motion of the right hip or knee. Positive dorsiflexion plantar flexion of the toes and ankle. Palpable pedal pulses. Nontender to palpation to the posterior aspect of the calf. Objective Labs 01/23/23 04:07 01/22/23 22:20 Labs: Laboratory Results - last 24 hr 01/22/23 01/22/23 01/22/23 12:12 14:35 14:35 WBC 9.1 RBC 2.35 L Hgb 7.8 L Hct 23.3 L MCV 99.3 MCH 33.0 MCHC 33.3 RDW 16.3 H Plt Count 330 Neut % (Auto) 77.6 H Lymph % (Auto) 15.2 L Morrison % (Auto) 6.8 Eos % (Auto) 0.0 L Baso % (Auto) 0.4 Neut # (Auto) 7000 Lymph # (Auto) 1400 Morrison # (Auto) 600 Eos # (Auto) 0 Baso # (Auto) 0 ESR Percent Retic PT 12.8 H INR 1.1 APTT 23 L Sodium Potassium Chloride Carbon Dioxide BUN Creatinine Estimated GFR BUN/Creatinine Ratio Glucose Hemoglobin A1c Lactate Calcium Magnesium Iron TIBC % Saturation Transferrin Ferritin Total Bilirubin AST ALT Alkaline Phosphatase Total Creatine Kinase CK-MB (CK-2) CK-MB (CK-2) Rel Index Troponin I C-Reactive Protein NT-Pro-B Natriuret Pep Total Protein Albumin Globulin Albumin/Globulin Ratio Lipase CA 125 Antigen Procalcitonin SARS-CoV-2 (PCR) Negative Blood Type Antibody Screen Crossmatch 01/22/23 01/22/23 01/22/23 14:35 14:35 14:35 WBC RBC Hgb Hct MCV MCH MCHC RDW Plt Count Neut % (Auto) Lymph % (Auto) Morrison % (Auto) Eos % (Auto) Baso % (Auto) Neut # (Auto) Lymph # (Auto) Morrison # (Auto) Eos # (Auto) Baso # (Auto) ESR Percent Retic PT INR APTT Sodium 130 L Potassium 4.4 Chloride 98 Carbon Dioxide 25 BUN 34 H Creatinine 1.49 H Estimated GFR 35 L BUN/Creatinine Ratio 22.8 H Glucose 152 H Hemoglobin A1c Lactate 2.0 Calcium 8.3 L Magnesium 1.5 L Iron TIBC % Saturation Transferrin Ferritin Total Bilirubin 0.5 AST 39 H ALT 30 Alkaline Phosphatase 124 Total Creatine Kinase 26 L CK-MB (CK-2) TNP CK-MB (CK-2) Rel Index TNP Troponin I 0.029 C-Reactive Protein NT-Pro-B Natriuret Pep Total Protein 6.8 Albumin 3.4 L Globulin 3.4 Albumin/Globulin Ratio 1.0 Lipase 112 CA 125 Antigen Procalcitonin 0.23 SARS-CoV-2 (PCR) Blood Type Antibody Screen Crossmatch 01/22/23 01/22/23 01/22/23 14:35 16:55 17:20 WBC RBC Hgb 6.9 L* Hct 20.5 L* MCV MCH MCHC RDW Plt Count Neut % (Auto) Lymph % (Auto) Morrison % (Auto) Eos % (Auto) Baso % (Auto) Neut # (Auto) Lymph # (Auto) Morrison # (Auto) Eos # (Auto) Baso # (Auto) ESR Percent Retic PT INR APTT Sodium Potassium Chloride Carbon Dioxide BUN Creatinine Estimated GFR BUN/Creatinine Ratio Glucose Hemoglobin A1c 5.0 Lactate Calcium Magnesium Iron TIBC % Saturation Transferrin Ferritin Total Bilirubin AST ALT Alkaline Phosphatase Total Creatine Kinase CK-MB (CK-2) CK-MB (CK-2) Rel Index Troponin I C-Reactive Protein NT-Pro-B Natriuret Pep Total Protein Albumin Globulin Albumin/Globulin Ratio Lipase CA 125 Antigen Procalcitonin SARS-CoV-2 (PCR) Blood Type O Positive Antibody Screen Negative Crossmatch See Detail 01/22/23 01/22/23 01/22/23 22:20 22:20 22:20 WBC 8.7 RBC 2.57 L Hgb 8.0 L Hct 24.0 L MCV 93.3 D MCH 31.0 MCHC 33.2 RDW 19.7 H Plt Count 272 Neut % (Auto) 62.8 Lymph % (Auto) 25.2 Morrison % (Auto) 11.5 Eos % (Auto) 0.2 L Baso % (Auto) 0.3 Neut # (Auto) 5400 Lymph # (Auto) 2200 Morrison # (Auto) 1000 H Eos # (Auto) 0 Baso # (Auto) 0 ESR Percent Retic PT INR APTT Sodium 132 L Potassium 4.5 Chloride 100 Carbon Dioxide 23 BUN 33 H Creatinine 1.70 H Estimated GFR 30 L BUN/Creatinine Ratio 19.4 Glucose 134 H Hemoglobin A1c Lactate Calcium 7.9 L Magnesium 1.5 L Iron TIBC % Saturation Transferrin Ferritin Total Bilirubin 0.5 AST 44 H ALT 27 Alkaline Phosphatase 99 Total Creatine Kinase CK-MB (CK-2) CK-MB (CK-2) Rel Index Troponin I C-Reactive Protein NT-Pro-B Natriuret Pep 1160 H Total Protein 6.1 L Albumin 3.1 L Globulin 3.0 Albumin/Globulin Ratio 1.0 Lipase CA 125 Antigen Procalcitonin SARS-CoV-2 (PCR) Blood Type Antibody Screen Crossmatch 01/22/23 01/22/23 01/22/23 22:20 22:20 22:20 WBC RBC Hgb Hct MCV MCH MCHC RDW Plt Count Neut % (Auto) Lymph % (Auto) Morrison % (Auto) Eos % (Auto) Baso % (Auto) Neut # (Auto) Lymph # (Auto) Morrison # (Auto) Eos # (Auto) Baso # (Auto) ESR 34 H Percent Retic PT INR APTT Sodium Potassium Chloride Carbon Dioxide BUN Creatinine Estimated GFR BUN/Creatinine Ratio Glucose Hemoglobin A1c Lactate Calcium Magnesium Iron TIBC % Saturation Transferrin Ferritin Total Bilirubin AST ALT Alkaline Phosphatase Total Creatine Kinase CK-MB (CK-2) CK-MB (CK-2) Rel Index Troponin I 0.025 C-Reactive Protein 1.2 H NT-Pro-B Natriuret Pep Total Protein Albumin Globulin Albumin/Globulin Ratio Lipase CA 125 Antigen Procalcitonin SARS-CoV-2 (PCR) Blood Type Antibody Screen Crossmatch 01/23/23 01/23/23 01/23/23 04:00 04:00 04:00 WBC RBC Hgb Hct MCV MCH MCHC RDW Plt Count Neut % (Auto) Lymph % (Auto) Morrison % (Auto) Eos % (Auto) Baso % (Auto) Neut # (Auto) Lymph # (Auto) Morrison # (Auto) Eos # (Auto) Baso # (Auto) ESR Percent Retic PT 11.5 INR 1.0 APTT 24 L Sodium Potassium Chloride Carbon Dioxide BUN Creatinine Estimated GFR BUN/Creatinine Ratio Glucose Hemoglobin A1c Lactate 0.7 Calcium Magnesium Iron TIBC % Saturation Transferrin Ferritin Total Bilirubin AST ALT Alkaline Phosphatase Total Creatine Kinase CK-MB (CK-2) CK-MB (CK-2) Rel Index Troponin I 0.019 C-Reactive Protein NT-Pro-B Natriuret Pep Total Protein Albumin Globulin Albumin/Globulin Ratio Lipase CA 125 Antigen Procalcitonin SARS-CoV-2 (PCR) Blood Type Antibody Screen Crossmatch 01/23/23 01/23/23 01/23/23 04:00 04:00 04:00 WBC RBC Hgb Hct MCV MCH MCHC RDW Plt Count Neut % (Auto) Lymph % (Auto) Morrison % (Auto) Eos % (Auto) Baso % (Auto) Neut # (Auto) Lymph # (Auto) Morrison # (Auto) Eos # (Auto) Baso # (Auto) ESR Percent Retic 1.0 L PT INR APTT Sodium Potassium Chloride Carbon Dioxide BUN Creatinine Estimated GFR BUN/Creatinine Ratio Glucose Hemoglobin A1c Lactate Calcium Magnesium 2.5 H Iron 103 TIBC 199 L % Saturation 52 H Transferrin 143 L Ferritin Total Bilirubin AST ALT Alkaline Phosphatase Total Creatine Kinase CK-MB (CK-2) CK-MB (CK-2) Rel Index Troponin I C-Reactive Protein NT-Pro-B Natriuret Pep Total Protein Albumin Globulin Albumin/Globulin Ratio Lipase CA 125 Antigen Procalcitonin SARS-CoV-2 (PCR) Blood Type Antibody Screen Crossmatch 01/23/23 01/23/23 01/23/23 04:00 04:07 04:07 WBC 9.0 RBC 2.51 L Hgb 7.8 L Hct 23.3 L MCV 93.0 MCH 31.2 MCHC 33.5 RDW 19.7 H Plt Count 263 Neut % (Auto) 65.4 Lymph % (Auto) 21.5 L Morrison % (Auto) 12.5 Eos % (Auto) 0.3 L Baso % (Auto) 0.3 Neut # (Auto) 5900 Lymph # (Auto) 1900 Morrison # (Auto) 1100 H Eos # (Auto) 0 Baso # (Auto) 0 ESR Percent Retic PT INR APTT Sodium Potassium Chloride Carbon Dioxide BUN Creatinine Estimated GFR BUN/Creatinine Ratio Glucose Hemoglobin A1c Lactate Calcium Magnesium Iron TIBC % Saturation Transferrin Ferritin 326 H Total Bilirubin AST ALT Alkaline Phosphatase Total Creatine Kinase CK-MB (CK-2) CK-MB (CK-2) Rel Index Troponin I C-Reactive Protein NT-Pro-B Natriuret Pep Total Protein Albumin Globulin Albumin/Globulin Ratio Lipase CA 125 Antigen < 5.5 Procalcitonin SARS-CoV-2 (PCR) Blood Type Antibody Screen Crossmatch [facility] Medical History Depression Essential hypertension Hypertension Insomnia Surgical History History of hip surgery Family History Father Congestive heart failure Mother Hypertension Social History household members: other Tobacco & Substance Use Smoking Status: Never smoker alcohol intake: current Assessment & Plan Assessment & Plan narrative: 82-year-old female status post intramedullary fixation of a right intertrochanteric femur fracture with some fragmentation around the greater trochanter. Discussed with the patient that this would not require any surgical intervention. Patient can still weightbear as tolerated using her walker. Orthopedics will sign off for now and if there is any additional issues this please feel free to re-consult if needed. Time Spent With Patient Critical Care time: I spent a total of [] minutes of critical care time on this patient's care today; this time is exclusive of procedural time.
--- NOTE | 2023-01-23 10:16 | P.CONS_ITS ---
History of Present Illness Consult details Date Patient Seen: 01/23/23 Time Patient Seen: 10:16 Chief complaint: pain at surgery site Narrative: Samara Bryan is an 82-year-old woman who recently had right hip surgery by Dr. Ackerman on December 30. She was at a long-term care facility recovering when she developed sudden right hip pain and dizziness. She was noted to be anemic in the emergency room. Received 1 unit of blood. She denies any bright red blood or melena. She believes she has been taking acetaminophen every day and possibly other NSAIDs. No abdominal pain. She is never had an EGD and she thinks she had a colonoscopy approximately 5 years ago. She did have breakfast this morning. Meds Home Medications and Allergies Home Medications Medication Instructions Recorded Confirmed Type atenolol 100 mg tablet 100 mg PO DAILY 12/29/22 01/22/23 History hydralazine 25 mg tablet 25 mg PO TID 12/29/22 01/22/23 History losartan 50 mg tablet 50 mg PO BEDTIME 12/29/22 01/22/23 History trazodone 50 mg tablet 25 mg PO BEDTIME 12/29/22 01/22/23 History acetaminophen 325 mg tablet 650 mg PO Q6H PRN Fever/Mild Pain 01/02/23 01/22/23 Rx (1-3) #60 tabs aspirin 81 mg tablet,delayed 81 mg PO BID 6 weeks #84 tabs 01/02/23 01/22/23 Rx release bisacodyl 5 mg tablet,delayed 10 mg PO DAILY PRN Constipation #7 01/02/23 01/22/23 Rx release tabs melatonin 3 mg tablet 6 mg PO BEDTIME PRN Insomnia #30 01/02/23 01/22/23 Rx tabs polyethylene glycol 3350 17 gram 17 g PO DAILY #14 ea 01/02/23 01/22/23 Rx oral powder packet sennosides 8.6 mg tablet (senna) 8.6 mg PO BID #20 tabs 01/02/23 01/22/23 Rx Lactobacillus acidophilus-pectin 1 tab PO DAILY 01/22/23 01/22/23 History chewable tablet (Acidophilus-Pectin chewable tablet) fluoxetine 20 mg capsule 20 mg PO QAM 01/22/23 01/22/23 History lidocaine 5 % topical patch 1 patch topical DAILY 01/22/23 01/22/23 History loratadine 10 mg tablet 10 mg PO BID 01/22/23 01/22/23 History methocarbamol 500 mg tablet 500 mg PO Q6HR PRN muscle spasms 01/22/23 01/22/23 History oxycodone 5 mg tablet 5 mg PO Q3H PRN Pain (Scale Score 01/22/23 01/22/23 History 4-6) oxycodone 5 mg tablet 10 mg PO Q3H PRN Pain (Scale Score 01/22/23 01/22/23 His tory 7-10) sodium chloride 0.65 % nasal spray 2 spray intranasal BID 01/22/23 01/22/23 History aerosol (Saline Nasal) Allergies Allergy/AdvReac Type Severity Reaction Status Date / Time No Known Drug Allergies Allergy Verified 12/29/22 09:15 Exam Vital Signs (past 8 hours): - 01/23/23 04:00 01/23/23 08:25 01/23/23 09:00 Temperature 97.5 F L 97.8 F Pulse Rate 64 62 70 Respiratory Rate 17 18 Blood Pressure 141/65 H 130/68 128/65 Pulse Oximetry 97 98 Oxygen Flow Rate 0 Oxygen Delivery Method Room Air Oxygen Flow Rate 0 Const General: No acute distress Resp Effort & Inspection: normal respiratory effort Objective Labs 01/23/23 04:07 01/22/23 22:20 Labs: Laboratory Results - last 24 hr 01/22/23 01/22/23 01/22/23 12:12 14:35 14:35 WBC 9.1 RBC 2.35 L Hgb 7.8 L Hct 23.3 L MCV 99.3 MCH 33.0 MCHC 33.3 RDW 16.3 H Plt Count 330 Neut % (Auto) 77.6 H Lymph % (Auto) 15.2 L [place] % (Auto) 6.8 Eos % (Auto) 0.0 L Baso % (Auto) 0.4 Neut # (Auto) 7000 Lymph # (Auto) 1400 [place] # (Auto) 600 Eos # (Auto) 0 Baso # (Auto) 0 ESR Percent Retic PT 12.8 H INR 1.1 APTT 23 L Sodium Potassium Chloride Carbon Dioxide BUN Creatinine Estimated GFR BUN/Creatinine Ratio Glucose Hemoglobin A1c Lactate Calcium Magnesium Iron TIBC % Saturation Transferrin Ferritin Total Bilirubin AST ALT Alkaline Phosphatase Total Creatine Kinase CK-MB (CK-2) CK-MB (CK-2) Rel Index Troponin I C-Reactive Protein NT-Pro-B Natriuret Pep Total Protein Albumin Globulin Albumin/Globulin Ratio Lipase CA 125 Antigen Procalcitonin SARS-CoV-2 (PCR) Negative Blood Type Antibody Screen Crossmatch 01/22/23 01/22/23 01/22/23 14:35 14:35 14:35 WBC RBC Hgb Hct MCV MCH MCHC RDW Plt Count Neut % (Auto) Lymph % (Auto) [place] % (Auto) Eos % (Auto) Baso % (Auto) Neut # (Auto) Lymph # (Auto) [place] # (Auto) Eos # (Auto) Baso # (Auto) ESR Percent Retic PT INR APTT Sodium 130 L Potassium 4.4 Chloride 98 Carbon Dioxide 25 BUN 34 H Creatinine 1.49 H Estimated GFR 35 L BUN/Creatinine Ratio 22.8 H Glucose 152 H Hemoglobin A1c Lactate 2.0 Calcium 8.3 L Magnesium 1.5 L Iron TIBC % Saturation Transferrin Ferritin Total Bilirubin 0.5 AST 39 H ALT 30 Alkaline Phosphatase 124 Total Creatine Kinase 26 L CK-MB (CK-2) TNP CK-MB (CK-2) Rel Index TNP Troponin I 0.029 C-Reactive Protein NT-Pro-B Natriuret Pep Total Protein 6.8 Albumin 3.4 L Globulin 3.4 Albumin/Globulin Ratio 1.0 Lipase 112 CA 125 Antigen Procalcitonin 0.23 SARS-CoV-2 (PCR) Blood Type Antibody Screen Crossmatch 01/22/23 01/22/23 01/22/23 14:35 16:55 17:20 WBC RBC Hgb 6.9 L* Hct 20.5 L* MCV MCH MCHC RDW Plt Count Neut % (Auto) Lymph % (Auto) [place] % (Auto) Eos % (Auto) Baso % (Auto) Neut # (Auto) Lymph # (Auto) [place] # (Auto) Eos # (Auto) Baso # (Auto) ESR Percent Retic PT INR APTT Sodium Potassium Chloride Carbon Dioxide BUN Creatinine Estimated GFR BUN/Creatinine Ratio Glucose Hemoglobin A1c 5.0 Lactate Calcium Magnesium Iron TIBC % Saturation Transferrin Ferritin Total Bilirubin AST ALT Alkaline Phosphatase Total Creatine Kinase CK-MB (CK-2) CK-MB (CK-2) Rel Index Troponin I C-Reactive Protein NT-Pro-B Natriuret Pep Total Protein Albumin Globulin Albumin/Globulin Ratio Lipase CA 125 Antigen Procalcitonin SARS-CoV-2 (PCR) Blood Type O Positive Antibody Screen Negative Crossmatch See Detail 01/22/23 01/22/23 01/22/23 22:20 22:20 22:20 WBC 8.7 RBC 2.57 L Hgb 8.0 L Hct 24.0 L MCV 93.3 D MCH 31.0 MCHC 33.2 RDW 19.7 H Plt Count 272 Neut % (Auto) 62.8 Lymph % (Auto) 25.2 [place] % (Auto) 11.5 Eos % (Auto) 0.2 L Baso % (Auto) 0.3 Neut # (Auto) 5400 Lymph # (Auto) 2200 [place] # (Auto) 1000 H Eos # (Auto) 0 Baso # (Auto) 0 ESR Percent Retic PT INR APTT Sodium 132 L Potassium 4.5 Chloride 100 Carbon Dioxide 23 BUN 33 H Creatinine 1.70 H Estimated GFR 30 L BUN/Creatinine Ratio 19.4 Glucose 134 H Hemoglobin A1c Lactate Calcium 7.9 L Magnesium 1.5 L Iron TIBC % Saturation Transferrin Ferritin Total Bilirubin 0.5 AST 44 H ALT 27 Alkaline Phosphatase 99 Total Creatine Kinase CK-MB (CK-2) CK-MB (CK-2) Rel Index Troponin I C-Reactive Protein NT-Pro-B Natriuret Pep 1160 H Total Protein 6.1 L Albumin 3.1 L Globulin 3.0 Albumin/Globulin Ratio 1.0 Lipase CA 125 Antigen Procalcitonin SARS-CoV-2 (PCR) Blood Type Antibody Screen Crossmatch 01/22/23 01/22/23 01/22/23 22:20 22:20 22:20 WBC RBC Hgb Hct MCV MCH MCHC RDW Plt Count Neut % (Auto) Lymph % (Auto) [place] % (Auto) Eos % (Auto) Baso % (Auto) Neut # (Auto) Lymph # (Auto) [place] # (Auto) Eos # (Auto) Baso # (Auto) ESR 34 H Percent Retic PT INR APTT Sodium Potassium Chloride Carbon Dioxide BUN Creatinine Estimated GFR BUN/Creatinine Ratio Glucose Hemoglobin A1c Lactate Calcium Magnesium Iron TIBC % Saturation Transferrin Ferritin Total Bilirubin AST ALT Alkaline Phosphatase Total Creatine Kinase CK-MB (CK-2) CK-MB (CK-2) Rel Index Troponin I 0.025 C-Reactive Protein 1.2 H NT-Pro-B Natriuret Pep Total Protein Albumin Globulin Albumin/Globulin Ratio Lipase CA 125 Antigen Procalcitonin SARS-CoV-2 (PCR) Blood Type Antibody Screen Crossmatch 01/23/23 01/23/23 01/23/23 04:00 04:00 04:00 WBC RBC Hgb Hct MCV MCH MCHC RDW Plt Count Neut % (Auto) Lymph % (Auto) [place] % (Auto) Eos % (Auto) Baso % (Auto) Neut # (Auto) Lymph # (Auto) [place] # (Auto) Eos # (Auto) Baso # (Auto) ESR Percent Retic PT 11.5 INR 1.0 APTT 24 L Sodium Potassium Chloride Carbon Dioxide BUN Creatinine Estimated GFR BUN/Creatinine Ratio Glucose Hemoglobin A1c Lactate 0.7 Calcium Magnesium Iron TIBC % Saturation Transferrin Ferritin Total Bilirubin AST ALT Alkaline Phosphatase Total Creatine Kinase CK-MB (CK-2) CK-MB (CK-2) Rel Index Troponin I 0.019 C-Reactive Protein NT-Pro-B Natriuret Pep Total Protein Albumin Globulin Albumin/Globulin Ratio Lipase CA 125 Antigen Procalcitonin SARS-CoV-2 (PCR) Blood Type Antibody Screen Crossmatch 01/23/23 01/23/23 01/23/23 04:00 04:00 04:00 WBC RBC Hgb Hct MCV MCH MCHC RDW Plt Count Neut % (Auto) Lymph % (Auto) [place] % (Auto) Eos % (Auto) Baso % (Auto) Neut # (Auto) Lymph # (Auto) [place] # (Auto) Eos # (Auto) Baso # (Auto) ESR Percent Retic 1.0 L PT INR APTT Sodium Potassium Chloride Carbon Dioxide BUN Creatinine Estimated GFR BUN/Creatinine Ratio Glucose Hemoglobin A1c Lactate Calcium Magnesium 2.5 H Iron 103 TIBC 199 L % Saturation 52 H Transferrin 143 L Ferritin Total Bilirubin AST ALT Alkaline Phosphatase Total Creatine Kinase CK-MB (CK-2) CK-MB (CK-2) Rel Index Troponin I C-Reactive Protein NT-Pro-B Natriuret Pep Total Protein Albumin Globulin Albumin/Globulin Ratio Lipase CA 125 Antigen Procalcitonin SARS-CoV-2 (PCR) Blood Type Antibody Screen Crossmatch 01/23/23 01/23/23 01/23/23 04:00 04:07 04:07 WBC 9.0 RBC 2.51 L Hgb 7.8 L Hct 23.3 L MCV 93.0 MCH 31.2 MCHC 33.5 RDW 19.7 H Plt Count 263 Neut % (Auto) 65.4 Lymph % (Auto) 21.5 L [place] % (Auto) 12.5 Eos % (Auto) 0.3 L Baso % (Auto) 0.3 Neut # (Auto) 5900 Lymph # (Auto) 1900 [place] # (Auto) 1100 H Eos # (Auto) 0 Baso # (Auto) 0 ESR Percent Retic PT INR APTT Sodium Potassium Chloride Carbon Dioxide BUN Creatinine Estimated GFR BUN/Creatinine Ratio Glucose Hemoglobin A1c Lactate Calcium Magnesium Iron TIBC % Saturation Transferrin Ferritin 326 H Total Bilirubin AST ALT Alkaline Phosphatase Total Creatine Kinase CK-MB (CK-2) CK-MB (CK-2) Rel Index Troponin I C-Reactive Protein NT-Pro-B Natriuret Pep Total Protein Albumin Globulin Albumin/Globulin Ratio Lipase CA 125 Antigen < 5.5 Procalcitonin SARS-CoV-2 (PCR) Blood Type Antibody Screen Crossmatch [facility] Medical History Depression Essential hypertension Hypertension Insomnia Surgical History History of hip surgery Family History Father Congestive heart failure Mother Hypertension Social History household members: other Tobacco & Substance Use Smoking Status: Never smoker alcohol intake: current Assessment & Plan Assessment and plan (1) Anemia: Qualifiers: Anemia type: unspecified type Qualified Code(s): D64.9 - Anemia, unspecified Status: Acute Plan I suspect her low blood count is from her postoperative state and dilutional. If she continues to require blood transfusions or for hemoglobin does not normalize she should skip breakfast tomorrow and we can perform an EGD. If her numbers improved significantly she does not need any further acute surgical intervention. Time Spent With Patient Critical Care time: I spent a total of [] minutes of critical care time on this patient's care today; this time is exclusive of procedural time.
--- NOTE | 2023-01-23 13:22 | CM.DANOTE ---
Discharge Planning/Care Management CM Discharge Assessment Start: 01/22/23 16:55 Freq: Status: Active Protocol: Document 01/22/23 16:55 LN (Rec: 01/22/23 17:02 LN [id number]) Discharge Planning Assessment Assigned Oil Separator PAIGE Pavon DPOA/Assigned Designee Name Tommie Wahl Contact Information Advance Directives? Yes Advance Directives on File No History Provided By Patient,Friend,Medical Record Has Patient been admitted in last 30 Yes days? Comment 12/29/22 - 01/02/23 Prior Living Arrangements Snf Facility Comment Patient's new residence is at [facility] Household Members other Type of transporation used prior to Drives own vehicle admit Facility Name Admitted From: [facility] Willing to Return to Facility? Yes: After SNF rehab Independent with ADL's No: Not since fracture Is patient alert and oriented? Yes Needs Assistance With Bathing,Grooming Caregiver for Another No DME Already Rented / Owned Elevated Toilet Seat,FWW / Walker Comment Patient has grab bars near bathroom and shower as well. Patient/Family Preference Snf Facility Referrals Initiated Snf If patient plan is SNF: Has PASSR been No completed? Medicare Choice List Provided No Medicare choice list reviewed on patient,family electronic tablet with SNF/HH Preference As of now, any SNF that accepts [place] with the exception of [facility] Has Agency SNF been contacted Yes Please Provide Date Initial DC 01/22/23 Assessment Was Performed Document 01/23/23 13:17 ELISABETH (Rec: 01/23/23 13:18 ELISABETH [id number]) Discharge Planning Assessment Assigned Oil Separator Margaret Gee RN DPOA/Assigned Designee Name Tommie Wahl Contact Information Advance Directives? Yes Advance Directives on File No History Provided By Patient,Friend,Medical Record Has Patient been admitted in last 30 Yes days? Comment 12/29/22 - 01/02/23 Prior Living Arrangements Snf Facility Comment Patient's new residence is at [facility] Household Members other Type of transporation used prior to Drives own vehicle admit Facility Name Admitted From: [facility] Willing to Return to Facility? Yes: After SNF rehab Independent with ADL's No: Not since fracture Is patient alert and oriented? Yes Needs Assistance With Bathing,Grooming Caregiver for Another No DME Already Rented / Owned Elevated Toilet Seat,FWW / Walker Comment Patient has grab bars near bathroom and shower as well. Patient/Family Preference Snf Facility Discharge Plan Home with Home Health Transportation Arrangement Friends will transport pt Referrals Initiated Snf Additional Comment Surgery is today. Will anticipate needs once surgery is performed and needs can be assessed. If patient plan is SNF: Has PASSR been No completed? Medicare Choice List Provided No Medicare choice list reviewed on patient,family electronic tablet with SNF/HH Preference As of now, any SNF that accepts [place] with the exception of [facility] Has Agency SNF been contacted Yes Please Provide Date Initial DC 01/22/23 Assessment Was Performed
--- NOTE | 2023-01-23 13:23 | CM.DPC ---
DCP: This CM sent more clinicals to [facility] via fax per Nathalie from [facility]'s request when I spoke with Archana this am. Attempting to get Authorization for placement to SNF when pt is medically stable. This CM sent a referral to [facility] after reviewing SNF's with pt and her main contact Evita. Per Evita they would like pt to go to either [facility], who is currently reviewing pt. Or [facility]. Pt is agreeable to these places. Per Archana who spoke with Nathalie at [facility], this pt still has Skilled days left that will be covered. The amount of days was not mentioned per Archana. Authorization # is [id number]. [facility] is unable to take admissions over the weekend athouth this CM called out to them, left VM re. Acceptance? This CM called and spoke with Carlos at [facility]. Per Carlos, he is in charge of admissions today. He asked how we sent the referral last rashaad. The CM explained either fax or efax from ED. Carlos requested this CM fax referral again. This CM faxed referral to Carlos at [id number]. per his request with Auth # as well. Per Carlos he will review pt and Marialuisa who servomechanism assembler of Medicare will be in tomorrow to review pt as well. They will return call. to either this CM or FOZIA Magaña. Margaret Gee, laminator printed circuit boards
--- NOTE | 2023-01-23 15:19 | P.PN_ITS ---
Subjective Subjective Date Patient Seen: 01/23/23 Interval history: 82-year-old female with a history of hypertension, depression, insomnia, and recent right femur intramedullary hip screw fixation on 12/29/2022?admitted due to acute rt hip pain. Imaging showed fragmentation around entry point at the greater trochanter but no loss of fixation or alignement at fx site. Pt states pain in hip is much better and able to bear weight more easily. Also presented with worsening anemia and got transfused 1 unit. H/H is stable post transfusion. Pt admitted with KENDRA with rising Cr. Exam Vital Signs (past 8 hours): - 01/23/23 08:25 01/23/23 09:00 01/23/23 12:00 Temperature 97.8 F 98 F Pulse Rate 62 70 65 Respiratory Rate 18 16 Blood Pressure 130/68 128/65 128/62 Pulse Oximetry 98 97 Oxygen Flow Rate 0 0 Oxygen Delivery Method Room Air Oxygen Flow Rate 0 Narrative Exam Narrative: Gen: alert, stting in chair, comfortable Lungs: clear CV: regular rhythm Ext; no distal edema Objective Labs 01/23/23 04:07 01/22/23 22:20 Labs: Laboratory Results - last 24 hr 01/22/23 01/22/23 01/22/23 14:35 14:35 14:35 WBC RBC Hgb Hct MCV MCH MCHC RDW Plt Count Neut % (Auto) Lymph % (Auto) Letcher % (Auto) Eos % (Auto) Baso % (Auto) Neut # (Auto) Lymph # (Auto) Letcher # (Auto) Eos # (Auto) Baso # (Auto) ESR Percent Retic PT INR APTT Sodium Potassium Chloride Carbon Dioxide BUN Creatinine Estimated GFR BUN/Creatinine Ratio Glucose Hemoglobin A1c 5.0 Lactate 2.0 Calcium Magnesium Iron TIBC % Saturation Transferrin Ferritin Total Bilirubin AST ALT Alkaline Phosphatase Troponin I C-Reactive Protein NT-Pro-B Natriuret Pep Total Protein Albumin Globulin Albumin/Globulin Ratio CA 125 Antigen Procalcitonin 0.23 Blood Type Antibody Screen Crossmatch 01/22/23 01/22/23 01/22/23 16:55 17:20 22:20 WBC 8.7 RBC 2.57 L Hgb 6.9 L* 8.0 L Hct 20.5 L* 24.0 L MCV 93.3 D MCH 31.0 MCHC 33.2 RDW 19.7 H Plt Count 272 Neut % (Auto) 62.8 Lymph % (Auto) 25.2 Letcher % (Auto) 11.5 Eos % (Auto) 0.2 L Baso % (Auto) 0.3 Neut # (Auto) 5400 Lymph # (Auto) 2200 Letcher # (Auto) 1000 H Eos # (Auto) 0 Baso # (Auto) 0 ESR Percent Retic PT INR APTT Sodium Potassium Chloride Carbon Dioxide BUN Creatinine Estimated GFR BUN/Creatinine Ratio Glucose Hemoglobin A1c Lactate Calcium Magnesium Iron TIBC % Saturation Transferrin Ferritin Total Bilirubin AST ALT Alkaline Phosphatase Troponin I C-Reactive Protein NT-Pro-B Natriuret Pep Total Protein Albumin Globulin Albumin/Globulin Ratio CA 125 Antigen Procalcitonin Blood Type O Positive Antibody Screen Negative Crossmatch See Detail 01/22/23 01/22/23 01/22/23 22:20 22:20 22:20 WBC RBC Hgb Hct MCV MCH MCHC RDW Plt Count Neut % (Auto) Lymph % (Auto) Letcher % (Auto) Eos % (Auto) Baso % (Auto) Neut # (Auto) Lymph # (Auto) Letcher # (Auto) Eos # (Auto) Baso # (Auto) ESR Percent Retic PT INR APTT Sodium 132 L Potassium 4.5 Chloride 100 Carbon Dioxide 23 BUN 33 H Creatinine 1.70 H Estimated GFR 30 L BUN/Creatinine Ratio 19.4 Glucose 134 H Hemoglobin A1c Lactate Calcium 7.9 L Magnesium 1.5 L Iron TIBC % Saturation Transferrin Ferritin Total Bilirubin 0.5 AST 44 H ALT 27 Alkaline Phosphatase 99 Troponin I 0.025 C-Reactive Protein NT-Pro-B Natriuret Pep 1160 H Total Protein 6.1 L Albumin 3.1 L Globulin 3.0 Albumin/Globulin Ratio 1.0 CA 125 Antigen Procalcitonin Blood Type Antibody Screen Crossmatch 01/22/23 01/22/23 01/23/23 22:20 22:20 04:00 WBC RBC Hgb Hct MCV MCH MCHC RDW Plt Count Neut % (Auto) Lymph % (Auto) Letcher % (Auto) Eos % (Auto) Baso % (Auto) Neut # (Auto) Lymph # (Auto) Letcher # (Auto) Eos # (Auto) Baso # (Auto) ESR 34 H Percent Retic PT INR APTT Sodium Potassium Chloride Carbon Dioxide BUN Creatinine Estimated GFR BUN/Creatinine Ratio Glucose Hemoglobin A1c Lactate Calcium Magnesium Iron TIBC % Saturation Transferrin Ferritin Total Bilirubin AST ALT Alkaline Phosphatase Troponin I 0.019 C-Reactive Protein 1.2 H NT-Pro-B Natriuret Pep Total Protein Albumin Globulin Albumin/Globulin Ratio CA 125 Antigen Procalcitonin Blood Type Antibody Screen Crossmatch 01/23/23 01/23/23 01/23/23 04:00 04:00 04:00 WBC RBC Hgb Hct MCV MCH MCHC RDW Plt Count Neut % (Auto) Lymph % (Auto) Letcher % (Auto) Eos % (Auto) Baso % (Auto) Neut # (Auto) Lymph # (Auto) Letcher # (Auto) Eos # (Auto) Baso # (Auto) ESR Percent Retic PT 11.5 INR 1.0 APTT 24 L Sodium Potassium Chloride Carbon Dioxide BUN Creatinine Estimated GFR BUN/Creatinine Ratio Glucose Hemoglobin A1c Lactate 0.7 Calcium Magnesium 2.5 H Iron TIBC % Saturation Transferrin Ferritin Total Bilirubin AST ALT Alkaline Phosphatase Troponin I C-Reactive Protein NT-Pro-B Natriuret Pep Total Protein Albumin Globulin Albumin/Globulin Ratio CA 125 Antigen Procalcitonin Blood Type Antibody Screen Crossmatch 01/23/23 01/23/23 01/23/23 04:00 04:00 04:00 WBC RBC Hgb Hct MCV MCH MCHC RDW Plt Count Neut % (Auto) Lymph % (Auto) Letcher % (Auto) Eos % (Auto) Baso % (Auto) Neut # (Auto) Lymph # (Auto) Letcher # (Auto) Eos # (Auto) Baso # (Auto) ESR Percent Retic 1.0 L PT INR APTT Sodium Potassium Chloride Carbon Dioxide BUN Creatinine Estimated GFR BUN/Creatinine Ratio Glucose Hemoglobin A1c Lactate Calcium Magnesium Iron 103 TIBC 199 L % Saturation 52 H Transferrin 143 L Ferritin 326 H Total Bilirubin AST ALT Alkaline Phosphatase Troponin I C-Reactive Protein NT-Pro-B Natriuret Pep Total Protein Albumin Globulin Albumin/Globulin Ratio CA 125 Antigen Procalcitonin Blood Type Antibody Screen Crossmatch 01/23/23 01/23/23 04:07 04:07 WBC 9.0 RBC 2.51 L Hgb 7.8 L Hct 23.3 L MCV 93.0 MCH 31.2 MCHC 33.5 RDW 19.7 H Plt Count 263 Neut % (Auto) 65.4 Lymph % (Auto) 21.5 L Letcher % (Auto) 12.5 Eos % (Auto) 0.3 L Baso % (Auto) 0.3 Neut # (Auto) 5900 Lymph # (Auto) 1900 Letcher # (Auto) 1100 H Eos # (Auto) 0 Baso # (Auto) 0 ESR Percent Retic PT INR APTT Sodium Potassium Chloride Carbon Dioxide BUN Creatinine Estimated GFR BUN/Creatinine Ratio Glucose Hemoglobin A1c Lactate Calcium Magnesium Iron TIBC % Saturation Transferrin Ferritin Total Bilirubin AST ALT Alkaline Phosphatase Troponin I C-Reactive Protein NT-Pro-B Natriuret Pep Total Protein Albumin Globulin Albumin/Globulin Ratio CA 125 Antigen < 5.5 Procalcitonin Blood Type Antibody Screen Crossmatch [facility] Medical History Depression Essential hypertension Hypertension Insomnia Surgical History History of hip surgery Family History Father Congestive heart failure Mother Hypertension Social History household members: other Smoking Status: Never smoker alcohol intake: current Assessment & Plan Assessment & Plan narrative: 1. Commuted fracture superior aspect right greater trochanter, above Rt intramedullary hip screw fixation -appreciate Ortho consult, fx is stable, no loss of fixation or alignement, non- operative -cont pain control and WBAT -PT consult 2. Blood loss anemia, acute, with possible hx of anemia, present on admission -s/p 1 unit PRBC -prob related to recent hip fx and maybe KENDRA -iron studies, %sat 52, feritin 326 not c/w chronic Fe def -ABD CT:Question diffuse endometrial thickening. Cannot exclude endometrial carcinoma. Sigmoid diverticulosis without evidence of diverticulitis. Incidental 2 cm left adnexal cystic lesion. -appreciate consult by Dr Rivera, pt doesn't need scope now, consider if worsening anemia to r/o occult GI bleed -CA 125 ordered by TERMITE INSPECTOR for adnexal cyst -trend H/H 3. Hypertension -back on atenolol, hydralazine -hold losartan until Cr down trending 4. KENDRA, present on admit -rising Cr, baseline Cr 1.1-1.2 -undetermined etiology, prob secondary to acute anemia/low BP -did get contrast with abd CT on 01/22 -cont NS 100 cc/hr -trend Cr 5. Malnutrition, moderate -BMI 20.9, patient's malnutrition places them at high risk for medical and surgical complications in relation to acute femur fractures, recent surgery, acute blood loss, and KENDRA/chronic illness hypertension, depression.? This increases the difficulty in complexity of medical management and increases the chances poor outcomes such as mortality and morbidity as well as impaired wound healing, and immune suppression. -dietary consult 6. Depression -cont fluoxetine, trazodone 7. Low Mg -corrected with IV Mg DVT prophylaxis: SCDs Disp: SNF when ready Time Spent With Patient Critical Care time: I spent a total of [] minutes of critical care time on this patient's care today; this time is exclusive of procedural time.
--- NOTE | 2023-01-23 17:21 | PT.IPTN ---
Current Diagnoses Anemia, unspecified (01/22/23) Fracture of unspecified part of neck of unspecified femur, initial encounter for closed fracture (01/22/23) Physical Therapy Treatment Note M2 PT-IP Current Condition Start: 01/22/23 13:59 Freq: Status: Active Protocol: Document 01/22/23 15:11 SAK (Rec: 01/22/23 15:30 SAK [id number]) Physical Therapy Current Condition Current Condition Evaluation Date 01/22/23 Treatment Diagnosis new fracture, weakness Onset Date 01/21/23 M3 PT-IP Subjective Start: 01/22/23 13:59 Freq: Status: Active Protocol: Document 01/23/23 17:09 LJ (Rec: 01/23/23 17:21 LJ [id number]) Subjective Physical Therapy Visit Type Type Treatment Note Visit Start Time 16:27 Visit Stop Time 16:46 Total Visit Minutes 19 Physical Therapy Visit Comments Patient Comments Requests to get up and go to the bathroom. States she has no pain and feels much better than yesterday Patient Goals To be able to go home Therapy Pain Assessment Pain When Pain Assessed During Mobility Pain Present Pain Present Denied Pain M4 PT-IP Mobility and Gait Start: 01/22/23 13:59 Freq: Status: Active Protocol: Document 01/23/23 17:09 DILIA (Rec: 01/23/23 17:21 LJ [id number]) PT-Bed Mobility Assessment Supine to Sit Supine to Sit Standby Assistance Sit to Supine Sit to Supine Standby Assistance Scooting Scooting to Edge of Bed Standby Assistance Scooting Up and Down in Bed Standby Assistance PT-Transfer Assessment Sit to and From Stand Sit to and from Stand Standby Assistance,Use of Upper Extremities Equipment Transfer Assistive Device Gait Belt,Front Wheeled Walker Transfers Transfer Destination Bed,Toilet Transfer Technique ambulated with FWW Transfer Ability Level of Assist Standby Assistance,Use of Upper Extremities Comments Mobility Comments SBA for all mobility and gait. Gait Assessment Gait Gait Assistance Required: Standby Assistance Distance (Feet) 75 Able to Maintain Weight Bearing Status Yes During Gait Assistive Devices Assistive Device Gait Belt,Front Wheeled Walker Gait Deviations General Gait Pattern Antalgic,Decreased Stride Length,Decreased Feet Clearance Factors Limiting Gait Function Factors Limiting Gait Function Decreased Activity Tolerance, Decreased Strength Comments Gait Comments Pt ambulated SBA from bed to toilet, changed her brief, performed independent pericare then ambulated in hallway ~75 ' then returned to room. No complaint of pain until the last minute of walking. Pt managing FWW well. No LOB Stair Climbing Assessment Comments Stair Climbing Comments no stairs at home M5 PT-IP Objective Assessments Start: 01/22/23 13:59 Freq: Status: Active Protocol: Document 01/22/23 15:11 SAK (Rec: 01/22/23 15:30 SAK [id number]) Orientation Orientation/Cognition Level of Alertness Alert Orientation Name,Place,Situation Language Function Ability No Deficits Noted Safety Awareness Understands Safety Issues Gross Range of Motion Upper Extremity ROM Assessment Within Functional Limits Lower Extremity ROM Assessment Right Impaired Strength Upper Extremity Strength Assessment Within Functional Limits Lower Extremity Strength Assessment Right Impaired Hip grossly L 3+/5, R 3-/5 Knee L 4/5, R 3+/5 Ankle fei 4/5 Sensation Assessment Sensation Gross Sensation WNL Muscle Tone Muscle Tone WNL Yes M6 PT-IP Treatment Start: 01/22/23 13:59 Freq: Status: Active Protocol: Document 01/23/23 17:09 DILIA (Rec: 01/23/23 17:21 LJ [id number]) Physical Therapy Treatment Education Education Provided Safety M7 PT-IP Assessment and Plan Start: 01/22/23 13:59 Freq: Status: Active Protocol: Document 01/23/23 17:09 DILIA (Rec: 01/23/23 17:21 LJ [id number]) PT Summary Assessment and Plan Potential Rehabilitation Potential Good Status of Condition at Evaluation Evolving Summary Impairments Pain,Strength,Balance,Gait, Activity Tolerance Progress Towards Goals Progressing Toward Goals Assessment Summary Pt shows improvement with pain , mobility, and ambulation. SBA for all activities. Goals Bed Mobility Goal Minimal Assistance Transfer Goal Minimal Assistance Gait Goal Contact Guard Assistance Gait Distance 150 Days to Meet Goals 5 Frequency of Treatment Frequency Of Treatment Twice a Day Treatment Plan Physical Therapy Treatment Plan Bed Mobility Training,Transfer Training,Gait Training, Balance Retraining,Hot or Cold Pack Other Recommendations and Next Treatment Focus on functional mobility Focus skills, gentle strengthening, gait WBAT right LE per Dr. Lund. Progress gait to 150' Weight Bearing Status Weight Bearing Status Weight Bear as Tolerated Recommendations To Nursing Amount of Assist Needed Standby Assistance,1 Person Assist Discharge Recommendations PT Discharge Recommendations Home,Home with Assistance,Home with 21/06 Assist Available, Home Health Transportation Needs at Discharge Wheelchair/Cabulance
[2023-01-23] MEDS: TRAZODONE 50 MG TABLET 25 MG PO (21:14)
[2023-01-24] VITALS (10 sets, daily range): BP systolic 128–168; BP diastolic 63–78; PULSE 62–90; RESP 16–22; TEMP 36.8–37.5; O2SAT 96–99
[2023-01-24] MEDS: SODIUM CHLORIDE 0.9% 1,000 ML 100 ML IV (03:04)
[2023-01-24 05:19] LABS: Add Manual Diff / Slide Review NO; Basophils Absolute Auto 0 /uL (0-100); Basophils Percent Auto 0.3 % (0-2); Eosinophils Absolute Auto 0 /uL (0-450); Eosinophils Percent Auto 0.4 % (2-4); Hematocrit 21.5 % (36-46); Hemoglobin 7.2 g/dL (12.0-16.0); Lymphocytes Absolute Auto 1600 /uL (1100-4500); Mean Corpuscular HGB Conc 33.5 % (30-36); Mean Corpuscular Hemoglobin 31.3 PG (26-34); Mean Corpuscular Volume 93.5 fL (80-100); Monocytes Absolute Auto 800 /uL (0-900); Monocytes Percent Auto 9.5 % (3-14); Neutrophils Absolute Auto 5600 /uL (1500-7000); Neutrophils Percent Auto 69.8 % (50-75); Platelet Count 234 X10^3/uL (150-400); Red Cell Distribution Width 19.8 % (11.6-14.8)
[2023-01-24 05:26] LABS: BUN Creatinine Ratio 23.2 (6-22); Blood Urea Nitrogen 26 mg/dL (7-17); Calcium 7.8 mg/dL (8.4-10.2); Carbon Dioxide 23 mmol/L (22-32); Chloride 106 mmol/L (98-107); Estimated Glomerular Filt Rate 50 mL/min (>60); Glucose 92 mg/dL (80-110); HEMOLYSIS < 15 (0-50); Potassium 4.3 mmol/L (3.4-5.1); Sodium 133 mmol/L (137-145)
[2023-01-24] MEDS: LIDOCAINE PATCH 1 EACH ADH..PATCH TOP (08:21)
[2023-01-24] MEDS: atenoloL 50 MG TABLET 100 MG PO (08:22)
[2023-01-24] MEDS: FLUoxetine 20 MG CAPSULE PO (08:22)
[2023-01-24] MEDS: SENNOSIDES 8.6 MG TABLET PO ×2 (08:22→20:50)
[2023-01-24] MEDS: HYDRALAZINE 25 MG TABLET PO ×3 (08:22→20:50)
--- NOTE | 2023-01-24 11:22 | PT.IPTN ---
Current Diagnoses Anemia, unspecified (01/22/23) Fracture of unspecified part of neck of unspecified femur, initial encounter for closed fracture (01/22/23) Physical Therapy Treatment Note M2 PT-IP Current Condition Start: 01/22/23 13:59 Freq: Status: Active Protocol: Document 01/22/23 15:11 SAK (Rec: 01/22/23 15:30 SAK [id number]) Physical Therapy Current Condition Current Condition Evaluation Date 01/22/23 Treatment Diagnosis new fracture, weakness Onset Date 01/21/23 M3 PT-IP Subjective Start: 01/22/23 13:59 Freq: Status: Active Protocol: Document 01/24/23 11:22 NBM (Rec: 01/24/23 15:47 NBM [id number]) Subjective Physical Therapy Visit Type Type Treatment Note Visit Start Time 10:53 Visit Stop Time 11:22 Total Visit Minutes 29 Number of FOOD ORDER DELIVERY RUNNER Visits 2 Physical Therapy Visit Comments Patient Comments Pt agreeable to PT. Pain in R hip is much better. Patient Goals To be able to go home Therapy Pain Assessment Pain When Pain Assessed During Mobility Pain Present Pain Present Denied Pain M4 PT-IP Mobility and Gait Start: 01/22/23 13:59 Freq: Status: Active Protocol: Document 01/24/23 11:22 NBM (Rec: 01/24/23 15:47 NBM [id number]) PT-Bed Mobility Assessment Supine to Sit Supine to Sit Standby Assistance Sit to Supine Sit to Supine Standby Assistance Scooting Scooting to Edge of Bed Standby Assistance Scooting Up and Down in Bed Standby Assistance PT-Transfer Assessment Sit to and From Stand Sit to and from Stand Standby Assistance,Use of Upper Extremities Equipment Transfer Assistive Device Gait Belt,Front Wheeled Walker Orthotic/Prosthetic Devices or Brace: No Transfers Transfer Destination Chair Transfer Technique ambulated with FWW Transfer Ability Level of Assist Standby Assistance,Use of Upper Extremities Comments Mobility Comments SBA for all mobility and SBA> CGA with gait. Gait Assessment Gait Gait Assistance Required: Standby Assistance Distance (Feet) 190 Able to Maintain Weight Bearing Status Yes During Gait Assistive Devices Assistive Device Gait Belt,Front Wheeled Walker Orthotic/Prosthetic Devices or Brace: No Gait Deviations General Gait Pattern Antalgic,Decreased Stride Length,Decreased Feet Clearance Factors Limiting Gait Function Factors Limiting Gait Function Decreased Activity Tolerance, Decreased Strength Comments Gait Comments Pt ambulated SBA from R-side bed w/FWW in hallway ~80' then returned to room w/ three brief standing rest breaks with no complaints of pain. No antalgic gait until ambulating ~100 due to fatigue , which improves slightly w/ standing rest break. Pt managing FWW well with no loss of balance. EOS FWW height lowered one level for improved upright posture and decreased weightbearing through UE due to pt's complaint of fatigue in upper extremities. Stair Climbing Assessment Comments Stair Climbing Comments no stairs at home PT-Balance Assessment Sitting Balance and Reactions Static Sitting Balance Ability Normal Dynamic Sitting Balance Ability Good Standing Balance and Reactions Static Standing Balance Ability Normal Dynamic Standing Balance Ability Normal Device Used FWW M5 PT-IP Objective Assessments Start: 01/22/23 13:59 Freq: Status: Active Protocol: Document 01/22/23 15:11 SAK (Rec: 01/22/23 15:30 SAK [id number]) Orientation Orientation/Cognition Level of Alertness Alert Orientation Name,Place,Situation Language Function Ability No Deficits Noted Safety Awareness Understands Safety Issues Gross Range of Motion Upper Extremity ROM Assessment Within Functional Limits Lower Extremity ROM Assessment Right Impaired Strength Upper Extremity Strength Assessment Within Functional Limits Lower Extremity Strength Assessment Right Impaired Hip grossly L 3+/5, R 3-/5 Knee L 4/5, R 3+/5 Ankle fei 4/5 Sensation Assessment Sensation Gross Sensation WNL Muscle Tone Muscle Tone WNL Yes M6 PT-IP Treatment Start: 01/22/23 13:59 Freq: Status: Active Protocol: Document 01/24/23 11:22 NB (Rec: 01/24/23 15:47 [facility] [id number]) Physical Therapy Treatment Education Education Provided Safety M7 PT-IP Assessment and Plan Start: 01/22/23 13:59 Freq: Status: Active Protocol: Document 01/24/23 11:22 NBM (Rec: 01/24/23 15:47 [facility] [id number]) PT Summary Assessment and Plan Potential Rehabilitation Potential Good Status of Condition at Evaluation Evolving Summary Impairments Pain,Strength,Balance,Gait, Activity Tolerance Progress Towards Goals Progressing Toward Goals Assessment Summary Pt continues to progress and exceeds ambulation goal of 150 ft at initial eval 01/22/23 by 40 ft today w/ FWW. Pt demonstrates improved gait but increased antalgic gait after ambulating about ~100 ft which improves after standing rest break. Goals Bed Mobility Goal Minimal Assistance Transfer Goal Minimal Assistance Gait Goal Contact Guard Assistance Gait Distance 150 Days to Meet Goals 5 Frequency of Treatment Frequency Of Treatment Twice a Day Treatment Plan Physical Therapy Treatment Plan Bed Mobility Training,Transfer Training,Gait Training, Balance Retraining,Hot or Cold Pack Other Recommendations and Next Treatment Focus on functional mobility Focus skills, gentle strengthening, gait WBAT right LE per Dr. Lund. Progress gait to 150' with improved gait. Weight Bearing Status Weight Bearing Status Weight Bear as Tolerated Recommendations To Nursing Amount of Assist Needed Standby Assistance Discharge Recommendations PT Discharge Recommendations Home,Home with Assistance,Home with 24/7 Assist Available, Home Health Transportation Needs at Discharge Wheelchair/Cabulance
--- NOTE | 2023-01-24 11:51 | CM.DPC ---
Addendum entered by Jessica Nelson R.N. 01/24/23 15:29: Patient's DOPA, Evita, was able to speak to hospitalist. Plan is for her to go home, back to [facility], and Evita will stay with her. Discussed home health services, went over the ratings, and she has chosen [facility].. Called [facility] and left him a message, encouraged him to contact Evita BEN, as contact. Faxed over face sheet, orders, face to face, H&P, P.T. notes. She will just need DC Summary upon discharge. Evita plans to pick patient up at about 1100. Original Note: DCP Cont: Met with patient in her room, introduced self and role. Confirmed that it is unclear if [facility] can accept. spoke to nurse, Marialuisa, would not know until tomorrow when Angelica in admitting comes in. She was unclear about [place] auth, let her know that there is an auth number, just would need to update [place] manager rn case. Marcia at [facility] can accept tomorrow. Updated patient, she put her POA, Evita, on the phone. Evita lives on [address], and stated, she has been touring facilities, does not want her to go to [facility]. She did indicate that she toured with [facility], yesterday, stated that they do have beds, and can transport her. She also indicated, she's prepared to pay privately if needed. She had further questions about her hip surgery, and wanted to see if she can go back to [facility]. She stated that she has been working on getting private caregivers, and is willing to stay with her there if needed before caregivers can come in. Updated Dr. Vigil, and gave her Evita's phone number and will call her. There is a possibility of her going home versus skilled. Did see patient walking with her walker in the hallway with P.T, so home may be an option, and can order home health. P: DCP to continue to follow. Plan is either home or [facility]. Will get an update from Dr. Vigil. Jessica Nelson RN/Blanket Cutting Machine Operator
[2023-01-24] MEDS: ferumoxytoL 1,020 MG in SODIUM CHLORIDE 0.9% 250 ML 568 MG IV (12:04)
--- NOTE | 2023-01-24 13:07 | PM.PN.1 ---
Subjective Subjective Date Patient Seen: 01/24/23 Interval history: 82-year-old female with a history of hypertension, depression, insomnia, and recent right femur intramedullary hip screw fixation on 12/29/2022?admitted due to acute rt hip pain. Imaging showed fragmentation around entry point at the greater trochanter but no loss of fixation or alignement at fx site. Pt continuing to improve with weight bearing and mobility and feels she could go home tomorrow instead of back to rehab. Renal function is improving. Anemia is worse today though this is likely dilutional. Pt denies feeling weak, dizzy or lightheaded with standing up. Exam Vital Signs (past 8 hours): - 01/24/23 09:04 01/24/23 08:52 Temperature 98.8 F Pulse Rate 66 82 Respiratory Rate 17 Blood Pressure 130/67 128/70 Pulse Oximetry 97 Oxygen Flow Rate 0 Oxygen Delivery Method Room Air Oxygen Flow Rate 0 Narrative Exam Narrative: Gen: alert, stting in chair, comfortable Lungs: clear CV: regular rhythm Ext; no distal edema Objective Labs 01/24/23 04:24 01/24/23 04:24 Labs: Laboratory Results - last 24 hr 01/22/23 01/24/23 01/24/23 17:20 04:24 04:24 WBC 8.0 RBC 2.30 L Hgb 7.2 L Hct 21.5 L MCV 93.5 MCH 31.3 MCHC 33.5 RDW 19.8 H Plt Count 234 Neut % (Auto) 69.8 Lymph % (Auto) 20.0 L [place] % (Auto) 9.5 Eos % (Auto) 0.4 L Baso % (Auto) 0.3 Neut # (Auto) 5600 Lymph # (Auto) 1600 [place] # (Auto) 800 Eos # (Auto) 0 Baso # (Auto) 0 Sodium 133 L Potassium 4.3 Chloride 106 Carbon Dioxide 23 BUN 26 H Creatinine 1.12 H Estimated GFR 50 L BUN/Creatinine Ratio 23.2 H Glucose 92 Calcium 7.8 L Crossmatch See Detail [facility] Medical History Depression Essential hypertension Hypertension Insomnia Surgical History History of hip surgery Family History Father Congestive heart failure Mother Hypertension Social History household members: other Smoking Status: Never smoker alcohol intake: current Assessment & Plan Assessment & Plan narrative: 1. Commuted fracture superior aspect right greater trochanter, above Rt intramedullary hip screw fixation -appreciate Ortho consult, fx is stable, no loss of fixation or alignment, non-operative -cont pain control and WBAT -PT consult -likely will be able to go home Wednesday, arrange HH, POA states will stay with her 2. Blood loss anemia, acute, with possible hx of anemia, present on admission -s/p 1 unit PRBC on 01/22, prob related to blood loss from recent hip fx as well as dilutional in hospital -iron studies, %sat 52, feritin 326 not c/w chronic Fe def -ABD CT:Question diffuse endometrial thickening. Cannot exclude endometrial carcinoma. Sigmoid diverticulosis without evidence of diverticulitis. Incidental 2 cm left adnexal cystic lesion (CA 125 < 5.5). -appreciate consult by Dr Rivera, pt doesn't need scope now, consider if worsening anemia to r/o occult GI bleed -more anemic on 01/24 likely dilutional--stopped IV fluids--ordered ferumoxytol to help anemia recover more quickly -trend H/H -pt quite anemic but is not symptomatic and doesn't require more transfusion -stop ASA postop ORIF 3. Hypertension -back on atenolol, hydralazine with normal BPs -hold losartan while pt very anemic, pt will monitor BP at home and restart losartan if starts running high 4. KENDRA, present on admit -resolved -undetermined etiology, prob secondary to acute blood loss/low BP -did get contrast with abd CT on 01/22 -heplock IV 5. Malnutrition, moderate -BMI 20.9, patient's malnutrition places them at high risk for medical and surgical complications in relation to acute femur fractures, recent surgery, acute blood loss, and KENDRA/chronic illness hypertension, depression.? This increases the difficulty in complexity of medical management and increases the chances poor outcomes such as mortality and morbidity as well as impaired wound healing, and immune suppression. -dietary consult 6. Depression -cont fluoxetine, trazodone 7. Low Mg -corrected with IV Mg DVT prophylaxis: SCDs Disp: SNF when ready Time Spent With Patient Critical Care time: I spent a total of [] minutes of critical care time on this patient's care today; this time is exclusive of procedural time.
[2023-01-24] MEDS: TRAZODONE 50 MG TABLET 25 MG PO (20:52)
[2023-01-24] MEDS: ACETAMINOPHEN 325 MG TABLET 650 MG PO (22:56)
[2023-01-25] VITALS (18 sets, daily range): BP systolic 152–201; BP diastolic 65–96; PULSE 57–66; RESP 12–20; TEMP 36.5–37.5; O2SAT 95–99; BMI 20.9
--- NOTE | 2023-01-25 | PATH_ITS ---
[facility] Accession Number: [id number] No. of containers..01 Tissue . 01 Material submitted: . gastrointestinal site - ANTRUM BIOPSY . 01 Clinical history: . PAIN AT SURGERY SITE . 01 Diagnosis: Stomach, Antrum, Biopsy: Antral mucosa with reactive gastropathy. Negative for Helicobacter by immunohistochemistry. Negative for intestinal metaplasia. Negative for dysplasia and malignancy. MRV 02/01/2023 1617 Local . 01 Electronically signed: . Evita Austin MD, Pathologist NPI- [id number] . 01 Gross description: . ANTRUM BIOPSY: Received in formalin are 2 fragment(s) of perez, soft tissue measuring 0.2 x 0.1 x 0.1 cm to 0.2 x 0.1 x 0.1 cm submitted entirely in 1 cassette(s) /CPE 01/26/2023 0922 Local . 01 Microscopic: . An immunohistochemical stain was performed to evaluate for Helicobacter organisms and is negative. The control stain showed appropriate reactivity. . An AB/PAS stain is performed to evaluate for intestinal metaplasia and is negative. The control stain showed appropriate reactivity. . * This test was developed and its performance characteristics determined by [employer]. It has not been cleared or approved by the U.S. Food and Drug Administration. The FDA has determined that such clearance or approval is not necessary. This test is used for clinical purposes. It should not be regarded as investigational or for research. . 01 Pathologist provided ICD-10: R10.9 . 01 CPT . 157507, 268131, M62864 Specimen Comment: A courtesy copy of this report has been sent to [phone] Performed at: 01 [facility] [address] [address], [place], [place] [id number] MD Darian Rondon MD Phone: [phone]
[2023-01-25 04:56] LABS: BUN Creatinine Ratio 26.7 (6-22); Basophils Absolute Auto 0 /uL (0-100); Basophils Percent Auto 0.2 % (0-2); Blood Urea Nitrogen 24 mg/dL (7-17); Calcium 8.4 mg/dL (8.4-10.2); Carbon Dioxide 24 mmol/L (22-32); Chloride 106 mmol/L (98-107); Eosinophils Absolute Auto 100 /uL (0-450); Estimated Glomerular Filt Rate > 60 mL/min (>60); Glucose 88 mg/dL (80-110); HEMOLYSIS < 15 (0-50); Lymphocytes Absolute Auto 2600 /uL (1100-4500); Lymphocytes Percent Auto 35.1 % (25-40); Mean Corpuscular Hemoglobin 32.6 PG (26-34); Mean Corpuscular Volume 93.2 fL (80-100); Monocytes Absolute Auto 1000 /uL (0-900); Monocytes Percent Auto 13.3 % (3-14); Neutrophils Absolute Auto 3700 /uL (1500-7000); Neutrophils Percent Auto 50.4 % (50-75); Platelet Count 232 X10^3/uL (150-400); Potassium 4.1 mmol/L (3.4-5.1); Red Cell Distribution Width 19.2 % (11.6-14.8); Sodium 135 mmol/L (137-145); White Blood Cell Count 7.3 X10^3/uL (4.5-11.0)
[2023-01-25 05:11] LABS: Hematocrit 19.6 % (36-46); Hemoglobin 6.8 g/dL (12.0-16.0)
[2023-01-25 05:12] LABS: Add Manual Diff / Slide Review SLIDE REVIEW
[2023-01-25 07:41] LABS: Anisocytosis 1+
--- NOTE | 2023-01-25 08:52 | P.PN_ITS ---
Subjective Subjective Date Patient Seen: 01/25/23 Interval history: Hgb 6.8 today. Recieved 1 unit PRBC. Gen surg to take for EGD today. Patient currently feels well and denies any melena or bleeding. Pain is well controlled. Exam Vital Signs (past 8 hours): - 01/25/23 04:00 01/25/23 05:19 01/25/23 05:52 Temperature 97.9 F 98.0 F Pulse Rate 60 65 Respiratory Rate 14 20 Blood Pressure 166/75 H 174/82 H 166/65 H Pulse Oximetry 99 98 01/25/23 05:53 01/25/23 06:11 Temperature 98.0 F 98.3 F Pulse Rate 65 57 L Respiratory Rate 20 16 Blood Pressure 166/65 H 180/78 H Pulse Oximetry Oxygen Delivery Method Room Air Oxygen Flow Rate 0 Narrative Exam Narrative: Gen: alert, stting in chair, comfortable Lungs: clear CV: regular rhythm Ext; no distal edema Objective Labs 01/25/23 04:27 01/25/23 04:27 Labs: Laboratory Results - last 24 hr 01/22/23 01/25/23 01/25/23 17:20 04:27 04:27 WBC 7.3 RBC 2.10 L Hgb 6.8 L* Hct 19.6 L* MCV 93.2 MCH 32.6 MCHC 35.0 RDW 19.2 H Plt Count 232 Neut % (Auto) 50.4 Lymph % (Auto) 35.1 [place] % (Auto) 13.3 Eos % (Auto) 1.0 L Baso % (Auto) 0.2 Neut # (Auto) 3700 Lymph # (Auto) 2600 [place] # (Auto) 1000 H Eos # (Auto) 100 Baso # (Auto) 0 RBC Morphology See below Anisocytosis 1+ H Sodium 135 L Potassium 4.1 Chloride 106 Carbon Dioxide 24 BUN 24 H Creatinine 0.90 Estimated GFR > 60 BUN/Creatinine Ratio 26.7 H Glucose 88 Calcium 8.4 Blood Type O Positive Antibody Screen Negative Crossmatch See Detail PFSH Medical History Depression Essential hypertension Hypertension Insomnia Surgical History History of hip surgery Family History Father Congestive heart failure Mother Hypertension Social History household members: other Smoking Status: Never smoker alcohol intake: current Assessment & Plan Assessment & Plan narrative: 1. Commuted fracture superior aspect right greater trochanter, above Rt intramedullary hip screw fixation -appreciate Ortho consult, fx is stable, no loss of fixation or alignment, non- operative -cont pain control and WBAT -PT consulted and cleared for home with HH -likely will be able to go home Wednesday, arrange HH, POA states will stay with her 2. Blood loss anemia, acute, with possible hx of anemia, present on admission -s/p 1 unit PRBC on 01/22, prob related to blood loss from recent hip fx as well as dilutional in hospital -iron studies, %sat 52, feritin 326 not c/w chronic Fe def -ABD CT:Question diffuse endometrial thickening. Cannot exclude endometrial carcinoma. Sigmoid diverticulosis without evidence of diverticulitis. Incidental 2 cm left adnexal cystic lesion (CA 125 < 5.5). -appreciate consult by Dr Rivera, pt doesn't need scope now, consider if worsening anemia to r/o occult GI bleed -more anemic on 01/24 likely dilutional--stopped IV fluids--ordered ferumoxytol to help anemia recover more quickly -trend H/H -received 1 unit PRBC on 01/25 for Hgb 6.8, underwent EGD which was normal -ordered hemolysis labs: retic count, LDH, haptoglobin, T-bili -stop ASA postop ORIF 3. Hypertension -back on atenolol, hydralazine with normal BPs -continue losartan 4. KENDRA, present on admit -resolved -undetermined etiology, prob secondary to acute blood loss/low BP -did get contrast with abd CT on 01/22 -heplock IV 5. Malnutrition, moderate -BMI 20.9, patient's malnutrition places them at high risk for medical and surgical complications in relation to acute femur fractures, recent surgery, acute blood loss, and KENDRA/chronic illness hypertension, depression.? This increases the difficulty in complexity of medical management and increases the chances poor outcomes such as mortality and morbidity as well as impaired wound healing, and immune suppression. -dietary consult 6. Depression -cont fluoxetine, trazodone 7. Low Mg -corrected with IV Mg DVT prophylaxis: SCDs Disp: Home once Hgb stable. Time Spent With Patient Critical Care time: I spent a total of [] minutes of critical care time on this patient's care today; this time is exclusive of procedural time.
[2023-01-25] MEDS: LOSARTAN 50 MG TABLET PO (09:45)
[2023-01-25] MEDS: PANTOPRAZOLE 40 MG VIAL IV ×2 (09:45→20:47)
[2023-01-25] MEDS: LIDOCAINE PATCH 1 EACH ADH..PATCH TOP (09:46)
--- NOTE | 2023-01-25 10:12 | OT.IPNOTE ---
Pt has low HH 6.8 Hgb, 19.6 Hct, to be getting transfusion, hold from OT today.
--- NOTE | 2023-01-25 13:21 | P.PN_ITS ---
Subjective Subjective Date Patient Seen: 01/25/23 Time Patient Seen: 13:21 Interval history: Samara's hemoglobin dropped to 6.8 overnight and she is receiving more blood today. Exam Vital Signs (past 8 hours): - 01/25/23 05:52 01/25/23 05:53 01/25/23 06:11 Temperature 98.0 F 98.0 F 98.3 F Pulse Rate 65 65 57 L Respiratory Rate 20 20 16 Blood Pressure 166/65 H 166/65 H 180/78 H Pulse Oximetry 98 Oxygen Flow Rate 01/25/23 09:10 01/25/23 09:45 01/25/23 10:32 Temperature 98.4 F Pulse Rate 61 61 64 Respiratory Rate 16 Blood Pressure 200/85 H 200/85 H 189/81 H Pulse Oximetry Oxygen Flow Rate 01/25/23 10:49 Temperature 99.5 F Pulse Rate 64 Respiratory Rate 17 Blood Pressure 189/81 H Pulse Oximetry 95 Oxygen Flow Rate 0 Oxygen Delivery Method Room Air Oxygen Flow Rate 0 Const General: No acute distress Objective Labs 01/25/23 04:27 01/25/23 04:27 Labs: Laboratory Results - last 24 hr 01/22/23 01/25/23 01/25/23 17:20 04:27 04:27 WBC 7.3 RBC 2.10 L Hgb 6.8 L* Hct 19.6 L* MCV 93.2 MCH 32.6 MCHC 35.0 RDW 19.2 H Plt Count 232 Neut % (Auto) 50.4 Lymph % (Auto) 35.1 [place] % (Auto) 13.3 Eos % (Auto) 1.0 L Baso % (Auto) 0.2 Neut # (Auto) 3700 Lymph # (Auto) 2600 [place] # (Auto) 1000 H Eos # (Auto) 100 Baso # (Auto) 0 RBC Morphology See below Anisocytosis 1+ H Sodium 135 L Potassium 4.1 Chloride 106 Carbon Dioxide 24 BUN 24 H Creatinine 0.90 Estimated GFR > 60 BUN/Creatinine Ratio 26.7 H Glucose 88 Calcium 8.4 Blood Type O Positive Antibody Screen Negative Crossmatch See Detail PFSH Medical History Depression Essential hypertension Hypertension Insomnia Surgical History History of hip surgery Family History Father Congestive heart failure Mother Hypertension Social History household members: other Smoking Status: Never smoker alcohol intake: current Assessment & Plan Assessment and plan (1) Anemia: Qualifiers: Anemia type: unspecified type Qualified Code(s): D64.9 - Anemia, unspecified Status: Acute Plan I recommend she be NPO this morning and we would bili schedule her for an EGD. Dr. Choe from Gastroenterology may be available to perform the procedure before me today. Time Spent With Patient Critical Care time: I spent a total of [] minutes of critical care time on this patient's care today; this time is exclusive of procedural time.
--- NOTE | 2023-01-25 13:40 | PT-IP ANOTE ---
Holding PT treatment today due to low H&H and pt to receive transfusion. Will follow up when pt is more medically appropriate.
--- NOTE | 2023-01-25 15:02 | P.HP_ITS ---
History of Present Illness History of Present Illness Date Patient Seen: 01/25/23 Time Patient Seen: 15:11 Chief complaint: pain at surgery site Narrative: I was asked by Dr. Rivera to help with diagnostic EGD this afternoon. Samara has had right hip replacement and an anemia has been noted. She had a total of 5 units of packed RBCs transfused. There was quite a bit of bruising down the inside of her right leg immediately postop. However hemoglobin dropped quite a bit overnight and she had to be transfused 1 more unit of blood this morning. She denies any melena no rectal bleeding. She states she has fairly regular bowel. Body weight is down a little bit. She was nauseated a little bit with pain related to her hip but otherwise no significant abdominal pain no heartburn no dysphagia. She uses aspirin no other NSAIDs. Patient History Medical History Depression Essential hypertension Hypertension Insomnia Surgical History History of hip surgery Family & Social History Family History Father Congestive heart failure Mother Hypertension Social History: household members other Prior Living Arrangements [facility] Safety & Behavioral: Feels Safe in Current Yes Environment Been Physically Hurt or No Threatened By a Person Tobacco & Substance use: Smoking Status Never smoker alcohol intake current alcohol intake frequency a few times a month Substance Use Type does not use Meds Home Medications and Allergies Home Medications Medication Instructions Recorded Confirmed Type atenolol 100 mg tablet 100 mg PO DAILY 12/29/22 01/22/23 History hydralazine 25 mg tablet 25 mg PO TID 12/29/22 01/22/23 History losartan 50 mg tablet 50 mg PO BEDTIME 12/29/22 01/22/23 History trazodone 50 mg tablet 25 mg PO BEDTIME 12/29/22 01/22/23 History acetaminophen 325 mg tablet 650 mg PO Q6H PRN Fever/Mild Pain 01/02/23 01/22/23 Rx (1-3) #60 tabs aspirin 81 mg tablet,delayed 81 mg PO BID 6 weeks #84 tabs 01/02/23 01/22/23 Rx release bisacodyl 5 mg tablet,delayed 10 mg PO DAILY PRN Constipation #7 01/02/23 01/22/23 Rx release tabs melatonin 3 mg tablet 6 mg PO BEDTIME PRN Insomnia #30 01/02/23 01/22/23 Rx tabs polyethylene glycol 3350 17 gram 17 g PO DAILY #14 ea 01/02/23 01/22/23 Rx oral powder packet sennosides 8.6 mg tablet (senna) 8.6 mg PO BID #20 tabs 01/02/23 01/22/23 Rx Lactobacillus acidophilus-pectin 1 tab PO DAILY 01/22/23 01/22/23 History chewable tablet (Acidophilus-Pectin chewable tablet) fluoxetine 20 mg capsule 20 mg PO QAM 01/22/23 01/22/23 History lidocaine 5 % topical patch 1 patch topical DAILY 01/22/23 01/22/23 History loratadine 10 mg tablet 10 mg PO BID 01/22/23 01/22/23 History methocarbamol 500 mg tablet 500 mg PO Q6HR PRN muscle spasms 01/22/23 01/22/23 History oxycodone 5 mg tablet 5 mg PO Q3H PRN Pain (Scale Score 01/22/23 01/22/23 History 4-6) oxycodone 5 mg tablet 10 mg PO Q3H PRN Pain (Scale Score 01/22/23 01/22/23 History 7-10) sodium chloride 0.65 % nasal spray 2 spray intranasal BID 01/22/23 01/22/23 History aerosol (Saline Nasal) Allergies Allergy/AdvReac Type Severity Reaction Status Date / Time No Known Drug Allergies Allergy Verified 12/29/22 09:15 Review of Systems Review of Systems ROS: Yes All systems reviewed with the patient and are negative except as otherwise documented Exam Vital Signs (past 8 hours): - 01/25/23 09:10 01/25/23 09:45 01/25/23 10:32 Temperature 98.4 F Pulse Rate 61 61 64 Respiratory Rate 16 Blood Pressure 200/85 H 200/85 H 189/81 H Pulse Oximetry Oxygen Flow Rate 01/25/23 10:49 Temperature 99.5 F Pulse Rate 64 Respiratory Rate 17 Blood Pressure 189/81 H Pulse Oximetry 95 Oxygen Flow Rate 0 Oxygen Delivery Method Room Air Oxygen Flow Rate 0 Const General: cooperative HENMT Head: normal to inspection Eyes General: appearance normal, both eyes and all related structures Neck Neck: normal visual inspection Chest Chest: normal inspection of the chest Resp Effort & Inspection: normal respiratory effort Cardio Rate: regular rate GI Inspection: normal to inspection Skin General: no rashes or lesions noted Neuro General: patient alert and patient awake Extrem General: normal to inspection and no pedal edema Psych Appearance: grossly normal Objective Labs 01/25/23 04:27 01/25/23 04:27 Labs: Laboratory Results - last 24 hr 01/22/23 01/25/23 01/25/23 17:20 04:27 04:27 WBC 7.3 RBC 2.10 L Hgb 6.8 L* Hct 19.6 L* MCV 93.2 MCH 32.6 MCHC 35.0 RDW 19.2 H Plt Count 232 Neut % (Auto) 50.4 Lymph % (Auto) 35.1 [place] % (Auto) 13.3 Eos % (Auto) 1.0 L Baso % (Auto) 0.2 Neut # (Auto) 3700 Lymph # (Auto) 2600 [place] # (Auto) 1000 H Eos # (Auto) 100 Baso # (Auto) 0 RBC Morphology See below Anisocytosis 1+ H Sodium 135 L Potassium 4.1 Chloride 106 Carbon Dioxide 24 BUN 24 H Creatinine 0.90 Estimated GFR > 60 BUN/Creatinine Ratio 26.7 H Glucose 88 Calcium 8.4 Blood Type O Positive Antibody Screen Negative Crossmatch See Detail Assessment & Plan Assessment & Plan narrative: 82-year-old female with anemia approximately 3 weeks out from a right hip replacement. There is concern that she could have GI blood loss although none has been visually witnessed. Diagnostic EGD is pursued this afternoon. Time Spent With Patient Critical Care time: I spent a total of [] minutes of critical care time on this patient's care today; this time is exclusive of procedural time.
--- NOTE | 2023-01-25 15:19 | CM.DPC ---
DCP Cont: Patient was going to discharge home today, but had a low H&H, needed a unit of blood, may have a procedure today. Plan is still home with [facility]. Devin had confirmed that he has referral, had mentioned that he already had this referral from [facility]. [facility] had also called with update, as referral had also been sent to them. Let them know that the plan is home with home health. P: DCP to continue to follow. Plan is home with [facility] when deemed medically stable. They will just need DC Summary and updated call. Jessica Nelson RN/Client Service Representative
[2023-01-25] MEDS: LACTATED RINGERS 1,000 ML 42 ML IV (15:26)
--- NOTE | 2023-01-25 15:55 | PM.PREOP ---
Pre-operative Note Interval Note History & Physical reviewed/Exam performed by Physician: Yes Changes to H&P: Yes ASA Class (for procedural sedation): III
--- NOTE | 2023-01-25 16:12 | PM.OP.EGD ---
Operative Date/Time/Diagnoses Date of procedure: 01/25/23 Time of procedure: 16:14 Pre-op diagnosis: Anemia Post-op diagnosis: same Procedure & Clinicians Study performed: EGD with biopsies Same procedure as scheduled: Yes Indications: Anemia Surgeon: Carlos Choe Procedure Notes SCOAP/Timeout: Done Procedure in detail: After the risks and benefits were explained, written and verbal informed consent was obtained. The patient was brought into the procedure room and placed into the left lateral decubitus position. Please see anesthesia notes for sedation details. The scope was introduced into the mouth through the bite block and advanced under direct visualization to the 2nd portion of the duodenum. The scope was slowly withdrawn carefully examining the mucosa for any defects or lesions. Retroflexed views were accomplished in the stomach. The stomach was decompressed, the scope was then removed from the patient who tolerated the procedure well. Sedation minutes: 9 Complications: none Impression: 1. Duodenum: No ulcers no mass lesions no angiodysplasia or AVMs. No new or old blood. 2. Stomach: The patient had a nodular erosive gastropathy. This was characterized by numerous eroded nodular regions in the pre-pyloric and antral region. No large ulcers. No mass lesions. No outlet obstruction. I suspect this is likely from the underlying aspirin administration but a couple of biopsies were taken for exclusion of H pylori infection. Otherwise there was no evidence of new or old blood in the stomach. No sign of any pathology to account for her anemia. Retroflexed views of the LES disclosed a subtle sliding hiatal hernia. 3. Esophagus: The squamocolumnar junction correlated with the top of the gastric folds. GEJ was at about 40 cm from the incisors. No acute erosive changes no strictures no mass lesions. The esophagus was normal. Endoscopic diagnosis 1. Erosive gastropathy 2. Small sliding hiatal hernia 3. No obvious upper GI source for severe anemia. Post-procedure Plan for aftercare: 1. Await histopathology. 2. If Helicobacter is found it will need to be eradicated with standard triple therapy. 3. As long as it is deemed necessary for the patient to continue aspirin, I recommend concomitant use of proton pump inhibitor. 3. I recommend a more comprehensive anemia workup. I suspect her anemia is coming from something other than her GI tract. If 5 units have been required from a transfusion standpoint there should of at least been some form of melena or red blood per rectum at some point which has not been witnessed by the patient or her family. 4. If the anemia workup is unrevealing and she has evidence of fecal occult blood positivity then perhaps further evaluation with colonoscopy and even capsule endoscopy can be pursued in the near future. Disposition: PACU
--- NOTE | 2023-01-25 16:25 | SUR.PHASEI ---
Report to RN. belongings with patient. VSS
[2023-01-25] MEDS: SENNOSIDES 8.6 MG TABLET PO (20:47)
[2023-01-25] MEDS: HYDRALAZINE 25 MG TABLET PO (20:49)
[2023-01-25] MEDS: SODIUM CHLORIDE 0.9% FLUSH 10 ML IV (20:49)
[2023-01-25] MEDS: TRAZODONE 50 MG TABLET 25 MG PO (20:50)
[2023-01-26] VITALS: BP 173/80; PULSE 69; RESP 20; TEMP 36.9; O2SAT 92
--- NOTE | 2023-01-26 03:10 | PC.NURSE ---
Patient is alert and oriented. Breath sounds CTA with RA sat of 95%. HRR. BP elevated at 167/77; patient reports BP can fluctuate greatly but has been trending high past couple days. Noted Losartan is currently on hold related to elevated Cr but note now that Cr is WNL on last lab draw. Denies nausea. BT present and is passing flatus. Denies dysuria, frequency or urgency with urination. Is able to turn herself in bed and gets out of bed with walker and SBA. Noted to have some edema in right LE but is non pitting. Bilateral calf SCD's applied at time of assessment. Denies pain. Fall risk score is high but patient is appropriate and waits for staff assist prior to getting out of bed so alarm is not currently in use.
[2023-01-26 04:00] VITALS: BP 190/87; PULSE 66; RESP 19; TEMP 37.1; O2SAT 96
[2023-01-26 04:57] LABS: Add Manual Diff / Slide Review NO; Basophils Absolute Auto 0 /uL (0-100); Basophils Percent Auto 0.3 % (0-2); Eosinophils Absolute Auto 100 /uL (0-450); Eosinophils Percent Auto 0.8 % (2-4); Hematocrit 30.2 % (36-46); Hemoglobin 10.2 g/dL (12.0-16.0); Lymphocytes Absolute Auto 3000 /uL (1100-4500); Lymphocytes Percent Auto 25.8 % (25-40); Mean Corpuscular HGB Conc 33.9 % (30-36); Mean Corpuscular Hemoglobin 31.5 PG (26-34); Mean Corpuscular Volume 92.9 fL (80-100); Monocytes Absolute Auto 1100 /uL (0-900); Monocytes Percent Auto 9.2 % (3-14); Neutrophils Absolute Auto 7400 /uL (1500-7000); Neutrophils Percent Auto 63.9 % (50-75); Platelet Count 291 X10^3/uL (150-400); Red Blood Cell Count 3.25 X10^6/uL (4.0-5.2); Red Cell Distribution Width 18.3 % (11.6-14.8); White Blood Cell Count 11.6 X10^3/uL (4.5-11.0)
[2023-01-26 05:20] LABS: Lactate Dehydrogenase 208 U/L (120-246)
[2023-01-26 05:30] LABS: Alanine Aminotransferase 32 IU/L (<35); Albumin 3.5 g/dL (3.5-5.0); Albumin Globulin Ratio 0.9 (1.0-2.8); Alkaline Phosphatase 171 U/L (38-126); Aspartate Aminotransferase 42 IU/L (14-36); BUN Creatinine Ratio 21.3 (6-22); Bilirubin Total 1.4 mg/dL (0.2-1.3); Blood Urea Nitrogen 20 mg/dL (7-17); Calcium 8.8 mg/dL (8.4-10.2); Carbon Dioxide 23 mmol/L (22-32); Chloride 103 mmol/L (98-107); Estimated Glomerular Filt Rate > 60 mL/min (>60); Glucose 91 mg/dL (80-110); HEMOLYSIS < 15 (0-50); Potassium 4.1 mmol/L (3.4-5.1); Sodium 136 mmol/L (137-145); Total Protein 7.5 g/dL (6.3-8.2)
[2023-01-26 05:42] LABS: Reticulocyte Count, Percent 1.7 % (1.1-2.6)
[2023-01-26 08:23] VITALS: BP 170/68; PULSE 68; RESP 16; TEMP 36.6; O2SAT 97
--- NOTE | 2023-01-26 08:41 | PM.PN.1 ---
Exam Vital Signs (past 8 hours): - 01/26/23 04:00 01/26/23 08:23 Temperature 98.7 F 97.9 F Pulse Rate 66 68 Respiratory Rate 19 16 Blood Pressure 190/87 H 170/68 H Pulse Oximetry 96 97 Oxygen Flow Rate 0 Oxygen Delivery Method Room Air Oxygen Flow Rate 0 Narrative Exam Narrative: Gen: alert, stting in chair, comfortable Lungs: clear CV: regular rhythm Ext; no distal edema Objective Labs 01/26/23 04:13 01/26/23 04:13 Labs: Laboratory Results - last 24 hr 01/22/23 01/26/23 01/26/23 17:20 04:13 04:13 WBC 11.6 H D RBC 3.25 L Hgb 10.2 L Hct 30.2 L MCV 92.9 MCH 31.5 MCHC 33.9 RDW 18.3 H Plt Count 291 Neut % (Auto) 63.9 Lymph % (Auto) 25.8 [place] % (Auto) 9.2 Eos % (Auto) 0.8 L Baso % (Auto) 0.3 Neut # (Auto) 7400 H Lymph # (Auto) 3000 [place] # (Auto) 1100 H Eos # (Auto) 100 Baso # (Auto) 0 Percent Retic Sodium 136 L Potassium 4.1 Chloride 103 Carbon Dioxide 23 BUN 20 H Creatinine 0.94 Estimated GFR > 60 BUN/Creatinine Ratio 21.3 Glucose 91 Calcium 8.8 Total Bilirubin 1.4 H AST 42 H ALT 32 Alkaline Phosphatase 171 H D Lactate Dehydrogenase Total Protein 7.5 Albumin 3.5 Globulin 4.0 Albumin/Globulin Ratio 0.9 L Blood Type O Positive Antibody Screen Negative Crossmatch See Detail 01/26/23 01/26/23 04:13 04:13 WBC RBC Hgb Hct MCV MCH MCHC RDW Plt Count Neut % (Auto) Lymph % (Auto) [place] % (Auto) Eos % (Auto) Baso % (Auto) Neut # (Auto) Lymph # (Auto) [place] # (Auto) Eos # (Auto) Baso # (Auto) Percent Retic 1.7 Sodium Potassium Chloride Carbon Dioxide BUN Creatinine Estimated GFR BUN/Creatinine Ratio Glucose Calcium Total Bilirubin AST ALT Alkaline Phosphatase Lactate Dehydrogenase 208 Total Protein Albumin Globulin Albumin/Globulin Ratio Blood Type Antibody Screen Crossmatch [facility] Medical History Depression Essential hypertension Hypertension Insomnia Surgical History History of hip surgery Family History Father Congestive heart failure Mother Hypertension Social History household members: other Smoking Status: Never smoker alcohol intake: current Assessment & Plan Assessment & Plan narrative: 1. Commuted fracture superior aspect right greater trochanter, above Rt intramedullary hip screw fixation -appreciate Ortho consult, fx is stable, no loss of fixation or alignment, non-operative -cont pain control and WBAT -PT consulted and cleared for home with HH -likely will be able to go home Wednesday, arrange HH, POA states will stay with her 2. Acute anemia, acute, with possible hx of anemia, present on admission -s/p 1 unit PRBC on 01/22, prob related to blood loss from recent hip fx as well as dilutional in hospital -iron studies, %sat 52, feritin 326 not c/w chronic Fe def -ABD CT:Question diffuse endometrial thickening. Cannot exclude endometrial carcinoma. Sigmoid diverticulosis without evidence of diverticulitis. Incidental 2 cm left adnexal cystic lesion (CA 125 < 5.5). -appreciate consult by Dr Rivera, pt doesn't need scope now, consider if worsening anemia to r/o occult GI bleed -more anemic on 01/24 likely dilutional--stopped IV fluids--ordered ferumoxytol to help anemia recover more quickly -trend H/H -received 1 unit PRBC on 01/25 for Hgb 6.8, underwent EGD which was normal -ordered hemolysis labs: retic count, LDH, haptoglobin, T-bili -stop ASA postop ORIF 3. Hypertension -back on atenolol, hydralazine with normal BPs -continue losartan 4. KENDRA, present on admit -resolved -undetermined etiology, prob secondary to acute blood loss/low BP -did get contrast with abd CT on 01/22 -heplock IV 5. Malnutrition, moderate -BMI 20.9, patient's malnutrition places them at high risk for medical and surgical complications in relation to acute femur fractures, recent surgery, acute blood loss, and KENDRA/chronic illness hypertension, depression.? This increases the difficulty in complexity of medical management and increases the chances poor outcomes such as mortality and morbidity as well as impaired wound healing, and immune suppression. -dietary consult 6. Depression -cont fluoxetine, trazodone 7. Low Mg -corrected with IV Mg DVT prophylaxis: SCDs Disp: Home once Hgb stable. Time Spent With Patient Critical Care time: I spent a total of [] minutes of critical care time on this patient's care today; this time is exclusive of procedural time.
--- NOTE | 2023-01-26 09:17 | OT.IP.TRT ---
Current Diagnoses Anemia, unspecified (01/22/23) Fracture of unspecified part of neck of unspecified femur, initial encounter for closed fracture (01/22/23) Surgery Performed Operation Date: 01/25/23 16:00 Actual Procedures p Esophagogastroduodenoscopy WITH BIOPSY - Carlos Choe MD Occupational Therapy Treatment Note M2 OT-IP Current Condition Start: 01/22/23 16:07 Freq: Status: Active Protocol: Document 01/22/23 16:08 [facility] (Rec: 01/22/23 16:23 [facility] [id number]) Occupational Therapy Current Condition Current Condition Evaluation Date 01/22/23 Treatment Diagnosis New greater trochanter above IM nail Diagnosis Onset Date 01/22/23 Weight Bearing Status Weight Bearing Status Weight Bear as Tolerated M3 OT- IP Subjective and Pain Start: 01/22/23 16:07 Freq: Status: Active Protocol: Document 01/26/23 10:13 [facility] (Rec: 01/26/23 10:20 [facility] [id number]) OT- Subjective Occupational Therapy Visit Type Type Treatment Note Visit Start Time 09:00 Visit Stop Time 09:17 Total Visit Minutes 17 Occupational Therapy Visit Comments Patient Comments Pt wanting to brush her hair and take a walk. Patient/Caregiver Goals To go home. OT Pain Assessment Pain When Pain Assessed At Rest Pain Present Pain Present Denied Pain M4 OT- IP ADL's Start: 01/22/23 16:07 Freq: Status: Active Protocol: Document 01/26/23 10:13 [facility] (Rec: 01/26/23 10:20 [facility] [id number]) OT ADL-Grooming General Evaluation Grooming Ability Independent OT ADL-Oral Care General Eval Oral Care Ability Independent OT ADL-Dressing General Eval Upper Body Dressing Ability Minimal Assistance Comments OT Dressing Comments Assist to help get her jacket on over her gown. OT ADL-Toileting Comments OT Toileting Comments Pt states has been able to use the bathroom on her own but with nursing present. OT ADL-Bathing Comments OT Bathing Comments Pt not wanting to shower at this time. M5 OT- IP IADL's Start: 01/22/23 16:07 Freq: Status: Active Protocol: Document 01/22/23 16:08 [facility] (Rec: 01/22/23 16:23 [facility] [id number]) OT-Instrumental Activities of Daily Living Deficits IADL Deficits Identified Deficits Home Safety Awareness Awareness of Need for Assistance at Home Good Awareness Ability to Problem Solve Emergency Able to Problem Solve Situations Home Safety Comments Due to right hip pain which limits her mobility, pt will need assist for all needs if going home, otherwise will benefit to go to skilled rehab . Medication Management Medication Management No Deficits Identified Money Management Money Management No Deficits Identified M6 OT- IP Functional Cognition Start: 01/22/23 16:08 Freq: Status: Active Protocol: Document 01/26/23 10:13 [facility] (Rec: 01/26/23 10:20 [facility] [id number]) Cognitive Factors Limiting Selfcare Function Cognitive Comments Cognitive Assessment Comments Pt able to follow commands for ADl and mobility needs. Pt able to answer home safety situations with good accuracy but needing slight increased time to process. M7 OT- IP Mobility and Balance Start: 01/22/23 16:08 Freq: Status: Active Protocol: Document 01/26/23 10:13 [facility] (Rec: 01/26/23 10:20 [facility] [id number]) OT- Bed Mobility Assessment Supine to Sit Supine to Sit Assist Independent OT-Transfer Assessment Sit to and From Stand Sit to and from Stand Independent Transfers Transfer Ability Standby Assistance Comments Mobility Comments Pt able to get out of bed on her own and distant SBA with FWW to walk in the room and then HOME HEALTH CARE CASE MANAGER able to take over. OT- Balance Assessment Sitting Balance and Reactions Static Sitting Balance Ability Normal Dynamic Sitting Balance Ability Normal Standing Balance and Reactions Static Standing Balance Ability Good Dynamic Standing Balance Ability Fair M8 OT- IP Objective Assessments Start: 01/22/23 16:08 Freq: Status: Active Protocol: Document 01/22/23 16:08 [facility] (Rec: 01/22/23 16:23 [facility] [id number]) OT Strength Upper Extremity Strength Assessment Right Impaired Comments Strength Comments RUe decreased in AROM and strength due to rotator cuff issues. M9 OT- IP Assessment and Plan Start: 01/22/23 16:08 Freq: Status: Active Protocol: Document 01/26/23 10:13 [facility] (Rec: 01/26/23 10:20 [facility] [id number]) OT Summary Assessment and Plan Potential Rehabilitation Potential Good Analytic Complexity at Evaluation Moderate Summary OT Impairments Pain,Range of Motion,Strength, Balance,Functional Mobility, Dressing,Toileting,Bathing, Toilet Transfers,Shower Transfers,Activity Tolerance Progress Towards Goals Progressing Toward Goals Assessment Summary Pt states no longer has pain and moving in the room with distant SBA and FWW. Pt looking to go home with assist and home health. Goals Bathing Goal Independent Days to Meet Goals 2 Frequency of Treatment Frequency Of Treatment Once a Day Treatment Plan OT Treatment Plan ADL Training,Functional Mobility,Patient/Family Education,Discharge Planning Discharge Recommendations OT Discharge Recommendations Home with Assistance,Home Health Transportation Needs at Discharge Private Vehicle
[2023-01-26] MEDS: HYDRALAZINE 25 MG TABLET PO (09:40)
[2023-01-26] MEDS: LIDOCAINE PATCH 1 EACH ADH..PATCH TOP (09:40)
[2023-01-26] MEDS: FLUoxetine 20 MG CAPSULE PO (09:40)
[2023-01-26] MEDS: atenoloL 50 MG TABLET 100 MG PO (09:40)
[2023-01-26] MEDS: PANTOPRAZOLE 40 MG VIAL IV (09:41)
[2023-01-26] MEDS: SENNOSIDES 8.6 MG TABLET PO (09:41)
[2023-01-26] MEDS: LOSARTAN 50 MG TABLET PO (09:41)
[2023-01-26] MEDS: SODIUM CHLORIDE 0.9% FLUSH 10 ML IV (09:41)
--- NOTE | 2023-01-26 09:42 | PT.IPTN ---
Current Diagnoses Anemia, unspecified (01/22/23) Fracture of unspecified part of neck of unspecified femur, initial encounter for closed fracture (01/22/23) Surgery Performed Operation Date: 01/25/23 16:00 Actual Procedures p Esophagogastroduodenoscopy WITH BIOPSY - Carlos Choe MD Physical Therapy Treatment Note M2 PT-IP Current Condition Start: 01/22/23 13:59 Freq: Status: Active Protocol: Document 01/26/23 09:18 [facility] (Rec: 01/26/23 11:53 [facility] [id number]) Physical Therapy Current Condition Current Condition Evaluation Date 01/22/23 Treatment Diagnosis new fracture, weakness Onset Date 01/21/23 M3 PT-IP Subjective Start: 01/22/23 13:59 Freq: Status: Active Protocol: Document 01/26/23 09:18 [facility] (Rec: 01/26/23 11:53 SP [id number]) Subjective Physical Therapy Visit Type Type Treatment Note Visit Start Time 09:18 Visit Stop Time 09:42 Total Visit Minutes 24 Number of TANK PROCESSOR Visits 3 Physical Therapy Visit Comments Patient Comments Pt agreeable to TANK PROCESSOR taking over tx from OT while for walk in the hallway. Patient Goals To be able to go home to [facility]. Therapy Pain Assessment Pain When Pain Assessed During Mobility Pain Present Pain Present Denied Pain M4 PT-IP Mobility and Gait Start: 01/22/23 13:59 Freq: Status: Active Protocol: Document 01/26/23 09:18 [facility] (Rec: 01/26/23 11:53 SP [id number]) PT-Transfer Assessment Sit to and From Stand Sit to and from Stand Standby Assistance,Use of Upper Extremities Equipment Transfer Assistive Device Gait Belt,Front Wheeled Walker ,4 Wheeled Walker Orthotic/Prosthetic Devices or Brace: No Transfers Transfer Destination Chair Transfer Technique and 4WW, ambulated FWW/ 4WW Transfer Ability Level of Assist Standby Assistance,Use of Upper Extremities Comments Mobility Comments STS, SPT use FWW and 4WW, ed and occasional cues for proper brake mgt pre sit/stand/ safety positioning fully during pivot and back stepping - good carryover. Pt improved distance gait 150 ft in hallway w/ FWW 100 ft w/ 4WW, cue x1 for squeeze brake mgt as needed pivot turn and body closer to 4WW for improve posture and balance. ASsessed static balance, see testing Best WBOS, NBOS, stagger trunk sway/LOB. Gait Assessment Gait Gait Assistance Required: Standby Assistance Distance (Feet) 150 Able to Maintain Weight Bearing Status Yes During Gait Assistive Devices Assistive Device Gait Belt,Front Wheeled Walker Orthotic/Prosthetic Devices or Brace: No Gait Deviations General Gait Pattern Antalgic,Decreased Stride Length,Decreased Feet Clearance Factors Limiting Gait Function Factors Limiting Gait Function Decreased Activity Tolerance, Decreased Strength,Poor Safety Awareness Comments Gait Comments see mobility comments Stair Climbing Assessment Comments Stair Climbing Comments no stairs at home PT-Balance Assessment Sitting Balance and Reactions Static Sitting Balance Ability Normal Dynamic Sitting Balance Ability Normal Standing Balance and Reactions Static Standing Balance Ability Normal Dynamic Standing Balance Ability Good Device Used FWW, 4WW Comments Other Balance Tests/Deviations/Treatment NBOS HTs then EC 30 sec little : sways but self recovery Stagger stance trunk sways with HTs LOB x1 RLE forward Min A recovery M5 PT-IP Objective Assessments Start: 01/22/23 13:59 Freq: Status: Active Protocol: Document 01/22/23 15:11 [facility] (Rec: 01/22/23 15:30 [facility] [id number]) Orientation Orientation/Cognition Level of Alertness Alert Orientation Name,Place,Situation Language Function Ability No Deficits Noted Safety Awareness Understands Safety Issues Gross Range of Motion Upper Extremity ROM Assessment Within Functional Limits Lower Extremity ROM Assessment Right Impaired Strength Upper Extremity Strength Assessment Within Functional Limits Lower Extremity Strength Assessment Right Impaired Hip grossly L 3+/5, R 3-/5 Knee L 4/5, R 3+/5 Ankle fei 4/5 Sensation Assessment Sensation Gross Sensation WNL Muscle Tone Muscle Tone WNL Yes M6 PT-IP Treatment Start: 01/22/23 13:59 Freq: Status: Active Protocol: Document 01/26/23 09:18 [facility] (Rec: 01/26/23 11:53 SP [id number]) Physical Therapy Treatment Education Education Provided Safety Other Treatments Other Treatment Performed Discussed 5x STS with UE support needed for strengthening. M7 PT-IP Assessment and Plan Start: 01/22/23 13:59 Freq: Status: Active Protocol: Document 01/26/23 09:18 [facility] (Rec: 01/26/23 11:53 SP [id number]) PT Summary Assessment and Plan Potential Rehabilitation Potential Good Status of Condition at Evaluation Evolving Summary Impairments Pain,Strength,Balance,Gait, Activity Tolerance Progress Towards Goals Progressing Toward Goals Assessment Summary Pt continues to progress and exceeds all her goals in bed mob, transfers, gait w/ 4WW SBA/ Mod I. Gait 150 ft FWW, 100 ft 4WW with improved safety use of brake mgt post education. Pt is ok to return home with family available and pull cord for staff assist if needed when medically cleared . Recommending HHPT to progress increased balance and activity tolerance gait to diningroom in facillity. Goals Bed Mobility Goal Minimal Assistance Transfer Goal Minimal Assistance Gait Goal Contact Guard Assistance Gait Distance 150 Days to Meet Goals 5 Frequency of Treatment Frequency Of Treatment Twice a Day Treatment Plan Physical Therapy Treatment Plan Bed Mobility Training,Transfer Training,Gait Training, Balance Retraining,Hot or Cold Pack Other Recommendations and Next Treatment Dynamic gait w/4ww, increase Focus distance gait. Weight Bearing Status Weight Bearing Status Weight Bear as Tolerated Recommendations To Nursing Amount of Assist Needed Standby Assistance Discharge Recommendations PT Discharge Recommendations Home with Assistance,Home Health Transportation Needs at Discharge Private Vehicle,Wheelchair/ Cabulance
--- NOTE | 2023-01-26 09:42 | PT.IPTN ---
Current Diagnoses Anemia, unspecified (01/22/23) Fracture of unspecified part of neck of unspecified femur, initial encounter for closed fracture (01/22/23) Surgery Performed Operation Date: 01/25/23 16:00 Actual Procedures p Esophagogastroduodenoscopy WITH BIOPSY - Carlos Choe MD Physical Therapy Treatment Note M2 PT-IP Current Condition Start: 01/22/23 13:59 Freq: Status: Active Protocol: Document 01/26/23 09:18 [facility] (Rec: 01/26/23 11:53 SP [id number]) Physical Therapy Current Condition Current Condition Evaluation Date 01/22/23 Treatment Diagnosis new fracture, weakness Onset Date 01/21/23 M3 PT-IP Subjective Start: 01/22/23 13:59 Freq: Status: Active Protocol: Document 01/26/23 09:18 [facility] (Rec: 01/26/23 11:53 SP [id number]) Subjective Physical Therapy Visit Type Type Treatment Note Visit Start Time 09:18 Visit Stop Time 09:42 Total Visit Minutes 24 Number of RADIAGRAPH OPERATOR Visits 3 Physical Therapy Visit Comments Patient Comments Pt agreeable to RADIAGRAPH OPERATOR taking over tx from OT while for walk in the hallway. Patient Goals To be able to go home to [facility]. Therapy Pain Assessment Pain When Pain Assessed During Mobility Pain Present Pain Present Denied Pain M4 PT-IP Mobility and Gait Start: 01/22/23 13:59 Freq: Status: Active Protocol: Document 01/26/23 09:18 [facility] (Rec: 01/26/23 11:53 SP [id number]) PT-Transfer Assessment Sit to and From Stand Sit to and from Stand Standby Assistance,Use of Upper Extremities Equipment Transfer Assistive Device Gait Belt,Front Wheeled Walker ,4 Wheeled Walker Orthotic/Prosthetic Devices or Brace: No Transfers Transfer Destination Chair Transfer Technique and 4WW, ambulated FWW/ 4WW Transfer Ability Level of Assist Standby Assistance,Use of Upper Extremities Comments Mobility Comments STS, SPT use FWW and 4WW, ed and occasional cues for proper brake mgt pre sit/stand/ safety positioning fully during pivot and back stepping - good carryover. Pt improved distance gait 150 ft in hallway w/ FWW 100 ft w/ 4WW distant SBA, cue x1 for squeeze brake mgt as needed pivot turn and body closer to 4WW for improve posture and balance. ASsessed static balance, see testing Best WBOS, NBOS, stagger trunk sway/LOB. Gait Assessment Gait Gait Assistance Required: Standby Assistance Distance (Feet) 150 Able to Maintain Weight Bearing Status Yes During Gait Assistive Devices Assistive Device Gait Belt,Front Wheeled Walker Orthotic/Prosthetic Devices or Brace: No Gait Deviations General Gait Pattern Antalgic,Decreased Stride Length,Decreased Feet Clearance Factors Limiting Gait Function Factors Limiting Gait Function Decreased Activity Tolerance, Decreased Strength,Poor Safety Awareness Comments Gait Comments see mobility comments Stair Climbing Assessment Comments Stair Climbing Comments no stairs at home PT-Balance Assessment Sitting Balance and Reactions Static Sitting Balance Ability Normal Dynamic Sitting Balance Ability Normal Standing Balance and Reactions Static Standing Balance Ability Normal Dynamic Standing Balance Ability Good Device Used FWW, 4WW Comments Other Balance Tests/Deviations/Treatment NBOS HTs then EC 30 sec little : sways but self recovery Stagger stance trunk sways with HTs LOB x1 RLE forward Min A recovery M5 PT-IP Objective Assessments Start: 01/22/23 13:59 Freq: Status: Active Protocol: Document 01/22/23 15:11 [facility] (Rec: 01/22/23 15:30 [facility] [id number]) Orientation Orientation/Cognition Level of Alertness Alert Orientation Name,Place,Situation Language Function Ability No Deficits Noted Safety Awareness Understands Safety Issues Gross Range of Motion Upper Extremity ROM Assessment Within Functional Limits Lower Extremity ROM Assessment Right Impaired Strength Upper Extremity Strength Assessment Within Functional Limits Lower Extremity Strength Assessment Right Impaired Hip grossly L 3+/5, R 3-/5 Knee L 4/5, R 3+/5 Ankle fei 4/5 Sensation Assessment Sensation Gross Sensation WNL Muscle Tone Muscle Tone WNL Yes M6 PT-IP Treatment Start: 01/22/23 13:59 Freq: Status: Active Protocol: Document 01/26/23 09:18 SP (Rec: 01/26/23 11:53 SP [id number]) Physical Therapy Treatment Education Education Provided Safety Other Treatments Other Treatment Performed Discussed 5x STS with UE support needed for strengthening. M7 PT-IP Assessment and Plan Start: 01/22/23 13:59 Freq: Status: Active Protocol: Document 01/26/23 09:18 [facility] (Rec: 01/26/23 11:53 SP [id number]) PT Summary Assessment and Plan Potential Rehabilitation Potential Good Status of Condition at Evaluation Evolving Summary Impairments Pain,Strength,Balance,Gait, Activity Tolerance Progress Towards Goals Progressing Toward Goals Assessment Summary Pt continues to progress and exceeds all her goals in bed mob, transfers, gait w/ 4WW DIstant SBA. Gait 150 ft FWW, 100 ft 4WW with improved safety use of brake mgt post education. Pt is ok to return home with family available and pull cord for staff assist if needed when medically cleared . Recommending HHPT to progress increased balance and activity tolerance gait to diningroom in facillity. Goals Bed Mobility Goal Minimal Assistance Transfer Goal Minimal Assistance Gait Goal Contact Guard Assistance Gait Distance 150 Days to Meet Goals 5 Frequency of Treatment Frequency Of Treatment Twice a Day Treatment Plan Physical Therapy Treatment Plan Bed Mobility Training,Transfer Training,Gait Training, Balance Retraining,Hot or Cold Pack Other Recommendations and Next Treatment Dynamic gait w/4ww, increase Focus distance gait. Weight Bearing Status Weight Bearing Status Weight Bear as Tolerated Recommendations To Nursing Amount of Assist Needed Standby Assistance Discharge Recommendations PT Discharge Recommendations Home with Assistance,Home Health Transportation Needs at Discharge Private Vehicle,Wheelchair/ Cabulance
--- NOTE | 2023-01-26 11:06 | P.DS_ITS ---
History of Present Illness History of Present Illness Date Patient Seen: 01/26/23 Time Patient Seen: 11:09 Chief complaint: pain at surgery site Narrative: Samara Winslow is an 82-year-old female with a history of hypertension, depression, insomnia, and recent right femur intramedullary hip screw fixation on 12/29/[address] Ackerman d/c 01/02/2023, who on discharge was sent to [facility]. During the admit interview the patient verbalized that the [facility] n ursing staff was unresponsive to her complaints and concerns regarding acute on- set of abd pain, and worsening rt hip pain over night and was treated poorly and refused to respond to her request for help, at which time she dialed 911 and requested EMS transport to [facility] ED ?Patient denies any new injury or fall, and that after being medicated in the ED she is painless at this time. Edmundo young initially presented to the emergency department with an H and H 7.8/23.3 at 2:35 p.m., with mild hypertension 184/81, the patient then at approximately 4:55 p.m. became hypotensive BP is 94/56, 85/55, and repeat H&H 6.9/20.5-patient was bolused with fluid and 2 units of blood were infused. On admit patient denies chest pain, shortness in breath, headache, changes in vision, difficulty swallowing, speech impairment, numbness, tingling, recent fall, head injury, LOC, fever, body aches, chills, cough, recent exposure to illness, nausea, vomiting, urinary retention, dysuria, frequency, urgency, hematuria, bowel changes, constipation, incontinence, melena, rashes, recent changes to medication,or illness. At the time of admit temp 99.4?, BP 96/55, HR 73, R 22, O2 saturation 97% on room air. GCS 15, H/H 1655: 6.9/20.5-no post infusion results yet (lab since 12/29/2022 HGB 11.7-7.3, HCT 34.2 -21.7), (Last H/H 01/02/2023 9.7/27.9). Patient is slightly hyponatremic sodium 130 (2022 133-136, last sodium 01/02/2023 134), Mild KENDRA on BUN 34, creatinine 1.49, GFR 35 (2022 GFR 44-55 las t 01/02/2023 GFR 51, 2022 [employer] 1.25-1.03, last [employer]IST 1.10) Glucose 152, lactate 2.0, CK 26, procalcitonin WNL, initial troponin 0.029, PT 12.8, INR 1.1, PTT 23, calcium 8.3, magnesium 1.5, AST 39, COVID negative, sofa score: 1. I personally reviewed imaging and EKG: EKG NSR at a rate of 62 with a right BBB-no comparison available. ABD CT:Question diffuse endometrial thickening. Cannot exclude endometrial carcinoma. Sigmoid diverticulosis without evidence of diverticulitis. Incidental 2 cm left adnexal cystic lesion. Right extremity x-ray demonstrated a commuted fracture superior aspect of the right greater trochanter above katherin. Dr. Goodman consulted by ED. CXR negative. Patient admitted for acute commuted fracture superior aspect of right greater trochanter above intramedullary hip screw fixation, due to displaced distal right femur fracture, acute blood loss anemia of unknown etiology, and KENDRA. Discharge Providers Provider Date of admission: 01/22/23 20:15 Discharge Date: 01/26/23 Primary care physician: Kalpesh Davila MD Consults: 01/22/23 10:18 Consult to [facility] - [facility] Stat Comment: 01/22/23 18:40 Consult to General Surgery Stat Comment: Consulting Provider: Tracey Goodman Reason for consultation: anemia Has provider been notified: Yes 01/22/23 21:56 Consult to Occupational Therapy Evaluate & Treat Comment: recent rt hip fx Physician Instructions: Evaluate and treat 01/22/23 21:57 Consult to Discharge Planning Routine Comment: Has s/p been at [facility] Consult to Physical Therapy Evaluate & Treat Comment: recent RT hip Fx Physician Instructions: Evaluate and Treat Consult to Physician Routine Comment: Consulting Provider: Laron Lund Reason for consultation: Recent RTfemurFX repair, new fx w/bloodloss anemia Has provider been notified: Yes 01/23/23 03:04 Consult to Physician Routine Comment: Consulting Provider: Tracey Goodman Reason for consultation: blood loss anemia unknown etiology Has provider been notified: Yes 01/23/23 03:09 Consult to [facility] - [facility] Man Routine Comment: pt felt mistreated at [facility] 01/24/23 15:19 Consult to Home Health Routine Comment: Reason For Exam: Home Health RN, P.T, O.T. Discharge provider: Jayjay Dean DO Summary Hospital Course Discharge Diagnosis: 1. Commuted fracture superior aspect right greater trochanter, above Rt intramedullary hip screw fixation -appreciate Ortho consult, fx is stable, no loss of fixation or alignment, non-operative -cont pain control and WBAT -PT consulted and cleared for home with HH -likely will be able to go home Wednesday, arrange HH, POA states will stay with her 2. Acute anemia, acute, with possible hx of anemia, present on admission -s/p 1 unit PRBC on 01/22, prob related to blood loss from recent hip fx as well as dilutional in hospital -iron studies, %sat 52, feritin 326 not c/w chronic Fe def -ABD CT:Question diffuse endometrial thickening. Cannot exclude endometrial carcinoma. Sigmoid diverticulosis without evidence of diverticulitis. Incidental 2 cm left adnexal cystic lesion (CA 125 < 5.5). -appreciate consult by Dr Rivera, pt doesn't need scope now, consider if worsening anemia to r/o occult GI bleed -more anemic on 01/24 likely dilutional--stopped IV fluids--ordered ferumoxytol to help anemia recover more quickly -received 1 unit PRBC on 01/25 for Hgb 6.8, underwent EGD which was normal -ordered hemolysis labs: retic count, LDH, haptoglobin, T-bili -stop ASA postop ORIF -Hgb 10.2 on discharge, hemylotic labs pending including haptoglobin, LDH and retic count normal. Recommend PCP recheck labs at upcoming visit on 02/03. 3. Hypertension -back on atenolol, hydralazine with normal BPs -continue losartan, discharged on 25mg BID and patient to record home readings for PCP 4. KENDRA, present on admit -resolved -undetermined etiology, prob secondary to acute blood loss/low BP -did get contrast with abd CT on 01/22 -heplock IV 5. Malnutrition, moderate -BMI 20.9, patient's malnutrition places them at high risk for medical and surgical complications in relation to acute femur fractures, recent surgery, acute blood loss, and KENDRA/chronic illness hypertension, depression.? This incre ases the difficulty in complexity of medical management and increases the chances poor outcomes such as mortality and morbidity as well as impaired wound healing, and immune suppression. -dietary consult 6. Depression -cont fluoxetine, trazodone 7. Low Mg -corrected with IV Mg Hospital Course: Admitted with anemia and required multiple blood transfusions. EGD was negative and patient had no evidence of bleeding or melena. Hemolytic anemia labs ordered which haptoglobin is still pending for PCP to f/u on. EGD was normal and showed no evidence of bleeding. Colonoscopy deferred due to no evidence of hematochezia or melena. Her home aspirin was stopped which she was on for DVT prophylaxis for prior hip fracture. She was discharged to see PCP in about a week to f/u on hemolysis labs and repeat bloodwork. If continues to be anemic may warrant hematology referral. BP was quite elevated during admission so her home losartan was spaced out at 25mg BID and she was discharged on this with her atenolol and hydralazine continued. She will f/u with PCP about her home BP readings. Time Spent with Patient Time spent: Greater than 30 minutes Exam Vital Signs (past 8 hours): - 01/26/23 04:00 01/26/23 08:23 Temperature 98.7 F 97.9 F Pulse Rate 66 68 Respiratory Rate 19 16 Blood Pressure 190/87 H 170/68 H Pulse Oximetry 96 97 Oxygen Flow Rate 0 Oxygen Delivery Method Room Air Oxygen Flow Rate 0 Narrative Exam Narrative: Gen: alert, stting in chair, comfortable Lungs: clear CV: regular rhythm Ext; no distal edema Objective Labs 01/26/23 04:13 01/26/23 04:13 Labs: Laboratory Results - last 24 hr 01/22/23 01/26/23 01/26/23 17:20 04:13 04:13 WBC 11.6 H D RBC 3.25 L Hgb 10.2 L Hct 30.2 L MCV 92.9 MCH 31.5 MCHC 33.9 RDW 18.3 H Plt Count 291 Neut % (Auto) 63.9 Lymph % (Auto) 25.8 Payne % (Auto) 9.2 Eos % (Auto) 0.8 L Baso % (Auto) 0.3 Neut # (Auto) 7400 H Lymph # (Auto) 3000 Payne # (Auto) 1100 H Eos # (Auto) 100 Baso # (Auto) 0 Percent Retic Sodium 136 L Potassium 4.1 Chloride 103 Carbon Dioxide 23 BUN 20 H Creatinine 0.94 Estimated GFR > 60 BUN/Creatinine Ratio 21.3 Glucose 91 Calcium 8.8 Total Bilirubin 1.4 H AST 42 H ALT 32 Alkaline Phosphatase 171 H D Lactate Dehydrogenase Total Protein 7.5 Albumin 3.5 Globulin 4.0 Albumin/Globulin Ratio 0.9 L Crossmatch See Detail 01/26/23 01/26/23 04:13 04:13 WBC RBC Hgb Hct MCV MCH MCHC RDW Plt Count Neut % (Auto) Lymph % (Auto) Payne % (Auto) Eos % (Auto) Baso % (Auto) Neut # (Auto) Lymph # (Auto) Payne # (Auto) Eos # (Auto) Baso # (Auto) Percent Retic 1.7 Sodium Potassium Chloride Carbon Dioxide BUN Creatinine Estimated GFR BUN/Creatinine Ratio Glucose Calcium Total Bilirubin AST ALT Alkaline Phosphatase Lactate Dehydrogenase 208 Total Protein Albumin Globulin Albumin/Globulin Ratio Crossmatch [facility] Medical History Depression Essential hypertension Hypertension Insomnia Surgical History History of hip surgery Family History Father Congestive heart failure Mother Hypertension Social History household members: other Smoking Status: Never smoker alcohol intake: current Discharge Plan Discharge Plan Patient Disposition: Home Health Service Provider Discharge Comment: You were admitted and found to have low blood counts. You received several units of blood. The source of the blood loss was not found, and an EGD showed no bleeding in your stomach. We have some labs pending to look for hemolysis, which is where the blood cells are being destr oyed for some reason. Your PCP can f/u on these labs. In the meantime we've stopped your aspirin. I've also spaced out your losartan BP med to twice daily. Take some BP readings in the morning and at night and write them down for your PCP to adjust your meds as needed. Discharge orders & Medications Prescriptions: New losartan 25 mg tablet 25 mg PO BID Qty: 60 0RF Continued trazodone 50 mg tablet 25 mg PO BEDTIME atenolol 100 mg Tablet 100 mg PO DAILY hydralazine 25 mg Tablet 25 mg PO TID Rx Instructions: Hold for SBP < 100 or HR < 60 acetaminophen 325 mg Tablet 650 mg PO Q6H PRN (Reason: Fever/Mild Pain (1-3)) Qty: 60 0RF bisacodyl 5 mg Tablet,Delayed Release (Dr/Ec) 10 mg PO DAILY PRN (Reason: Constipation) Qty: 7 0RF melatonin 3 mg Tablet 6 mg PO BEDTIME PRN (Reason: Insomnia) Qty: 30 0RF polyethylene glycol 3350 17 gram Powder In Packet 17 g PO DAILY Qty: 14 0RF sennosides [senna] 8.6 mg Tablet 8.6 mg PO BID Qty: 20 0RF methocarbamol 500 mg tablet 500 mg PO Q6HR PRN (Reason: muscle spasms) lidocaine 5 % Adhesive Patch,Medicated 1 patch topical DAILY Rx Instructions: to R Hip fluoxetine 20 mg capsule 20 mg PO QAM oxycodone 5 mg tablet 10 mg PO Q3H PRN (Reason: Pain (Scale Score 7-10)) oxycodone 5 mg tablet 5 mg PO Q3H PRN (Reason: Pain (Scale Score 4-6)) Saline Nasal 0.65 % Aerosol,[place] 2 spray INTRANASAL BID Rx Instructions: sinusitis Acidophilus-Pectin Tablet,Chewable 1 tab PO DAILY Rx Instructions: administer with food or milk loratadine 10 mg tablet 10 mg PO BID Discontinued losartan 50 mg tablet 50 mg PO BEDTIME aspirin 81 mg Tablet,Delayed Release (Dr/Ec) 81 mg PO BID 42 Days Qty: 84 0RF Follow up/Referrals: Kalpesh Davila MD [Primary Care Provider] - 1 Week Visit Report/Discharge Packet Instructions: DI for Hip Fracture Stand Alone Forms: Patient Portal/API, Stroke Signs & Symptoms Discharge Data Primary Care Provider: Kalpesh Davila
--- NOTE | 2023-01-27 13:24 | CM.DPC ---
DCP Discharge Home with Pt was stable for discharge yesterday 01/26/23 home with HH and SW received a call from [facility] FOZIA Pedroza inquiring if pt actually did d/c home with HH and not SNF and which HH agency. No DCP note in for discharge yesterday and SERA called [facility] and confirmed they were aware pt discharged home yesterday and Devin confirms DCP yesterday called and alerted them and they had all documents needed and actually opening pt to service today 01/27/23. SERA called Kasia at [facility] and left ms with update on pt discharge yesterday home with [facility]. YOVANI Xavier
[2023-01-28 06:48] LABS: Haptoglobin 133 mg/dL (42-346)
== END 2023-01-26 12:30 | disposition home health service (06) | DRG 536 ==
LOC: ED 18:10 → AC 01-23 12:09
PROVIDERS: Emergency Medicine; Internal Medicine; Internal Medicine Gastroenterology; Student in an Organized Health Care Education/Training Program; Admitting Provider Nurse Practitioner Family; Emergency Provider Emergency Medicine; Family Provider Internal Medicine; PCP Internal Medicine; Visit Provider Nurse Practitioner Family
PROC: 0DJ08ZZ Inspection of Upper Intestinal Tract, Via Natural or Artificial Opening Endoscopic (ICD-10-PCS; CPT 43235; principal; 2023-01-25 16:00)
DX: S72.111A Displaced fracture of greater trochanter of right femur, initial encounter for closed fracture (principal); D62 Acute posthemorrhagic anemia; N17.9 Acute kidney failure, unspecified; E87.1 Hypo-osmolality and hyponatremia; E44.0 Moderate protein-calorie malnutrition; I10 Essential (primary) hypertension; F32.A Depression, unspecified; G47.00 Insomnia, unspecified; E83.42 Hypomagnesemia; K31.9 Disease of stomach and duodenum, unspecified; X58.XXXA Exposure to other specified factors, initial encounter; Z66 Do not resuscitate; Z68.20 Body mass index [BMI] 20.0-20.9, adult; Z20.822 Contact with and (suspected) exposure to COVID-19
CPT/HCPCS: 36415; 36430; 71045; 73502; 74177; 80048; 80053; 82550; 82728; 83010; 83036; 83540; 83550; 83605; 83615; 83690; 83735; 83880; 84145; 84484; 85014; 85018; 85025; 85045; 85610; 85651; 85730; 86140; 86304; 86850; 86900; 86901; 87040; 87077; 87086; 87186; 87635; 93005; 97116; 97162; 97530; 99231; 99232; 99285; 99291; C9803; P9016; C9113; J2704; J3010; J3475; Q0138; Q9967

== ENCOUNTER → 2023-02-09 12:32 | Outpatient (CLI) | payer OTHER, SELFPAY ==
[2023-01-22 22:51] VITALS: BMI 20.9
--- NOTE | 2023-02-09 | DI.US.S_ITS ---
PROCEDURE: US ABDOMEN LIMITED INDICATIONS: abnormal findings of blood chemistry TECHNIQUE: Real-time focused scanning was performed of the abdomen, with image documentation. COMPARISON: [facility], CT, CT ABDOMEN PELVIS W CON, 01/22/2023, 17:27. FINDINGS: Normal appearance of the hepatic parenchyma. No gallstones identified. Normal gallbladder wall. No pericholecystic fluid. Negative sonographic Worthington sign. No biliary dilatation. Normal pancreas. IMPRESSION: No source for elevated LFTs identified. Dictated by: Petar Gilbert Gabriel Interpreted: Robin Garcia MD on 02/09/2023 at 14:44 Transcribed by: MOHAMUD on 02/09/2023 at 14:47 Approved by: Robin Garcia M.D. on 02/09/2023 at 17:46
== END ==
PROVIDERS: Family Provider Internal Medicine; PCP Internal Medicine; Referring Provider Family Medicine; Visit Provider Family Medicine
DX: R79.89 Other specified abnormal findings of blood chemistry (principal)
CPT/HCPCS: 76705

== ENCOUNTER 2023-02-25 09:53 | Day surgery (SDC) | payer OTHER, SELFPAY ==
[2023-01-22 22:51] VITALS: BMI 20.9
--- NOTE | 2023-02-25 | PATH_ITS ---
[facility] Accession Number: [id number] No. of containers..01 Tissue . 01 Material submitted: . colon - CECAL POLYP . 01 Diagnosis: Cecal Polyp: Tubular adenoma. [facility] 03/01/2023 1131 Local . 01 Electronically signed: . Jayjay Muir MD, PhD, Pathologist NPI- [id number] . 01 Gross description: . The specimen is received in formalin labeled with the patient's name, , and polyp cecum, and consists of a single irregular perez, soft tissue fragment measuring 0.7 cm in greatest dimension. Submitted entirely in cassette A1. ([id number]) /FRR 02/27/2023 1730 Local . 01 Pathologist provided ICD-10: D12.0 . 01 CPT . 582243 Specimen Comment: A courtesy copy of this report has been sent to [phone] Performed at: 01 [facility] [address] [place] [address], [place], [place] [id number] MD Darian Rondon MD Phone: [phone]
[2023-02-25 10:18] VITALS: BMI 19.3
[2023-02-25 10:24] VITALS: BP 174/83; PULSE 64; RESP 16; TEMP 36.6; O2SAT 98
[2023-02-25] MEDS: LACTATED RINGERS 1,000 ML 42 ML IV (10:26)
--- NOTE | 2023-02-25 12:50 | P.HP_ITS ---
History of Present Illness History of Present Illness Date Patient Seen: 02/25/23 Time Patient Seen: 12:50 Chief complaint: SD Narrative: Samara is an 82-year-old woman who was admitted for anemia in December. She had an EGD that showed no obvious source of anemia. She is here for a colonoscopy. It has been over 10 years since she had a colonoscopy. [facility] Medical History Depression Essential hypertension Hypertension Insomnia Surgical History History of hip surgery Family History Father Congestive heart failure Mother Hypertension Social History household members: other Smoking Status: Never smoker alcohol intake: current Meds Home Medications and Allergies Home Medications Medication Instructions Recorded Confirmed Type atenolol 100 mg tablet 100 mg PO DAILY 12/29/22 02/25/23 History hydralazine 25 mg tablet 25 mg PO TID 12/29/22 02/25/23 History trazodone 50 mg tablet 25 mg PO BEDTIME 12/29/22 01/22/23 History acetaminophen 325 mg tablet 650 mg PO Q6H PRN Fever/Mild Pain 01/02/23 02/25/23 Rx (1-3) #60 tabs bisacodyl 5 mg tablet,delayed 10 mg PO DAILY PRN Constipation #7 01/02/23 02/25/23 Rx release tabs melatonin 3 mg tablet 6 mg PO BEDTIME PRN Insomnia #30 01/02/23 02/25/23 Rx tabs polyethylene glycol 3350 17 gram 17 g PO DAILY #14 ea 01/02/23 01/22/23 Rx oral powder packet sennosides 8.6 mg tablet (senna) 8.6 mg PO BID #20 tabs 01/02/23 01/22/23 Rx Lactobacillus acidophilus-pectin 1 tab PO DAILY 01/22/23 02/25/23 History chewable tablet (Acidophilus-Pectin chewable tablet) fluoxetine 20 mg capsule 20 mg PO QAM 01/22/23 02/25/23 History lidocaine 5 % topical patch 1 patch topical DAILY 01/22/23 02/25/23 History loratadine 10 mg tablet 10 mg PO BID 01/22/23 02/25/23 History sodium chloride 0.65 % nasal spray 2 spray intranasal BID 01/22/23 01/22/23 History aerosol (Saline Nasal) losartan 25 mg tablet 25 mg PO BID #60 tabs 01/26/23 02/25/23 Rx peg 3350-electrolytes 236 240 ml PO Q10M #4,000 mL 02/17/23 Rx gram-22.74 gram-6.74 gram-5.86 gram solution (Golytely) Allergies Allergy/AdvReac Type Severity Reaction Status Date / Time No Known Drug Allergies Allergy Verified 02/25/23 10:15 Exam Vital Signs (past 8 hours): - 02/25/23 10:24 Temperature 97.8 F Pulse Rate 64 Respiratory Rate 16 Blood Pressure 174/83 H Pulse Oximetry 98 Oxygen Delivery Method Room Air Oxygen Delivery Method Room Air Const General: No acute distress Assessment & Plan Assessment and plan (1) Anemia: Qualifiers: Anemia type: unspecified type Qualified Code(s): D64.9 - Anemia, unspecified Status: Acute Plan We reviewed the risks and benefits of colonoscopy and she would like to proceed
[2023-02-25 13:20] VITALS: BP 144/75; PULSE 64; RESP 20; TEMP 36.2; O2SAT 96
--- NOTE | 2023-02-25 13:20 | PM.OP.COLON ---
Operative Date/Time/Diagnoses Date of procedure: 02/25/23 Time of procedure: 13:20 Pre-op diagnosis: Anemia Post-op diagnosis: same Procedure & Clinicians Study performed: Colonoscopy Same procedure as scheduled: Yes Surgeon: Ham Rivera Procedure Notes Procedure in detail: Surgeon: Ham Rivera MD Anesthesia: Itz Ordonez CRNA Procedure: The patient was brought to the endoscopy suite, placed in left lateral decubitus position. The patient was connected to monitoring devices. A time-out was performed. Sedation was administered. Once the patient was adequately sedated, a digital rectal exam was performed and was normal. The scope was then inserted and advanced to the cecum where the appendiceal orifice was identified and photographed. The scope was then slowly withdrawn over greater than 6 minutes. The mucosa was thoroughly inspected. There was a 7 mm polyp in the cecum removed with a cold snare. There was rather extensive diverticulosis in the descending and sigmoid colon. The scope was retroflexed in the rectum. No other abnormalities were seen. The scope was straightened and removed. The patient was awakened and brought to recovery. Scope withdrawal time: 8 minutes Sedation time: 17 minutes EBL: 5 mL Findings: 7 mm cecal polyp and sigmoid diverticulosis Post-procedure Disposition: PACU
[2023-02-25 13:26] VITALS: BP 162/79; PULSE 665; RESP 18; O2SAT 98
[2023-02-25 13:30] VITALS: BP 153/81; PULSE 64; RESP 18; O2SAT 95
[2023-02-25 13:34] VITALS: BP 155/77; PULSE 62; RESP 16; TEMP 36.6; O2SAT 96
== END 2023-02-25 14:02 | disposition home or self-care (01) ==
PROVIDERS: Family Provider Internal Medicine; PCP Internal Medicine; Referring Provider Surgery; Visit Provider Surgery
PROC: 0DJD8ZZ Inspection of Lower Intestinal Tract, Via Natural or Artificial Opening Endoscopic (ICD-10-PCS; CPT 45378; principal; 2023-02-25 11:00)
DX: D64.9 Anemia, unspecified (principal); K57.30 Diverticulosis of large intestine without perforation or abscess without bleeding; D12.0 Benign neoplasm of cecum
CPT/HCPCS: 45385; J2704

== ENCOUNTER → 2023-05-10 12:46 | Outpatient (CLI) | payer OTHER, SELFPAY ==
[2023-01-22 22:51] VITALS: BMI 20.9
--- NOTE | 2023-05-10 13:05 | DI.DEXA.S_ITS ---
Bone Density Report Name: ANIVAL RUST Age: 82 Sex: Female Ethnicity: White Date of : 1940 Indication: postmenopausal; screening for osteoporosis; prior fracture; Referring Provider: TERRANCE ARIZA Study: Bone densitometry was performed. Exam Date: May 10, 2023 Accession number: [id number] Bone Density: Region BMD T-score Z-score Classification AP Spine(L1, L3, L4) 1.136 0.8 3.5 Normal Femoral Neck (Left) 0.593 -2.3 0.0 Osteopenia Total Hip (Left) 0.758 -1.5 0.6 Osteopenia Total Forearm (Left) 0.397 -3.4 -0.3 Osteoporosis 1/3 Forearm (Left) 0.541 -2.6 0.7 Osteoporosis UD Forearm (Left) 0.276 -2.9 -0.6 Osteoporosis World Health Organization criteria for BMD impression classify patients as: Normal (T-score at or above -1.0), Osteopenia (T-score between -1.0 and -2.5), or Osteoporosis (T-score at or below -2.5). 10-year Fracture Risk: FRAX not reported because: Prior hip or vertebral fracture Impression: The patient has low bone mass, based on the Left Femoral Neck T-score. The patient has risk factors, including: previous fracture. Discussion: INCREASED RISK OF FRACTURE DUE TO HISTORY OF FRACTURE. The patient's previous fracture puts the patient at high risk of a future fracture. In untreated patients, the risk of osteoporotic fracture increases approximately two-fold for each 1.0 SD decrease in T-score. Low bone density is not the only risk factor for fracture; also consider factors such as patient's age, frailty or poor health, risk of falling, risk of injury, previous osteoporotic fracture, family history of osteoporosis, cigarette smoking, low body weight, etc. Not everyone with a low trauma fracture has osteoporosis; osteomalacia and other metabolic bone disorders should also be considered. Patients who have osteoporosis should be evaluated for specific diseases and conditions (secondary causes) that may cause or contribute to bone loss and fracture risk. National Osteoporosis Foundation (NOF) recommends pharmacologic intervention for patients with a prior hip or vertebral fracture regardless of BMD T-score. The patient should follow a healthful lifestyle (good nutrition with adequate calcium and vitamin D, and appropriate weight-bearing exercise). Follow-Up: Consider a repeat BMD and Vertebral Fracture Assessment (VFA) exam in 2 years or sooner if medically necessary, to reassess this patient's status. Reported by: THEO SAMANO M.D. on 05/10/2023 1:16:00 PM.
== END ==
PROVIDERS: Family Provider Internal Medicine; PCP Internal Medicine; Referring Provider Internal Medicine; Visit Provider Internal Medicine
DX: M81.0 Age-related osteoporosis without current pathological fracture (principal); Z13.820 Encounter for screening for osteoporosis; Z78.0 Asymptomatic menopausal state
CPT/HCPCS: 77080; 77081

== ENCOUNTER → 2023-05-26 14:34 | Outpatient (CLI) | payer OTHER, SELFPAY ==
[2023-01-22 22:51] VITALS: BMI 20.9
[2023-05-26 15:31] LABS: Appearance Urine UA CLEAR; Bilirubin Urine UA NEGATIVE (NEGATIVE); Color Urine UA YELLOW; Glucose Urine UA NEGATIVE (Negative); Ketones Urine UA NEGATIVE (NEGATIVE); Leukocyte Esterase Urine UA NEGATIVE (NEGATIVE); Nitrite Urine UA NEGATIVE (Negative); Occult Blood Urine UA NEGATIVE (Negative); Protein Urine UA 2+ (Negative); Urobilinogen Urine UA 0.2 E.U./dL (0.2)
[2023-05-26 15:38] LABS: Bacteria Urine Occasional (0-1); Culture Indicated Urine Cult Not Indicated; RBC Urine 0-1/HPF (0-5/HPF); Squamous Epithelial Cell Urine 0-1 /HPF (0-5/HPF); WBC Urine 0-1/HPF (0-5/HPF)
[2023-05-26 16:11] LABS: Alanine Aminotransferase 23 IU/L (<35); Albumin Globulin Ratio 1.2 (1.0-2.8); Alkaline Phosphatase 58 U/L (38-126); Aspartate Aminotransferase 33 IU/L (14-36); BUN Creatinine Ratio 32.3 (6-22); Bilirubin Total 0.3 mg/dL (0.2-1.3); Blood Urea Nitrogen 51 mg/dL (7-17); Calcium 8.9 mg/dL (8.4-10.2); Carbon Dioxide 30 mmol/L (22-32); Chloride 98 mmol/L (98-107); Estimated Glomerular Filt Rate 33 mL/min (>60); Globulin 3.4 g/dL (1.7-4.1); Glucose 130 mg/dL (80-110); HEMOLYSIS < 15 (0-50); Potassium 4.8 mmol/L (3.4-5.1); Sodium 134 mmol/L (137-145); Total Protein 7.4 g/dL (6.3-8.2)
== END ==
PROVIDERS: Family Provider Internal Medicine; PCP Internal Medicine; Referring Provider Internal Medicine; Visit Provider Internal Medicine
DX: R30.0 Dysuria (principal)
CPT/HCPCS: 36415; 80053; 81001

== ENCOUNTER 2023-12-18 13:48 | Emergency (ER) | payer OTHER, SELFPAY ==
[2023-01-22 22:51] VITALS: BMI 20.9
[2023-12-18 13:51] VITALS: BP 146/72; PULSE 65; RESP 15; TEMP 36.7; O2SAT 96; BMI 20.3
--- NOTE | 2023-12-18 16:23 | ED_ITS ---
HPI - URI/Sore Throat <Katrina Lopez PA-C - Last Filed: 12/18/23 17:40> General Chief Complaint: Upper Respiratory Symptoms Stated Complaint: states Covid+/sore throat Time Seen by Provider: 12/18/23 14:32 Source: patient Mode of arrival: Ambulatory History of Present Illness HPI Narrative: 83-year-old female here with her daughter for a sore throat. She tested positive for COVID at home this morning. Daughter brought patient in because so she is concerned that patient has COVID. Patient reports coughing and sore throat. States the sore throat is severe and earlier she found it hard to swallow water but now that she is eating ice chips here in the ED she states it feels a little better. No fevers. Able to tolerate secretions. No shortness a breath or wheezing. This is the 1st time she has had COVID that she is aware of. She has not tried any medications at all at home. Related Data Home Medications Medication Instructions Recorded Confirmed atenolol 100 mg tablet 100 mg PO DAILY 12/29/22 02/25/23 hydralazine 25 mg tablet 25 mg PO TID 12/29/22 02/25/23 trazodone 50 mg tablet 25 mg PO BEDTIME 12/29/22 01/22/23 Lactobacillus acidophilus-pectin 1 tab PO DAILY 01/22/23 02/25/23 chewable tablet (Acidophilus-Pectin chewable tablet) fluoxetine 20 mg capsule 20 mg PO QAM 01/22/23 02/25/23 lidocaine 5 % topical patch 1 patch topical DAILY 01/22/23 02/25/23 loratadine 10 mg tablet 10 mg PO BID 01/22/23 02/25/23 sodium chloride 0.65 % nasal spray 2 spray intranasal BID 01/22/23 01/22/23 aerosol (Saline Nasal) Previous Rx's Medication Instructions Recorded acetaminophen 325 mg tablet 650 mg (2 x 325 mg) PO Q6H PRN 01/02/23 Fever/Mild Pain (1-3) #60 tabs bisacodyl 5 mg tablet,delayed 10 mg (2 x 5 mg) PO DAILY PRN 01/02/23 release Constipation #7 tabs melatonin 3 mg tablet 6 mg (2 x 3 mg) PO BEDTIME PRN 01/02/23 Insomnia #30 tabs sennosides 8.6 mg tablet (senna) 8.6 mg PO BID #20 tabs 01/02/23 losartan 25 mg tablet 25 mg PO BID #60 tabs 01/26/23 Allergies Allergy/AdvReac Type Severity Reaction Status Date / Time No Known Drug Allergies Allergy Verified 12/18/23 13:51 Review of Systems <Katrina Lopez PA-C - Last Filed: 12/18/23 17:40> Review of Systems ROS Unobtainable: All systems reviewed & are unremarkable except as noted in HPI and below Patient History <Katrina Lopez PA-C - Last Filed: 12/18/23 17:40> Medical History Depression Essential hypertension Hypertension Insomnia Surgical History History of hip surgery Family History Father Congestive heart failure Mother Hypertension Social History household members: other Smoking Status: Never smoker alcohol intake: current Smoking Status: Never smoker alcohol intake frequency: holidays/special occasions only Substance Use Type: does not use Exam <Katrina Lopez PA-C - Last Filed: 12/18/23 17:40> Narrative Exam Narrative: GENERAL: Well-developed, well-nourished, appears stated age. In no acute distress, drinking water and ice chips HEAD: Atraumatic. Normocephalic. EYES: Pupils equal round and reactive. Extraocular motions intact. No scleral icterus. No injection or drainage. ENT: Nose without bleeding, purulent drainage. Airway patent. Posterior oropharynx without erythema, edema. No tonsillar swelling or hypertrophy. NECK: Trachea midline. Non tender RESPIRATORY: Normal lung sounds bilaterally, no wheezes rhonchi or crackles CV: Regular rate and rhythm EXTREMITIES: No edema or joint tenderness. NEURO: AOx3. SKIN: No rash or erythema of visible areas Initial Vital Signs Initial Vital Signs: Vital Signs Temperature 98.1 F 12/18/23 13:51 Pulse Rate 65 12/18/23 13:51 Respiratory Rate 15 12/18/23 13:51 Blood Pressure 146/72 H 12/18/23 13:51 Pulse Oximetry 96 12/18/23 13:51 Oxygen Delivery Method Room Air 12/18/23 13:51 <Natalie Parra MD - Last Filed: 12/18/23 17:45> Initial Vital Signs Initial Vital Signs: Vital Signs Temperature 98.1 F 12/18/23 13:51 Pulse Rate 65 12/18/23 13:51 Respiratory Rate 15 12/18/23 13:51 Blood Pressure 146/72 H 12/18/23 13:51 Pulse Oximetry 96 12/18/23 13:51 Oxygen Delivery Method Room Air 12/18/23 13:51 Course <Katrina Lopez PA-C - Last Filed: 12/18/23 17:40> Vital Signs Vital signs: Vital Signs - 8 hr 12/18/23 13:51 12/18/23 16:29 Temperature 98.1 F 98.4 F Pulse Rate 65 67 Respiratory Rate 15 20 Blood Pressure 146/72 H 156/90 H Pulse Oximetry 96 96 Oxygen Delivery Method Room Air Room Air <Natalie Parra MD - Last Filed: 12/18/23 17:45> Vital Signs Vital signs: Vital Signs - 8 hr 12/18/23 13:51 12/18/23 16:29 Temperature 98.1 F 98.4 F Pulse Rate 65 67 Respiratory Rate 15 20 Blood Pressure 146/72 H 156/90 H Pulse Oximetry 96 96 Oxygen Delivery Method Room Air Room Air MDM - URI/Sore Throat <Katrina Lopez PA-C - Last Filed: 12/18/23 17:40> MDM Narrative Medical decision making narrative: Patient tested positive for COVID at home today. She has having a cough and sore throat. Normal vital signs, no respiratory distress, nontoxic-appearing. She is drinking small amounts of water and ice chips in the ER and tolerating her own secretions. Her examination is benign with no findings of strep throat, pneumonia, or any other signs of bacterial infection. They were mostly worried about COVID itself and wondering what to watch out for. We discussed what to monitor for, return precautions, and supportive care at home. Discharge Plan Departure Patient Disposition: Home Clinical Impression: COVID-19 Instructions: Sore Throat, COVID-19 Activity Restrictions/Additional Instructions: You were seen today for a COVID-19 infection. Your vital signs are normal any have no evidence of pneumonia, strep throat, or other bacterial infection. COVID is a virus in your body will fight off the virus in approximately 7-10 days but can sometimes take a little longer. For your sore throat we recommend alternating Tylenol 500 mg and ibuprofen 600 mg. Take the ibuprofen every 6-8 hours and if you have pain in between doses you can take the Tylenol. You may also try Chloraseptic throat spray and/or throat lozenges. Warm tea with honey or ice chips can also be effective for sore throats. We discussed signs and symptoms of worsening condition including difficulty breathing and signs of dehydration and if these occur please return to the emergency department. Prescriptions: No Action trazodone 50 mg tablet 25 mg PO BEDTIME atenolol 100 mg Tablet 100 mg PO DAILY hydralazine 25 mg Tablet 25 mg PO TID Rx Instructions: Hold for SBP < 100 or HR < 60 acetaminophen 325 mg Tablet 650 mg PO Q6H PRN (Reason: Fever/Mild Pain (1-3)) Qty: 60 0RF bisacodyl 5 mg Tablet,Delayed Release (Dr/Ec) 10 mg PO DAILY PRN (Reason: Constipation) Qty: 7 0RF melatonin 3 mg Tablet 6 mg PO BEDTIME PRN (Reason: Insomnia) Qty: 30 0RF sennosides [senna] 8.6 mg Tablet 8.6 mg PO BID Qty: 20 0RF lidocaine 5 % Adhesive Patch,Medicated 1 patch topical DAILY Rx Instructions: to R Hip fluoxetine 20 mg capsule 20 mg PO QAM Saline Nasal 0.65 % Aerosol,[place] 2 spray INTRANASAL BID Rx Instructions: sinusitis Acidophilus-Pectin Tablet,Chewable 1 tab PO DAILY Rx Instructions: administer with food or milk loratadine 10 mg tablet 10 mg PO BID losartan 25 mg tablet 25 mg PO BID Qty: 60 0RF Referrals: Kalpesh Davila MD [Primary Care Provider] - Stand Alone Forms: Patient Portal/API ED Sign-out <Natalie Parra MD - Last Filed: 12/18/23 17:45> Cosign ED Attending Cosignature Attestation: I did not see this patient. I was available all times for consultation.
[2023-12-18 16:29] VITALS: BP 156/90; PULSE 67; RESP 20; TEMP 36.9; O2SAT 96
== END 2023-12-18 16:46 | disposition home or self-care (01) ==
PROVIDERS: Emergency Provider Physician Assistant; Family Provider Internal Medicine; PCP Internal Medicine
DX: U07.1 COVID-19 (principal)
CPT/HCPCS: 99281

== ENCOUNTER → 2024-03-09 09:54 | Outpatient (CLI) | payer OTHER, SELFPAY ==
[2023-01-22 22:51] VITALS: BMI 20.9
== END ==
PROVIDERS: Family Provider Internal Medicine; PCP Internal Medicine; Referring Provider Internal Medicine; Visit Provider Internal Medicine
DX: Z51.81 Encounter for therapeutic drug level monitoring (principal)
CPT/HCPCS: 93005; 93010

== ENCOUNTER → 2024-03-16 10:59 | Outpatient (CLI) | payer OTHER, SELFPAY ==
[2023-01-22 22:51] VITALS: BMI 20.9
--- NOTE | 2024-03-16 11:30 | DI.RAD.S_ITS ---
PROCEDURE: XR DEXA AXIAL SKELETON INDICATIONS: Asymptomatic menopausal state COMPARISON: [facility], CR, XR DEXA AXIAL SKELETON, 05/10/2023, 13:05. FINDINGS: Lumbar Spine: L1-L4 Bone mineral density 1.194 g/cm2, T score 1.3. Left Hip: Bone mineral density 0.776 g/cm2, T score -1.4. Left Femoral Neck: Bone mineral density 0.587 g/cm2, T score -2.4. Left Forearm: Bone mineral density 0.582 g/cm2, T score -1.9, there is significant interval increase in bone mineral density. Fracture Risk Calculation (when applicable): FRAX not provided due to prior hip or vertebral fracture. (T score greater or equal to -1.0 to: NORMAL) (T score from -1.1 to -2.4: OSTEOPENIA) (T score less than or equal to -2.5: OSTEOPOROSIS) IMPRESSION: Osteopenia. There is significant interval increase in bone mineral density at the left forearm. Dictated by: David Whittington M.D. on 03/17/2024 at 8:28 Approved by: David Whittington M.D. on 03/17/2024 at 8:31
== END ==
LOC: RAD 10:59
PROVIDERS: PCP Internal Medicine; Referring Provider Family Medicine; Visit Provider Family Medicine
DX: M85.89 Other specified disorders of bone density and structure, multiple sites; R93.7 Abnormal findings on diagnostic imaging of other parts of musculoskeletal system
CPT/HCPCS: 77080; 77081

== ENCOUNTER → 2024-03-24 09:54 | Outpatient (CLI) | payer OTHER, SELFPAY ==
[2023-01-22 22:51] VITALS: BMI 20.9
== END ==
PROVIDERS: PCP Internal Medicine; Referring Provider Internal Medicine; Visit Provider Internal Medicine
DX: Z51.81 Encounter for therapeutic drug level monitoring (principal)
CPT/HCPCS: 93005

== ENCOUNTER → 2024-10-12 11:23 | Outpatient (CLI) | payer OTHER, SELFPAY ==
[2023-01-22 22:51] VITALS: BMI 20.9
[2024-10-12 12:46] LABS: Influenza A - CEPHEID Flu A NEGATIVE (NEGATIVE); Influenza B - CEPHEID Flu B NEGATIVE (NEGATIVE); Respiratory Syncytial Virus Negative (Negative)
[2024-10-12 12:47] LABS: COVID-19 CEPHEID 4-PLEX PCR Negative (Negative)
== END ==
PROVIDERS: PCP Internal Medicine; Visit Provider Physician Assistant
DX: R05.1 Acute cough (principal); J01.10 Acute frontal sinusitis, unspecified
CPT/HCPCS: 0241U

== ENCOUNTER → 2024-10-17 12:18 | Outpatient (CLI) | payer OTHER, SELFPAY ==
[2023-01-22 22:51] VITALS: BMI 20.9
--- NOTE | 2024-10-17 12:20 | DI.RAD.S_ITS ---
PROCEDURE: XR CHEST 2V INDICATIONS: WEIGHT LOSS TECHNIQUE: 2 views of the chest were acquired. COMPARISON: [facility], CR, XR CHEST 1V, 01/22/2023, 14:19. FINDINGS: Surgical changes and devices: Bilateral breast plans with capsular calcifications. Lungs and pleura: Lungs are clear. No pleural effusions or pneumothorax. Mediastinum: Mediastinal contours are normal. Heart size is normal. Bones and chest wall: No suspicious bony abnormalities. Soft tissues appear unremarkable. IMPRESSION: No acute cardiopulmonary abnormality is seen. Approved by: Randall Medley M.D. on 10/17/2024 at 20:19
== END ==
PROVIDERS: PCP Internal Medicine; Referring Provider Internal Medicine; Visit Provider Internal Medicine
DX: R63.4 Abnormal weight loss (principal); R53.81 Other malaise
CPT/HCPCS: 71046

== ENCOUNTER → 2024-11-13 11:17 | Outpatient (CLI) | payer OTHER, SELFPAY ==
[2023-01-22 22:51] VITALS: BMI 20.9
[2024-11-13 12:49] LABS: Hematocrit 35.5 % (36-46); Hemoglobin 11.8 g/dL (12.0-16.0); Mean Corpuscular HGB Conc 33.3 % (30-36); Mean Corpuscular Hemoglobin 35.9 PG (26-34); Mean Corpuscular Volume 107.7 fL (80-100); Platelet Count 268 X10^3/uL (150-400); Red Cell Distribution Width 14.6 % (11.6-14.8); White Blood Cell Count 8.1 X10^3/uL (4.5-11.0)
[2024-11-13 13:18] LABS: BUN Creatinine Ratio 26.4 (6-22); Blood Urea Nitrogen 37 mg/dL (7-17); Carbon Dioxide 27 mmol/L (22-32); Chloride 100 mmol/L (98-107); Estimated Glomerular Filt Rate 38 mL/min (>60); Glucose 124 mg/dL (80-110); HEMOLYSIS < 15 (0-50); Potassium 4.6 mmol/L (3.4-5.1); Sodium 135 mmol/L (137-145)
[2024-11-13 14:06] LABS: Vitamin B12 742 pg/mL (239-931)
[2024-11-13 16:16] LABS: Neutrophils Absolute Manual 5832 /uL (3000-5900); Total Cells Counted 100
[2024-11-13 16:17] LABS: Macrocytosis 1+
== END ==
LOC: LAB 11:18
PROVIDERS: PCP Internal Medicine; Referring Provider Internal Medicine; Visit Provider Internal Medicine
DX: R63.4 Abnormal weight loss (principal)
CPT/HCPCS: 36415; 80048; 82607; 85025

== ENCOUNTER 2025-01-10 19:43 | Emergency (ER) | payer OTHER, SELFPAY ==
[2023-01-22 22:51] VITALS: BMI 20.9
[2025-01-10] VITALS (8 sets, daily range): BP systolic 127–162; BP diastolic 74–83; PULSE 68–73; RESP 15–18; TEMP 36.6; O2SAT 96–98; BMI 20.3
--- NOTE | 2025-01-10 22:34 | PC.NURSE ---
pain to right hip; landed on right hip. Ambulated steady slow gate to restroom w walker, independent. Cleaning ER room and will need hip visually assessed after returning from restroom
--- NOTE | 2025-01-10 22:46 | DI.RAD.S_ITS ---
PROCEDURE: XR HIP W PEL IF DONE RT 2V INDICATIONS: GLF, Hip painful TECHNIQUE: 3 views of the hip were acquired. COMPARISON: [facility], CR, XR HIP W PEL IF DONE RT 2V, 01/22/2023, 6:13. Merged With [facility], CR, XR HIP W PEL IF DONE RT 2V, 12/30/2022, 18:14. FINDINGS AND IMPRESSION: Similar appearance of the right femoral intramedullary katherin with interlocking screws. Possible nondisplaced lucency and cortical irregularity is seen at the lesser trochanter. If there is high concern, consider CT to further evaluate. 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 Background moderate degenerative changes. Increased fecal loading. Dictated by: Justice Ramirez M.D. on 01/10/2025 at 23:11 Approved by: Justice Ramirez M.D. on 01/10/2025 at 23:14
--- NOTE | 2025-01-10 22:50 | DI.CT.S_ITS ---
PROCEDURE: CT HEAD/BRAIN WO CON INDICATIONS: GLF, GUZMAN, Lac to head TECHNIQUE: Noncontrast 4.5 mm thick angled axial sections acquired from the foramen magnum to the vertex, with coronal and sagittal reformats. For radiation dose reduction, the following was used: automated exposure control, adjustment of mA and/or kV according to patient size. COMPARISON: None. FINDINGS: Image quality: Diagnostic CSF spaces: Basal cisterns are patent. Lateral ventricles are symmetric. Volume: Vascular calcifications. Periventricular white matter disease is commonly seen with chronic microangiopathy. Volume loss is present. These findings are moderate to severe Brain: No intracranial hemorrhage. Bacon-white differentiation is grossly maintained. Craniofacial structures: No significant paranasal sinus opacity. Right posterior scalp contusion IMPRESSION: No acute intracranial pathology. Dictated by: Justice Ramirez M.D. on 01/10/2025 at 23:10 Approved by: Justice Ramirez M.D. on 01/10/2025 at 23:11
--- NOTE | 2025-01-10 22:51 | PC.NURSE ---
R hip tender to palpation, painful to move but able to stand, pivot, walk; X Ray hip ordered. Visualized Hip and no bruising noted. No deformity/Shortening of leg.
[2025-01-11 00:13] VITALS: PULSE 67; O2SAT 94
[2025-01-11 00:30] VITALS: BP 142/81; PULSE 70; O2SAT 97
[2025-01-11 01:00] VITALS: BP 122/73; PULSE 70; O2SAT 94
[2025-01-11 01:30] VITALS: BP 128/73; PULSE 71; O2SAT 94
--- NOTE | 2025-01-11 01:49 | ED_ITS ---
HPI - Fall General Chief Complaint: Fall Stated Complaint: fall Time Seen by Provider: 01/11/25 00:46 Source: EMS Mode of arrival: EMS History of Present Illness HPI Narrative: 84-year-old female had mechanical tripping fall at her [facility] residence, does not believe that she lost consciousness, does not take blood thinner medications, also complained of hip pain on the left side where she has had previous remote surgery. No other injuries. Specifically she denies neck pain, upper back pain, mid lower back pain, chest pain, abdominal pelvic pain. She denies pain to upper extremities, right lower extremity, distal left lower ext remity. No nausea or vomiting. No focal weakness to face arm or leg. No focal numbness to face arm or leg. Related Data Home Medications Medication Instructions Recorded Confirmed atenolol 100 mg tablet 100 mg PO DAILY 12/29/22 10/12/24 hydralazine 25 mg tablet 25 mg PO TID 12/29/22 10/12/24 trazodone 50 mg tablet 25 mg PO BEDTIME 12/29/22 10/12/24 Lactobacillus acidophilus-pectin 1 tab PO DAILY 01/22/23 10/12/24 chewable tablet (Acidophilus-Pectin chewable tablet) fluoxetine 20 mg capsule 20 mg PO QAM 01/22/23 10/12/24 lidocaine 5 % topical patch 1 patch topical DAILY 01/22/23 10/12/24 loratadine 10 mg tablet 10 mg PO BID 01/22/23 10/12/24 sodium chloride 0.65 % nasal spray 2 spray intranasal BID 01/22/23 10/12/24 aerosol (Saline Nasal) Previous Rx's Medication Instructions Recorded acetaminophen 325 mg tablet 650 mg (2 x 325 mg) PO Q6H PRN 01/02/23 Fever/Mild Pain (1-3) #60 tabs bisacodyl 5 mg tablet,delayed 10 mg (2 x 5 mg) PO DAILY PRN 01/02/23 release Constipation #7 tabs melatonin 3 mg tablet 6 mg (2 x 3 mg) PO BEDTIME PRN 01/02/23 Insomnia #30 tabs sennosides 8.6 mg tablet (senna) 8.6 mg PO BID #20 tabs 01/02/23 losartan 25 mg tablet 25 mg PO BID #60 tabs 01/26/23 amoxicillin 875 mg-potassium 1 tab PO Q12H #20 tabs 10/12/24 clavulanate 125 mg tablet benzonatate 200 mg capsule 200 mg PO TID PRN cough #30 caps 10/12/24 fluticasone propionate 50 1 spray intranasal DAILY #16 grams 10/12/24 mcg/actuation nasal spray,suspension (Flonase Allergy Relief) guaifenesin 1,200 mg tablet, 1,200 mg PO Q12H #30 tabs 10/12/24 extended release 12 hr Allergies Allergy/AdvReac Type Severity Reaction Status Date / Time No Known Drug Allergies Allergy Verified 10/12/24 11:18 Patient History Medical History Depression Essential hypertension Hypertension Insomnia Surgical History History of hip surgery Family History Father Congestive heart failure Mother Hypertension Social History household members: other Smoking Status: Never smoker alcohol intake: current Smoking Status: Never smoker alcohol intake frequency: holidays/special occasions only Exam Narrative Exam Narrative: GENERAL: Well-developed patient, in mild distress. HEAD: Small 5-mm length mid occipital laceration without active bleeding, no crepitance, no obvious foreign bodies EYES: Pupils equal round and reactive. Extraocular motions intact. No scleral icterus. No injection or drainage. ENT: Nose without bleeding, purulent drainage. Throat without erythema, tonsillar hypertrophy or exudate. Airway patent. NECK: Trachea midline. Non tender CARDIOVASCULAR: Regular rate and rhythm without murmurs, gallops, or rubs. RESPIRATORY: Clear to auscultation. Breath sounds equal bilaterally. No wheezes, rales, or rhonchi. GASTROINTESTINAL: Abdomen soft, non-tender, nondistended. EXTREMITIES: No edema or joint tenderness. No limb length discrepancy. Minimal tenderness left lateral trochanteric region, no skin changes, no tenderness anteriorly. BACK: Nontender without deformity or crepitance. No flank tenderness. NEURO: AOx3. Motor functions grossly nonfocal SKIN: No rash or erythema of visible areas Initial Vital Signs Initial Vital Signs: Vital Signs Temperature 97.9 F 01/10/25 19:48 Pulse Rate 70 01/10/25 19:48 Respiratory Rate 15 01/10/25 19:48 Blood Pressure 139/81 01/10/25 19:48 Pulse Oximetry 98 01/10/25 19:48 Oxygen Delivery Method Room Air 01/10/25 19:48 Procedures Laceration Repair Laceration 1: Time of procedure: 03:15 Site: scalp (Midline occipital scalp) Size (cm): 0.5 Description: linear Depth: simple, single layer Amount of anesthesia used (mL): 0 Skin layer closed with: angela Number of sutures: 1 Course Orders Ordered: Discontinued Medications Bacitracin (Bacitracin Oint 0.9 Gm Pckt) 1 applic TOP NOW ONE Stop: 01/11/25 03:14 Last Admin: 01/11/25 05:36 Dose: 1 applic Documented By: Diphtheria/Tetanus/Acell Pertussis (Tet,Diph,Pertuss(Acell),Vac/Pf 0.5 Ml Syringe) 0.5 ml IM .ONCE ONE Stop: 01/11/25 02:26 Last Admin: 01/11/25 02:42 Dose: 0.5 ml Documented By: CHELLE Vital Signs Vital signs: Vital Signs - 8 hr 01/10/25 23:25 01/11/25 00:13 01/11/25 00:30 Pulse Rate 68 67 70 Respiratory Rate 18 Blood Pressure 127/77 Pulse Oximetry 98 94 97 Oxygen Delivery Method Room Air 01/11/25 00:30 01/11/25 01:00 01/11/25 01:00 Pulse Rate 70 Respiratory Rate Blood Pressure 142/81 H 122/73 Pulse Oximetry 94 Oxygen Delivery Method 01/11/25 01:30 01/11/25 01:30 01/11/25 02:00 Pulse Rate 71 72 Respiratory Rate Blood Pressure 128/73 Pulse Oximetry 94 95 Oxygen Delivery Method Room Air 01/11/25 02:00 01/11/25 06:15 01/11/25 06:15 Pulse Rate 75 Respiratory Rate 16 Blood Pressure 136/76 160/84 H Pulse Oximetry 95 Oxygen Delivery Method Room Air MDM - Fall Imaging Data Extremity x-ray #1: Radiologist's Impression: [address] [address] XRay Report Signed Patient: Samara Winslow MR#: [id number] : 1940 Acct:[id number] Age/Sex: 84 / F Date of Service: 01/10/25 Loc: ED Accession Number: [id number] Procedure: XR hip w pel if done RT 2V Ordering Provider: Adelfo Diaz MD PROCEDURE: XR HIP W PEL IF DONE RT 2V INDICATIONS: GLF, Hip painful TECHNIQUE: 3 views of the hip were acquired. COMPARISON: [facility], CR, XR HIP W PEL IF DONE RT 2V, 01/22/2023, 6:13. [facility], CR, XR HIP W PEL IF DONE RT 2V, 12/30/2022, 18:14. FINDINGS AND IMPRESSION: Similar appearance of the right femoral intramedullary katherin with interlocking screws. Possible nondisplaced lucency and cortical irregularity is seen at the lesser trochanter. If there is high concern, consider CT to further evaluate. 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 Background moderate degenerative changes. Increased fecal loading. Dictated by: Justice Ramirez M.D. on 01/10/2025 at 23:11 Approved by: Justice Ramirez M.D. on 01/10/2025 at 23:14 CT scan - head: Radiologist's Impression: [place] [address] CT Scan Report Signed Patient: Samara Winslow MR#: [id number] : 1940 Acct:[id number] Age/Sex: 84 / F Date of Service: 01/10/25 Loc: ED Accession Number: [id number] Procedure: CT head/brain wo con Ordering Provider: Adelfo Diaz MD PROCEDURE: CT HEAD/BRAIN WO CON INDICATIONS: GLF, GUZMAN, Lac to head TECHNIQUE: Noncontrast 4.5 mm thick angled axial sections acquired from the foramen magnum to the vertex, with coronal and sagittal reformats. For radiation dose reduction, the following was used: automated exposure control, adjustment of mA and/or kV according to patient size. COMPARISON: None. FINDINGS: Image quality: Diagnostic CSF spaces: Basal cisterns are patent. Lateral ventricles are symmetric. Volume: Vascular calcifications. Periventricular white matter disease is commonly seen with chronic microangiopathy. Volume loss is present. These findings are moderate to severe Brain: No intracranial hemorrhage. Bacon-white differentiation is grossly мария ntained. Craniofacial structures: No significant paranasal sinus opacity. Right posterior scalp contusion IMPRESSION: No acute intracranial pathology. Dictated by: Justice Ramirez M.D. on 01/10/2025 at 23:10 Approved by: Justice Ramirez M.D. on 01/10/2025 at 23:11 [facility] Narrative Medical decision making narrative: 84-year-old female had mechanical fall backwards, striking the back of her head with small laceration, no blood thinner medications, no known loss of consciousness. Denies neck discomfort. Denies pain or tingling to upper extremities. No difficulties with walking. Denies truncal injuries. Denies upper mid low back injury or new pain in those areas. X-ray right hip shows intramedullary katherin ORIF, cortical lucency, bone fragment along katherin, similar appearance to 2022. See radiology report. Will hold further CT/MRI imaging of the right hip at this time. CT head and cervical spine studies unremarkable. See radiology report. Small 5 mm occipital laceration present, we did discuss numbing versus single staple without numbing, she would like to proceed. Single staple placed with good approximation. No active bleeding. See procedure note. Patient seems to be able to flex her hip, sitting in wheelchair waiting to return to her [facility] residence. Discharged home, follow up with PCP advised early next week. Return precautions discussed. Discharge Plan Departure Patient Disposition: Home Clinical Impression: Fall from ground level, Laceration of scalp, Contusion of right hip Instructions: DI for Laceration Repair of the Scalp, How to Prevent Falls Activity Restrictions/Additional Instructions: Mechanical ground level fall, backwards striking head, no loss of consciousness, small bleeding laceration. 5 mm occipital scalp laceration on examination, closed with single staple closure. Wound cleansing, antibiotic ointment placed over the wound. Apply antibiotic ointment twice daily. Staple removal 7 days with your regular provider. X-rays right hip showed old repair, similar changes to 2022 study. Tetanus shot update was also given. Prescriptions: No Action fluticasone propionate [Flonase Allergy Relief] 50 mcg/actuation spray,suspension 1 spray intranasal DAILY Qty: 16 2RF Rx Instructions: administer into each nostril benzonatate 200 mg capsule 200 mg PO TID PRN (Reason: cough) Qty: 30 0RF guaifenesin 1,200 mg tablet extended release 12hr 1,200 mg PO Q12H Qty: 30 0RF amoxicillin-pot clavulanate 875-125 mg tablet 1 tab PO Q12H Qty: 20 0RF trazodone 50 mg tablet 25 mg PO BEDTIME atenolol 100 mg Tablet 100 mg PO DAILY hydralazine 25 mg Tablet 25 mg PO TID Rx Instructions: Hold for SBP < 100 or HR < 60 acetaminophen 325 mg Tablet 650 mg PO Q6H PRN (Reason: Fever/Mild Pain (1-3)) Qty: 60 0RF bisacodyl 5 mg Tablet,Delayed Release (Dr/Ec) 10 mg PO DAILY PRN (Reason: Constipation) Qty: 7 0RF melatonin 3 mg Tablet 6 mg PO BEDTIME PRN (Reason: Insomnia) Qty: 30 0RF sennosides [senna] 8.6 mg Tablet 8.6 mg PO BID Qty: 20 0RF lidocaine 5 % Adhesive Patch,Medicated 1 patch topical DAILY Rx Instructions: to R Hip fluoxetine 20 mg capsule 20 mg PO QAM Saline Nasal 0.65 % Aerosol,[place] 2 spray INTRANASAL BID Rx Instructions: sinusitis Acidophilus-Pectin Tablet,Chewable 1 tab PO DAILY Rx Instructions: administer with food or milk loratadine 10 mg tablet 10 mg PO BID losartan 25 mg tablet 25 mg PO BID Qty: 60 0RF Referrals: Rhea Duque DO [Primary Care Provider] - Stand Alone Forms: Patient Portal/API/Survey
[2025-01-11 02:00] VITALS: BP 136/76; PULSE 72; O2SAT 95
[2025-01-11] MEDS: TET,DIPH,PERTUSS(ACELL),VAC/PF 0.5 ML SYRINGE IM (02:42)
[2025-01-11] MEDS: BACITRACIN OINT 0.9 GM PCKT 1 APPLIC TOP (05:36)
[2025-01-11 06:15] VITALS: BP 160/84; PULSE 75; RESP 16; O2SAT 95
== END 2025-01-11 06:24 | disposition home or self-care (01) ==
PROVIDERS: Emergency Provider Emergency Medicine; PCP Internal Medicine
DX: S01.01XA Laceration without foreign body of scalp, initial encounter (principal); S70.01XA Contusion of right hip, initial encounter; W01.0XXA Fall on same level from slipping, tripping and stumbling without subsequent striking against object, initial encounter; Z98.890 Other specified postprocedural states; Z23 Encounter for immunization
CPT/HCPCS: 12001; 70450; 73502; 90471; 99284; 90715

== ENCOUNTER 2025-01-13 11:09 | Observation (INO) | payer OTHER, SELFPAY ==
[2023-01-22 22:51] VITALS: BMI 20.9
[2025-01-13] VITALS (12 sets, daily range): BP systolic 127–169; BP diastolic 71–86; PULSE 61–76; RESP 16–20; TEMP 36.2–36.9; O2SAT 95–98; BMI 20.3; BMI 20.7
--- NOTE | 2025-01-13 12:05 | PC.NURSE ---
Patient in department for inability to urinate more than a couple tablespoons at a time. Bladder scanned patient in room, 92cc. Patient is endorsing no pain or tenderness in her abdomen. Patient reports that she has been drinking more water lately and drinks up to four ensures a day in the past couple days because she doesnt like the food served at her facility. patient was recently in the department for mechanical fall
[2025-01-13 12:07] LABS: Add Manual Diff / Slide Review NO; Basophils Absolute Auto 100 /uL (0-100); Basophils Percent Auto 0.5 % (0-2); Eosinophils Absolute Auto 0 /uL (0-450); Eosinophils Percent Auto 0.5 % (2-4); Hemoglobin 11.1 g/dL (12.0-16.0); Lymphocytes Absolute Auto 1300 /uL (1100-4500); Lymphocytes Percent Auto 13.2 % (25-40); Mean Corpuscular HGB Conc 33.7 % (30-36); Mean Corpuscular Hemoglobin 35.7 PG (26-34); Monocytes Absolute Auto 900 /uL (0-900); Monocytes Percent Auto 9.3 % (3-14); Neutrophils Absolute Auto 7800 /uL (1500-7000); Neutrophils Percent Auto 76.5 % (50-75); Platelet Count 352 X10^3/uL (150-400); Red Blood Cell Count 3.11 X10^6/uL (4.0-5.2); Red Cell Distribution Width 13.4 % (11.6-14.8); White Blood Cell Count 10.2 X10^3/uL (4.5-11.0)
[2025-01-13 12:18] LABS: Lactate (Lactic Acid) 0.6 mmol/L (0.7-2.1)
[2025-01-13 12:19] LABS: Alanine Aminotransferase 25 IU/L (<35); Albumin 4.4 g/dL (3.5-5.0); Alkaline Phosphatase 82 U/L (38-126); Aspartate Aminotransferase 32 IU/L (14-36); Bilirubin Total 0.3 mg/dL (0.2-1.3); Calcium 10.4 mg/dL (8.4-10.2); Carbon Dioxide 22 mmol/L (22-32); Chloride 101 mmol/L (98-107); Estimated Glomerular Filt Rate 31 mL/min (>60); Globulin 4.2 g/dL (1.7-4.1); Glucose 117 mg/dL (80-110); HEMOLYSIS < 15 (0-50); Potassium 4.2 mmol/L (3.4-5.1); Sodium 134 mmol/L (137-145); Total Protein 8.6 g/dL (6.3-8.2)
[2025-01-13 12:28] LABS: NT-proBNP (BNP-Adult 18+) 1120 pg/mL (<450)
[2025-01-13 12:31] LABS: BUN Creatinine Ratio 67.7 (6-22)
[2025-01-13 12:33] LABS: Blood Urea Nitrogen 111 mg/dL (7-17)
[2025-01-13 12:36] LABS: Procalcitonin 0.272 ng/mL (<0.5)
[2025-01-13 12:57] LABS: Bacteria Urine Many (>30); RBC Urine 0-1/HPF (0-5/HPF); Squamous Epithelial Cell Urine 1-5 /HPF (0-5/HPF); Urine Volume 10mL (spun); WBC Urine 1-5/HPF (0-5/HPF)
--- NOTE | 2025-01-13 13:19 | ED_ITS ---
HPI - Female Genitourinary General Chief complaint: Urogenital-Female Stated complaint: diff urinating Time Seen by Provider: 01/13/25 13:18 Source: patient Mode of arrival: Ambulatory History of Present Illness HPI Narrative: Patient is an 84-year-old female here with her DPOA history of hypertension presenting today with decreased urination. Reports that she is urinating a small amount. DPOA reports that the [facility] services have changed in the food has become unedible. Patient has not been eating food for at least 2 weeks. Instead she has been drinking 6-7 ensures a day the last 2 weeks. She was trying to drink water. She was here a few days ago on January 11 after ground level fall. She had scans and imaging done at that time which were all negative. She continues to have angela in the back of her head. She has not showered since then. She has not had any nausea or vomiting no rectal bleeding Related Data Home Medications Medication Instructions Recorded Confirmed atenolol 100 mg tablet 100 mg PO DAILY 12/29/22 10/12/24 hydralazine 25 mg tablet 25 mg PO TID 12/29/22 10/12/24 trazodone 50 mg tablet 25 mg PO BEDTIME 12/29/22 10/12/24 Lactobacillus acidophilus-pectin 1 tab PO DAILY 01/22/23 10/12/24 chewable tablet (Acidophilus-Pectin chewable tablet) fluoxetine 20 mg capsule 20 mg PO QAM 01/22/23 10/12/24 lidocaine 5 % topical patch 1 patch topical DAILY 01/22/23 10/12/24 loratadine 10 mg tablet 10 mg PO BID 01/22/23 10/12/24 sodium chloride 0.65 % nasal spray 2 spray intranasal BID 01/22/23 10/12/24 aerosol (Saline Nasal) Previous Rx's Medication Instructions Recorded acetaminophen 325 mg tablet 650 mg (2 x 325 mg) PO Q6H PRN 01/02/23 Fever/Mild Pain (1-3) #60 tabs bisacodyl 5 mg tablet,delayed 10 mg (2 x 5 mg) PO DAILY PRN 01/02/23 release Constipation #7 tabs melatonin 3 mg tablet 6 mg (2 x 3 mg) PO BEDTIME PRN 01/02/23 Insomnia #30 tabs sennosides 8.6 mg tablet (senna) 8.6 mg PO BID #20 tabs 01/02/23 losartan 25 mg tablet 25 mg PO BID #60 tabs 01/26/23 amoxicillin 875 mg-potassium 1 tab PO Q12H #20 tabs 10/12/24 clavulanate 125 mg tablet benzonatate 200 mg capsule 200 mg PO TID PRN cough #30 caps 10/12/24 fluticasone propionate 50 1 spray intranasal DAILY #16 grams 10/12/24 mcg/actuation nasal spray,suspension (Flonase Allergy Relief) guaifenesin 1,200 mg tablet, 1,200 mg PO Q12H #30 tabs 10/12/24 extended release 12 hr Allergies Allergy/AdvReac Type Severity Reaction Status Date / Time No Known Drug Allergies Allergy Verified 01/13/25 11:28 Patient History Medical History Depression Essential hypertension Hypertension Insomnia Surgical History History of hip surgery Family History Father Congestive heart failure Mother Hypertension Exam Initial Vital Signs Initial Vital Signs: Vital Signs Temperature 98.5 F 01/13/25 11:24 Pulse Rate 67 01/13/25 11:24 Respiratory Rate 18 01/13/25 11:24 Blood Pressure 127/75 01/13/25 11:24 Pulse Oximetry 97 01/13/25 11:24 Oxygen Delivery Method Room Air 01/13/25 11:24 GENERAL: [Well-appearing, well-nourished] and in [no acute] distress. HEENT: Head angela in head scabbed over, no erythema [EARS:] [Tympanic membranes visualized, no erythema or bulging, no hemotympanum] [PHARYNX:] [No erythema, no tonsillar exudate, no cervical lymphadenopathy] CARDIOVASCULAR: Regular rate and rhythm without murmurs, rubs or gallops. RESPIRATORY: Breath sounds equal bilaterally, no wheezes rales or rhonchi. ABDOMEN: Soft, nontender. Normoactive bowel sounds all 4 quadrants. No guarding or rebound. EXTREMITIES: Normal range of motion, no clubbing or edema. Neurovascularly intact NEUROLOGICAL: Alert and oriented x4.Normal gait and speech. SKIN: Warm, dry, no laceration, no petechiae, no rashes or lesions. Course Orders Ordered: ED Orders 01/13/25 11:52 Complete Blood Count AUTO DIFF Stat Comprehensive Metabolic Panel Stat Lactate (Lactic Acid) Stat NT-proBNP (BNP-Adult 18+) Stat Procalcitonin Stat 01/13/25 12:30 Urine Culture Stat Urine Microscopic Stat Acetaminophen (Acetaminophen 325 Mg Tablet) 650 mg PO Q6H PRN PRN Reason: Fever/Mild Pain (1-3) Ceftriaxone Sodium 1,000 mg/ (Sodium Chloride) 100 mls @ 200 mls/hr IV Q24H ERIN Sodium Chloride (Normal Saline 0.9%) 1,000 mls @ 100 mls/hr IV CONT ERIN Last Admin: 01/13/25 15:24 Dose: 100 mls/hr Documented By: BATSHEVA Naloxone HCl (Naloxone 0.4 Mg/Ml Vial) 0.2 mg IV Q2MIN PRN PRN Reason: Opiate Reversal Discontinued Medications Sodium Chloride (Normal Saline 0.9%) 1,000 mls @ 100 mls/hr IV CONT ERIN Last Infusion: 01/13/25 15:05 Dose: Infused Documented By: Admin: 01/13/25 13:50 Dose: 100 mls/hr Documented By: JOY Ceftriaxone Sodium 1,000 mg/ (Sodium Chloride) 100 mls @ 200 mls/hr IV NOW ONE Stop: 01/13/25 13:34 Last Infusion: 01/13/25 14:40 Dose: Infused Documented By: Admin: 01/13/25 13:50 Dose: 200 mls/hr Documented By: JOY Vital Signs Vital signs: Vital Signs - 8 hr 01/13/25 11:24 01/13/25 11:50 01/13/25 11:50 Temperature 98.5 F Pulse Rate 67 66 Respiratory Rate 18 Blood Pressure 127/75 140/76 Pulse Oximetry 97 97 Oxygen Delivery Method Room Air 01/13/25 12:00 01/13/25 12:00 01/13/25 12:31 Temperature Pulse Rate 65 70 Respiratory Rate Blood Pressure 128/71 Pulse Oximetry 95 95 Oxygen Delivery Method Room Air 01/13/25 13:00 01/13/25 13:30 01/13/25 13:53 Temperature Pulse Rate 67 70 73 Respiratory Rate Blood Pressure Pulse Oximetry 95 95 96 Oxygen Delivery Method 01/13/25 13:53 Temperature Pulse Rate Respiratory Rate Blood Pressure 157/75 H Pulse Oximetry Oxygen Delivery Method MDM - Female Genitourinary Lab Data 01/13/25 11:52 01/13/25 11:52 Labs: Lab Results 01/13/25 01/13/25 Range/Units 11:52 12:30 WBC 10.2 (4.5-11.0) X10^3/uL RBC 3.11 L (4.0-5.2) X10^6/uL Hgb 11.1 L (12.0-16.0) g/dL Hct 33.0 L (36-46) % MCV 106.0 H (80-100) fL MCH 35.7 H (26-34) PG MCHC 33.7 (30-36) % RDW 13.4 (11.6-14.8) % Plt Count 352 (150-400) X10^3/uL Neut % (Auto) 76.5 H (50-75) % Lymph % (Auto) 13.2 L (25-40) % [place] % (Auto) 9.3 (3-14) % Eos % (Auto) 0.5 L (2-4) % Baso % (Auto) 0.5 (0-2) % Neut # (Auto) 7800 H (4541-1743) /uL Lymph # (Auto) 1300 (6155-3967) /uL [place] # (Auto) 900 (0-900) /uL Eos # (Auto) 0 (0-450) /uL Baso # (Auto) 100 (0-100) /uL Sodium 134 L (137-145) mmol/L Potassium 4.2 (3.4-5.1) mmol/L Chloride 101 (98-107) mmol/L Carbon Dioxide 22 (22-32) mmol/L BUN 111 H* (7-17) mg/dL Creatinine 1.64 H (0.52-1.04) mg/dL Estimated GFR 31 L (>60) mL/min BUN/Creatinine Ratio 67.7 H (6-22) Glucose 117 H (80-110) mg/dL Lactate 0.6 L (0.7-2.1) mmol/L Calcium 10.4 H (8.4-10.2) mg/dL Total Bilirubin 0.3 (0.2-1.3) mg/dL AST 32 (14-36) IU/L ALT 25 (<35) IU/L Alkaline Phosphatase 82 (38-126) U/L NT-Pro-B Natriuret Pep 1120 H (<450) pg/mL Total Protein 8.6 H (6.3-8.2) g/dL Albumin 4.4 (3.5-5.0) g/dL Globulin 4.2 H (1.7-4.1) g/dL Albumin/Globulin Ratio 1.0 (1.0-2.8) Procalcitonin 0.272 (<0.5) ng/mL Urine RBC 0-1/hpf (0-5/HPF) Urine WBC 1-5/hpf (0-5/HPF) Ur Squamous Epith Cells 1-5 /hpf (0-5/HPF) Urine Bacteria Many (>30) H (None) Vol Urine Centrifuged 10ml (spun) Urine Dip Bedside Urine Glucose Negative Bedside Urine Bilirubin - Negative Bedside Urine Ketone - Negative Urine Specific [place] 1.015 Bedside Urine Occult Blood - Negative Bedside Urine pH 5.5 Bedside Urine Protein + 30 Bedside Urine Urobilinogen - Negative Bedside Urine Nitrite + Positive Bedside Urine Leukocytes - Negative Esterase MDM Narrative Medical decision making narrative: MDM CC: Decreased urination increased urinary frequency Complicating co-morbidities: None Data collected from: [facility] Medical records reviewed: Recent ED visit Differential considered: Urinary retention KENDRA, sepsis Exam documented above, pertinent findings include: Alert well-appearing 84-year-old female still has angela posterior head from fall couple days Lab Test results independently reviewed as above. Pertinent findings: BUN 111 previously 34, creatinine 1.64, previously 1.4 Sodium 134 potassium 4.2 chloride 101 carbon dioxide 22 WBC 10.2 hemoglobin 11.1 hematocrit 33 platelets 352 year Urinalysis positive for nitrates Lactate 0.6 Imaging studies independently reviewed: Consultations:Dr. Serrano, in ED to see and evaluate patient happy to accept observation Treatments: Rocephin IV fluids Re-evaluations: Patient remains awake alert oriented Discussion: Patient 84-year-old female presenting to day with decreased urination and frequent urination. She reports falling 2 days ago seen and evaluated here lots of imaging which was all negative. Today she was found to have extremely elevated BUN of 111 however her creatinine isn't that much her baseline 1.6. She has no evidence of GI bleeding. She has been drinking lots of ensure which maybe the cause. She was also found have nitrates in her urine consistent with a UTI. She was given Rocephin. She has no leukocytosis no anemia so low suspicion for GI bleed no evidence of sepsis. She does not have any altered mentation she was able to cooperate and participate in exam and questioning. No evidence of uremia Accepted to observation Discharge Plan Departure Patient Disposition: Admitted as Observation Clinical Impression: Acute UTI, KENDRA (acute kidney injury) Admit Date/Time: 01/13/25 13:58 Admit Provider: Casey Serrano V
[2025-01-13] MEDS: SODIUM CHLORIDE 0.9% 1,000 ML 100 ML IV ×2 (13:50→15:24)
[2025-01-13] MEDS: cefTRIAXone 1,000 MG in SODIUM CHLORIDE 0.9% 100 ML 200 MG IV (13:50)
--- NOTE | 2025-01-13 14:37 | P.HP_ITS ---
History of Present Illness History of Present Illness Date Patient Seen: 01/13/25 Time Patient Seen: 14:05 Chief complaint: diff urinating Narrative: 84-year-old woman under the primary care of Dr. Rhea Duque presents to the emergency department today with decreased urination, reporting she is only urinating small amount. She was seen in the emergency department 2 days ago after a fall with posterior scalp laceration, stapled, and released home. She has been unhappy with the food served at her assisted living residence and for the past 2 weeks been drinking 6-7 Ensures a day for nutrition. She feels persistently weak and is concerned about falling. She is seen with a family member who is concerned. REPLACED BY [facility] Medical History Depression Essential hypertension Hypertension Insomnia Surgical History History of hip surgery Family History Father Congestive heart failure Mother Hypertension Social History household members: other Smoking Status: Never smoker alcohol intake: current Meds Home Medications and Allergies Home Medications Medication Instructions Recorded Confirmed Type atenolol 100 mg tablet 100 mg PO DAILY 12/29/22 10/12/24 History hydralazine 25 mg tablet 25 mg PO TID 12/29/22 10/12/24 History trazodone 50 mg tablet 25 mg PO BEDTIME 12/29/22 10/12/24 History acetaminophen 325 mg tablet 650 mg (2 x 325 mg) PO Q6H PRN 01/02/23 10/12/24 Rx Fever/Mild Pain (1-3) #60 tabs bisacodyl 5 mg tablet,delayed 10 mg (2 x 5 mg) PO DAILY PRN 01/02/23 10/12/24 Rx release Constipation #7 tabs melatonin 3 mg tablet 6 mg (2 x 3 mg) PO BEDTIME PRN 01/02/23 10/12/24 Rx Insomnia #30 tabs sennosides 8.6 mg tablet (senna) 8.6 mg PO BID #20 tabs 01/02/23 10/12/24 Rx Lactobacillus acidophilus-pectin 1 tab PO DAILY 01/22/23 10/12/24 History chewable tablet (Acidophilus-Pectin chewable tablet) fluoxetine 20 mg capsule 20 mg PO QAM 01/22/23 10/12/24 History lidocaine 5 % topical patch 1 patch topical DAILY 01/22/23 10/12/24 History loratadine 10 mg tablet 10 mg PO BID 01/22/23 10/12/24 History sodium chloride 0.65 % nasal spray 2 spray intranasal BID 01/22/23 10/12/24 History aerosol (Saline Nasal) losartan 25 mg tablet 25 mg PO BID #60 tabs 01/26/23 10/12/24 Rx amoxicillin 875 mg-potassium 1 tab PO Q12H #20 tabs 10/12/24 10/12/24 Rx clavulanate 125 mg tablet benzonatate 200 mg capsule 200 mg PO TID PRN cough #30 caps 10/12/24 10/12/24 Rx fluticasone propionate 50 1 spray intranasal DAILY #16 grams 10/12/24 10/12/24 Rx mcg/actuation nasal spray,suspension (Flonase Allergy Relief) guaifenesin 1,200 mg tablet, 1,200 mg PO Q12H #30 tabs 10/12/24 10/12/24 Rx extended release 12 hr Allergies Allergy/AdvReac Type Severity Reaction Status Date / Time No Known Drug Allergies Allergy Verified 01/13/25 11:28 Review of Systems Review of Systems ROS: Yes All systems reviewed with the patient and are negative except as otherwise documented Exam Vital Signs (past 8 hours): - 01/13/25 11:24 01/13/25 11:50 01/13/25 11:50 Temperature 98.5 F Pulse Rate 67 66 Respiratory Rate 18 Blood Pressure 127/75 140/76 Pulse Oximetry 97 97 Oxygen Delivery Method Room Air 01/13/25 12:00 01/13/25 12:00 01/13/25 12:31 Temperature Pulse Rate 65 70 Respiratory Rate Blood Pressure 128/71 Pulse Oximetry 95 95 Oxygen Delivery Method Room Air 01/13/25 13:00 01/13/25 13:30 01/13/25 13:53 Temperature Pulse Rate 67 70 73 Respiratory Rate Blood Pressure Pulse Oximetry 95 95 96 Oxygen Delivery Method 01/13/25 13:53 Temperature Pulse Rate Respiratory Rate Blood Pressure 157/75 H Pulse Oximetry Oxygen Delivery Method Oxygen Delivery Method Room Air Narrative Exam Narrative: GENERAL: This is a well-nourished, well-developed patient, in no apparent distress. HEAD: Posterior scalp with crusted blood, laceration with single staple in place. EYES: Pupils equal round and reactive. Extraocular motions intact. No scleral icterus. No injection or drainage. ENT: Mucous membranes pink and moist. NECK: Trachea midline. No JVD, bruits or lymphadenopathy. Supple, nontender, no meningeal signs. CARDIOVASCULAR: Regular rate and rhythm without murmurs, gallops, or rubs. RESPIRATORY: Clear to auscultation. GASTROINTESTINAL: Abdomen soft, non-tender, nondistended. EXTREMITIES: No clubbing, cyanosis, or edema. BACK: Nontender without deformity or crepitance. No flank tenderness. NEUROLOGIC: Alert, oriented, speech fluent, full upper and lower motor strength, no focal deficits evident. DERMATOLOGIC: No rashes or skin lesions. Objective Imaging *: Radiologist's impression: 1. Head CT 01/10/2025: No acute intracranial pathology. 2. Right hip x-ray 01/10/2025: Similar appearance of the right femoral intramedullary katherin with interlocking screws. Possible nondisplaced lucency and cortical irregularity is seen at the lesser trochanter. If there is high concern, consider CT to further evaluate. 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 Background moderate degenerative changes. Increased fecal loading. Labs 01/13/25 11:52 01/13/25 11:52 Labs: Laboratory Results - last 24 hr 01/13/25 01/13/25 11:52 12:30 WBC 10.2 RBC 3.11 L Hgb 11.1 L Hct 33.0 L MCV 106.0 H MCH 35.7 H MCHC 33.7 RDW 13.4 Plt Count 352 Neut % (Auto) 76.5 H Lymph % (Auto) 13.2 L [place] % (Auto) 9.3 Eos % (Auto) 0.5 L Baso % (Auto) 0.5 Neut # (Auto) 7800 H Lymph # (Auto) 1300 [place] # (Auto) 900 Eos # (Auto) 0 Baso # (Auto) 100 Sodium 134 L Potassium 4.2 Chloride 101 Carbon Dioxide 22 BUN 111 H* Creatinine 1.64 H Estimated GFR 31 L BUN/Creatinine Ratio 67.7 H Glucose 117 H Lactate 0.6 L Calcium 10.4 H Total Bilirubin 0.3 AST 32 ALT 25 Alkaline Phosphatase 82 NT-Pro-B Natriuret Pep 1120 H Total Protein 8.6 H Albumin 4.4 Globulin 4.2 H Albumin/Globulin Ratio 1.0 Procalcitonin 0.272 Urine RBC 0-1/hpf Urine WBC 1-5/hpf Ur Squamous Epith Cells 1-5 /hpf Urine Bacteria Many (>30) H Vol Urine Centrifuged 10ml (spun) Assessment & Plan Assessment & Plan narrative: 1. Acute kidney injury due to volume depletion, with markedly elevated BUN. Hydrate intravenously and monitor. Rule out urinary infection, though fairly unremarkable urinalysis. No evidence of occult GI bleeding. Follow BUN and renal function. 2. Chronic kidney disease, stage 3B. 3. Fall with scalp laceration, right hip contusion. Continue wound care. Staple removal in 7 days. 4. Hypertension. Clarify home regimen and continue. 5. DVT prophylaxis: SCDs. 6. Code status: Full code. This is affirmed with the patient patient today. Plan: -admit to observation -hydrate intravenously -follow cultures -wound care -physical therapy evaluation tomorrow -likely discharge home tomorrow if urinating well and uremia resolved Quality MIPS - Admit I confirm the patient?s Advance Care Plan is present, Code status is documented, Surrogate decision maker is in patient?s record [If Yes, STOP here]: Yes [facility] - Meds 'Current medications' to include all prescriptions, [id number] products, herbals, cannabis/cannabidiol products, and vitamin/mineral/dietary (nutritional) supplements. I have utilized all available resources to obtain, update, or review the patient?s current medications. [If Yes, STOP here]: Yes [employer] Document charge(s): No Charge Codes Initial inpatient/observation care: 51007
[2025-01-13] MEDS: ACETAMINOPHEN 325 MG TABLET 650 MG PO (16:45)
[2025-01-14] VITALS: BP 158/82; PULSE 68; RESP 20; TEMP 36.1; O2SAT 96
[2025-01-14] MEDS: SODIUM CHLORIDE 0.9% 1,000 ML 100 ML IV (00:49)
--- NOTE | 2025-01-14 02:40 | PC.NURSE ---
Attempted to reconcile home med list, patient is familiar with medication names although unsure of dosages.
[2025-01-14 04:00] VITALS: BP 150/81; PULSE 66; RESP 20; TEMP 36.1; O2SAT 94
[2025-01-14 04:36] LABS: Add Manual Diff / Slide Review NO; Basophils Absolute Auto 0 /uL (0-100); Basophils Percent Auto 0.5 % (0-2); Eosinophils Absolute Auto 100 /uL (0-450); Eosinophils Percent Auto 1.2 % (2-4); Hematocrit 30.7 % (36-46); Hemoglobin 10.4 g/dL (12.0-16.0); Lymphocytes Absolute Auto 1500 /uL (1100-4500); Lymphocytes Percent Auto 18.4 % (25-40); Mean Corpuscular HGB Conc 33.8 % (30-36); Mean Corpuscular Hemoglobin 36.2 PG (26-34); Mean Corpuscular Volume 107.1 fL (80-100); Monocytes Absolute Auto 900 /uL (0-900); Monocytes Percent Auto 11.6 % (3-14); Neutrophils Absolute Auto 5500 /uL (1500-7000); Neutrophils Percent Auto 68.3 % (50-75); Platelet Count 299 X10^3/uL (150-400); Red Blood Cell Count 2.86 X10^6/uL (4.0-5.2); White Blood Cell Count 8.1 X10^3/uL (4.5-11.0)
[2025-01-14 05:05] LABS: BUN Creatinine Ratio 62.9 (6-22); Blood Urea Nitrogen 73 mg/dL (7-17); Calcium 9.2 mg/dL (8.4-10.2); Carbon Dioxide 20 mmol/L (22-32); Chloride 107 mmol/L (98-107); Estimated Glomerular Filt Rate 47 mL/min (>60); Glucose 92 mg/dL (80-110); HEMOLYSIS < 15 (0-50); Sodium 138 mmol/L (137-145)
[2025-01-14 08:00] VITALS: BP 171/86; PULSE 68; RESP 18; TEMP 36.4; O2SAT 96
--- NOTE | 2025-01-14 09:24 | PT.IIE ---
Surgical History (Last Reviewed 01/13/25 @ 14:41 by Casey Serrano MD) History of hip surgery Medical History (Last Reviewed 01/13/25 @ 14:41 by Casey Serrano MD) Depression Essential hypertension Hypertension Insomnia Physical Therapy Inpatient Evaluation/Re-Eval M1 PT/OT-IP Prior Functional Status Start: 01/14/25 08:38 Freq: NEEDED Status: Active Protocol: Document 01/14/25 08:49 MB (Rec: 01/14/25 09:24 MB [id number]) Medical Review Prior Functional Status Medical History Reviewed Yes Communication Unsure baseline diet and per chart, pt was not eating much [employer] and PT notes that she did not eat breakfast. Pt states that she will get nauseated if she eats too much after concussion and she is working on it little by little. Mobility and Gait Mod I with walking stick right hand and she has a rollator Activities of Daily Living and IADL's I, drives Social History Household Members other Living Arrangements Longterm Facility Number of Floors (Floors) One Floor Number of Stairs To Enter/Railing? Accessible entrance at [facility]. She has lived there two years and she is moving out and into her own apartment at the end of the week. She has moved a lot of her things. She states a friend will assist her. Home Environment Standard Height Toilet,Walk in Shower,Built-In Shower Seat Home Equipment Four Wheel Walker,Hand Held Shower,Grab Bars In Shower Employment Status Retired Additional Social History Comment Walking stick M2 PT-IP Current Condition Start: 01/14/25 08:38 Freq: NEEDED Status: Active Protocol: Document 01/14/25 08:49 MB (Rec: 01/14/25 09:24 MB [id number]) Physical Therapy Current Condition Current Condition Evaluation Date 01/14/25 Treatment Diagnosis Recent fall, striking head, decreased intake, diff urinating and deficating M3 PT-IP Subjective Start: 01/14/25 08:38 Freq: NEEDED Status: Active Protocol: Document 01/14/25 08:49 MB (Rec: 01/14/25 09:24 MB [id number]) Subjective Physical Therapy Visit Type Type Initial Evaluation Visit Start Time 08:49 Visit Stop Time 09:09 Number of [employer]UT[employer] SPECIALIST Visits 0 Physical Therapy Visit Comments Patient Comments Pt is agreeable to PT and reports constipation and that she plans to d/c to [place] today. Therapy Pain Assessment Pain When Pain Assessed At Rest Pain Present Pain Present Pain Reported Location Head Intensity 4 Scale Used Numeric (0 - 10) Right Hip Intensity 3 Scale Used Numeric (0 - 10) M4 PT-IP Mobility and Gait Start: 01/14/25 08:38 Freq: NEEDED Status: Active Protocol: Document 01/14/25 08:49 MB (Rec: 01/14/25 09:24 MB [id number]) PT-Bed Mobility Assessment Supine to Sit Supine to Sit Independent Scooting Scooting to Edge of Bed Independent PT-Transfer Assessment Sit to and From Stand Sit to and from Stand Standby Assistance,Use of Upper Extremities Equipment Transfer Assistive Device Gait Belt Orthotic/Prosthetic Devices or Brace: No Transfers Transfer Destination Chair Transfer Technique Ambulation Transfer Ability Level of Assist Standby Assistance,Use of Upper Extremities Comments Mobility Comments Pt uses her walking stick in her right hand. When asked if she would switch to left hand d/t right hip injury and bruising, she states that she is right hand and prefers to use it in right hand. BP and HR in LUE: supine 165/80, 69; standing 157/91, 76. No light- headedness throughout mobility . Gait Assessment Gait Gait Assistance Required: Standby Assistance Distance (Feet) 100 Assistive Devices Assistive Device Gait Belt Orthotic/Prosthetic Devices or Brace: No Gait Deviations General Gait Pattern Decreased Stride Length,Step- to Gait Factors Limiting Gait Function Factors Limiting Gait Function Pain,Poor Balance Comments Gait Comments Pt walks with walking stick in right hand and PT manages IV pole Stair Climbing Assessment Comments Stair Climbing Comments No steps at [place] PT-Balance Assessment Sitting Balance and Reactions Static Sitting Balance Ability Normal Dynamic Sitting Balance Ability Normal Standing Balance and Reactions Static Standing Balance Ability Good Dynamic Standing Balance Ability Good Device Used Walking stick right hand M5 PT-IP Objective Assessments Start: 01/14/25 08:38 Freq: NEEDED Status: Active Protocol: Document 01/14/25 08:49 MB (Rec: 01/14/25 09:24 MB [id number]) Orientation Orientation/Cognition Level of Alertness Alert Orientation Name,Age,Birthday,Place, Situation Language Function Ability No Deficits Noted Safety Awareness Decreased Safety Awareness Memory Description No Deficits Noted Gross Range of Motion Upper Extremity ROM Assessment Within Functional Limits Lower Extremity ROM Assessment Right Impaired Impairments Moves legs well and guards right hip Strength Upper Extremity Strength Assessment Within Functional Limits Lower Extremity Strength Assessment Right Impaired Comments Strength Comments R ankle and knee functional and right hip not tested, ecchymosis right lateral hip and left knee, dried blood on top of head Coordination Assessment Assessment Coordination Comments NT Sensation Assessment Comments Sensation Comments NT Muscle Tone Muscle Tone WNL Yes M7 PT-IP Assessment and Plan Start: 01/14/25 08:38 Freq: NEEDED Status: Active Protocol: Document 01/14/25 08:49 MB (Rec: 01/14/25 09:24 MB [id number]) PT Summary Assessment and Plan Potential Rehabilitation Potential Good Status of Condition at Evaluation Evolving Summary Impairments Pain,Balance,Gait Progress Towards Goals Progressing Toward Goals Assessment Summary Pt is an 84 y/o female presenting to hospital with trouble urinating after decreased intake after recent concussion. She reports nausea and concerns if she eats too much. She is not orthostatic and she is SBA for gait with her walking stick. She may benefit from HHPT safety consult at d/c and progress to OPPT consult. Increased assistance at d/c may also improve safety/intake. Goals Bed Mobility Goal Independent Transfer Goal Independent Gait Goal Independent Gait Distance 150 Other Goals Pt to gait train with her walking stick Days to Meet Goals 2 Frequency of Treatment Frequency Of Treatment Once a Day Other frequency x1 Treatment Plan Physical Therapy Treatment Plan Bed Mobility Training,Transfer Training,Gait Training, Therapeutic Exercise,Balance Retraining,Discharge Planning, Hot or Cold Pack,Neuromuscular Re-ed,Coordination Retraining ,Manual Therapy Precautions Other Precautions Fall risk Recommendations To Nursing Amount of Assist Needed Standby Assistance Discharge Recommendations PT Discharge Recommendations Home with Assistance,Home Health Transportation Needs at Discharge Private Vehicle
--- NOTE | 2025-01-14 11:40 | CM.DANOTE ---
Initial DCP Assessment Note Pt is a 84 yo female, resident at [facility] in [place], plans to move into her own apt at the end of the week. Presents with difficulty urinating. Sx have resolved and patient has been discharged home today. PCP: Rhea Duque Payer: Guru CHAVEZ Reviewed chart, pt discussed in multidisciplinary rounds this morning. Patient has been discharged home, close outpatient follow up recommended. Met w/patient to review discharge plan. Patient is eager to return home, friend Evita will transport home once she arrives from [facility] (water taxi vs boat only) Discussed HH services. Patient hesitant, plans to move into her own apt this week, wants to discuss this with her friend once she arrives. PT=Home w/assist and HH. No barriers identified at this time to patient's safe discharge home w/friend Evita to assist; close outpatient f/u recommended. YOVANI Boykin Discharge Planning/Care Management CM Discharge Assessment Start: 01/14/25 11:36 Freq: Status: Active Protocol: Document 01/14/25 11:36 [id number] (Rec: 01/14/25 11:39 [id number]) Discharge Planning Assessment Assigned Gear Technician YOVANI Uriostegui DPOA/Assigned Designee Name Evita Pena, friend ( [facility]) Contact Information [phone] Advance Directives? Yes Advance Directives on File No History Provided By Patient,Friend,Medical Record Prior Living Arrangements Shelter Facility Comment [facility] Household Members other Type of transporation used prior to Relies on Others admit Facility Name Admitted From: [facility] Willing to Return to Facility? Yes Independent with ADL's Yes Is patient alert and oriented? Yes Needs Assistance With Meal Prep,Home Chores / Shopping Comment Patient has grab bars near bathroom and shower as well. Discharge Plan Home with Home Health Transportation Arrangement Friends will transport pt Additional Comment Patient is considering HH
--- NOTE | 2025-01-14 12:17 | PM.DS.IH.1 ---
History of Present Illness History of Present Illness Date Patient Seen: 01/14/25 Time Patient Seen: 07:50 Chief complaint: diff urinating Narrative: 84-year-old woman under the primary care of Dr. Rhea Duque presents to the emergency department today with decreased urination, reporting she is only urinating small amount. She was seen in the emergency department 2 days ago after a fall with posterior scalp laceration, stapled, and released home. She has been unhappy with the food served at her assisted living residence and for the past 2 weeks been drinking 6-7 Ensures a day for nutrition. She feels persistently weak and is concerned about falling. She is seen with a family member who is concerned. Discharge Providers Provider Date of admission: 01/13/25 13:58 Discharge Date: 01/14/25 Primary care physician: Rhea Duque DO Consults: 01/13/25 14:54 Consult to Physical Therapy Evaluate & Treat Comment: Assess 01/14 for discharge safety Physician Instructions: Evaluate and Treat 01/13/25 18:45 Consult to Dietitian, Adult Routine Comment: Reason For Exam: per admission assesment Discharge provider: Casey Serrano MD Summary Hospital Course Discharge Diagnosis: 1. Acute kidney injury due to volume depletion from poor oral intake, with markedly elevated BUN due to consumption of high protein drinks. 2. Chronic kidney disease, stage 3B. 3. Recent fall with scalp laceration, right hip contusion. 4. Hypertension. Hospital Course: The patient was admitted and hydrated intravenously. Her BUN fell from 111 mg/dL to 73 mg/dL and creatinine from 1.64 mg/dL to 1.16 mg/dL. She had been consuming 6-7 ensure daily without drinking any water due to her dislike of the food at her facility. She did not understands that she needed to hydrate with water in addition to protein drinks. She was able to get up and walk in the [place] without assistance and was cleared from a physical therapy perspective to return home independently. Arrangements were made for home health follow-up given her recent fall. She will need her scalp staple removed on 01/18. No other issues arose. Status at Discharge Cognitive/behavioral status at discharge: oriented Functional status at discharge: independent ambulation Overall status at discharge: patient is back to baseline Time Spent with Patient Time spent: Less than 30 minutes Exam Vital Signs (past 8 hours): - 01/14/25 08:00 Temperature 97.5 F L Pulse Rate 68 Respiratory Rate 18 Blood Pressure 171/86 H Pulse Oximetry 96 Oxygen Flow Rate 0 Oxygen Delivery Method Room Air Oxygen Flow Rate 0 Narrative Exam Narrative: GENERAL: This is a well-nourished, well-developed patient, in no apparent distress. HEAD: Posterior scalp with healing laceration with single staple in place. EYES: Pupils equal round and reactive. Extraocular motions intact. No scleral icterus. No injection or drainage. ENT: Mucous membranes pink and moist. NECK: Trachea midline. No JVD, bruits or lymphadenopathy. Supple, nontender, no meningeal signs. CARDIOVASCULAR: Regular rate and rhythm without murmurs, gallops, or rubs. RESPIRATORY: Clear to auscultation. GASTROINTESTINAL: Abdomen soft, non-tender, nondistended. EXTREMITIES: No clubbing, cyanosis, or edema. NEUROLOGIC: Alert, oriented, speech fluent, full upper and lower motor strength, no focal deficits evident. Casual gait normal. DERMATOLOGIC: No rashes or skin lesions. Objective Imaging *: Radiologist's impression: 1. Head CT 01/10/2025: No acute intracranial pathology. 2. Right hip x-ray 01/10/2025: Similar appearance of the right femoral intramedullary katherin with interlocking screws. Possible nondisplaced lucency and cortical irregularity is seen at the lesser trochanter. If there is high concern, consider CT to further evaluate. 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 Background moderate degenerative changes. Increased fecal loading. Labs 01/14/25 04:05 01/14/25 04:05 Labs: Laboratory Results - last 24 hr 01/13/25 01/13/25 01/14/25 11:52 12:30 04:05 WBC 8.1 RBC 2.86 L Hgb 10.4 L Hct 30.7 L MCV 107.1 H MCH 36.2 H MCHC 33.8 RDW 13.0 Plt Count 299 Neut % (Auto) 68.3 Lymph % (Auto) 18.4 L [place] % (Auto) 11.6 Eos % (Auto) 1.2 L Baso % (Auto) 0.5 Neut # (Auto) 5500 Lymph # (Auto) 1500 [place] # (Auto) 900 Eos # (Auto) 100 Baso # (Auto) 0 Sodium 134 L 138 Potassium 4.2 4.0 Chloride 101 107 Carbon Dioxide 22 20 L BUN 111 H* 73 H Creatinine 1.64 H 1.16 H Estimated GFR 31 L 47 L BUN/Creatinine Ratio 67.7 H 62.9 H Glucose 117 H 92 Lactate 0.6 L Calcium 10.4 H 9.2 Total Bilirubin 0.3 AST 32 ALT 25 Alkaline Phosphatase 82 NT-Pro-B Natriuret Pep 1120 H Total Protein 8.6 H Albumin 4.4 Globulin 4.2 H Albumin/Globulin Ratio 1.0 Procalcitonin 0.272 Urine RBC 0-1/hpf Urine WBC 1-5/hpf Ur Squamous Epith Cells 1-5 /hpf Urine Bacteria Many (>30) H Vol Urine Centrifuged 10ml (spun) PFSH Medical History Depression Essential hypertension Hypertension Insomnia Surgical History History of hip surgery Family History Father Congestive heart failure Mother Hypertension Social History household members: other Smoking Status: Never smoker alcohol intake: former Discharge Plan Discharge Plan Patient Disposition: Home Provider Discharge Comment: Followup with Dr. Rhea Duque 1 week; staple removal 01/18 Discharge orders & Medications Prescriptions: Continued fluticasone propionate [Flonase Allergy Relief] 50 mcg/actuation spray,suspension 1 spray intranasal DAILY Qty: 16 2RF Rx Instructions: administer into each nostril trazodone 50 mg tablet 25 mg PO BEDTIME atenolol 100 mg Tablet 100 mg PO DAILY hydralazine 25 mg Tablet 25 mg PO TID Rx Instructions: Hold for SBP < 100 or HR < 60 acetaminophen 325 mg Tablet 650 mg PO Q6H PRN (Reason: Fever/Mild Pain (1-3)) Qty: 60 0RF bisacodyl 5 mg Tablet,Delayed Release (Dr/Ec) 10 mg PO DAILY PRN (Reason: Constipation) Qty: 7 0RF melatonin 3 mg Tablet 6 mg PO BEDTIME PRN (Reason: Insomnia) Qty: 30 0RF sennosides [senna] 8.6 mg Tablet 8.6 mg PO BID Qty: 20 0RF lidocaine 5 % Adhesive Patch,Medicated 1 patch topical DAILY Rx Instructions: to R Hip fluoxetine 20 mg capsule 20 mg PO QAM Saline Nasal 0.65 % Aerosol,[place] 2 spray INTRANASAL BID Rx Instructions: sinusitis Acidophilus-Pectin Tablet,Chewable 1 tab PO DAILY Rx Instructions: administer with food or milk loratadine 10 mg tablet 10 mg PO BID losartan 25 mg tablet 25 mg PO BID Qty: 60 0RF Discontinued benzonatate 200 mg capsule 200 mg PO TID PRN (Reason: cough) Qty: 30 0RF guaifenesin 1,200 mg tablet extended release 12hr 1,200 mg PO Q12H Qty: 30 0RF amoxicillin-pot clavulanate 875-125 mg tablet 1 tab PO Q12H Qty: 20 0RF Follow up/Referrals: Rhea Duque, [Primary Care Provider] - Diet/Activity/Treatments Diet comment: Drink at least 4 glasses of water daily or enough fluid to quench thirst Visit Report/Discharge Packet Stand Alone Forms: Patient Portal/API, Stroke Signs & Symptoms Discharge Data Primary Care Provider: Rhea Duque Attending Provider: Casey Serrano V Admit Date/Time: 01/13/25 13:58 Quality VTE Deep Vein Thrombosis/Pulmonary Embolism Present on Admission: No MIPS - Admit I confirm the patient?s Advance Care Plan is present, Code status is documented, Surrogate decision maker is in patient?s record [If Yes, STOP here]: Yes MIPS - Meds 'Current medications' to include all prescriptions, tjoz-pvq-tzpuvya products, herbals, cannabis/cannabidiol products, and vitamin/mineral/dietary (nutritional) supplements. I have utilized all available resources to obtain, update, or review the patient?s current medications. [If Yes, STOP here]: Yes MIPS - DC The patient has a history of heart transplant or Left Ventricular Assist Device (LVAD). If yes, STOP here.: No The patient has current or prior documentation of left ventricular ejection fraction (LVEF) less than or equal to 40%, or moderate or severely depressed left ventricular systolic function.: No A. The patient was prescribed or already taking an Angiotensin-Converting Enzyme (KEILY) Inhibitor, or Angiotensin Receptor Tamra (ARB).: Yes B. The patient was prescribed or already taking a beta-tamra. [If Yes to Both A & B, STOP here]: Yes Patient not prescribed/taking KEILY or ARB, no reason given.: No Patient not prescribed/taking beta-tamar, no reason given.: No PROFEE Charge Codes Discharge inpatient/observation: 33510
--- NOTE | 2025-01-14 13:30 | PC.NURSE ---
Discharge Nurse Patient A&O, VSS, RA, no complaints of pain/discomfort. PIV discontinued. Patient able to dress self and pack belongings with assistance of friend. Discharge packet reviewed with patient, all questions/concerns addressed. Patient taken down via wheelchair to POV.
== END 2025-01-14 13:00 | disposition home or self-care (01) ==
LOC: ED 13:18 → AC 13:59
PROVIDERS: Admitting Provider Internal Medicine; Emergency Provider Emergency Medicine; PCP Internal Medicine; Referring Provider Emergency Medicine; Visit Provider Internal Medicine
DX: N17.9 Acute kidney failure, unspecified (principal); E86.9 Volume depletion, unspecified; R39.198 Other difficulties with micturition; I12.9 Hypertensive chronic kidney disease with stage 1 through stage 4 chronic kidney disease, or unspecified chronic kidney disease; N18.32 Chronic kidney disease, stage 3b
CPT/HCPCS: 36415; 51798; 80048; 80053; 81003; 81015; 83605; 83880; 84145; 85025; 87077; 87086; 87186; 96361; 96365; 97161; 99284; G0378; J0696

== ENCOUNTER → 2025-01-29 | Outpatient (CLI) | payer OTHER, SELFPAY ==
[2025-01-13 14:12] VITALS: BMI 20.7
--- NOTE | 2025-01-29 07:59 | DI.ECHO.S_ITS ---
[facility] : : [address] : : [place] : : [id number] : : Phone: [phone] Echocardiogram Report + + :Name: ANIVAL RUST Study Date: 01/29/2025 Height: 63 in : :[facility] ReadingLocation: Weight: 110 lb : : Gender: Female BSA: 1.5 m2 : :: 1940 Age: 84 yrs BP: 126/92 mmHg: :Reason For Study: MURMUR, ATRIAL FIBRILLATION : :Ordering Physician: ALEXANDER, : :ELIAS Performed By: Cam Mckeon : :Referring: ELIAS MUNOZ : + + Interpretation Summary The left ventricle is normal in size. The ejection fraction is estimated to be 55-60%. There are no focal wall motion abnormalities. Diastolic parameters suggest a relaxation abnormality of the left ventricle, consistent with probable normal filling pressures. The right ventricle is normal in size and function. The right ventricular systolic pressure is estimated to be at least 39 mmHg based on an estimated right atrial pressure of 3 mm Hg. The left atrium is mildly dilated. There is mild mitral regurgitation. There is mild aortic regurgitation. There is aortic root sclerosis/calcification. Mild atherosclerotic plaque(s) in the aortic arch. Procedure: A two-dimensional transthoracic echocardiogram with color flow and Doppler was performed. The study quality was technically adequate. There is no prior echocardiogram noted for this patient. DIFFICULT APICALS D/T IMPLANTS. The patient was in normal sinus rhythm during the exam. Left Ventricle: The left ventricle is normal in size. There is normal left ventricular wall thickness. There is no ventricular septal defect visualized. The ejection fraction is estimated to be 55-60%. There are no focal wall motion abnormalities. Diastolic parameters suggest a relaxation abnormality of the left ventricle, consistent with probable normal filling pressures. Right Ventricle: The right ventricle is normal in size and function. Atria: The left atrium is mildly dilated. Right atrial size is normal. There is no Doppler evidence for an interatrial shunt. Mitral Valve: The mitral valve leaflets are mildly calcified. There is mild mitral annular calcification. There is mild mitral regurgitation. Aortic Valve: The aortic valve is trileaflet. The aortic valve is slightly calcified. The aortic valve opens well. There is mild aortic regurgitation. Tricuspid Valve: The tricuspid valve leaflets are thin and pliable. There is mild tricuspid regurgitation. The right ventricular systolic pressure is estimated to be at least 39 mmHg based on an estimated right atrial pressure of 3 mm Hg. Pulmonic Valve: The pulmonic valve leaflets are thin and pliable; valve motion is normal. There is no pulmonic valvular regurgitation. Great Vessels: The aortic root is normal size. There is aortic root sclerosis/calcification. The ascending aorta is mildly enlarged. Mild atherosclerotic plaque(s) in the aortic arch. The pulmonary is not well visualized. The IVC is of normal diameter and collapses greater than 50% with a sniff. This suggests a low right atrial pressure of 3 mm Hg. Pericardium/ Pleura There is no pericardial effusion. There is no pleural effusion. MMode/2D Measurements & Calculations LVIDd: 4.3 cm LVOT diam: 2.3 cm LVIDs: 2.8 cm Ao root diam: 3.3 cm FS: 35.6 % asc Aorta Diam: 4.0 cm EPSS: 0.68 cm Ao Arch Diam (Prox Trans): 1.8 cm IVSd: 0.93 cm LVPWd: 1.0 cm LV . diameter/BSA (cm/m^2): 2.9 LV sys. diameter/BSA (cm/m^2): 1.9 LA A2 area: 19.4 cm2 RA long axis: 4.2 cm LA A4 area: 17.8 cm2 RA area: 11.0 cm2 LA length (vol): 5.1 cm RA vol: 24.5 ml LA vol: 57.1 ml RA : 16.3 ml/m2 LA vol index: 38.1 ml/m2 IVC diam: 1.2 cm RVD1 (basal): 3.5 cm RVD2 (mid): 2.9 cm TAPSE: 2.1 cm Doppler Measurements & Calculations Ao V2 max: 111.2 cm/sec LVOT Max Costa: 91.2 cm/sec Ao V2 mean: 72.2 cm/sec LV V1 max P.3 mmHg Ao max P.9 mmHg LV V1 VTI: 19.4 cm Ao mean P.4 mmHg CHAPIS(I,D): 3.4 cm2 Ao V2 VTI: 22.7 cm CHAPIS(V,D): 3.3 cm2 sev ratio: 0.86 CHAPIS indexed to BSA (cm^2/m^2): 2.3 AI P1/2t: 605.8 msec AI dec slope: 233.5 cm/sec2 MV E max costa: 41.6 cm/sec TR max costa: 300.6 cm/sec MV A max costa: 58.4 cm/sec TR max P.1 mmHg MV E/A: 0.71 PA V2 max: 69.9 cm/sec Med Peak E' Costa: 4.0 cm/sec PA V2 mean: 46.9 cm/sec E/E' med: 10.4 PA mean P.98 mmHg Lat Peak E' Costa: 8.4 cm/sec PA pr(Accel): 22.5 mmHg E/E' lat: 5.0 E/e' average: 7.7 MV dec time: 0.26 sec SV(LVOT): 77.9 ml Reading Physician:01:02 PM
== END ==
PROVIDERS: PCP Internal Medicine; Referring Provider Internal Medicine Cardiovascular Disease; Visit Provider Internal Medicine Cardiovascular Disease
DX: I08.3 Combined rheumatic disorders of mitral, aortic and tricuspid valves (principal); I48.0 Paroxysmal atrial fibrillation; R01.1 Cardiac murmur, unspecified; I77.810 Thoracic aortic ectasia; I70.0 Atherosclerosis of aorta; Z13.820 Encounter for screening for osteoporosis; M81.0 Age-related osteoporosis without current pathological fracture
CPT/HCPCS: 93306

== ENCOUNTER → 2025-05-09 08:10 | Outpatient (CLI) | payer OTHER, SELFPAY ==
[2025-01-13 14:12] VITALS: BMI 20.7
[2025-05-09 09:03] LABS: Hematocrit 34.2 % (36-46); Hemoglobin 11.6 g/dL (12.0-16.0); Mean Corpuscular Hemoglobin 34.8 PG (26-34); Mean Corpuscular Volume 102.3 fL (80-100); Platelet Count 267 X10^3/uL (150-400); Red Blood Cell Count 3.34 X10^6/uL (4.0-5.2); Red Cell Distribution Width 12.5 % (11.6-14.8)
[2025-05-09 09:34] LABS: BUN Creatinine Ratio 27.3 (6-22); Blood Urea Nitrogen 41 mg/dL (7-17); Calcium 9.9 mg/dL (8.4-10.2); Carbon Dioxide 26 mmol/L (22-32); Chloride 103 mmol/L (98-107); Cholesterol 235 mg/dL (140-199); Estimated Glomerular Filt Rate 35 mL/min (>60); Glucose 94 mg/dL (70-99); HDL Cholesterol 89 mg/dL (40-60); HEMOLYSIS < 15 (0-50); LDL Cholesterol Calculated 127 mg/dL (<100); Potassium 4.7 mmol/L (3.4-5.1); Sodium 137 mmol/L (137-145); Triglycerides 96 mg/dL (35-150)
== END ==
PROVIDERS: PCP Internal Medicine; Referring Provider Internal Medicine Cardiovascular Disease; Visit Provider Internal Medicine Cardiovascular Disease
DX: I10 Essential (primary) hypertension (principal)
CPT/HCPCS: 36415; 80048; 80061; 85027

== ENCOUNTER 2025-05-11 08:31 | Emergency (ER) | payer OTHER, SELFPAY ==
[2025-01-13 14:12] VITALS: BMI 20.7
[2025-05-11] VITALS (9 sets, daily range): BP systolic 137–162; BP diastolic 69–98; PULSE 56–67; RESP 18; TEMP 36.7; O2SAT 90–99; BMI 19.5
[2025-05-11] MEDS: TET,DIPH,PERTUSS(ACELL),VAC/PF 0.5 ML SYRINGE IM (10:10)
--- NOTE | 2025-05-11 10:52 | ED.EYEPROB ---
HPI - Eye Problem General Chief complaint: Eye Problems Stated complaint: Something in her eye Time Seen by Provider: 05/11/25 09:44 Source: patient, RN notes reviewed and old records reviewed Mode of arrival: Family Vehicle Limitations: no limitations History of Present Illness HPI Narrative: 84-year-old female history of hypertension, dyslipidemia, patient presents with complaint of sensation of something in her right eye. Started overnight. She does not recall any foreign bodies getting into her eye or performing any activities that would make it likely. She does not typically have these type of symptoms. She notices some mild blurriness. Denies any pain but states it is more irritated. She noticed a little bit of injection of the sclera. She has not had any purulent drainage. Denies fevers. No nausea or vomiting. Denies any other symptoms. She wears reading glasses, she was had cataracts before. Patient states no other eye surgeries or injections. She does not use rslp-xmy-[id number] drops for her eyes. Follows with [facility] for her ophthalmology appointments. Denies any other changes. No allergies to medications. Related Data Home Medications ?Medication ?Instructions ?Recorded ?Confirmed atenolol 100 mg tablet 100 mg PO DAILY 12/29/22 10/12/24 hydralazine 25 mg tablet 25 mg PO TID 12/29/22 10/12/24 trazodone 50 mg tablet 25 mg PO BEDTIME 12/29/22 10/12/24 Lactobacillus acidophilus-pectin 1 tab PO DAILY 01/22/23 10/12/24 chewable tablet (Acidophilus-Pectin chewable tablet) fluoxetine 20 mg capsule 20 mg PO QAM 01/22/23 10/12/24 lidocaine 5 % topical patch 1 patch topical DAILY 01/22/23 10/12/24 loratadine 10 mg tablet 10 mg PO BID 01/22/23 10/12/24 sodium chloride 0.65 % nasal spray 2 spray intranasal BID 01/22/23 10/12/24 aerosol (Saline Nasal) Previous Rx's ?Medication ?Instructions ?Recorded acetaminophen 325 mg tablet 650 mg (2 x 325 mg) PO Q6H PRN 01/02/23 Fever/Mild Pain (1-3) #60 tabs bisacodyl 5 mg tablet,delayed 10 mg (2 x 5 mg) PO DAILY PRN 01/02/23 release Constipation #7 tabs melatonin 3 mg tablet 6 mg (2 x 3 mg) PO BEDTIME PRN 01/02/23 Insomnia #30 tabs sennosides 8.6 mg tablet (senna) 8.6 mg PO BID #20 tabs 01/02/23 losartan 25 mg tablet 25 mg PO BID #60 tabs 01/26/23 fluticasone propionate 50 1 spray intranasal DAILY #16 grams 10/12/24 mcg/actuation nasal spray,suspension (Flonase Allergy Relief) polymyxin B sulfate 10,000 1 drp EYE-RIGHT Q3H 10 days #10 mL 05/11/25 unit-trimethoprim 1 mg/mL eye drops Allergies Allergy/AdvReac Type Severity Reaction Status Date / Time No Known Drug Allergies Allergy Verified 05/11/25 08:45 Review of Systems Review of Systems ROS Unobtainable: All systems reviewed & are unremarkable except as noted in HPI and below Patient History Medical History Insomnia Depression Essential hypertension Hypertension Surgical History History of hip surgery Family History Father Congestive heart failure Mother Hypertension Social History household members: other Smoking Status: Never smoker alcohol intake: former Smoking Status: Never smoker alcohol intake frequency: holidays/special occasions only Exam Narrative Exam Narrative: GEN: well nourished, well appearing female, alert and oriented x 3, patient appears to be in mild distress. HEENT: Atraumatic, pupils are equal round reactive to light, extraocular movements are intact, nares are clear, TMs are clear with no fluid, there is no conjunctival pallor. Throat is clear without any exudates, erythema, tonsillar enlargement or uvular deviation, no erythema of the face. Visual acuity: right 20/200, left 20/50 without correction. Patient states she wears glasses for reading.. IOP: Right 17 mm Hg, Left 18 mm Hg General: no globe trauma Eyelids: normal inspection, eyelids everted for exam on right, no foreign body. Conjunctiva/Sclera: normal inspection the left, slightly injected conjunctiva, slightly injected sclerae. No significant purulent drainage. Corneas: normal inspection, examined with fluroscein on bilateral, no abrasions, slight haziness uptake of the sclera and cornea but this is bilateral. EOM: intact, no palsy/entrapment Pupils: PERRL, normal accomadation, pupil normal Anterior Chambers: normal inspection, no hypema Posterior: normal fundoscopic on bilateral HEART: Regular rate and rhythm without murmur, clicks, rubs. No carotid bruits, pulses are equal in upper and lower extremities LUNGS:Lungs clear to auscultation, no wheezes, rales, crackles, chest moves symmetrically MSCL: full range of motion, normal gait NEURO:CN 2-12 intact, sensation normal. Initial Vital Signs Initial Vital Signs: Vital Signs Temperature 98.0 F 05/11/25 08:40 Pulse Rate 66 05/11/25 08:40 Respiratory Rate 18 05/11/25 08:40 Blood Pressure 154/74 H 05/11/25 08:40 Pulse Oximetry 97 05/11/25 08:40 Oxygen Delivery Method Room Air 05/11/25 08:40 Course Orders Ordered: Discontinued Medications Diphtheria/Tetanus/Acell Pertussis (Tet,Diph,Pertuss(Acell),Vac/Pf 0.5 Ml Syringe) 0.5 ml IM .ONCE ONE Stop: 05/11/25 09:50 Last Admin: 05/11/25 10:10 Dose: 0.5 ml Documented By: OPHELIA Fluorescein Sodium (Fluorescein 1 Mg Strip) 1 mg EYE-RIGHT NOW ONE Stop: 05/11/25 10:04 Last Admin: 05/11/25 11:06 Dose: 1 mg Documented By: OPHELIA Proparacaine HCl (Proparacaine 0.5% Ophth Ivett) 1 drops EYE-RIGHT NOW ONE Stop: 05/11/25 09:50 Last Admin: 05/11/25 11:05 Dose: 1 drop Documented By: OPHELIA Vital Signs Vital signs: Vital Signs - 8 hr 05/11/25 12:08 Oxygen Delivery Method Room Air MDM - Eye Problem MDM Narrative Medical decision making narrative: Visual acuity is 20/50 on the left, 20/200 on the right, 2050 bilaterally. On exam patient does not have any obvious foreign body, no obvious abrasions, no ulcerations, there some light hazy uptake bilaterally patient has some slight injection of the sclera and conjunctiva on the right. We will treat with antibiotic drops would ask patient follow up shortly even if improvement of symptoms as her visual acuity is different on the right than the left. We will give contact to follow up with return precautions if worsening over the weekend. Discharge Plan Departure Patient Disposition: Home Clinical Impression: Conjunctivitis Instructions: DI for Conjunctivitis Activity Restrictions/Additional Instructions: Please follow up with Optometry or Ophthalmology for rechecked. Contacts included below for the local all source analyst. You can call Wednesday to set up a follow up appointment. Your workup does not show a lot of major changes but you do have decreased vision in the right so we would like for you to follow up to make sure this improves. Potentially have not infection of the eye so use antibiotic eyedrops in the right eye for the next 10 days. If you develop similar symptoms in the left you can put the antibiotic drops on that side as well. Description was sent to [facility] in [place]. If you have significant worsening of symptoms, new pain, rapidly worsening or decreased vision, nausea or vomiting, new redness, swelling or purulent drainage or other new or concerning changes return to the emergency department. Prescriptions: New polymyxin B sulf-trimethoprim 10,000 unit- 1 mg/mL drops 1 drp EYE-RIGHT Q3H 10 Days Qty: 10 0RF Rx Instructions: One drop q 3 hours while awake (Max 6 doses/day) x 10 days. No Action fluticasone propionate [Flonase Allergy Relief] 50 mcg/actuation spray,suspension 1 spray intranasal DAILY Qty: 16 2RF Rx Instructions: administer into each nostril trazodone 50 mg tablet 25 mg PO BEDTIME atenolol 100 mg Tablet 100 mg PO DAILY hydralazine 25 mg Tablet 25 mg PO TID Rx Instructions: Hold for SBP < 100 or HR < 60 acetaminophen 325 mg Tablet 650 mg PO Q6H PRN (Reason: Fever/Mild Pain (1-3)) Qty: 60 0RF bisacodyl 5 mg Tablet,Delayed Release (Dr/Ec) 10 mg PO DAILY PRN (Reason: Constipation) Qty: 7 0RF melatonin 3 mg Tablet 6 mg PO BEDTIME PRN (Reason: Insomnia) Qty: 30 0RF sennosides [senna] 8.6 mg Tablet 8.6 mg PO BID Qty: 20 0RF lidocaine 5 % Adhesive Patch,Medicated 1 patch topical DAILY Rx Instructions: to R Hip fluoxetine 20 mg capsule 20 mg PO QAM Saline Nasal 0.65 % Aerosol,[place] 2 spray INTRANASAL BID Rx Instructions: sinusitis Acidophilus-Pectin Tablet,Chewable 1 tab PO DAILY Rx Instructions: administer with food or milk loratadine 10 mg tablet 10 mg PO BID losartan 25 mg tablet 25 mg PO BID Qty: 60 0RF Referrals: Irineo Lyon MD [Physician, Ophthalmology] Rhea Duque DO [Primary Care Provider, Internal Medicine] Stand Alone Forms: Patient Portal/API
[2025-05-11] MEDS: PROPARACAINE 0.5% OPHTH SOL 1 DROPS EYE-RIGHT (11:05)
[2025-05-11] MEDS: FLUORESCEIN 1 MG STRIP EYE-RIGHT (11:06)
== END 2025-05-11 12:09 | disposition home or self-care (01) ==
PROVIDERS: Emergency Provider Emergency Medicine; PCP Internal Medicine
DX: H10.9 Unspecified conjunctivitis (principal); Z23 Encounter for immunization
CPT/HCPCS: 90471; 99283; 90715

== ENCOUNTER → 2025-09-03 07:50 | Outpatient (CLI) | payer OTHER, SELFPAY ==
[2025-01-13 14:12] VITALS: BMI 20.7
--- NOTE | 2025-09-03 | DI.US.S_ITS ---
PROCEDURE: US RENAL COMPLETE INDICATIONS: swelling TECHNIQUE: Real-time scanning was performed of the kidneys and bladder, with image documentation. COMPARISON: None. FINDINGS: Kidneys: Kidneys are normal in size. Right kidney measures 8.4 cm long; left kidney measures 9.8 cm long. Right renal cortical thickness is 1 cm; left renal cortical thickness is 1.5 cm. Renal cortical echotexture is normal. No hydronephrosis or nephrolithiasis. No suspicious solid mass lesions. Bladder: Pre-void bladder volume is 105 mL. Post-void residual is 50 mL. Pre- void images demonstrate no intraluminal masses or stones. On pre-void images, bilateral ureteral jets are noted with color Doppler interrogation. (Of note, ureteral jets may not be detectable in up to 25% of cases due to insufficient differences in specific gravity between ureteral and bladder urine). Miscellaneous: No free pelvic fluid. IMPRESSION: 1. No hydronephrosis, in small right kidney and borderline size left kidney, with essentially normal echogenicity. 2. Moderate postvoid bladder residual of 50 cc. Dictated by: Rivas Sandoval M.D. on 09/03/2025 at 19:23 Approved by: Rivas Sandoval M.D. on 09/03/2025 at 19:24
== END ==
LOC: US 07:52
PROVIDERS: PCP Internal Medicine; Referring Provider Internal Medicine; Visit Provider Student in an Organized Health Care Education/Training Program
DX: G62.9 Polyneuropathy, unspecified (principal); M79.89 Other specified soft tissue disorders
CPT/HCPCS: 76770

== ENCOUNTER → 2025-09-24 12:40 | Outpatient (CLI) | payer OTHER, SELFPAY ==
[2025-01-13 14:12] VITALS: BMI 20.7
--- NOTE | 2025-09-24 12:41 | DI.US.S_ITS ---
PROCEDURE: US VENOUS INSUFFICIENCY BILAT INDICATIONS: swelling; neuropathy TECHNIQUE: Real time scanning was performed of the lower extremity venous system, with imaging documentation, as well as Color and pulse Doppler interrogation. COMPARISON: None. FINDINGS: RIGHT LOWER EXTREMITY: No DVT. No reflux identified. Greater saphenous vein (GSV): Nearly completely atrophied. No reflux. This measures 2 mm at the SFJ. Small saphenous vein (SSV): 2 mm. No reflux. LEFT LOWER EXTREMITY: No DVT. No reflux identified. Greater saphenous vein (GSV): Nearly completely atrophied no reflux. This measures 2 mm at the SFJ. Small saphenous vein (SSV): 2 mm. No reflux. IMPRESSION: No DVT or deep reflux. Nearly completely atrophied bilateral greater saphenous veins. No reflux. Dictated by: Justice Ramirez M.D. on 09/24/2025 at 14:35 Approved by: Justice Ramirez M.D. on 09/24/2025 at 14:38
== END ==
LOC: US 12:41
PROVIDERS: PCP Internal Medicine; Referring Provider Internal Medicine; Visit Provider Student in an Organized Health Care Education/Training Program
DX: M79.89 Other specified soft tissue disorders (principal); G62.9 Polyneuropathy, unspecified; I99.8 Other disorder of circulatory system
CPT/HCPCS: 93970